=== PATIENT | male | born 1960 | race Native Hawaiian/Other Pacific Islander ===

== ENCOUNTER 2017-12-04 07:07 | Inpatient (IN) | payer BC ==
[2017-12-04 07:13] VITALS: BMI 20.1
--- NOTE | 2017-12-04 07:19 | ED PDOC ---
HPI: Chest Pain Time Seen by Provider: 12/04/17 07:10 History Per: Patient, Family (This is a 57 yo male with h/o DM and atherosclerotic heart disease who is referred to the ER for evaluation of pleuritic chest that that been ongoing for a few weeks. The pain is described as stabbing at times. He denies shortness of breath. He has had outpatient imaging that shows loculated collection in the left lower lobe. He denies cough or chills but has had low grade temps. He lives in [place] and is visiting family here when symptoms became more prominent. He has had travels to the [facility] but notes that he has had a negative Quantiferon TB Gold recently. He has been on ceftin and azithromycin for the past 5 days. ) History/Exam Limitations: no limitations Current Symptoms Are (Timing): Still Present Past Medical History Reviewed: Historical Data, Nursing Documentation, Vital Signs Vital Signs: Last Vital Signs Temp 99 F 12/04/17 07:14 Pulse 97 H 12/04/17 07:14 Resp 16 12/04/17 07:14 BP 126/69 12/04/17 07:14 Pulse Ox 92 L 12/04/17 07:14 - Medical History PMH: Diabetes, Hyperlipidemia - Surgical History Surgical History: No Surg Hx - Family History Family History: States: Other Other Family History: breast cancer in mother - Living Arrangements Living Arrangements: With Family - Social History Current smoker - smoking cessation education provided: Yes (last smoked in 1986) Ex-Smoker (has not smoked in the last 12 months): No Alcohol: Social - Allergies Allergies/Adverse Reactions: Allergies Allergy/AdvReac Type Severity Reaction Status Date / Time No Known Allergies Allergy Verified 12/04/17 07:31 Review of Systems ROS Statement: Except As Marked, All Systems Reviewed And Found Negative Constitutional: Positive for: Fever. Negative for: Chills Cardiovascular: Positive for: Chest Pain Respiratory: Negative for: Cough, Shortness of Breath Gastrointestinal: Negative for: Nausea, Vomiting Physical Exam - Reviewed Nursing Documentation Reviewed: Yes Vital Signs Reviewed: Yes - Physical Exam Appears: Positive for: Well, Non-toxic, No Acute Distress Head Exam: Positive for: ATRAUMATIC, NORMAL INSPECTION, NORMOCEPHALIC Skin: Positive for: Normal Color, Warm, DRY Eye Exam: Positive for: Normal appearance, EOMI, PERRL. Negative for: Conjunctival injection, Scleral icterus ENT: Positive for: Normal ENT Inspection Neck: Positive for: Normal, Painless ROM Cardiovascular/Chest: Positive for: Regular Rate, Rhythm Respiratory: Positive for: Decreased Breath Sounds (left base posterior with E to A changes. There dry crackles bilaterally.) Gastrointestinal/Abdominal: Positive for: Normal Exam, Soft Back: Positive for: Normal Inspection Extremity: Positive for: Normal ROM Neurologic/Psych: Positive for: Alert, Oriented Medical Decision Making Medical Decision Making: Patient has low grade temp along with what appears to be loculated collection in the left lower lobe on outpatient work. He has not improved despite 5 days of oral antibiotics. Will need admission for further evaluation and definite treatment plan. Disposition - Clinical Impression Clinical Impression: Encysted lung fluid, Fever - Patient ED Disposition Is Patient to be Admitted: Yes Doctor Will See Patient In The: Hospital - Disposition Disposition: Transfer of Care Disposition Time: 07:54 Condition: STABLE - Pt Status Changed To: Hospital Disposition Of: Inpatient - Admit Certification Admit to Inpatient:: After my assessment, the patient will require hospitalization for at least two midnights. This is because of the severity of symptoms shown, intensity of services needed, and/or the medical risk in this patient being treated as an outpatient. - POA Present On Arrival: None
[2017-12-04] MEDS ORDERED: Sodium Chloride 0.9% 1,000 ML IV STA (07:35)
[2017-12-04 08:04] LABS: BASO # 0.1 K/uL (0.0-0.2); BASO % 0.7 % (0.0-2.0); EOS # 0.1 K/uL (0.0-0.7); EOS % 0.7 % (0.0-4.0); HEMOGLOBIN 12.4 g/dL (12.0-18.0); LYMPH # 1.2 K/uL (1.0-4.3); LYMPH % 7.7 % (20.0-40.0); MEAN CELL VOLUME 86.9 fl (80.0-94.0); MEAN CORPUSCULAR HEMOGLOBIN 30.2 pg (27.0-31.0); MEAN CORPUSCULAR HGB CONC 34.7 g/dL (33.0-37.0); MEAN PLATELET VOLUME 6.7 fl (7.2-11.7); MONO # 1.5 K/uL (0.0-0.8); MONO % 9.5 % (0.0-10.0); NEUT # 13.3 K/uL (1.8-7.0); NEUT % 81.4 % (50.0-75.0); PLATELET COUNT 676 K/uL (130-400); RED CELL DISTRIBUTION WIDTH 13.1 % (11.5-14.5); WHITE BLOOD COUNT 16.3 K/uL (4.8-10.8)
[2017-12-04 08:10] LABS: INR 1.3 (0.9-1.2); PROTHROMBIN TIME 14.1 Seconds (9.8-13.1)
[2017-12-04 08:12] LABS: ABG ALLEN TEST YES; ARTERIAL BLOOD GAS HCO3 28.3 mmol/L (21-28); ARTERIAL BLOOD GAS O2 SAT 98.3 % (95-98); ARTERIAL BLOOD GAS PCO2 39 mm/Hg (35-45); ARTERIAL BLOOD GAS PH 7.47 (7.35-7.45); ARTERIAL BLOOD GAS PO2 75 mm/Hg (80-100); ARTERIAL BLOOD GAS TCO2 29.6 mmol/L (22-28)
[2017-12-04 08:14] LABS: ALB/GLOB RATIO 0.8 (1.0-2.1); ALBUMIN 3.3 g/dL (3.5-5.0); ALT/SGPT 66 U/L (21-72); AST/SGOT 46 U/L (17-59); BLOOD UREA NITROGEN 15 mg/dl (9-20); GFR AFRICAN-AMERICAN > 60; GFR NON-AFRICAN AMERICAN > 60
[2017-12-04] MEDS ORDERED: Insulin Regular 100 units/ml SC STA (08:22)
--- NOTE | 2017-12-04 08:55 | CP.PCM.HP ---
History of Present Illness - History of Present Illness History of Present Illness: This is a 57 y/o male with hx of DM 2, hyperlipidemia who started having LL chest pleuritic pain in the past three weeks associated with low grade fever. CXR showed a possible mass in the left lower lobe but CT scan showed a LLL atelectasis and encapsulated( cystic) LLL fluid collection He was started on Ceftin and zithromax but sx persisted. Recent travel was 2 years ago. Recent Quanterferon was negative. recent stress test was normal. Medical hx DM 2 A1c 7.2 Hyperlipidemia LDL: 121 No allergies. Present on Admission - Present on Admission Any Indicators Present on Admission: No History of DVT/PE: No History of Uncontrolled Diabetes: Yes Urinary Catheter: No Decubitus Ulcer Present: No Review of Systems - Respiratory Respiratory: Pain on Inspiration Additional comments: pleuritic pain in the LLL Past Patient History - Past Social History Alcohol: Social - CARDIAC Hx Cardiac Disorders: No - PULMONARY Hx Respiratory Disorders: No - NEUROLOGICAL Hx Neurological Disorder: No - HEENT Hx HEENT Problems: No - RENAL Hx Chronic Kidney Disease: No - ENDOCRINE/METABOLIC Hx Diabetes Mellitus Type 2: Yes - HEMATOLOGICAL/ONCOLOGICAL Hx Blood Disorders: No - INTEGUMENTARY Hx Dermatological Problems: No - MUSCULOSKELETAL/RHEUMATOLOGICAL Hx Musculoskeletal Disorders: No - GASTROINTESTINAL Hx Gastrointestinal Disorders: No - GENITOURINARY/GYNECOLOGICAL Hx Genitourinary Disorders: No - PSYCHIATRIC Hx Psychophysiologic Disorder: No Hx Substance Use: No Meds Allergies/Adverse Reactions: Allergies Allergy/AdvReac Type Severity Reaction Status Date / Time No Known Allergies Allergy Verified 12/04/17 07:31 Physical Exam - Head Exam Head Exam: NORMAL INSPECTION - Eye Exam Eye Exam: Normal appearance - ENT Exam ENT Exam: Mucous Membranes Moist - Respiratory Exam Respiratory Exam: Decreased Breath Sounds Additional comments: decreased breath sound in the LLL - Cardiovascular Exam Cardiovascular Exam: REGULAR RHYTHM - GI/Abdominal Exam GI & Abdominal Exam: Normal Bowel Sounds - Neurological Exam Neurological exam: CN II-XII Intact Results - Vital Signs Recent Vital Signs: Last Vital Signs Temp 99 F 12/04/17 07:14 Pulse 97 H 12/04/17 07:14 Resp 16 12/04/17 07:14 BP 126/69 12/04/17 07:14 Pulse Ox 92 L 12/04/17 07:14 - Labs Result Diagrams: 12/04/17 07:59 12/04/17 07:59 Labs: Laboratory Results - last 24 hr 12/04/17 12/04/17 12/04/17 07:44 07:59 07:59 WBC 16.3 H RBC 4.10 L Hgb 12.4 Hct 35.6 MCV 86.9 MCH 30.2 MCHC 34.7 RDW 13.1 Plt Count 676 H MPV 6.7 L Neut % (Auto) 81.4 H Lymph % (Auto) 7.7 L [place] % (Auto) 9.5 Eos % (Auto) 0.7 Baso % (Auto) 0.7 Neut # (Auto) 13.3 H Lymph # (Auto) 1.2 [place] # (Auto) 1.5 H Eos # (Auto) 0.1 Baso # (Auto) 0.1 PT INR APTT pCO2 39 pO2 75 L HCO3 28.3 H ABG pH 7.47 H ABG Total CO2 29.6 H ABG O2 Saturation 98.3 H ABG Base Excess 4.4 H Odin Test Yes ABG Potassium 4.1 A-a O2 Difference 26.0 Sodium 128.0 L 132 Chloride 93.0 L 92 L Glucose 372 H Lactate 2.2 H FiO2 21.0 Blood Gas Comments room air,rt radial Potassium 4.2 Carbon Dioxide 25 Anion Gap 19 BUN 15 Creatinine 0.7 L Est GFR ( Amer) > 60 Est GFR (Non-Af Amer) > 60 Random Glucose 370 H Calcium 9.0 Total Bilirubin 0.4 AST 46 ALT 66 Alkaline Phosphatase 233 H Total Protein 7.6 Albumin 3.3 L Globulin 4.3 H Albumin/Globulin Ratio 0.8 L Arterial Blood Potassium 4.1 12/04/17 07:59 WBC RBC Hgb Hct MCV MCH MCHC RDW Plt Count MPV Neut % (Auto) Lymph % (Auto) [place] % (Auto) Eos % (Auto) Baso % (Auto) Neut # (Auto) Lymph # (Auto) [place] # (Auto) Eos # (Auto) Baso # (Auto) PT 14.1 H INR 1.3 H APTT 35.0 pCO2 pO2 HCO3 ABG pH ABG Total CO2 ABG O2 Saturation ABG Base Excess Odin Test ABG Potassium A-a O2 Difference Sodium Chloride Glucose Lactate FiO2 Blood Gas Comments Potassium Carbon Dioxide Anion Gap BUN Creatinine Est GFR ( Amer) Est GFR (Non-Af Amer) Random Glucose Calcium Total Bilirubin AST ALT Alkaline Phosphatase Total Protein Albumin Globulin Albumin/Globulin Ratio Arterial Blood Potassium Assessment & Plan (1) Pleural effusion Status: Acute (2) Empyema lung Status: Acute (3) DM type 2 (diabetes mellitus, type 2) Status: Acute (4) Hyperlipidemia Status: Acute - Assessment and Plan (Free Text) Plan: IV antibiotics fluids consult pulmonary ID intrerventional for aspiration
[2017-12-04 09:19] LABS: URINE BILIRUBIN NEGATIVE (NEGATIVE); URINE BLOOD SMALL (NEGATIVE); URINE CLARITY CLEAR (Clear); URINE COLOR YELLOW (YELLOW); URINE GLUCOSE (UA) >=500 mg/dL (Normal); URINE LEUKOCYTE ESTERASE NEG Leu/uL (Negative); URINE PROTEIN 30 mg/dL (NEGATIVE); URINE UROBILINOGEN 0.2-1.0 mg/dL (0.2-1.0)
[2017-12-04] MEDS ORDERED: Insulin Regular 100 units/ml ONE (09:21)
[2017-12-04] MEDS ORDERED: levoFLOXacin 500 mg in D5W 500 MG/100 ML BAG IVPB ONE (09:21)
[2017-12-04] MEDS: levoFLOXacin 500 mg in D5W 500 MG/100 ML BAG IVPB SCH (09:28)
--- NOTE | 2017-12-04 09:33 | RAD ---
HISTORY: chest pain COMPARISON: No prior. TECHNIQUE: Chest PA and lateral FINDINGS: LUNGS: Left lower lobe infiltrate and pleural effusion identified completely silhouetting left hemidiaphragm. Infiltrate extends at the left perihilar region. No rice infiltrate or pleural effusion. No pneumothorax bilaterally. Cardiac silhouette is partially obscured by a left sided pulmonary disease with cardiomegaly not completely excluded. No pulmonary vascular congestion. PLEURA: As above. CARDIOVASCULAR: As above. OSSEOUS STRUCTURES: No significant abnormalities. VISUALIZED UPPER ABDOMEN: Normal. OTHER FINDINGS: None. IMPRESSION: Left lower lobe infiltrate and left pleural effusion are identified with no corresponding right pulmonary disease appreciated acutely. Cardiomegaly not completely excluded but evaluation the cardiac silhouette is obscured by left sided infiltrate/effusion.
--- NOTE | 2017-12-04 09:37 | CP.PCM.CON ---
History of Present Illness - History of Present Illness History of Present Illness: 57 YR OLD MALE REFERRED FOR PULMONARY EVALUATION BECAUSE OF LOW GRADE FEVER,L CHEST DISCOMFORT AND CXR/CT SCAN FINDING OF L LOCULATED PLEURAL EFFUSION.THE PT IS VISITING FROM [place] AND HAS AN UNREMARKABLE MEDICAL HISTORY EXCEPT FOR DIABETES Past Patient History - Past Social History Alcohol: Social - CARDIAC Hx Cardiac Disorders: No - PULMONARY Hx Respiratory Disorders: No - NEUROLOGICAL Hx Neurological Disorder: No - HEENT Hx HEENT Problems: No - RENAL Hx Chronic Kidney Disease: No - ENDOCRINE/METABOLIC Hx Diabetes Mellitus Type 2: Yes - HEMATOLOGICAL/ONCOLOGICAL Hx Blood Disorders: No - INTEGUMENTARY Hx Dermatological Problems: No - MUSCULOSKELETAL/RHEUMATOLOGICAL Hx Musculoskeletal Disorders: No - GASTROINTESTINAL Hx Gastrointestinal Disorders: No - GENITOURINARY/GYNECOLOGICAL Hx Genitourinary Disorders: No - PSYCHIATRIC Hx Psychophysiologic Disorder: No Hx Substance Use: No Meds Allergies/Adverse Reactions: Allergies Allergy/AdvReac Type Severity Reaction Status Date / Time No Known Allergies Allergy Verified 12/04/17 07:31 - Medications Medications: Current Medications Acetaminophen (Tylenol 325mg Tab) 650 mg PO Q4 PRN PRN Reason: Fever >100.4 F Sodium Chloride (Sodium Chloride 0.9%) 1,000 mls @ 100 mls/hr IV .Q10H STA Stop: 12/04/17 17:34 Last Admin: 12/04/17 08:17 Dose: 100 mls/hr Clindamycin in NS (Clindamycin 300 Mg/50 Ml-Ns) 300 mg in 50 mls @ 50 mls/hr IVPB Q8 [place]ORE[place] PRN Reason: Protocol Levofloxacin/Dextrose (Levaquin 500mg) 500 mg in 100 mls @ 100 mls/hr IVPB DAILY LORENA PRN Reason: Protocol Last Admin: 12/04/17 09:28 Dose: 100 mls/hr Physical Exam - Constitutional Appears: Well - Head Exam Head Exam: ATRAUMATIC, NORMAL INSPECTION, NORMOCEPHALIC - Eye Exam Eye Exam: EOMI, Normal appearance, PERRL Pupil Exam: NORMAL ACCOMODATION, PERRL - ENT Exam ENT Exam: Mucous Membranes Moist, Normal Exam - Neck Exam Neck exam: Positive for: Normal Inspection - Respiratory Exam Respiratory Exam: Decreased Breath Sounds, Clear to Auscultation Bilateral, NORMAL BREATHING PATTERN Additional comments: DULLNESS L BASE - Cardiovascular Exam Cardiovascular Exam: REGULAR RHYTHM - GI/Abdominal Exam GI & Abdominal Exam: Normal Bowel Sounds, Soft. absent: Tenderness - Rectal Exam Rectal Exam: NORMAL INSPECTION - Extremities Exam Extremities exam: Positive for: normal inspection - Back Exam Back exam: NORMAL INSPECTION - Neurological Exam Neurological exam: Alert, CN II-XII Intact, Normal Gait, Oriented x3, Reflexes Normal - Psychiatric Exam Psychiatric exam: Normal Affect, Normal Mood - Skin Skin Exam: Dry, Intact, Normal Color, Warm Results - Vital Signs Recent Vital Signs: Last Vital Signs Temp 99 F 12/04/17 07:14 Pulse 97 H 12/04/17 07:14 Resp 16 12/04/17 07:14 BP 126/69 12/04/17 07:14 Pulse Ox 92 L 12/04/17 07:14 - Labs Result Diagrams: 12/04/17 07:59 12/04/17 07:59 Labs: Laboratory Results - last 24 hr 12/04/17 12/04/17 12/04/17 07:44 07:59 07:59 WBC 16.3 H RBC 4.10 L Hgb 12.4 Hct 35.6 MCV 86.9 MCH 30.2 MCHC 34.7 RDW 13.1 Plt Count 676 H MPV 6.7 L Neut % (Auto) 81.4 H Lymph % (Auto) 7.7 L [place] % (Auto) 9.5 Eos % (Auto) 0.7 Baso % (Auto) 0.7 Neut # (Auto) 13.3 H Lymph # (Auto) 1.2 [place] # (Auto) 1.5 H Eos # (Auto) 0.1 Baso # (Auto) 0.1 PT INR APTT pCO2 39 pO2 75 L HCO3 28.3 H ABG pH 7.47 H ABG Total CO2 29.6 H ABG O2 Saturation 98.3 H ABG Base Excess 4.4 H Odin Test Yes ABG Potassium 4.1 A-a O2 Difference 26.0 Sodium 128.0 L 132 Chloride 93.0 L 92 L Glucose 372 H Lactate 2.2 H FiO2 21.0 Blood Gas Comments room air,rt radial Potassium 4.2 Carbon Dioxide 25 Anion Gap 19 BUN 15 Creatinine 0.7 L Est GFR ( Amer) > 60 Est GFR (Non-Af Amer) > 60 Random Glucose 370 H Calcium 9.0 Total Bilirubin 0.4 AST 46 ALT 66 Alkaline Phosphatase 233 H Total Protein 7.6 Albumin 3.3 L Globulin 4.3 H Albumin/Globulin Ratio 0.8 L Arterial Blood Potassium 4.1 Urine Color Urine Clarity Urine pH Ur Specific [place] Urine Protein Urine Glucose (UA) Urine Ketones Urine Blood Urine Nitrate Urine Bilirubin Urine Urobilinogen Ur Leukocyte Esterase Urine RBC (Auto) Urine Microscopic WBC 12/04/17 12/04/17 07:59 09:00 WBC RBC Hgb Hct MCV MCH MCHC RDW Plt Count MPV Neut % (Auto) Lymph % (Auto) [place] % (Auto) Eos % (Auto) Baso % (Auto) Neut # (Auto) Lymph # (Auto) [place] # (Auto) Eos # (Auto) Baso # (Auto) PT 14.1 H INR 1.3 H APTT 35.0 pCO2 pO2 HCO3 ABG pH ABG Total CO2 ABG O2 Saturation ABG Base Excess Odin Test ABG Potassium A-a O2 Difference Sodium Chloride Glucose Lactate FiO2 Blood Gas Comments Potassium Carbon Dioxide Anion Gap BUN Creatinine Est GFR ( Amer) Est GFR (Non-Af Amer) Random Glucose Calcium Total Bilirubin AST ALT Alkaline Phosphatase Total Protein Albumin Globulin Albumin/Globulin Ratio Arterial Blood Potassium Urine Color Yellow Urine Clarity Clear Urine pH 6.0 Ur Specific [place] 1.023 Urine Protein 30 Urine Glucose (UA) >=500 Urine Ketones Negative Urine Blood Small Urine Nitrate Negative Urine Bilirubin Negative Urine Urobilinogen 0.2-1.0 Ur Leukocyte Esterase Neg Urine RBC (Auto) 4 H Urine Microscopic WBC 1 Assessment & Plan - Assessment and Plan (Free Text) Assessment: LOCULATED L PLEURAL EFFUSION--PROBABLY PARAPNEUMONIC Plan: ULTRASOUND GUIDED THORACENTESES IV ANTIBIOTICS WILL CONTINUE TO FOLLOW - Date & Time Date: 12/04/17 Time: 09:40
[2017-12-04 09:47] LABS: BANDS 3 % (0-2); EOSINOPHIL 1 % (0-7); LYMPHOCYTE 8 % (20-50); MONOCYTE 5 % (0-10); NEUTROPHIL 81 % (42-75); PLATELET ESTIMATE INCREASED (NORMAL); REACTIVE LYMPHOCYTES 2 % (0-0); TOTAL CELLS COUNTED 100
[2017-12-04] MEDS ORDERED: LIDOCAINE 2% 10ML 20 MG/ML VIAL IJ ONE (11:06)
--- NOTE | 2017-12-04 12:04 | PCM.SURG1 ---
Surgeon's Initial Post Op Note - Surgeon's Notes Surgeon: Art Cuba MD Hand Deicer Element Winder: None Type of Anesthesia: Local Pre-Operative Diagnosis: empyema Operative Findings: complex left pleural effusion w/ septations. 8 guamanian pigtail chest tube placed Post-Operative Diagnosis: same Operation Performed: US guided LEFT chest tube insertion Specimen/Specimens Removed: 60 cc thick purulent appearing pleural fluid Estimated Blood Loss: EBL {In ML}: 3 Date of Surgery/Procedure: 12/04/17 Time of Surgery/Procedure: 11:45
--- NOTE | 2017-12-04 12:29 | CP.PCM.CON ---
History of Present Illness - History of Present Illness History of Present Illness: seen s/p drainage left lower lobe loculated effusion\ 57 y/o male started having LL chest pleuritic pain in the past three weeks associated with low grade fever. CXR showed a possible mass in the left lower lobe but CT scan showed a LLL atelectasis and encapsulated( cystic) LLL fluid collection He was started on Ceftin and zithromax but sx persisted. Recent travel was 2 years ago. Recent Quanterferon was negative. recent stress test was normal. Medical hx DM 2 A1c 7.2 Hyperlipidemia LDL: 121 No allergies. Review of Systems - Review of Systems All systems: reviewed and no additional remarkable complaints except - Constitutional Constitutional: Anorexia, Fatigue. absent: Weakness - EENT Eyes: As Per HPI. absent: Blind Spots, Blurred Vision, Change in Vision, Decreased Night Vision, Diplopia, Discharge, Dry Eye, Exophthalmos, Floaters, Irritation, Itchy Eyes, Loss of Peripheral Vision, Pain, Photophobia, Requires Corrective Lenses, Sees Flashes, Spots in Vision, Tunnel Vision, Other Visual Disturbances, Loss of Vision, Other Ears: absent: As Per HPI, Decreased Hearing, Ear Discharge, Ear Pain, Tinnitus, Abnormal Hearing, Disequilibrium, Dizziness, Other Nose/Mouth/Throat: As Per HPI. absent: Epistaxis, Nasal Congestion, Nasal Discharge, Nasal Obstruction, Nasal Trauma, Nose Pain, Post Nasal Drip, Sinus Pain, Sinus Pressure, Bleeding Gums, Change in Voice, Dental Pain, Dry Mouth, Dysphagia, Halitosis, Hoarsness, Lip Swelling, Mouth Lesions, Mouth Pain, Odynophagia, Sore Throat, Throat Swelling, Tongue Swelling, Facial Pain, Neck Pain, Neck Mass, Other - Cardiovascular Cardiovascular: absent: As Per HPI, Acrocyanosis, Chest Pain, Chest Pain at Rest , Chest Pain with Activity, Claudication, Diaphoresis, Dyspnea, Dyspnea on Exertion, Edema, Irregular Heart Rhythm, Pain Radiating to Arm/Neck/Jaw, Leg Edema, Leg Ulcers, Lightheadedness, Orthopnea, Palpitations, Paroxysmal Nocturnal Dyspnea, Pedal Edema, Radiating Pain, Rapid Heart Rate, Slow Heart Rate, Syncope, Other - Respiratory Respiratory: As Per HPI. absent: Hemoptysis - Gastrointestinal Gastrointestinal: absent: As Per HPI, Abdominal Pain, Belching, Bloating, Change in Bowel Habits, Change in Stool Character, Coffee Ground Emesis, Constipation, Cramping, Diarrhea, Dyspepsia, Dysphagia, Early Satiety, Excessive Flatus, Fecal Incontinence, Heartburn, Hematemesis, Hematochezia, Loose Stools, Melena, Nausea, Odynophagia, Temesmus, Vomiting, Other - Genitourinary Genitourinary: absent: As Per HPI, Change in Urinary Stream, Difficulty Urinating, Dysuria, Flank Pain, Hematuria, Pyuria, Nocturia, Urinary Incontinence, Urinary Frequency, Urinary Hesitance, Urinary Urgency, Voiding Freq/Small Amts, Freq UTI, Hx Renal/Bladder Calculi, Hx /Renal Surgery, Bladder Distension, Other - Musculoskeletal Musculoskeletal: As Per HPI - Integumentary Integumentary: absent: As Per HPI, Acne, Alopecia, Bleeding Lesions, Change in Hair, Change in Nails, Change in Pigmentation, Changing Lesions, Dry Skin, Erythema, Furuncle, Hirsutism, Lesions, New Lesions, Non-Healing Lesions, Photosensitivity, Pruritus, Rash, Skin Pain, Skin Ulcer, Sores, Striae, Swelling , Unusual Bruising, Wounds, Jaundice, Other - Neurological Neurological: absent: As Per HPI, Abnormal Gait, Abnormal Hearing, Abnormal Movements, Abnormal Speech, Behavioral Changes, Burning Sensations, Confusion, Convulsions, Disequilibrium, Dizziness, Numbness, Focal Weakness, Frequent Falls , Headaches, Lack of Coordination, Loss of Vision, Memory Loss, Paresthesias, Radicular Pain, Restless Legs, Sensory Deficit, Syncope, Tingling, Tremor, Vertigo, Weakness, Other Visual Disturbances, Other - Psychiatric Psychiatric: absent: As Per HPI, Abnormal Sleep Pattern, Anhedonia, Anxiety, Auditory Hallucinations, Behavioral Changes, Change in Appetite, Change in Libido, Confusion, Depression, Difficulty Concentrating, Hallucinations, Homicidal Ideation, Hopelessness, Irritability, Memory Loss, Mood Swings, Panic Attacks, Paranoia, Suicidal Ideation, Visual Hallucinations, Tactile Hallucinations, Other - Endocrine Endocrine: absent: As Per HPI, Change in Body Appearance, Change in Libido, Cold Intolorance, Deepening of Voice, Excessive Sweating, Fatigue, Flushing, Heat Intolorance, Increase in Ring/Shoe/Hat Size, Palpitations, Polydipsia, Polyphagia, Polyuria, Other - Hematologic/Lymphatic Hematologic: absent: As Per HPI, Easy Bleeding, Easy Bruising, Lymphadenopathy, Other Past Patient History - Past Social History Alcohol: Social - CARDIAC Hx Cardiac Disorders: No - PULMONARY Hx Respiratory Disorders: No - NEUROLOGICAL Hx Neurological Disorder: No - HEENT Hx HEENT Problems: No - RENAL Hx Chronic Kidney Disease: No - ENDOCRINE/METABOLIC Hx Diabetes Mellitus Type 2: Yes - HEMATOLOGICAL/ONCOLOGICAL Hx Blood Disorders: No - INTEGUMENTARY Hx Dermatological Problems: No - MUSCULOSKELETAL/RHEUMATOLOGICAL Hx Musculoskeletal Disorders: No - GASTROINTESTINAL Hx Gastrointestinal Disorders: No - GENITOURINARY/GYNECOLOGICAL Hx Genitourinary Disorders: No - PSYCHIATRIC Hx Psychophysiologic Disorder: No Meds Allergies/Adverse Reactions: Allergies Allergy/AdvReac Type Severity Reaction Status Date / Time No Known Allergies Allergy Verified 12/04/17 07:31 - Medications Medications: Current Medications Acetaminophen (Tylenol 325mg Tab) 650 mg PO Q4 PRN PRN Reason: Fever >100.4 F Sodium Chloride (Sodium Chloride 0.9%) 1,000 mls @ 100 mls/hr IV .Q10H STA Stop: 12/04/17 17:34 Last Admin: 12/04/17 08:17 Dose: 100 mls/hr Clindamycin in NS (Clindamycin 300 Mg/50 Ml-Ns) 300 mg in 50 mls @ 50 mls/hr IVPB Q8 LORENA PRN Reason: Protocol Levofloxacin/Dextrose (Levaquin 500mg) 500 mg in 100 mls @ 100 mls/hr IVPB DAILY LORENA PRN Reason: Protocol Last Admin: 12/04/17 09:28 Dose: 100 mls/hr Physical Exam - Constitutional Appears: Non-toxic, Chronically Ill - Head Exam Head Exam: NORMOCEPHALIC - Eye Exam Eye Exam: absent: Scleral icterus - ENT Exam ENT Exam: Mucous Membranes Dry, Normal External Ear Exam - Neck Exam Neck exam: Negative for: Lymphadenopathy - Respiratory Exam Respiratory Exam: Decreased Breath Sounds, Prolonged Expiratory Phase, Rales, Rhonchi. absent: Respiratory Distress - Cardiovascular Exam Cardiovascular Exam: REGULAR RHYTHM, +S1, +S2 - GI/Abdominal Exam GI & Abdominal Exam: Diminished Bowel Sounds, Distended, Soft. absent: Rebound , Rigid, Tenderness - Rectal Exam Rectal Exam: Deferred - Exam Exam: NORMAL INSPECTION - Extremities Exam Extremities exam: Negative for: pedal edema - Back Exam Back exam: absent: CVA tenderness (L), CVA tenderness (R) - Neurological Exam Neurological exam: Alert, CN II-XII Intact, Oriented x3, Reflexes Normal - Psychiatric Exam Psychiatric exam: Normal Mood - Skin Skin Exam: Dry, Intact Results - Vital Signs Recent Vital Signs: Last Vital Signs Temp 101.0 F H 12/04/17 12:17 Pulse 98 H 12/04/17 12:17 Resp 18 12/04/17 12:17 BP 119/60 12/04/17 12:17 Pulse Ox 97 12/04/17 12:17 - Labs Result Diagrams: 12/04/17 07:59 12/04/17 07:59 Labs: Laboratory Results - last 24 hr 12/04/17 12/04/17 12/04/17 07:44 07:59 07:59 WBC 16.3 H RBC 4.10 L Hgb 12.4 Hct 35.6 MCV 86.9 MCH 30.2 MCHC 34.7 RDW 13.1 Plt Count 676 H MPV 6.7 L Neut % (Auto) 81.4 H Lymph % (Auto) 7.7 L Bremer % (Auto) 9.5 Eos % (Auto) 0.7 Baso % (Auto) 0.7 Neut # (Auto) 13.3 H Lymph # (Auto) 1.2 Bremer # (Auto) 1.5 H Eos # (Auto) 0.1 Baso # (Auto) 0.1 Neutrophils % (Manual) 81 H Band Neutrophils % 3 H Lymphocytes % (Manual) 8 L Reactive Lymphs % 2 H Monocytes % (Manual) 5 Eosinophils % (Manual) 1 Platelet Estimate Increased H ESR PT INR APTT pCO2 39 pO2 75 L HCO3 28.3 H ABG pH 7.47 H ABG Total CO2 29.6 H ABG O2 Saturation 98.3 H ABG Base Excess 4.4 H Odin Test Yes ABG Potassium 4.1 A-a O2 Difference 26.0 Sodium 128.0 L 132 Chloride 93.0 L 92 L Glucose 372 H Lactate 2.2 H FiO2 21.0 Blood Gas Comments room air,rt radial Potassium 4.2 Carbon Dioxide 25 Anion Gap 19 BUN 15 Creatinine 0.7 L Est GFR ( Amer) > 60 Est GFR (Non-Af Amer) > 60 Random Glucose 370 H Calcium 9.0 Total Bilirubin 0.4 AST 46 ALT 66 Alkaline Phosphatase 233 H Total Protein 7.6 Albumin 3.3 L Globulin 4.3 H Albumin/Globulin Ratio 0.8 L Arterial Blood Potassium 4.1 Urine Color Urine Clarity Urine pH Ur Specific [place] Urine Protein Urine Glucose (UA) Urine Ketones Urine Blood Urine Nitrate Urine Bilirubin Urine Urobilinogen Ur Leukocyte Esterase Urine RBC (Auto) Urine Microscopic WBC 12/04/17 12/04/17 12/04/17 07:59 09:00 09:46 WBC RBC Hgb Hct MCV MCH MCHC RDW Plt Count MPV Neut % (Auto) Lymph % (Auto) Bremer % (Auto) Eos % (Auto) Baso % (Auto) Neut # (Auto) Lymph # (Auto) Bremer # (Auto) Eos # (Auto) Baso # (Auto) Neutrophils % (Manual) Band Neutrophils % Lymphocytes % (Manual) Reactive Lymphs % Monocytes % (Manual) Eosinophils % (Manual) Platelet Estimate ESR 101 H PT 14.1 H INR 1.3 H APTT 35.0 pCO2 pO2 HCO3 ABG pH ABG Total CO2 ABG O2 Saturation ABG Base Excess Odin Test ABG Potassium A-a O2 Difference Sodium Chloride Glucose Lactate FiO2 Blood Gas Comments Potassium Carbon Dioxide Anion Gap BUN Creatinine Est GFR ( Amer) Est GFR (Non-Af Amer) Random Glucose Calcium Total Bilirubin AST ALT Alkaline Phosphatase Total Protein Albumin Globulin Albumin/Globulin Ratio Arterial Blood Potassium Urine Color Yellow Urine Clarity Clear Urine pH 6.0 Ur Specific [place] 1.023 Urine Protein 30 Urine Glucose (UA) >=500 Urine Ketones Negative Urine Blood Small Urine Nitrate Negative Urine Bilirubin Negative Urine Urobilinogen 0.2-1.0 Ur Leukocyte Esterase Neg Urine RBC (Auto) 4 H Urine Microscopic WBC 1 Assessment & Plan (1) DM type 2 (diabetes mellitus, type 2) Status: Acute (2) Empyema lung Status: Acute (3) Fever Status: Acute (4) Pleural effusion Status: Acute - Assessment and Plan (Free Text) Assessment: s/p CT drainage of empyema cont IV antibiotics await cultures started on Clinda/ Levaquin works in CT concern for Hosp acquired organisms will add Cristian
[2017-12-04] MEDS ORDERED: Sodium Chloride 3% for Inhalation 4 ML VIAL.NEB IH PRN (12:45)
[2017-12-04] MEDS: Oxycodone/Acetaminophen 5/325 mg Tab PO PRN ×3 (13:29→19:29)
[2017-12-04] MEDS: Dextrose 5%/Lactated Ringer's 1,000 ML IV SCH (13:31)
[2017-12-04 14:05] LABS: TOTAL PROTEIN,BODY FLUID 2.7 g/dL (NONE ESTABLISHED)
[2017-12-04] MEDS: Clindamycin in NS 300 MG/50 ML BAG IVPB SCH ×2 (15:57→15:59)
--- NOTE | 2017-12-04 16:38 | CARD ---
APPROVED REPORT EXAM: Two-dimensional and M-mode echocardiogram with Doppler and color Doppler. Other Information Quality : GoodRhythm : NSR INDICATION Infection:Subacute bacterial endocarditis 2D DIMENSIONS IVSd0.98 (0.7-1.1cm)LVDd4.03 (3.9-5.9cm) LVOT Diameter1.59 (1.8-2.4cm)PWd1.03 (0.7-1.1cm) IVSs1.09 (0.8-1.2cm)LVDs2.93 (2.5-4.0cm) FS (%) 27.4 %PWs1.41 (0.8-1.2cm) M-Mode DIMENSIONS Left Atrium (MM)3.24 (2.5-4.0cm)IVSd1.09 (0.7-1.1cm) Aortic Root3.09 (2.2-3.7cm)LVDd4.74 (4.0-5.6cm) Aortic Cusp Exc.1.53 (1.5-2.0cm)PWd1.00 (0.7-1.1cm) IVSs1.09 cmFS (%) 36 % LVDs3.03 (2.0-3.8cm)PWs1.29 cm Mitral Valve MV E Kmkhbxqd17.5cm/sMV DECEL [id number] A Iqvnrdty35.9cm/s MV [id number] ratio1.1MVA (PHT)4.36cm2 TDI Lateral E' Peak V12.14cm/sMedial E' Peak V8.88cm/sE/Lateral E'5.5 E/Medial E'7.5 Pulmonary Valve PV Peak Kcdwatrn377.1cm/s LEFT VENTRICLE The left ventricle is normal in size. There is normal left ventricular wall thickness. Left ventricle systolic function is low normal. The Ejection Fraction is 50-55%. low normal The left ventricular diastolic function is normal. No left ventricle thrombus noted on this study. There is no ventricular septal defect visualized. There is no left ventricular aneurysm. There is no mass noted in the left ventricle. RIGHT VENTRICLE The right ventricle is normal size. There is normal right ventricular wall thickness. The right ventricular systolic function is normal. ATRIA The left atrium size is normal. There is no thrombus suspected in the left atrium. The right atrium size is normal. The interatrial septum is intact with no evidence for an atrial septal defect. AORTIC VALVE The aortic valve is normal in structure. No aortic regurgitation is present. There is no aortic valvular stenosis. There is no aortic valvular vegetation. MITRAL VALVE The mitral valve is normal in structure. There is no evidence of mitral valve prolapse. There is no mitral valve stenosis. There is no mitral valve regurgitation noted. TRICUSPID VALVE The tricuspid valve is normal in structure. There is no tricuspid valve regurgitation noted. There is no tricuspid valve prolapse or vegetation. There is no tricuspid valve stenosis. PULMONIC VALVE The pulmonary valve is normal in structure. There is no pulmonic valvular regurgitation. GREAT VESSELS The aortic root is normal in size. The IVC is normal in size and collapses >50% with inspiration. PERICARDIAL EFFUSION The pericardium appears normal. There appears to be a pleural effusion. <Conclusion> The left ventricle is normal in size and wall thickness. Left ventricle systolic function is low normal. The Ejection Fraction is 50-55%. The left atrium, right ventricle and right atrium are normal in size. The mitral, aortic and tricuspid valves are normal. No valvular vegetations were seen.
[2017-12-04] MEDS: Lactobacillus Acidophilus 500 MU Cap PO SCH (17:09)
--- NOTE | 2017-12-04 17:09 | CARD ---
APPROVED REPORT EKG Measurement Heart [id number] <Conclusion> Normal sinus rhythm Normal ECG
[2017-12-04] MEDS: Insulin Regular 100 units/ml SC SCH ×2 (17:28→22:00)
[2017-12-05] MEDS: Insulin Regular 100 units/ml SC SCH ×4 (06:39→23:05)
[2017-12-05] MEDS: Dextrose 5%/Lactated Ringer's 1,000 ML IV SCH (06:42)
[2017-12-05 07:42] LABS: BASO # 0.1 K/uL (0.0-0.2); BASO % 0.7 % (0.0-2.0); EOS % 0.2 % (0.0-4.0); HEMOGLOBIN 12.4 g/dL (12.0-18.0); LYMPH # 1.2 K/uL (1.0-4.3); LYMPH % 6.8 % (20.0-40.0); MEAN CELL VOLUME 86.9 fl (80.0-94.0); MEAN CORPUSCULAR HEMOGLOBIN 29.9 pg (27.0-31.0); MEAN CORPUSCULAR HGB CONC 34.4 g/dL (33.0-37.0); MEAN PLATELET VOLUME 6.9 fl (7.2-11.7); MONO # 1.7 K/uL (0.0-0.8); MONO % 9.7 % (0.0-10.0); NEUT # 14.8 K/uL (1.8-7.0); NEUT % 82.6 % (50.0-75.0); RBC 4.15 Mil/uL (4.40-5.90); RED CELL DISTRIBUTION WIDTH 12.9 % (11.5-14.5)
[2017-12-05 07:47] LABS: ALB/GLOB RATIO 0.8 (1.0-2.1); ALBUMIN 3.2 g/dL (3.5-5.0); ALT/SGPT 55 U/L (21-72); AST/SGOT 40 U/L (17-59); BLOOD UREA NITROGEN 10 mg/dl (9-20); CALCIUM 8.7 mg/dL (8.4-10.2); GFR AFRICAN-AMERICAN > 60; GFR NON-AFRICAN AMERICAN > 60
[2017-12-05 08:24] LABS: BASO # 0.1 K/uL (0.0-0.2); BASO % 0.7 % (0.0-2.0); EOS % 0.2 % (0.0-4.0); HEMOGLOBIN 12.1 g/dL (12.0-18.0); LYMPH % 5.8 % (20.0-40.0); MEAN CELL VOLUME 86.5 fl (80.0-94.0); MEAN CORPUSCULAR HEMOGLOBIN 29.7 pg (27.0-31.0); MEAN CORPUSCULAR HGB CONC 34.3 g/dL (33.0-37.0); MEAN PLATELET VOLUME 6.6 fl (7.2-11.7); MONO # 1.5 K/uL (0.0-0.8); MONO % 8.3 % (0.0-10.0); NEUT # 15.2 K/uL (1.8-7.0); RBC 4.06 Mil/uL (4.40-5.90); RED CELL DISTRIBUTION WIDTH 12.9 % (11.5-14.5); WHITE BLOOD COUNT 17.9 K/uL (4.8-10.8)
[2017-12-05 08:36] LABS: HDL CHOLESTEROL 13 MG/DL (30-70)
[2017-12-05 08:48] LABS: LDL CHOLESTEROL 66 mg/dL (0-129)
[2017-12-05] MEDS: Oxycodone/Acetaminophen 5/325 mg Tab PO PRN ×2 (09:28→23:03)
[2017-12-05] MEDS: Lactobacillus Acidophilus 500 MU Cap PO SCH ×2 (09:29→16:37)
--- NOTE | 2017-12-05 09:59 | US ---
HISTORY: abnormal alp COMPARISON: None. TECHNIQUE: Sonographic evaluation of the abdomen. FINDINGS: LIVER: Measures 13.6 cm. Normal echogenicity of the liver parenchyma. No mass. No intrahepatic bile duct dilatation. GALLBLADDER: Unremarkable. No gallstones. COMMON BILE DUCT: Measures 3.5 mm. No stones. No dilatation. PANCREAS: The tail of the pancreas is obscured by overlying bowel gas with remainder unremarkable. RIGHT KIDNEY: Measures 11.8cm. Normal echogenicity. No calculus, mass, or hydronephrosis. LEFT KIDNEY: Measures 11.2cm. Normal echogenicity. No calculus, mass, or hydronephrosis. SPLEEN: Normal in size and contour. No mass. AORTA: No aneurysmal dilatation. IVC: Unremarkable. OTHER FINDINGS: None. IMPRESSION: Tibial FX is obscured somewhat by overlying bowel gas with remainder of the pancreas unremarkable appearing. Unremarkable abdomen ultrasound exam otherwise.
--- NOTE | 2017-12-05 10:02 | CP.PCM.PN ---
Subjective - Date & Time of Evaluation Date of Evaluation: 12/05/17 Time of Evaluation: 10:02 - Subjective Subjective: S/P CHESTS TUBE PLACEMENT FOR LOCULATED PLEURAL EFFUSION SWEATING ALOT Objective - Vital Signs/Intake and Output Vital Signs (last 24 hours): Temp Pulse Resp BP Pulse Ox 99.5 F 79 18 110/66 95 12/05/17 09:00 12/05/17 09:00 12/05/17 09:00 12/05/17 09:00 12/05/17 09:00 Intake and Output: 12/05/17 12/05/17 06:59 18:59 Intake Total 1400 Output Total 50 910 Balance -50 490 - Medications Medications: Current Medications Acetaminophen (Tylenol 325mg Tab) 650 mg PO Q4 PRN PRN Reason: Fever >100.4 F Clindamycin in NS (Clindamycin 300 Mg/50 Ml-Ns) 300 mg in 50 mls @ 50 mls/hr IVPB Q8 OLRENA PRN Reason: Protocol Last Admin: 12/05/17 00:00 Dose: 50 mls/hr Levofloxacin/Dextrose (Levaquin 500mg) 500 mg in 100 mls @ 100 mls/hr IVPB DAILY LORENA PRN Reason: Protocol Last Admin: 12/04/17 09:28 Dose: 100 mls/hr Vancomycin HCl 1 gm/ Sodium (Chloride) 250 mls @ 166.667 mls/hr IVPB Q12H LORENA PRN Reason: Protocol Last Admin: 12/05/17 01:11 Dose: 166.667 mls/hr Dextrose/Lactated Ringer's (Dextrose 5%/Lactated Ringer's) 1,000 mls @ 80 mls/ hr IV [id number] [facility] Stop: 12/05/17 13:19 Last Admin: 12/05/17 06:42 Dose: 80 mls/hr Insulin Human Regular (Humulin R) 0 units SC ACHS LORENA PRN Reason: Protocol Last Admin: 12/05/17 06:39 Dose: 3 units Lactobacillus Acidophilus (Bacid Acidophilus) 1 cap PO BID [facility] Last Admin: 12/05/17 09:29 Dose: 1 cap Ondansetron HCl (Zofran Odt) 4 mg PO Q6 PRN PRN Reason: Nausea/Vomiting Oxycodone/Acetaminophen (Percocet 5/325 Mg Tab) 1 tab PO Q4 PRN PRN Reason: Pain, moderate (4-7) Stop: 12/07/17 13:17 Last Admin: 12/04/17 13:59 Dose: 1 tab Oxycodone/Acetaminophen (Percocet 5/325 Mg Tab) 2 tab PO Q4 PRN PRN Reason: Pain, severe (8-10) Stop: 12/07/17 13:18 Last Admin: 12/05/17 09:28 Dose: 2 tab - Labs Labs: 12/05/17 08:17 12/05/17 05:30 PT 14.1 Seconds (9.8-13.1) H 12/04/17 07:59 INR 1.3 (0.9-1.2) H 12/04/17 07:59 APTT 35.0 Seconds (25.6-37.1) 12/04/17 07:59 - Constitutional Appears: No Acute Distress - Head Exam Head Exam: ATRAUMATIC, NORMAL INSPECTION, NORMOCEPHALIC - Eye Exam Eye Exam: EOMI, Normal appearance, PERRL Pupil Exam: NORMAL ACCOMODATION, PERRL - ENT Exam ENT Exam: Mucous Membranes Moist, Normal Exam - Neck Exam Neck Exam: Full ROM, Normal Inspection. absent: Lymphadenopathy - Respiratory Exam Respiratory Exam: Decreased Breath Sounds, Prolonged Expiratory Phase, Rales, NORMAL BREATHING PATTERN - Cardiovascular Exam Cardiovascular Exam: REGULAR RHYTHM, +S1, +S2. absent: Murmur - GI/Abdominal Exam GI & Abdominal Exam: Soft, Normal Bowel Sounds. absent: Tenderness - Rectal Exam Rectal Exam: NORMAL INSPECTION - Extremities Exam Extremities Exam: Full ROM, Normal Capillary Refill, Normal Inspection. absent : Joint Swelling, Pedal Edema - Back Exam Back Exam: NORMAL INSPECTION - Neurological Exam Neurological Exam: Alert, Awake, CN II-XII Intact, Normal Gait, Oriented x3 - Psychiatric Exam Psychiatric exam: Normal Affect, Normal Mood - Skin Skin Exam: Dry, Intact, Normal Color, Warm Assessment and Plan - Assessment and Plan (Free Text) Assessment: LOCULATED EXUDATIVE PLEURAL EFFUSION[EMPYEMA] Plan: THORACIC SURGERY CONSULT--RE-?DECORTICATION CONTINUE ANTIBIOTIC RX
[2017-12-05] MEDS: Clindamycin in NS 300 MG/50 ML BAG IVPB SCH ×3 (11:16→16:37)
[2017-12-05] MEDS: levoFLOXacin 500 mg in D5W 500 MG/100 ML BAG IVPB SCH (11:17)
--- NOTE | 2017-12-05 11:38 | CP.PCM.CON ---
History of Present Illness - History of Present Illness History of Present Illness: Cardiothoracic Surgery Consult Re: L Empyema HPI: 57M complaining of 2-3 weeks of L back and side along lower ribs. Thought he sprained his back, but the sharp pains have persisted and he began to have low grade fevers. He ended up getting an outpt CT scan showing a fluid collection on the left vs a mass. IR chest tube placed yesterday got purulent material out. Currently, pain is controlled with meds. Denies F/C , N/V/D, cough , sputum, abdominal pain, dysuria, hematuria. 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 PMH: DM, HLD PSH: Denies SH: Quit smoking in 's, Occasional EtOH, no drug use FH: Breast CA, Mother All: NKDA Meds: See MAR Review of Systems - Review of Systems All systems: reviewed and no additional remarkable complaints except (as per hpi ) Past Patient History - Past Medical History & Family History Past Medical History?: Yes - Past Social History Smoking Status: Former Smoker - CARDIAC Hx Cardiac Disorders: No - PULMONARY Hx Respiratory Disorders: No - NEUROLOGICAL Hx Neurological Disorder: No - HEENT Hx HEENT Problems: No - RENAL Hx Chronic Kidney Disease: No - ENDOCRINE/METABOLIC Hx Diabetes Mellitus Type 2: Yes - HEMATOLOGICAL/ONCOLOGICAL Hx Blood Disorders: No - INTEGUMENTARY Hx Dermatological Problems: No - MUSCULOSKELETAL/RHEUMATOLOGICAL Hx Falls: No - GASTROINTESTINAL Hx Gastrointestinal Disorders: No - GENITOURINARY/GYNECOLOGICAL Hx Genitourinary Disorders: No - PSYCHIATRIC Hx Substance Use: No - ANESTHESIA Hx Anesthesia: No Hx Anesthesia Reactions: No Has any member of the family had a problem w/ anesthesia?: No Meds Allergies/Adverse Reactions: Allergies Allergy/AdvReac Type Severity Reaction Status Date / Time No Known Allergies Allergy Verified 12/04/17 07:31 - Medications Medications: Current Medications Acetaminophen (Tylenol 325mg Tab) 650 mg PO Q4 PRN PRN Reason: Fever >100.4 F Clindamycin in NS (Clindamycin 300 Mg/50 Ml-Ns) 300 mg in 50 mls @ 50 mls/hr IVPB Q8 [facility] PRN Reason: Protocol Last Admin: 12/05/17 11:16 Dose: 50 mls/hr Levofloxacin/Dextrose (Levaquin 500mg) 500 mg in 100 mls @ 100 mls/hr IVPB DAILY [facility] PRN Reason: Protocol Last Admin: 12/05/17 11:17 Dose: 100 mls/hr Vancomycin HCl 1 gm/ Sodium (Chloride) 250 mls @ 166.667 mls/hr IVPB Q12H [facility] PRN Reason: Protocol Last Admin: 12/05/17 01:11 Dose: 166.667 mls/hr Dextrose/Lactated Ringer's (Dextrose 5%/Lactated Ringer's) 1,000 mls @ 80 mls/ hr IV .[id number] [facility] Stop: 12/05/17 13:19 Last Admin: 12/05/17 06:42 Dose: 80 mls/hr Insulin Human Regular (Humulin R) 0 units SC ACHS [facility] PRN Reason: Protocol Last Admin: 12/05/17 06:39 Dose: 3 units Lactobacillus Acidophilus (Bacid Acidophilus) 1 cap PO BID [facility] Last Admin: 12/05/17 09:29 Dose: 1 cap Ondansetron HCl (Zofran Odt) 4 mg PO Q6 PRN PRN Reason: Nausea/Vomiting Oxycodone/Acetaminophen (Percocet 5/325 Mg Tab) 1 tab PO Q4 PRN PRN Reason: Pain, moderate (4-7) Stop: 12/07/17 13:17 Last Admin: 12/04/17 13:59 Dose: 1 tab Oxycodone/Acetaminophen (Percocet 5/325 Mg Tab) 2 tab PO Q4 PRN PRN Reason: Pain, severe (8-10) Stop: 12/07/17 13:18 Last Admin: 12/05/17 09:28 Dose: 2 tab Physical Exam - Constitutional Appears: Non-toxic, No Acute Distress - Head Exam Head Exam: ATRAUMATIC, NORMOCEPHALIC - Eye Exam Eye Exam: EOMI. absent: Scleral icterus - ENT Exam ENT Exam: Mucous Membranes Moist Additional comments: trachea midline - Respiratory Exam Respiratory Exam: NORMAL BREATHING PATTERN. absent: Respiratory Distress Additional comments: pigtail drain in place with pleural fluid with sediment in collection vac - Cardiovascular Exam Cardiovascular Exam: RRR, +S1, +S2 - GI/Abdominal Exam GI & Abdominal Exam: Soft. absent: Distended, Guarding, Tenderness - Rectal Exam Rectal Exam: Deferred - Extremities Exam Extremities exam: Positive for: normal capillary refill. Negative for: calf tenderness - Back Exam Back exam: absent: CVA tenderness (L), CVA tenderness (R) - Neurological Exam Neurological exam: Alert, Oriented x3 - Skin Skin Exam: Dry, Warm Results - Vital Signs Recent Vital Signs: Last Vital Signs Temp 99.5 F 12/05/17 09:00 Pulse 79 12/05/17 09:00 Resp 18 12/05/17 09:00 BP 110/66 12/05/17 09:00 Pulse Ox 95 12/05/17 09:00 - Labs Result Diagrams: 12/05/17 08:17 12/05/17 05:30 Labs: Laboratory Results - last 24 hr 12/04/17 12/04/17 12/04/17 13:25 13:25 14:59 WBC RBC Hgb Hct MCV MCH MCHC RDW Plt Count MPV Neut % (Auto) Lymph % (Auto) Fisher % (Auto) Eos % (Auto) Baso % (Auto) Neut # (Auto) Lymph # (Auto) Fisher # (Auto) Eos # (Auto) Baso # (Auto) Sodium Potassium Chloride Carbon Dioxide Anion Gap BUN Creatinine Est GFR ( Amer) Est GFR (Non-Af Amer) POC Glucose (mg/dL) Random Glucose Calcium Total Bilirubin AST ALT Alkaline Phosphatase Total Protein Albumin Globulin Albumin/Globulin Ratio Triglycerides Cholesterol LDL Cholesterol Direct HDL Cholesterol Alpha Fetoprotein Carcinoembryonic Ag Prostate Specific Ag Procalcitonin 0.19 TSH 3rd Generation Fluid Glucose 78 Fluid Total Protein 2.7 Fluid LDH [id number] 12/04/17 12/04/17 12/05/17 17:09 22:01 05:30 WBC 18.0 H RBC 4.15 L Hgb 12.4 Hct 36.0 MCV 86.9 MCH 29.9 MCHC 34.4 RDW 12.9 Plt Count 672 H MPV 6.9 L Neut % (Auto) 82.6 H Lymph % (Auto) 6.8 L Fisher % (Auto) 9.7 Eos % (Auto) 0.2 Baso % (Auto) 0.7 Neut # (Auto) 14.8 H Lymph # (Auto) 1.2 Fisher # (Auto) 1.7 H Eos # (Auto) 0.0 Baso # (Auto) 0.1 Sodium Potassium Chloride Carbon Dioxide Anion Gap BUN Creatinine Est GFR ( Amer) Est GFR (Non-Af Amer) POC Glucose (mg/dL) 219 H 229 H Random Glucose Calcium Total Bilirubin AST ALT Alkaline Phosphatase Total Protein Albumin Globulin Albumin/Globulin Ratio Triglycerides Cholesterol LDL Cholesterol Direct HDL Cholesterol Alpha Fetoprotein Carcinoembryonic Ag Prostate Specific Ag Procalcitonin TSH 3rd Generation Fluid Glucose Fluid Total Protein Fluid LDH 12/05/17 12/05/17 12/05/17 05:30 05:46 08:17 WBC 17.9 H RBC 4.06 L Hgb 12.1 Hct 35.1 MCV 86.5 MCH 29.7 MCHC 34.3 RDW 12.9 Plt Count 663 H MPV 6.6 L Neut % (Auto) 85.0 H Lymph % (Auto) 5.8 L Fisher % (Auto) 8.3 Eos % (Auto) 0.2 Baso % (Auto) 0.7 Neut # (Auto) 15.2 H Lymph # (Auto) 1.0 Fisher # (Auto) 1.5 H Eos # (Auto) 0.0 Baso # (Auto) 0.1 Sodium 132 Potassium 4.2 Chloride 93 L Carbon Dioxide 32 H Anion Gap 11 BUN 10 Creatinine 0.8 Est GFR ( Amer) > 60 Est GFR (Non-Af Amer) > 60 POC Glucose (mg/dL) 277 H Random Glucose 291 H Calcium 8.7 Total Bilirubin 0.5 AST 40 ALT 55 Alkaline Phosphatase 218 H Total Protein 7.1 Albumin 3.2 L Globulin 4.0 H Albumin/Globulin Ratio 0.8 L Triglycerides Cholesterol LDL Cholesterol Direct HDL Cholesterol Alpha Fetoprotein Carcinoembryonic Ag Prostate Specific Ag Procalcitonin TSH 3rd Generation Fluid Glucose Fluid Total Protein Fluid LDH 12/05/17 12/05/17 08:17 08:17 WBC RBC Hgb Hct MCV MCH MCHC RDW Plt Count MPV Neut % (Auto) Lymph % (Auto) Fisher % (Auto) Eos % (Auto) Baso % (Auto) Neut # (Auto) Lymph # (Auto) Fisher # (Auto) Eos # (Auto) Baso # (Auto) Sodium Potassium Chloride Carbon Dioxide Anion Gap BUN Creatinine Est GFR ( Amer) Est GFR (Non-Af Amer) POC Glucose (mg/dL) Random Glucose Calcium Total Bilirubin AST ALT Alkaline Phosphatase Total Protein Albumin Globulin Albumin/Globulin Ratio Triglycerides 90 Cholesterol 103 LDL Cholesterol Direct 66 HDL Cholesterol 13 L Alpha Fetoprotein 1.1 Carcinoembryonic Ag 4.4 H Prostate Specific Ag 0.886 Procalcitonin TSH 3rd Generation 0.30 L Fluid Glucose Fluid Total Protein Fluid LDH - Imaging and Cardiology CT scan - chest Status: Image reviewed by me Chest x-ray Status: Image reviewed by me, Report reviewed by me US - abdomen Status: Image reviewed by me, Report reviewed by me Assessment & Plan - Assessment and Plan (Free Text) Assessment: 57M with empyema Plan: CT with IV contrast to evaluate post drainage Planning decortication in OR Tomorrow Need medical clearance Abx Analgesia I&Os D/W Dr. Brii Cohen PGY4
--- NOTE | 2017-12-05 13:37 | CP.PCM.PN ---
Subjective - Date & Time of Evaluation Date of Evaluation: 12/05/17 Time of Evaluation: 13:27 - Subjective Subjective: Reason for consultation: Empyema, left. Requested by Dr. An. 57 yo male with pmh of dm, who presented with 2-3 wks hx of left sided chest pain +low grade fevers. Outside imaging study: Left lower lobe atelectasis and pleural effusion, loculated. lR pigtail cath drainage under sono gluidance:60cc of exudate( result of analysis pending). Currently T=100+, wbc-17k. No sob. I am inclined to recommend decortication and bx of lung and pleura. Will need another ct with contrast. For surgery tomorrow provided OR time is available. Will discuss with Dr. Null and Juve. F to F: 2 hours. Objective - Vital Signs/Intake and Output Vital Signs (last 24 hours): Temp Pulse Resp BP Pulse Ox 99.5 F 79 18 110/66 95 12/05/17 09:00 12/05/17 09:00 12/05/17 09:00 12/05/17 09:00 12/05/17 09:00 Intake and Output: 12/05/17 12/05/17 06:59 18:59 Intake Total 1400 Output Total 50 910 Balance -50 490 - Medications Medications: Current Medications Acetaminophen (Tylenol 325mg Tab) 650 mg PO Q4 PRN PRN Reason: Fever >100.4 F Clindamycin in NS (Clindamycin 300 Mg/50 Ml-Ns) 300 mg in 50 mls @ 50 mls/hr IVPB Q8 [facility] PRN Reason: Protocol Last Admin: 12/05/17 11:16 Dose: 50 mls/hr Levofloxacin/Dextrose (Levaquin 500mg) 500 mg in 100 mls @ 100 mls/hr IVPB DAILY [facility] PRN Reason: Protocol Last Admin: 12/05/17 11:17 Dose: 100 mls/hr Vancomycin HCl 1 gm/ Sodium (Chloride) 250 mls @ 166.667 mls/hr IVPB Q12H [facility] PRN Reason: Protocol Last Admin: 12/05/17 01:11 Dose: 166.667 mls/hr Insulin Human Regular (Humulin R) 0 units SC ACHS [facility] PRN Reason: Protocol Last Admin: 12/05/17 13:07 Dose: 4 units Lactobacillus Acidophilus (Bacid Acidophilus) 1 cap PO BID [facility] Last Admin: 12/05/17 09:29 Dose: 1 cap Ondansetron HCl (Zofran Odt) 4 mg PO Q6 PRN PRN Reason: Nausea/Vomiting Oxycodone/Acetaminophen (Percocet 5/325 Mg Tab) 1 tab PO Q4 PRN PRN Reason: Pain, moderate (4-7) Stop: 12/07/17 13:17 Last Admin: 12/04/17 13:59 Dose: 1 tab Oxycodone/Acetaminophen (Percocet 5/325 Mg Tab) 2 tab PO Q4 PRN PRN Reason: Pain, severe (8-10) Stop: 12/07/17 13:18 Last Admin: 12/05/17 09:28 Dose: 2 tab - Labs Labs: 12/05/17 08:17 12/05/17 05:30 PT 14.1 Seconds (9.8-13.1) H 12/04/17 07:59 INR 1.3 (0.9-1.2) H 12/04/17 07:59 APTT 35.0 Seconds (25.6-37.1) 12/04/17 07:59
--- NOTE | 2017-12-05 15:09 | CP.PCM.PN ---
Subjective - Date & Time of Evaluation Date of Evaluation: 12/05/17 Time of Evaluation: 09:00 - Subjective Subjective: S/P CHEST TUBE PLACEMENT GOING FOR DECORTICATION CULTURES PENDING IV RX IN PROGRESS Objective - Vital Signs/Intake and Output Vital Signs (last 24 hours): Temp Pulse Resp BP Pulse Ox 99.5 F 79 18 110/66 95 12/05/17 09:00 12/05/17 09:00 12/05/17 09:00 12/05/17 09:00 12/05/17 09:00 Intake and Output: 12/05/17 12/05/17 06:59 18:59 Intake Total 1400 Output Total 50 910 Balance -50 490 - Medications Medications: Current Medications Acetaminophen (Tylenol 325mg Tab) 650 mg PO Q4 PRN PRN Reason: Fever >100.4 F Clindamycin in NS (Clindamycin 300 Mg/50 Ml-Ns) 300 mg in 50 mls @ 50 mls/hr IVPB Q8 [facility] PRN Reason: Protocol Last Admin: 12/05/17 11:16 Dose: 50 mls/hr Levofloxacin/Dextrose (Levaquin 500mg) 500 mg in 100 mls @ 100 mls/hr IVPB DAILY [facility] PRN Reason: Protocol Last Admin: 12/05/17 11:17 Dose: 100 mls/hr Vancomycin HCl 1 gm/ Sodium (Chloride) 250 mls @ 166.667 mls/hr IVPB Q12H [facility] PRN Reason: Protocol Last Admin: 12/05/17 14:07 Dose: 166.667 mls/hr Insulin Human Regular (Humulin R) 0 units SC ACHS [facility] PRN Reason: Protocol Last Admin: 12/05/17 13:07 Dose: 4 units Lactobacillus Acidophilus (Bacid Acidophilus) 1 cap PO BID [facility] Last Admin: 12/05/17 09:29 Dose: 1 cap Ondansetron HCl (Zofran Odt) 4 mg PO Q6 PRN PRN Reason: Nausea/Vomiting Oxycodone/Acetaminophen (Percocet 5/325 Mg Tab) 1 tab PO Q4 PRN PRN Reason: Pain, moderate (4-7) Stop: 12/07/17 13:17 Last Admin: 12/04/17 13:59 Dose: 1 tab Oxycodone/Acetaminophen (Percocet 5/325 Mg Tab) 2 tab PO Q4 PRN PRN Reason: Pain, severe (8-10) Stop: 12/07/17 13:18 Last Admin: 12/05/17 09:28 Dose: 2 tab - Labs Labs: 12/05/17 08:17 12/05/17 05:30 PT 14.1 Seconds (9.8-13.1) H 12/04/17 07:59 INR 1.3 (0.9-1.2) H 12/04/17 07:59 APTT 35.0 Seconds (25.6-37.1) 12/04/17 07:59 Assessment and Plan (1) DM type 2 (diabetes mellitus, type 2) Status: Acute (2) Empyema lung Status: Acute (3) Fever Status: Acute (4) Pleural effusion Status: Acute
[2017-12-05] MEDS ORDERED: Iohexol 300 100 ML IJ ONE (16:51)
[2017-12-05] MEDS ORDERED: Sodium Chloride 0.9% 50 ML IV ONE (16:51)
--- NOTE | 2017-12-05 18:16 | CT ---
PROCEDURE: CT Chest with contrast HISTORY: Empyema. Status post pigtail placement. Relevant interventional procedure(s): 12/04/2017. Pigtail catheter placed into the left pleural space. COMPARISON: TECHNIQUE: Contiguous axial images were obtained through the chest with intravenous contrast enhancement. Sagittal and coronal reconstructions were performed. IV contrast: 90 cc Omnipaque 300 Radiation dose (DLP): 161.77 mGy-cm. This CT exam was performed using one or more of the following dose reduction techniques: Automated exposure control, adjustment of the mA and/or kV according to patient size, and/or use of iterative reconstruction technique. FINDINGS: LUNGS: Consolidative changes primarily affecting several segments of the left lower lobe. No extrinsic or endobronchial lesions are identified on the current study. MEDIASTINUM: Unremarkable thoracic aorta. No aneurysm or dissection. Normal sized heart. Main pulmonary artery unremarkable. No vascular congestion. [place] of enlarged lymph nodes in the AP window. The largest measures 1.5 x 1.8 cm. PLEURA: All complex left pleural effusion. Thickening of the visceral pleura identified. Here, fluid and debris in the dependent left pleural space. Loculated fluid identified in the fissure measures 3.1 x 3.8 cm. BONES: No fracture. No destructive lesion. UPPER ABDOMEN: Grossly unremarkable. OTHER FINDINGS: None. IMPRESSION: Extensive consolidative changes multiple segments left lower lobe. Dense consolidative changes in the basilar segment adjacent to complex partially loculated pleural effusion containing a pigtail catheter. No endobronchial or extrinsic abnormalities tracheobronchial tree. Enlarged AP window lymph nodes etiology uncertain perhaps inflammatory. No additional abnormalities identified in the lungs.
--- NOTE | 2017-12-05 18:50 | CP.PCM.CON ---
History of Present Illness - History of Present Illness History of Present Illness: I was asked to see patient by Dr Null. Patient is a 57 year old male with PMH HTn who presents with low grade fever and LLL mass. The patient had a CT scan of the chest with the above, maureen, and was also found to have coronary calcification on CT. He had a nuclear perfusion stress test Saturday which was normal myopcardial perfusion and normal left ventricular function. He is s/p throcentesis of thick purulent material and requires decortication. He denies chest pain. Review of Systems - Constitutional Constitutional: absent: As Per HPI, Anorexia, Chills, Daytime Sleepiness, Excessive Sweating, Fatigue, Fever, Frequent Falls, Headache, Increased Appetite , Lethargy, Malaise, Night Sweats, Snoring, Sleep Apnea, Weight Gain, Weight Loss, Weakness, Other - EENT Eyes: absent: As Per HPI, Blind Spots, Blurred Vision, Change in Vision, Decreased Night Vision, Diplopia, Discharge, Dry Eye, Exophthalmos, Floaters, Irritation, Itchy Eyes, Loss of Peripheral Vision, Pain, Photophobia, Requires Corrective Lenses, Sees Flashes, Spots in Vision, Tunnel Vision, Other Visual Disturbances, Loss of Vision, Other Ears: absent: As Per HPI, Decreased Hearing, Ear Discharge, Ear Pain, Tinnitus, Abnormal Hearing, Disequilibrium, Dizziness, Other Nose/Mouth/Throat: absent: As Per HPI, Epistaxis, Nasal Congestion, Nasal Discharge, Nasal Obstruction, Nasal Trauma, Nose Pain, Post Nasal Drip, Sinus Pain, Sinus Pressure, Bleeding Gums, Change in Voice, Dental Pain, Dry Mouth, Dysphagia, Halitosis, Hoarsness, Lip Swelling, Mouth Lesions, Mouth Pain, Odynophagia, Sore Throat, Throat Swelling, Tongue Swelling, Facial Pain, Neck Pain, Neck Mass, Other - Cardiovascular Cardiovascular: absent: As Per HPI, Acrocyanosis, Chest Pain, Chest Pain at Rest , Chest Pain with Activity, Claudication, Diaphoresis, Dyspnea, Dyspnea on Exertion, Edema, Irregular Heart Rhythm, Pain Radiating to Arm/Neck/Jaw, Leg Edema, Leg Ulcers, Lightheadedness, Orthopnea, Palpitations, Paroxysmal Nocturnal Dyspnea, Pedal Edema, Radiating Pain, Rapid Heart Rate, Slow Heart Rate, Syncope, Other - Respiratory Respiratory: absent: As Per HPI, Cough, Dyspnea, Hemoptysis, Dyspnea on Exertion , Wheezing, Snoring, Stridor, Pain on Inspiration, Chest Congestion, Excessive Mucous Production, Change in Mucous Color, Pain with Coughing, Other - Gastrointestinal Gastrointestinal: absent: As Per HPI, Abdominal Pain, Belching, Bloating, Change in Bowel Habits, Change in Stool Character, Coffee Ground Emesis, Constipation, Cramping, Diarrhea, Dyspepsia, Dysphagia, Early Satiety, Excessive Flatus, Fecal Incontinence, Heartburn, Hematemesis, Hematochezia, Loose Stools, Melena, Nausea, Odynophagia, Temesmus, Vomiting, Other - Genitourinary Genitourinary: absent: As Per HPI, Change in Urinary Stream, Difficulty Urinating, Dysuria, Flank Pain, Hematuria, Pyuria, Nocturia, Urinary Incontinence, Urinary Frequency, Urinary Hesitance, Urinary Urgency, Voiding Freq/Small Amts, Freq UTI, Hx Renal/Bladder Calculi, Hx /Renal Surgery, Bladder Distension, Other - Musculoskeletal Musculoskeletal: absent: As Per HPI, Abnormal Gait, Arthralgias, Atrophy, Back Pain, Deformity, Joint Swelling, Limited Range of Motion, Loss of Height, Muscle Cramps, Muscle Weakness, Myalgias, Neck Pain, Numbness, Radiating Pain into Limb, Stiffness, Tingling, Other - Integumentary Integumentary: absent: As Per HPI, Acne, Alopecia, Bleeding Lesions, Change in Hair, Change in Nails, Change in Pigmentation, Changing Lesions, Dry Skin, Erythema, Furuncle, Hirsutism, Lesions, New Lesions, Non-Healing Lesions, Photosensitivity, Pruritus, Rash, Skin Pain, Skin Ulcer, Sores, Striae, Swelling , Unusual Bruising, Wounds, Jaundice, Other - Neurological Neurological: absent: As Per HPI, Abnormal Gait, Abnormal Hearing, Abnormal Movements, Abnormal Speech, Behavioral Changes, Burning Sensations, Confusion, Convulsions, Disequilibrium, Dizziness, Numbness, Focal Weakness, Frequent Falls , Headaches, Lack of Coordination, Loss of Vision, Memory Loss, Paresthesias, Radicular Pain, Restless Legs, Sensory Deficit, Syncope, Tingling, Tremor, Vertigo, Weakness, Other Visual Disturbances, Other - Psychiatric Psychiatric: absent: As Per HPI, Abnormal Sleep Pattern, Anhedonia, Anxiety, Auditory Hallucinations, Behavioral Changes, Change in Appetite, Change in Libido, Confusion, Depression, Difficulty Concentrating, Hallucinations, Homicidal Ideation, Hopelessness, Irritability, Memory Loss, Mood Swings, Panic Attacks, Paranoia, Suicidal Ideation, Visual Hallucinations, Tactile Hallucinations, Other - Endocrine Endocrine: absent: As Per HPI, Change in Body Appearance, Change in Libido, Cold Intolorance, Deepening of Voice, Excessive Sweating, Fatigue, Flushing, Heat Intolorance, Increase in Ring/Shoe/Hat Size, Palpitations, Polydipsia, Polyphagia, Polyuria, Other - Hematologic/Lymphatic Hematologic: absent: As Per HPI, Easy Bleeding, Easy Bruising, Lymphadenopathy, Other Past Patient History - Past Medical History & Family History Past Medical History?: Yes - Past Social History Smoking Status: Former Smoker - CARDIAC Hx Cardiac Disorders: No - PULMONARY Hx Respiratory Disorders: No - NEUROLOGICAL Hx Neurological Disorder: No - HEENT Hx HEENT Problems: No - RENAL Hx Chronic Kidney Disease: No - ENDOCRINE/METABOLIC Hx Diabetes Mellitus Type 2: Yes - HEMATOLOGICAL/ONCOLOGICAL Hx Blood Disorders: No - INTEGUMENTARY Hx Dermatological Problems: No - MUSCULOSKELETAL/RHEUMATOLOGICAL Hx Falls: No - GASTROINTESTINAL Hx Gastrointestinal Disorders: No - GENITOURINARY/GYNECOLOGICAL Hx Genitourinary Disorders: No - PSYCHIATRIC Hx Substance Use: No - ANESTHESIA Hx Anesthesia: No Hx Anesthesia Reactions: No Has any member of the family had a problem w/ anesthesia?: No Meds Allergies/Adverse Reactions: Allergies Allergy/AdvReac Type Severity Reaction Status Date / Time No Known Allergies Allergy Verified 12/04/17 07:31 - Medications Medications: Current Medications Acetaminophen (Tylenol 325mg Tab) 650 mg PO Q4 PRN PRN Reason: Fever >100.4 F Clindamycin in NS (Clindamycin 300 Mg/50 Ml-Ns) 300 mg in 50 mls @ 50 mls/hr IVPB Q8 [facility] PRN Reason: Protocol Last Admin: 12/05/17 16:37 Dose: 50 mls/hr Levofloxacin/Dextrose (Levaquin 500mg) 500 mg in 100 mls @ 100 mls/hr IVPB DAILY [facility] PRN Reason: Protocol Last Admin: 12/05/17 11:17 Dose: 100 mls/hr Vancomycin HCl 1 gm/ Sodium (Chloride) 250 mls @ 166.667 mls/hr IVPB Q12H [facility] PRN Reason: Protocol Last Admin: 12/05/17 14:07 Dose: 166.667 mls/hr Insulin Human Regular (Humulin R) 0 units SC ACHS [facility] PRN Reason: Protocol Last Admin: 12/05/17 16:38 Dose: 2 units Lactobacillus Acidophilus (Bacid Acidophilus) 1 cap PO BID [facility] Last Admin: 12/05/17 16:37 Dose: 1 cap Ondansetron HCl (Zofran Odt) 4 mg PO Q6 PRN PRN Reason: Nausea/Vomiting Oxycodone/Acetaminophen (Percocet 5/325 Mg Tab) 1 tab PO Q4 PRN PRN Reason: Pain, moderate (4-7) Stop: 12/07/17 13:17 Last Admin: 12/04/17 13:59 Dose: 1 tab Oxycodone/Acetaminophen (Percocet 5/325 Mg Tab) 2 tab PO Q4 PRN PRN Reason: Pain, severe (8-10) Stop: 12/07/17 13:18 Last Admin: 12/05/17 09:28 Dose: 2 tab Physical Exam - Constitutional Appears: Non-toxic - Head Exam Head Exam: NORMAL INSPECTION - Eye Exam Eye Exam: Normal appearance - ENT Exam ENT Exam: Mucous Membranes Moist - Neck Exam Neck exam: Positive for: Full Rom - Respiratory Exam Respiratory Exam: Decreased Breath Sounds - Cardiovascular Exam Cardiovascular Exam: REGULAR RHYTHM, Systolic Murmur - GI/Abdominal Exam GI & Abdominal Exam: Normal Bowel Sounds - Rectal Exam Rectal Exam: Deferred - Extremities Exam Extremities exam: Negative for: pedal edema - Back Exam Back exam: NORMAL INSPECTION - Neurological Exam Neurological exam: Alert, Oriented x3 - Psychiatric Exam Psychiatric exam: Normal Affect - Skin Skin Exam: Normal Color Results - Vital Signs Recent Vital Signs: Last Vital Signs Temp 97.9 F 12/05/17 16:25 Pulse 74 12/05/17 16:25 Resp 18 12/05/17 16:25 BP 136/76 12/05/17 16:25 Pulse Ox 96 12/05/17 16:25 - Labs Result Diagrams: 12/05/17 08:17 12/05/17 05:30 Labs: Laboratory Results - last 24 hr 12/04/17 12/04/17 12/05/17 14:59 22:01 05:30 WBC 18.0 H RBC 4.15 L Hgb 12.4 Hct 36.0 MCV 86.9 MCH 29.9 MCHC 34.4 RDW 12.9 Plt Count 672 H MPV 6.9 L Neut % (Auto) 82.6 H Lymph % (Auto) 6.8 L Ramsey % (Auto) 9.7 Eos % (Auto) 0.2 Baso % (Auto) 0.7 Neut # (Auto) 14.8 H Lymph # (Auto) 1.2 Ramsey # (Auto) 1.7 H Eos # (Auto) 0.0 Baso # (Auto) 0.1 Sodium Potassium Chloride Carbon Dioxide Anion Gap BUN Creatinine Est GFR ( Amer) Est GFR (Non-Af Amer) POC Glucose (mg/dL) 229 H Random Glucose Hemoglobin A1c Calcium Total Bilirubin AST ALT Alkaline Phosphatase Total Protein Albumin Globulin Albumin/Globulin Ratio Triglycerides Cholesterol LDL Cholesterol Direct HDL Cholesterol Alpha Fetoprotein Carcinoembryonic Ag CA 19-9 Antigen Prostate Specific Ag Procalcitonin 0.19 TSH 3rd Generation 12/05/17 12/05/17 12/05/17 05:30 05:30 05:46 WBC RBC Hgb Hct MCV MCH MCHC RDW Plt Count MPV Neut % (Auto) Lymph % (Auto) Ramsey % (Auto) Eos % (Auto) Baso % (Auto) Neut # (Auto) Lymph # (Auto) Ramsey # (Auto) Eos # (Auto) Baso # (Auto) Sodium 132 Potassium 4.2 Chloride 93 L Carbon Dioxide 32 H Anion Gap 11 BUN 10 Creatinine 0.8 Est GFR ( Amer) > 60 Est GFR (Non-Af Amer) > 60 POC Glucose (mg/dL) 277 H Random Glucose 291 H Hemoglobin A1c 10.1 H Calcium 8.7 Total Bilirubin 0.5 AST 40 ALT 55 Alkaline Phosphatase 218 H Total Protein 7.1 Albumin 3.2 L Globulin 4.0 H Albumin/Globulin Ratio 0.8 L Triglycerides Cholesterol LDL Cholesterol Direct HDL Cholesterol Alpha Fetoprotein Carcinoembryonic Ag CA 19-9 Antigen Prostate Specific Ag Procalcitonin TSH 3rd Generation 12/05/17 12/05/17 12/05/17 08:17 08:17 08:17 WBC 17.9 H RBC 4.06 L Hgb 12.1 Hct 35.1 MCV 86.5 MCH 29.7 MCHC 34.3 RDW 12.9 Plt Count 663 H MPV 6.6 L Neut % (Auto) 85.0 H Lymph % (Auto) 5.8 L Ramsey % (Auto) 8.3 Eos % (Auto) 0.2 Baso % (Auto) 0.7 Neut # (Auto) 15.2 H Lymph # (Auto) 1.0 Ramsey # (Auto) 1.5 H Eos # (Auto) 0.0 Baso # (Auto) 0.1 Sodium Potassium Chloride Carbon Dioxide Anion Gap BUN Creatinine Est GFR ( Amer) Est GFR (Non-Af Amer) POC Glucose (mg/dL) Random Glucose Hemoglobin A1c Calcium Total Bilirubin AST ALT Alkaline Phosphatase Total Protein Albumin Globulin Albumin/Globulin Ratio Triglycerides 90 Cholesterol 103 LDL Cholesterol Direct 66 HDL Cholesterol 13 L Alpha Fetoprotein 1.1 Carcinoembryonic Ag 4.4 H CA 19-9 Antigen < 1.4 Prostate Specific Ag 0.886 Procalcitonin TSH 3rd Generation 0.30 L 12/05/17 12/05/17 12:24 15:33 WBC RBC Hgb Hct MCV MCH MCHC RDW Plt Count MPV Neut % (Auto) Lymph % (Auto) Ramsey % (Auto) Eos % (Auto) Baso % (Auto) Neut # (Auto) Lymph # (Auto) Ramsey # (Auto) Eos # (Auto) Baso # (Auto) Sodium Potassium Chloride Carbon Dioxide Anion Gap BUN Creatinine Est GFR ( Amer) Est GFR (Non-Af Amer) POC Glucose (mg/dL) 325 H 212 H Random Glucose Hemoglobin A1c Calcium Total Bilirubin AST ALT Alkaline Phosphatase Total Protein Albumin Globulin Albumin/Globulin Ratio Triglycerides Cholesterol LDL Cholesterol Direct HDL Cholesterol Alpha Fetoprotein Carcinoembryonic Ag CA 19-9 Antigen Prostate Specific Ag Procalcitonin TSH 3rd Generation - EKG Data EKG Interpreted by: Myself EKG shows normal: Sinus rhythm Assessment & Plan (1) Empyema lung Assessment and Plan: patient has no evidence of myocardial ischemia by stress test. left vetnricular function is normal. There is no cardiovascular contraindication to the planned surgery. Patient is medically optimized. Status: Acute (2) Hyperlipidemia Status: Acute
[2017-12-06] MEDS: Clindamycin in NS 300 MG/50 ML BAG IVPB SCH ×2 (00:13→09:17)
[2017-12-06] MEDS ORDERED: Sodium Chloride 0.9% 1,000 ML IV SCH ×2 (06:15→20:28)
[2017-12-06 06:50] LABS: BASO # 0.1 K/uL (0.0-0.2); BASO % 1.1 % (0.0-2.0); EOS # 0.2 K/uL (0.0-0.7); EOS % 1.7 % (0.0-4.0); HEMOGLOBIN 12.1 g/dL (12.0-18.0); LYMPH # 1.1 K/uL (1.0-4.3); LYMPH % 9.2 % (20.0-40.0); MEAN CELL VOLUME 87.4 fl (80.0-94.0); MEAN CORPUSCULAR HEMOGLOBIN 29.2 pg (27.0-31.0); MEAN CORPUSCULAR HGB CONC 33.4 g/dL (33.0-37.0); MEAN PLATELET VOLUME 6.8 fl (7.2-11.7); MONO # 1.3 K/uL (0.0-0.8); MONO % 10.2 % (0.0-10.0); NEUT # 9.7 K/uL (1.8-7.0); NEUT % 77.8 % (50.0-75.0); NRBC % 0.1 % (0.0-0.0); RBC 4.13 Mil/uL (4.40-5.90); RED CELL DISTRIBUTION WIDTH 13.1 % (11.5-14.5); WHITE BLOOD COUNT 12.5 K/uL (4.8-10.8)
[2017-12-06 06:56] LABS: INR 1.4 (0.9-1.2); PARTIAL THROMBOPLASTIN TIME 34.4 Seconds (25.6-37.1); PROTHROMBIN TIME 15.6 Seconds (9.8-13.1)
[2017-12-06 06:58] LABS: ALB/GLOB RATIO 0.7 (1.0-2.1); ALBUMIN 2.9 g/dL (3.5-5.0); ALT/SGPT 49 U/L (21-72); AST/SGOT 34 U/L (17-59); BLOOD UREA NITROGEN 10 mg/dl (9-20); CALCIUM 8.8 mg/dL (8.4-10.2); GFR AFRICAN-AMERICAN > 60; GFR NON-AFRICAN AMERICAN > 60
[2017-12-06] MEDS: Insulin Regular 100 units/ml SC SCH ×2 (07:55→12:08)
[2017-12-06] MEDS: levoFLOXacin 500 mg in D5W 500 MG/100 ML BAG IVPB SCH (09:19)
[2017-12-06] MEDS: Lactobacillus Acidophilus 500 MU Cap PO SCH (09:23)
[2017-12-06 11:25] LABS: TB ANTIGEN MINUS NIL 0.01 IU/mL
--- NOTE | 2017-12-06 11:38 | VASCULAR ---
PROCEDURE: ULTRASOUND-GUIDED CHEST TUBE INSERTION CLINICAL HISTORY: 57-year-old male with empyema is referred to Interventional Radiology for ultrasound-guided chest tube insertion. COMPARISON: Outside CT scan of the chest PROCEDURE: 1. Ultrasound-guided left chest tube insertion. PRE-PROCEDURE FINDINGS: 1. Moderate complexpleural effusion with internal septations. POST-PROCEDURE FINDINGS: 1. No evidence of post-procedural complication. INTERVENTIONAL RADIOLOGIST: Art Cuba M.D. (the attending was present for the entire procedure) ANESTHESIA: None. MEDICATION: Lidocaine 1% for local subcutaneous analgesia. COMPLICATIONS: None. PROCEDURE DESCRIPTION AND FINDINGS: The risks, benefits, alternatives and possible complications of the procedure were fully discussed; all questions were answered and informed consent was obtained. The patient was brought into the interventional suite and a pre-procedure 'time-out' was performed. The patient was placed in the seated position. Preliminary ultrasound images of the left hemithorax demonstrate a moderate complex pleural effusion with internal septations. The left hemithorax was prepped and draped in the usual sterile fashion. Maximum sterile barrier precautions were maintained throughout the entire procedure. Following subcutaneous infiltration of lidocaine 1% for local analgesia, under ultrasound guidance, a 5 Gabonese centesis catheter was advanced into left pleural space with real-time visualization of needle entry. The ultrasound images were permanently recorded and submitted to the PACS. The inner stylet was removed with prompt return of purulent whitish green fluid. An 035 guidewire was advanced via the needle into the pleural space. After serial dilatation, an 8 Gabonese pigtail drainage catheter was advanced over the guidewire informed within the left pleural space. Mechanical of fibrinolysis was performed by spanning the pigtail catheter. The catheter was attached to a Pleur-Evac drainage system. A sample was sent to the laboratory for analysis. The drainage catheter was secured to the skin utilizing a 2-0 Prolene suture and sterile adhesive bandage. The patient tolerated the procedure well without immediate post-procedure complications and was transferred back to the floor in stable condition. IMPRESSION: SUCCESSFUL ULTRASOUND-GUIDED LEFT CHEST TUBE INSERTION.
--- NOTE | 2017-12-06 11:43 | CP.PCM.PN ---
Subjective - Date & Time of Evaluation Date of Evaluation: 12/06/17 Time of Evaluation: 11:28 - Subjective Subjective: Preop note: Reviewed all imaging studies(including ct of 12/05/17), and labs. 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 CT chest (outside) showed left lower lobe collection+atelectasis of left lower lobe. IR thoracentesis: consistent with empyema. Repeat ct yesterday confirms loculated empyema and atelectasis of left lower lobe. For a left thoracotomy and decortication, bx of pleura and lung and evacuation of empyema. Risks, benefits, and alternatives discussed with the pt and his who accepted surgery without reservation. Cleared by cardiology. Labs: wnl other than INR-1.4. Objective - Vital Signs/Intake and Output Vital Signs (last 24 hours): Temp Pulse Resp BP Pulse Ox 98.3 F 83 19 125/70 96 12/06/17 07:56 12/06/17 07:56 12/06/17 07:56 12/06/17 07:56 12/06/17 07:56 Intake and Output: 12/06/17 12/06/17 06:59 18:59 Intake Total 1950 Output Total 575 Balance 1375 - Medications Medications: Current Medications Acetaminophen (Tylenol 325mg Tab) 650 mg PO Q4 PRN PRN Reason: Fever >100.4 F Clindamycin in NS (Clindamycin 300 Mg/50 Ml-Ns) 300 mg in 50 mls @ 50 mls/hr IVPB Q8 [facility] PRN Reason: Protocol Last Admin: 12/06/17 09:17 Dose: 50 mls/hr Levofloxacin/Dextrose (Levaquin 500mg) 500 mg in 100 mls @ 100 mls/hr IVPB DAILY [facility] PRN Reason: Protocol Last Admin: 12/06/17 09:19 Dose: 100 mls/hr Vancomycin HCl 1 gm/ Sodium (Chloride) 250 mls @ 166.667 mls/hr IVPB Q12H [facility] PRN Reason: Protocol Last Admin: 12/06/17 01:18 Dose: 166.667 mls/hr Sodium Chloride (Sodium Chloride 0.9%) 1,000 mls @ 100 mls/hr IV .Q10H [facility] Stop: 12/07/17 06:10 Last Admin: 12/06/17 09:25 Dose: 100 mls/hr Insulin Human Regular (Humulin R) 0 units SC ACHS [facility] PRN Reason: Protocol Last Admin: 12/06/17 07:55 Dose: 4 units Lactobacillus Acidophilus (Bacid Acidophilus) 1 cap PO BID [facility] Last Admin: 12/06/17 09:23 Dose: Not Given Ondansetron HCl (Zofran Odt) 4 mg PO Q6 PRN PRN Reason: Nausea/Vomiting Oxycodone/Acetaminophen (Percocet 5/325 Mg Tab) 1 tab PO Q4 PRN PRN Reason: Pain, moderate (4-7) Stop: 12/07/17 13:17 Last Admin: 12/04/17 13:59 Dose: 1 tab Oxycodone/Acetaminophen (Percocet 5/325 Mg Tab) 2 tab PO Q4 PRN PRN Reason: Pain, severe (8-10) Stop: 12/07/17 13:18 Last Admin: 12/05/17 23:03 Dose: 2 tab - Labs Labs: 12/06/17 06:15 12/06/17 06:15 PT 15.6 Seconds (9.8-13.1) H 12/06/17 06:15 INR 1.4 (0.9-1.2) H 12/06/17 06:15 APTT 34.4 Seconds (25.6-37.1) 12/06/17 06:15
--- NOTE | 2017-12-06 12:01 | CP.PCM.PN ---
Subjective - Date & Time of Evaluation Date of Evaluation: 12/06/17 Time of Evaluation: 09:00 - Subjective Subjective: improving s/p Chest tube for empyema c/o pain but no fever and no resp distress all cultures are negative- pt had been on antibiotic rx prior to admission Objective - Vital Signs/Intake and Output Vital Signs (last 24 hours): Temp Pulse Resp BP Pulse Ox 98.3 F 83 19 125/70 96 12/06/17 07:56 12/06/17 07:56 12/06/17 07:56 12/06/17 07:56 12/06/17 07:56 Intake and Output: 12/06/17 12/06/17 06:59 18:59 Intake Total 1950 Output Total 575 Balance 1375 - Medications Medications: Current Medications Acetaminophen (Tylenol 325mg Tab) 650 mg PO Q4 PRN PRN Reason: Fever >100.4 F Clindamycin in NS (Clindamycin 300 Mg/50 Ml-Ns) 300 mg in 50 mls @ 50 mls/hr IVPB Q8 [facility] PRN Reason: Protocol Last Admin: 12/06/17 09:17 Dose: 50 mls/hr Levofloxacin/Dextrose (Levaquin 500mg) 500 mg in 100 mls @ 100 mls/hr IVPB DAILY [facility] PRN Reason: Protocol Last Admin: 12/06/17 09:19 Dose: 100 mls/hr Vancomycin HCl 1 gm/ Sodium (Chloride) 250 mls @ 166.667 mls/hr IVPB Q12H [facility] PRN Reason: Protocol Last Admin: 12/06/17 01:18 Dose: 166.667 mls/hr Sodium Chloride (Sodium Chloride 0.9%) 1,000 mls @ 100 mls/hr IV .Q10H [facility] Stop: 12/07/17 06:10 Last Admin: 12/06/17 09:25 Dose: 100 mls/hr Insulin Human Regular (Humulin R) 0 units SC ACHS [facility] PRN Reason: Protocol Last Admin: 12/06/17 07:55 Dose: 4 units Lactobacillus Acidophilus (Bacid Acidophilus) 1 cap PO BID [facility] Last Admin: 12/06/17 09:23 Dose: Not Given Ondansetron HCl (Zofran Odt) 4 mg PO Q6 PRN PRN Reason: Nausea/Vomiting Oxycodone/Acetaminophen (Percocet 5/325 Mg Tab) 1 tab PO Q4 PRN PRN Reason: Pain, moderate (4-7) Stop: 12/07/17 13:17 Last Admin: 12/04/17 13:59 Dose: 1 tab Oxycodone/Acetaminophen (Percocet 5/325 Mg Tab) 2 tab PO Q4 PRN PRN Reason: Pain, severe (8-10) Stop: 12/07/17 13:18 Last Admin: 12/05/17 23:03 Dose: 2 tab - Labs Labs: 12/06/17 06:15 12/06/17 06:15 PT 15.6 Seconds (9.8-13.1) H 12/06/17 06:15 INR 1.4 (0.9-1.2) H 12/06/17 06:15 APTT 34.4 Seconds (25.6-37.1) 12/06/17 06:15 - Constitutional Appears: Non-toxic - Head Exam Head Exam: NORMAL INSPECTION - Eye Exam Eye Exam: absent: Scleral icterus - ENT Exam ENT Exam: Mucous Membranes Dry - Neck Exam Neck Exam: absent: Lymphadenopathy - Respiratory Exam Respiratory Exam: Decreased Breath Sounds, Clear to Ausculation Bilateral - Cardiovascular Exam Cardiovascular Exam: REGULAR RHYTHM, +S1, +S2 - GI/Abdominal Exam GI & Abdominal Exam: Distended, Soft - Rectal Exam Rectal Exam: Deferred - Exam Exam: NORMAL INSPECTION - Extremities Exam Extremities Exam: absent: Pedal Edema - Back Exam Back Exam: absent: CVA tenderness (L), CVA tenderness (R) - Neurological Exam Neurological Exam: Alert, Awake, Oriented x3 Neuro motor strength exam: Left Upper Extremity: 4, Right Upper Extremity: 4, Left Lower Extremity: 4, Right Lower Extremity: 4 - Psychiatric Exam Psychiatric exam: Normal Mood - Skin Skin Exam: Dry Assessment and Plan (1) DM type 2 (diabetes mellitus, type 2) Status: Acute (2) Empyema lung Status: Acute (3) Fever Status: Acute (4) Pleural effusion Status: Acute - Assessment and Plan (Free Text) Assessment: cont iv antibiotics for now will cont same
[2017-12-06] MEDS ORDERED: Propofol 10 mg/ml Inj (20 ML) ONE (12:09)
[2017-12-06] MEDS ORDERED: Succinylcholine 200 mg/10 ml Inj IV ONE (12:09)
[2017-12-06] MEDS ORDERED: Rocuronium 10 mg/ml (5 ml) ONE ×2 (12:09→14:49)
[2017-12-06] MEDS ORDERED: Phenylephrine 10 mg/ml Inj ONE (12:10)
[2017-12-06] MEDS ORDERED: Lidocaine 2% Jelly (Uro-Jet) ONE (12:18)
--- NOTE | 2017-12-06 12:37 | CP.PCM.PN ---
Subjective - Date & Time of Evaluation Date of Evaluation: 12/06/17 Time of Evaluation: 12:36 - Subjective Subjective: CLINICALLY IMPROVING SCHEDULED FOR THORACIC SURGERY NINTERVENTION FOR DECORTICATION TODAY ALL CULTURES SO FAR NEGATIVE IMP-EMPYEMA PLAN --CONTINUE CURRENT RX Objective - Vital Signs/Intake and Output Vital Signs (last 24 hours): Temp Pulse Resp BP Pulse Ox 98.3 F 83 19 125/70 96 12/06/17 07:56 12/06/17 07:56 12/06/17 07:56 12/06/17 07:56 12/06/17 07:56 Intake and Output: 12/06/17 12/06/17 06:59 18:59 Intake Total 1950 Output Total 575 Balance 1375 - Medications Medications: Current Medications Acetaminophen (Tylenol 325mg Tab) 650 mg PO Q4 PRN PRN Reason: Fever >100.4 F Clindamycin in NS (Clindamycin 300 Mg/50 Ml-Ns) 300 mg in 50 mls @ 50 mls/hr IVPB Q8 [facility] PRN Reason: Protocol Last Admin: 12/06/17 09:17 Dose: 50 mls/hr Levofloxacin/Dextrose (Levaquin 500mg) 500 mg in 100 mls @ 100 mls/hr IVPB DAILY [facility] PRN Reason: Protocol Last Admin: 12/06/17 09:19 Dose: 100 mls/hr Vancomycin HCl 1 gm/ Sodium (Chloride) 250 mls @ 166.667 mls/hr IVPB Q12H [facility] PRN Reason: Protocol Last Admin: 12/06/17 01:18 Dose: 166.667 mls/hr Sodium Chloride (Sodium Chloride 0.9%) 1,000 mls @ 100 mls/hr IV .Q10H [facility] Stop: 12/07/17 06:10 Last Admin: 12/06/17 09:25 Dose: 100 mls/hr Insulin Human Regular (Humulin R) 0 units SC ACHS [facility] PRN Reason: Protocol Last Admin: 12/06/17 12:08 Dose: 2 units Lactobacillus Acidophilus (Bacid Acidophilus) 1 cap PO BID [facility] Last Admin: 12/06/17 09:23 Dose: Not Given Ondansetron HCl (Zofran Odt) 4 mg PO Q6 PRN PRN Reason: Nausea/Vomiting Oxycodone/Acetaminophen (Percocet 5/325 Mg Tab) 1 tab PO Q4 PRN PRN Reason: Pain, moderate (4-7) Stop: 12/07/17 13:17 Last Admin: 12/04/17 13:59 Dose: 1 tab Oxycodone/Acetaminophen (Percocet 5/325 Mg Tab) 2 tab PO Q4 PRN PRN Reason: Pain, severe (8-10) Stop: 12/07/17 13:18 Last Admin: 12/05/17 23:03 Dose: 2 tab - Labs Labs: 12/06/17 06:15 12/06/17 06:15 PT 15.6 Seconds (9.8-13.1) H 12/06/17 06:15 INR 1.4 (0.9-1.2) H 12/06/17 06:15 APTT 34.4 Seconds (25.6-37.1) 12/06/17 06:15
[2017-12-06] MEDS ORDERED: Bacitracin Ointment 30 GM TUBE ONE (12:51)
[2017-12-06] MEDS ORDERED: Lidocaine 2% Inj (20ml) ONE (12:54)
[2017-12-06] MEDS ORDERED: Esmolol 100 mg/10ml Inj IV ONE (12:59)
[2017-12-06] MEDS ORDERED: Lactated Ringer's 1,000 ML IV ONE (13:10)
[2017-12-06] MEDS ORDERED: Ketamine 50 mg/ml Inj (10 ml) ONE (13:11)
[2017-12-06] MEDS ORDERED: Midazolam 2 MG/2 ML VIAL ONE (13:12)
[2017-12-06] MEDS ORDERED: Vancomycin 1 g Inj IVPB ONE (13:30)
[2017-12-06] MEDS ORDERED: Dexamethasone 4 mg/1 ml ONE (14:14)
[2017-12-06 15:37] LABS: ABG ALLEN TEST YES; ARTERIAL BLOOD GAS HCO3 29.8 mmol/L (21-28); ARTERIAL BLOOD GAS O2 SAT 97.6 % (95-98); ARTERIAL BLOOD GAS PCO2 36 mm/Hg (35-45); ARTERIAL BLOOD GAS PH 7.52 (7.35-7.45); ARTERIAL BLOOD GAS PO2 77 mm/Hg (80-100); ARTERIAL BLOOD GAS TCO2 30.5 mmol/L (22-28)
[2017-12-06] MEDS ORDERED: Bacitracin OINT 15GM TOP ONE (16:50)
[2017-12-06] MEDS ORDERED: Neostigmine 1:1000 (1 mg/ml) Inj ONE (17:07)
[2017-12-06] MEDS ORDERED: HYDROmorphone 0.5 mg/0.5 ml ISec IVP PRN (17:38)
[2017-12-06] MEDS ORDERED: Lactated Ringer's 1,000 ML IV SCH (17:45)
--- NOTE | 2017-12-06 18:00 | PCM.SURG1 ---
Surgeon's Initial Post Op Note - Surgeon's Notes Surgeon: Dr. Teresa, Dr. Lentz Construction Cost Estimator: Dr. Wells PGY2, Dr. Avery Type of Anesthesia: General Endo Pre-Operative Diagnosis: Left empyema Operative Findings: Empyema. Lung abscess. intrapleural mass. See operative report for further details Post-Operative Diagnosis: same Operation Performed: Video assisted thoracotomy. Left lateral muscle sparing thoracotomy. Evacuation of empyema. Decortication. Wedge resection of abscess. Intra pleural mass removal. Chest tube insertion x2 (Anterior, Posterior) Specimen/Specimens Removed: Lung abscess fluid. wedge resection of left lower lung containing abscess cavity. intrapleural mass of left lung. fibrinous exudate culture Estimated Blood Loss: EBL {In ML}: 150 Blood Products Given: N/A Drains Used: Chest Tubes (x2, anterior/posterior chest tubes ) Post-Op Condition: Good Date of Surgery/Procedure: 12/06/17 Time of Surgery/Procedure: 13:00
--- NOTE | 2017-12-06 18:08 | CP.PCM.PN ---
Subjective - Date & Time of Evaluation Date of Evaluation: 12/06/17 Time of Evaluation: 17:00 - Subjective Subjective: Patinet under general anesthesia. Left paravertebral blocks for post operative pain control Objective - Vital Signs/Intake and Output Vital Signs (last 24 hours): Temp Pulse Resp BP Pulse Ox 98.3 F 83 19 125/70 96 12/06/17 07:56 12/06/17 07:56 12/06/17 07:56 12/06/17 07:56 12/06/17 07:56 Intake and Output: 12/06/17 12/06/17 06:59 18:59 Intake Total 1950 325 Output Total 575 Balance 1375 325 - Medications Medications: Current Medications Acetaminophen (Tylenol 325mg Tab) 650 mg PO Q4 PRN PRN Reason: Fever >100.4 F Hydromorphone HCl (Dilaudid) 0.5 mg IVP Q5M PRN PRN Reason: Pain, moderate (4-7) Stop: 12/06/17 19:39 Clindamycin in NS (Clindamycin 300 Mg/50 Ml-Ns) 300 mg in 50 mls @ 50 mls/hr IVPB Q8 LORENA PRN Reason: Protocol Last Admin: 12/06/17 09:17 Dose: 50 mls/hr Levofloxacin/Dextrose (Levaquin 500mg) 500 mg in 100 mls @ 100 mls/hr IVPB DAILY LORENA PRN Reason: Protocol Last Admin: 12/06/17 09:19 Dose: 100 mls/hr Vancomycin HCl 1 gm/ Sodium (Chloride) 250 mls @ 166.667 mls/hr IVPB Q12H [facility] PRN Reason: Protocol Last Admin: 12/06/17 13:30 Dose: 166.667 mls/hr Sodium Chloride (Sodium Chloride 0.9%) 1,000 mls @ 100 mls/hr IV .Q10H [facility]NA Stop: 12/07/17 06:10 Last Admin: 12/06/17 09:25 Dose: 100 mls/hr Acetaminophen (Ofirmev) 100 mls @ 400 mls/hr IVPB Q6H [facility]NA PRN Reason: Protocol Stop: 12/07/17 14:16 Last Admin: 12/06/17 14:30 Dose: 400 mls/hr Lactated Ringer's (Lactated Ringer's) 1,000 mls @ 100 mls/hr IV .Q10H [facility] Insulin Human Regular (Humulin R) 0 units SC ACHS LORENA PRN Reason: Protocol Last Admin: 12/06/17 12:08 Dose: 2 units Lactobacillus Acidophilus (Bacid Acidophilus) 1 cap PO BID LORENA Last Admin: 12/06/17 09:23 Dose: Not Given Morphine Sulfate (Morphine [employer] 1 Mg/Ml) 0 mg IV PRN PRN; Protocol PRN Reason: Pain, moderate (4-7) Ondansetron HCl (Zofran Odt) 4 mg PO Q6 PRN PRN Reason: Nausea/Vomiting Ondansetron HCl (Zofran Inj) 4 mg IVP ONCE PRN PRN Reason: Nausea/Vomiting Stop: 12/06/17 19:39 Oxycodone/Acetaminophen (Percocet 5/325 Mg Tab) 1 tab PO Q4 PRN PRN Reason: Pain, moderate (4-7) Stop: 12/07/17 13:17 Last Admin: 12/04/17 13:59 Dose: 1 tab Oxycodone/Acetaminophen (Percocet 5/325 Mg Tab) 2 tab PO Q4 PRN PRN Reason: Pain, severe (8-10) Stop: 12/07/17 13:18 Last Admin: 12/05/17 23:03 Dose: 2 tab - Labs Labs: 12/06/17 06:15 12/06/17 06:15 PT 15.6 Seconds (9.8-13.1) H 12/06/17 06:15 INR 1.4 (0.9-1.2) H 12/06/17 06:15 APTT 34.4 Seconds (25.6-37.1) 12/06/17 06:15 - Constitutional Appears: Other (Under general anesthesia) - Cardiovascular Exam Cardiovascular Exam: REGULAR RHYTHM Assessment and Plan - Assessment and Plan (Free Text) Assessment: Paient S/P thoracotomy. Regional anesthesia for pot operative pain control Plan: Risks and benefits of paravertebral blocks for post op pain control explained and questions answered pre operatively. Standard ASA monitors applied and anesthesia provided as per anesthetic record. Patient tolerated the procedure well with stable hemodynamics throughout. Prior to emergence, while in lateral position, the patients left chest and spine were preped and draped in sterile fashion. Under ultrasound guidance a 4 inch 21 gauge needle was used to perform paravertebral blocks at the T5 and T7 levels. First, the spinous processes of T5 an T6 were identified. Under direct visualization the needle was directed out of plane from the ultrasound probe towards the intraspinous space between these levels. The needle was seen piercing the costotransverse ligament superficial to the pleura. When the needle was seen in the paravertebral space, after negative aspiration, 3 cc of sterile saline were injected and the pleura was seen moving anteriorly away from the needle, expanding the paravertebral space. After negative aspiration 2 cc of 0.375% bupivicaine was injected and again the paravertebral space was seen expanding, directing the pleura anteriorly. Then, 13 additional cc of 0.375 % bupivicaine was injected in this location with incrimental negative aspirations Then, the the spinous processes of T7 an T8 were identified. Under direct visualization the needle was directed out of plane from the ultrasound probe towards the intraspinous space between these levels. The needle was seen piercing the costotransverse ligament superficial to the pleura. When the needle was seen in the paravertebral space, after negative aspiration, 3 cc of sterile saline were injected and the pleura was seen moving anteriorly away from the needle, expanding the paravertebral space. After negative aspiration 2 cc of 0.375% bupivicaine was injected and again the paravertebral space was seen expanding, directing the pleura anteriorly. Then, 13 additional cc of 0.375 % bupivicaine was injected in this location with incrimental negative aspirations The patient tolerated the paravertebral blocks well with stable vitals and was preped for emergence. The patient was extubated uneventfully and reported minimal pain. The patient was observed for 30 minutes post injections and no signs of epidural or subdural spread were seen.
--- NOTE | 2017-12-06 18:12 | RAD ---
HISTORY: s/p thoracotomy COMPARISON: Chest radiographs 12/04/2017. FINDINGS: LUNGS: Total chest is identified placed terminating at the left apex entering from the inferior lateral left chest wall region with skin yaneth noted laterally and postoperative changes identified in flank lateral left chest wall soft tissues. Airspace disease seen the left base with none at the right or left mid to superior left lung zones. PLEURA: Diminished left pleural effusion is noted with mild residual identified. None is seen the right. No pneumothorax bilaterally peer CARDIOVASCULAR: Normal. OSSEOUS STRUCTURES: No significant abnormalities. VISUALIZED UPPER ABDOMEN: Normal. OTHER FINDINGS: None. IMPRESSION: Two left-sided chest tubes identified in position at the left hemithorax with diminished left pleural effusion and residual left basilar airspace disease present.
--- NOTE | 2017-12-06 18:41 | CP.CCUPN ---
CCU Subjective - Physician Review Subjective (Free Text): 57M with h/o DM II, Hyperlipidemia, nonsmoker, admitted 2 days with c/o chest pain and back pain, found to have empyema involving left lung, underwent uneventful left Video-Assisted Thoracotomy for LLL abscess resection and decortication. Presently extubated in PAR and to be transferred to ICU for overnight post-op monitoring. Has 2 chest tubes on Left (Anterior and Posterior ) and [employer] with Morphine ordered for pain control after T5-T7 paravertebral block anesthesia dissipates. EBL reported as approx. 200ml. fluid recd intraop included 700ml crystalloid and 250ml IVPB volume of Vancomycin dose of 1 gm. Patient also recd 1 unit FFP prior to procedure given an INR of 1.4. Other vitals and I/O's reviewed. ROS: No other pertinent negs or positives on 10+ system review. Allergies: NKDA Home Meds- Atorvastatin, Glipizide, Metformin PMSFH: As above, otherwise all other Nursing and physician documentation reviewed to date; no new pertinent info noted relevant to current medical problems. EXAM- HEENT: no icterus, no gaze preference, pupils equal and reactive NECK: No JVD, supple, carotids equal upstroke bilat/no bruits CHEST: decreased BS bases, no wheezes audible HEART: regular, distant, S1S2, no rubs. +2/6 apical systolic murmur ABD: soft, no distention, no tympany, no palp tenderness, BS hypoactive EXT: No mottling. No edema. No peripheral/ digital cyanosis, no calf tenderness or palpable cords, distal pulses intact and symmetrical. Left brachial arterial line intact. NEURO: no focal gross motor deficits. SKIN: no rashes, warm and dry. LABS: WBC= 12.5 HGB= 12.1 PLTs= 702K 7.52/36/77 ( during 1-lung ventilation at 60% oxygen) Xz=404 K= 4.0 CL=95 HCO3= 33 BUN/Cr= 10/0.6 BS= 232 CXR: post-op shows 2 chest tubes directed superiorly, no PTX seen, and Left basilar haziness (my interp). IMPRESSION / MAJOR PROBLEMS NOW: 1. Acute Resp Insuff 2 LLL Abscess, with s/p Resection and Video-Assisted Thoracotomy. 2. Uncontrolled DM II 3. Mild Coagulopathy PLAN: 1. Overnight hemodynamic and resp monitoring ion ICU. 2. [employer] with morphine 3. SCDs 4. Check repeat labs, coags in AM. Monitor for any active bleeding; none now. 5. Minimal fluids recd intra-op, continue IVF hydration post-op. 6. Repeat CXR in AM. 7. Ongoing empiric abx coverage with Vanco/Clinda/Levaquin CCU Objective - Vital Signs / Intake & Output Intake and Output (Last 8hrs): Intake & Output 12/06/17 12/06/17 12/06/17 06:59 14:59 22:59 Intake Total 825 Output Total 525 Balance 825 -525 Intake: IV 500 Blood Product 325 Output: Urine 525
[2017-12-06] MEDS ORDERED: HYDROmorphone 0.5 mg/0.5 ml ISec IVP ONE ×3 (18:50→19:50)
[2017-12-06] MEDS ORDERED: Oxycodone/Acetaminophen 5/325 mg Tab PO PRN ×2 (20:28)
[2017-12-06] MEDS ORDERED: Sodium Chloride 3% for Inhalation 4 ML VIAL.NEB IH PRN (20:28)
[2017-12-06] MEDS ORDERED: Insulin Regular 100 units/ml SC SCH (22:00)
[2017-12-06] MEDS: Insulin Lispro (humaLOG) 100 Units/ml Inj SC SCH (22:46)
[2017-12-07] MEDS: Clindamycin in NS 300 MG/50 ML BAG IVPB SCH ×3 (00:34→16:06)
[2017-12-07] MEDS: Lactated Ringer's 1,000 ML IV SCH ×2 (02:46→12:09)
[2017-12-07] MEDS: Insulin Lispro (humaLOG) 100 Units/ml Inj SC SCH ×4 (04:45→22:52)
[2017-12-07 05:37] LABS: BASO # 0.1 K/uL (0.0-0.2); BASO % 0.3 % (0.0-2.0); HEMOGLOBIN 11.9 g/dL (12.0-18.0); LYMPH # 1.2 K/uL (1.0-4.3); LYMPH % 6.3 % (20.0-40.0); MEAN CELL VOLUME 88.3 fl (80.0-94.0); MEAN CORPUSCULAR HEMOGLOBIN 29.6 pg (27.0-31.0); MEAN CORPUSCULAR HGB CONC 33.5 g/dL (33.0-37.0); MEAN PLATELET VOLUME 6.8 fl (7.2-11.7); MONO % 10.1 % (0.0-10.0); NEUT # 16.5 K/uL (1.8-7.0); NEUT % 83.3 % (50.0-75.0); RBC 4.04 Mil/uL (4.40-5.90); WHITE BLOOD COUNT 19.8 K/uL (4.8-10.8)
[2017-12-07 05:43] LABS: BLOOD UREA NITROGEN 12 mg/dl (9-20); CALCIUM 8.6 mg/dL (8.4-10.2); GFR AFRICAN-AMERICAN > 60; GFR NON-AFRICAN AMERICAN > 60
--- NOTE | 2017-12-07 07:56 | CP.CCUPN ---
CCU Subjective - Physician Review Events Since Last Encounter (Free Text): 12/07/17 07:52 alert and oriented, pain is bearable , no SOB, BP stable, receiving IVF, chest tube draining. CCU Objective - Vital Signs / Intake & Output Vital Signs (Last 4 hours): Vital Signs Temp Pulse Resp BP Pulse Ox 12/07/17 06:00 80 24 116/64 96 12/07/17 04:00 98.9 F 72 24 99/65 L Intake and Output (Last 8hrs): Intake & Output 12/06/17 12/07/17 12/07/17 22:59 06:59 14:59 Intake Total 560 1500 Output Total 1325 600 Balance -765 900 Intake: IV 560 800 Intake, Piggyback 700 Output: Chest Tube Drainage 50 100 Left Anterior Chest 35 Left Posterior Chest 65 Urine 1275 500 Urethral (Pepper) 200 500 - Physical Exam Narrative Physical Exam (Free Text): 12/07/17 07:53 P/E Neck: No JVD Lungs: decreased breath sounds , rt base Heart: no gallop abdomen: soft, non-tender Ext; No edema Neuro: No focal signs - Medications Active Medications: Active Medications Generic Name Dose Route Start Last Admin Trade Name Freq PRN Reason Stop Dose Admin Glipizide 2.5 mg 12/07/17 08:00 Glucotrol Xl PO BRK LORENA Clindamycin in NS 300 mg in 50 mls @ 50 mls/hr 12/07/17 01:00 12/07/17 00:34 Clindamycin 300 Mg/50 Ml-Ns IVPB 50 mls/hr Q8 LORENA Administration Protocol Lactated Ringer's 1,000 mls @ 100 mls/hr 12/06/17 20:28 12/07/17 02:46 Lactated Ringer's IV 100 mls/hr .Q10H LORENA Administration Levofloxacin/Dextrose 500 mg in 100 mls @ 100 mls/hr 12/07/17 09:00 Levaquin 500mg IVPB DAILY LORENA Protocol Vancomycin HCl 1 gm/ Sodium 250 mls @ 166.667 mls/hr 12/07/17 01:00 12/07/17 01:20 Chloride IVPB 166.667 mls/hr Q12H LORENA Administration Protocol Insulin Human Lispro 0 units 12/06/17 22:00 12/07/17 04:45 Humalog SC 2 units Q6 LORENA Administration Protocol Metformin HCl 1,000 mg 12/08/17 08:00 Glucophage PO BIDWM [facility] Metoclopramide HCl 10 mg 12/06/17 20:46 Reglan IVP Q4 PRN Nausea/Vomiting Morphine Sulfate 0 mg 12/06/17 20:28 Morphine [employer] 1 Mg/Ml IV PRN PRN Pain, moderate (4-7) Protocol Sitagliptin Phosphate 100 mg 12/07/17 09:00 Januvia PO DAILY LORENA - Patient Studies Lab Studies: Microbiology Studies 12/06/17 10:20 Gram Stain - Final Sputum 12/05/17 11:30 MRSA Culture (Admit) - Final Naris MRSA NOT DETECTED 12/04/17 13:25 Gram Stain - Final Body Fluid - Pleural Fluid Body Fluid Culture - Preliminary NO GROWTH AFTER 2 DAYS 12/04/17 07:50 Blood Culture - Preliminary Blood-Venous NO GROWTH AFTER 48 HOURS 12/04/17 08:15 Blood Culture - Preliminary Blood-Venous NO GROWTH AFTER 48 HOURS Lab Studies 12/07/17 12/07/17 12/07/17 Range/Units 04:44 04:31 04:31 WBC 19.8 H D (4.8-10.8) K/uL RBC 4.04 L (4.40-5.90) Mil/uL Hgb 11.9 L (12.0-18.0) g/dL Hct 35.7 (35.0-51.0) % MCV 88.3 (80.0-94.0) fl MCH 29.6 (27.0-31.0) pg MCHC 33.5 (33.0-37.0) g/dL RDW 13.0 (11.5-14.5) % Plt Count 685 H (130-400) K/uL MPV 6.8 L (7.2-11.7) fl Neut % (Auto) 83.3 H (50.0-75.0) % Lymph % (Auto) 6.3 L (20.0-40.0) % Trinity % (Auto) 10.1 H (0.0-10.0) % Eos % (Auto) 0.0 (0.0-4.0) % Baso % (Auto) 0.3 (0.0-2.0) % Neut # (Auto) 16.5 H (1.8-7.0) K/uL Lymph # (Auto) 1.2 (1.0-4.3) K/uL Trinity # (Auto) 2.0 H (0.0-0.8) K/uL Eos # (Auto) 0.0 (0.0-0.7) K/uL Baso # (Auto) 0.1 (0.0-0.2) K/uL pCO2 (35-45) mm/Hg pO2 (80-100) mm/Hg HCO3 (21-28) mmol/L ABG pH (7.35-7.45) ABG Total CO2 (22-28) mmol/L ABG O2 Saturation (95-98) % ABG Base Excess (-2.0-3.0) mmol/L Odin Test ABG Potassium (3.6-5.2) mmol/L A-a O2 Difference mm/Hg Sodium 138 (132-148) mmol/L Chloride 97 L (98-107) mmol/L Glucose (75-110) mg/dL Lactate (0.7-2.1) mmol/L FiO2 % Blood Gas Comments Crit Value Read Back Potassium 4.6 (3.6-5.0) MMOL/L Carbon Dioxide 29 (22-30) mmol/L Anion Gap 17 (10-20) BUN 12 (9-20) mg/dl Creatinine 0.7 L (0.8-1.5) mg/dl Est GFR ( Amer) > 60 Est GFR (Non-Af Amer) > 60 POC Glucose (mg/dL) 197 H (65-110) mg/dL Random Glucose 203 H (75-110) mg/dL Calcium 8.6 (8.4-10.2) mg/dL Carcinoembryonic Ag (0-3.0) ng/mL Arterial Blood Potassium (3.6-5.2) mmol/L Fluid Source Fluid Appearance Fluid WBC Fluid RBC Fluid Tot Cell Count Fluid Neutrophils Fluid Lymphocytes Fld Monocyte/Macrophag Fluid Glucose Fluid Total Protein Fluid LDH Fluid Amylase Fluid Triglycerides Fluid Comment Vancomycin Trough (5.0-10.0) ug/mL Histop Galactomannan Ag Ur L.pneumophila Ag (NEGATIVE) TB Test (QFT) Nil IU/mL TB Test Mitogen - Nil IU/mL TB Test TB - Nil IU/mL TB Test (QFT) (Negative) Blood Type Blood Type Confirm Antibody Screen Crossmatch BBK History Checked 12/06/17 12/06/17 12/06/17 Range/Units 22:43 19:47 19:00 WBC (4.8-10.8) K/uL RBC (4.40-5.90) Mil/uL Hgb (12.0-18.0) g/dL Hct (35.0-51.0) % MCV (80.0-94.0) fl MCH (27.0-31.0) pg MCHC (33.0-37.0) g/dL RDW (11.5-14.5) % Plt Count (130-400) K/uL MPV (7.2-11.7) fl Neut % (Auto) (50.0-75.0) % Lymph % (Auto) (20.0-40.0) % Trinity % (Auto) (0.0-10.0) % Eos % (Auto) (0.0-4.0) % Baso % (Auto) (0.0-2.0) % Neut # (Auto) (1.8-7.0) K/uL Lymph # (Auto) (1.0-4.3) K/uL Trinity # (Auto) (0.0-0.8) K/uL Eos # (Auto) (0.0-0.7) K/uL Baso # (Auto) (0.0-0.2) K/uL pCO2 (35-45) mm/Hg pO2 (80-100) mm/Hg HCO3 (21-28) mmol/L ABG pH (7.35-7.45) ABG Total CO2 (22-28) mmol/L ABG O2 Saturation (95-98) % ABG Base Excess (-2.0-3.0) mmol/L Odin Test ABG Potassium (3.6-5.2) mmol/L A-a O2 Difference mm/Hg Sodium (132-148) mmol/L Chloride (98-107) mmol/L Glucose (75-110) mg/dL Lactate (0.7-2.1) mmol/L FiO2 % Blood Gas Comments Crit Value Read Back Potassium (3.6-5.0) MMOL/L Carbon Dioxide (22-30) mmol/L Anion Gap (10-20) BUN (9-20) mg/dl Creatinine (0.8-1.5) mg/dl Est GFR ( Amer) Est GFR (Non-Af Amer) POC Glucose (mg/dL) 216 H 192 H (65-110) mg/dL Random Glucose (75-110) mg/dL Calcium (8.4-10.2) mg/dL Carcinoembryonic Ag 4.6 H (0-3.0) ng/mL Arterial Blood Potassium (3.6-5.2) mmol/L Fluid Source Fluid Appearance Fluid WBC Fluid RBC Fluid Tot Cell Count Fluid Neutrophils Fluid Lymphocytes Fld Monocyte/Macrophag Fluid Glucose Fluid Total Protein Fluid LDH Fluid Amylase Fluid Triglycerides Fluid Comment Vancomycin Trough (5.0-10.0) ug/mL Histop Galactomannan Ag Ur L.pneumophila Ag (NEGATIVE) TB Test (QFT) Nil IU/mL TB Test Mitogen - Nil IU/mL TB Test TB - Nil IU/mL TB Test (QFT) (Negative) Blood Type Blood Type Confirm Antibody Screen Crossmatch BBK History Checked 12/06/17 12/06/17 12/06/17 Range/Units 19:00 16:00 15:23 WBC (4.8-10.8) K/uL RBC (4.40-5.90) Mil/uL Hgb (12.0-18.0) g/dL Hct 34.5 L (35.0-51.0) % MCV (80.0-94.0) fl MCH (27.0-31.0) pg MCHC (33.0-37.0) g/dL RDW (11.5-14.5) % Plt Count (130-400) K/uL MPV (7.2-11.7) fl Neut % (Auto) (50.0-75.0) % Lymph % (Auto) (20.0-40.0) % Trinity % (Auto) (0.0-10.0) % Eos % (Auto) (0.0-4.0) % Baso % (Auto) (0.0-2.0) % Neut # (Auto) (1.8-7.0) K/uL Lymph # (Auto) (1.0-4.3) K/uL Trinity # (Auto) (0.0-0.8) K/uL Eos # (Auto) (0.0-0.7) K/uL Baso # (Auto) (0.0-0.2) K/uL pCO2 36 (35-45) mm/Hg pO2 77 L (80-100) mm/Hg HCO3 29.8 H (21-28) mmol/L ABG pH 7.52 H (7.35-7.45) ABG Total CO2 30.5 H (22-28) mmol/L ABG O2 Saturation 97.6 (95-98) % ABG Base Excess 6.3 H (-2.0-3.0) mmol/L Odin Test Yes ABG Potassium 3.9 (3.6-5.2) mmol/L A-a O2 Difference 306.0 mm/Hg Sodium 133.0 (132-148) mmol/L Chloride 100.0 (98-107) mmol/L Glucose 180 H (75-110) mg/dL Lactate 1.0 (0.7-2.1) mmol/L FiO2 60.0 % Blood Gas Comments One lung ventilation /60% Crit Value Read Back Y Potassium (3.6-5.0) MMOL/L Carbon Dioxide (22-30) mmol/L Anion Gap (10-20) BUN (9-20) mg/dl Creatinine (0.8-1.5) mg/dl Est GFR ( Amer) Est GFR (Non-Af Amer) POC Glucose (mg/dL) (65-110) mg/dL Random Glucose (75-110) mg/dL Calcium (8.4-10.2) mg/dL Carcinoembryonic Ag (0-3.0) ng/mL Arterial Blood Potassium 3.9 (3.6-5.2) mmol/L Fluid Source Cancelled Fluid Appearance Cancelled Fluid WBC Cancelled Fluid RBC Cancelled Fluid Tot Cell Count Cancelled Fluid Neutrophils Cancelled Fluid Lymphocytes Cancelled Fld Monocyte/Macrophag Cancelled Fluid Glucose Cancelled Fluid Total Protein Cancelled Fluid LDH Cancelled Fluid Amylase Cancelled Fluid Triglycerides Cancelled Fluid Comment Cancelled Vancomycin Trough (5.0-10.0) ug/mL Histop Galactomannan Ag Ur L.pneumophila Ag (NEGATIVE) TB Test (QFT) Nil IU/mL TB Test Mitogen - Nil IU/mL TB Test TB - Nil IU/mL TB Test (QFT) (Negative) Blood Type Blood Type Confirm Antibody Screen Crossmatch BBK History Checked 12/06/17 12/06/17 12/06/17 Range/Units 11:55 10:53 10:20 WBC (4.8-10.8) K/uL RBC (4.40-5.90) Mil/uL Hgb (12.0-18.0) g/dL Hct (35.0-51.0) % MCV (80.0-94.0) fl MCH (27.0-31.0) pg MCHC (33.0-37.0) g/dL RDW (11.5-14.5) % Plt Count (130-400) K/uL MPV (7.2-11.7) fl Neut % (Auto) (50.0-75.0) % Lymph % (Auto) (20.0-40.0) % Trinity % (Auto) (0.0-10.0) % Eos % (Auto) (0.0-4.0) % Baso % (Auto) (0.0-2.0) % Neut # (Auto) (1.8-7.0) K/uL Lymph # (Auto) (1.0-4.3) K/uL Trinity # (Auto) (0.0-0.8) K/uL Eos # (Auto) (0.0-0.7) K/uL Baso # (Auto) (0.0-0.2) K/uL pCO2 (35-45) mm/Hg pO2 (80-100) mm/Hg HCO3 (21-28) mmol/L ABG pH (7.35-7.45) ABG Total CO2 (22-28) mmol/L ABG O2 Saturation (95-98) % ABG Base Excess (-2.0-3.0) mmol/L Odin Test ABG Potassium (3.6-5.2) mmol/L A-a O2 Difference mm/Hg Sodium (132-148) mmol/L Chloride (98-107) mmol/L Glucose (75-110) mg/dL Lactate (0.7-2.1) mmol/L FiO2 % Blood Gas Comments Crit Value Read Back Potassium (3.6-5.0) MMOL/L Carbon Dioxide (22-30) mmol/L Anion Gap (10-20) BUN (9-20) mg/dl Creatinine (0.8-1.5) mg/dl Est GFR ( Amer) Est GFR (Non-Af Amer) POC Glucose (mg/dL) 173 H (65-110) mg/dL Random Glucose (75-110) mg/dL Calcium (8.4-10.2) mg/dL Carcinoembryonic Ag (0-3.0) ng/mL Arterial Blood Potassium (3.6-5.2) mmol/L Fluid Source Fluid Appearance Fluid WBC Fluid RBC Fluid Tot Cell Count Fluid Neutrophils Fluid Lymphocytes Fld Monocyte/Macrophag Fluid Glucose Fluid Total Protein Fluid LDH Fluid Amylase Fluid Triglycerides Fluid Comment Vancomycin Trough 9.4 (5.0-10.0) ug/mL Histop Galactomannan Ag Ur L.pneumophila Ag Negative (NEGATIVE) TB Test (QFT) Nil IU/mL TB Test Mitogen - Nil IU/mL TB Test TB - Nil IU/mL TB Test (QFT) (Negative) Blood Type Blood Type Confirm Antibody Screen Crossmatch BBK History Checked 12/06/17 12/06/17 12/06/17 Range/Units 10:00 06:15 05:39 WBC (4.8-10.8) K/uL RBC (4.40-5.90) Mil/uL Hgb (12.0-18.0) g/dL Hct (35.0-51.0) % MCV (80.0-94.0) fl MCH (27.0-31.0) pg MCHC (33.0-37.0) g/dL RDW (11.5-14.5) % Plt Count (130-400) K/uL MPV (7.2-11.7) fl Neut % (Auto) (50.0-75.0) % Lymph % (Auto) (20.0-40.0) % Trinity % (Auto) (0.0-10.0) % Eos % (Auto) (0.0-4.0) % Baso % (Auto) (0.0-2.0) % Neut # (Auto) (1.8-7.0) K/uL Lymph # (Auto) (1.0-4.3) K/uL Trinity # (Auto) (0.0-0.8) K/uL Eos # (Auto) (0.0-0.7) K/uL Baso # (Auto) (0.0-0.2) K/uL pCO2 (35-45) mm/Hg pO2 (80-100) mm/Hg HCO3 (21-28) mmol/L ABG pH (7.35-7.45) ABG Total CO2 (22-28) mmol/L ABG O2 Saturation (95-98) % ABG Base Excess (-2.0-3.0) mmol/L Odin Test ABG Potassium (3.6-5.2) mmol/L A-a O2 Difference mm/Hg Sodium (132-148) mmol/L Chloride (98-107) mmol/L Glucose (75-110) mg/dL Lactate (0.7-2.1) mmol/L FiO2 % Blood Gas Comments Crit Value Read Back Potassium (3.6-5.0) MMOL/L Carbon Dioxide (22-30) mmol/L Anion Gap (10-20) BUN (9-20) mg/dl Creatinine (0.8-1.5) mg/dl Est GFR ( Amer) Est GFR (Non-Af Amer) POC Glucose (mg/dL) 236 H (65-110) mg/dL Random Glucose (75-110) mg/dL Calcium (8.4-10.2) mg/dL Carcinoembryonic Ag (0-3.0) ng/mL Arterial Blood Potassium (3.6-5.2) mmol/L Fluid Source Fluid Appearance Fluid WBC Fluid RBC Fluid Tot Cell Count Fluid Neutrophils Fluid Lymphocytes Fld Monocyte/Macrophag Fluid Glucose Fluid Total Protein Fluid LDH Fluid Amylase Fluid Triglycerides Fluid Comment Vancomycin Trough (5.0-10.0) ug/mL Histop Galactomannan Ag Ur L.pneumophila Ag (NEGATIVE) TB Test (QFT) Nil IU/mL TB Test Mitogen - Nil IU/mL TB Test TB - Nil IU/mL TB Test (QFT) (Negative) Blood Type B POSITIVE Blood Type Confirm B POSITIVE Antibody Screen Negative Crossmatch See Detail BBK History Checked No verified bt 12/04/17 12/04/17 Range/Units 20:30 09:30 WBC (4.8-10.8) K/uL RBC (4.40-5.90) Mil/uL Hgb (12.0-18.0) g/dL Hct (35.0-51.0) % MCV (80.0-94.0) fl MCH (27.0-31.0) pg MCHC (33.0-37.0) g/dL RDW (11.5-14.5) % Plt Count (130-400) K/uL MPV (7.2-11.7) fl Neut % (Auto) (50.0-75.0) % Lymph % (Auto) (20.0-40.0) % Trinity % (Auto) (0.0-10.0) % Eos % (Auto) (0.0-4.0) % Baso % (Auto) (0.0-2.0) % Neut # (Auto) (1.8-7.0) K/uL Lymph # (Auto) (1.0-4.3) K/uL Trinity # (Auto) (0.0-0.8) K/uL Eos # (Auto) (0.0-0.7) K/uL Baso # (Auto) (0.0-0.2) K/uL pCO2 (35-45) mm/Hg pO2 (80-100) mm/Hg HCO3 (21-28) mmol/L ABG pH (7.35-7.45) ABG Total CO2 (22-28) mmol/L ABG O2 Saturation (95-98) % ABG Base Excess (-2.0-3.0) mmol/L Odin Test ABG Potassium (3.6-5.2) mmol/L A-a O2 Difference mm/Hg Sodium (132-148) mmol/L Chloride (98-107) mmol/L Glucose (75-110) mg/dL Lactate (0.7-2.1) mmol/L FiO2 % Blood Gas Comments Crit Value Read Back Potassium (3.6-5.0) MMOL/L Carbon Dioxide (22-30) mmol/L Anion Gap (10-20) BUN (9-20) mg/dl Creatinine (0.8-1.5) mg/dl Est GFR ( Amer) Est GFR (Non-Af Amer) POC Glucose (mg/dL) (65-110) mg/dL Random Glucose (75-110) mg/dL Calcium (8.4-10.2) mg/dL Carcinoembryonic Ag (0-3.0) ng/mL Arterial Blood Potassium (3.6-5.2) mmol/L Fluid Source Fluid Appearance Fluid WBC Fluid RBC Fluid Tot Cell Count Fluid Neutrophils Fluid Lymphocytes Fld Monocyte/Macrophag Fluid Glucose Fluid Total Protein Fluid LDH Fluid Amylase Fluid Triglycerides Fluid Comment Vancomycin Trough (5.0-10.0) ug/mL Histop Galactomannan Ag TNP Ur L.pneumophila Ag (NEGATIVE) TB Test (QFT) Nil 0.05 IU/mL TB Test Mitogen - Nil 0.32 IU/mL TB Test TB - Nil 0.01 IU/mL TB Test (QFT) Indeterminate H (Negative) Blood Type Blood Type Confirm Antibody Screen Crossmatch BBK History Checked Laboratory Results - last 24 hr 12/04/17 12/04/17 12/06/17 09:30 20:30 05:39 WBC RBC Hgb Hct MCV MCH MCHC RDW Plt Count MPV Neut % (Auto) Lymph % (Auto) Trinity % (Auto) Eos % (Auto) Baso % (Auto) Neut # (Auto) Lymph # (Auto) Trinity # (Auto) Eos # (Auto) Baso # (Auto) pCO2 pO2 HCO3 ABG pH ABG Total CO2 ABG O2 Saturation ABG Base Excess Odin Test ABG Potassium A-a O2 Difference Sodium Chloride Glucose Lactate FiO2 Blood Gas Comments Crit Value Read Back Potassium Carbon Dioxide Anion Gap BUN Creatinine Est GFR ( Amer) Est GFR (Non-Af Amer) POC Glucose (mg/dL) 236 H Random Glucose Calcium Carcinoembryonic Ag Arterial Blood Potassium Fluid Source Fluid Appearance Fluid WBC Fluid RBC Fluid Tot Cell Count Fluid Neutrophils Fluid Lymphocytes Fld Monocyte/Macrophag Fluid Glucose Fluid Total Protein Fluid LDH Fluid Amylase Fluid Triglycerides Fluid Comment Vancomycin Trough Histop Galactomannan Ag TNP Ur L.pneumophila Ag TB Test (QFT) Nil 0.05 TB Test Mitogen - Nil 0.32 TB Test TB - Nil 0.01 TB Test (QFT) Indeterminate H Blood Type Blood Type Confirm Antibody Screen Crossmatch BBK History Checked 12/06/17 12/06/17 12/06/17 06:15 10:00 10:20 WBC RBC Hgb Hct MCV MCH MCHC RDW Plt Count MPV Neut % (Auto) Lymph % (Auto) Trinity % (Auto) Eos % (Auto) Baso % (Auto) Neut # (Auto) Lymph # (Auto) Trinity # (Auto) Eos # (Auto) Baso # (Auto) pCO2 pO2 HCO3 ABG pH ABG Total CO2 ABG O2 Saturation ABG Base Excess Odin Test ABG Potassium A-a O2 Difference Sodium Chloride Glucose Lactate FiO2 Blood Gas Comments Crit Value Read Back Potassium Carbon Dioxide Anion Gap BUN Creatinine Est GFR ( Amer) Est GFR (Non-Af Amer) POC Glucose (mg/dL) Random Glucose Calcium Carcinoembryonic Ag Arterial Blood Potassium Fluid Source Fluid Appearance Fluid WBC Fluid RBC Fluid Tot Cell Count Fluid Neutrophils Fluid Lymphocytes Fld Monocyte/Macrophag Fluid Glucose Fluid Total Protein Fluid LDH Fluid Amylase Fluid Triglycerides Fluid Comment Vancomycin Trough Histop Galactomannan Ag Ur L.pneumophila Ag Negative TB Test (QFT) Nil TB Test Mitogen - Nil TB Test TB - Nil TB Test (QFT) Blood Type B POSITIVE Blood Type Confirm B POSITIVE Antibody Screen Negative Crossmatch See Detail BBK History Checked No verified bt 12/06/17 12/06/17 12/06/17 10:53 11:55 15:23 WBC RBC Hgb Hct MCV MCH MCHC RDW Plt Count MPV Neut % (Auto) Lymph % (Auto) Trinity % (Auto) Eos % (Auto) Baso % (Auto) Neut # (Auto) Lymph # (Auto) Trinity # (Auto) Eos # (Auto) Baso # (Auto) pCO2 36 pO2 77 L HCO3 29.8 H ABG pH 7.52 H ABG Total CO2 30.5 H ABG O2 Saturation 97.6 ABG Base Excess 6.3 H Odin Test Yes ABG Potassium 3.9 A-a O2 Difference 306.0 Sodium 133.0 Chloride 100.0 Glucose 180 H Lactate 1.0 FiO2 60.0 Blood Gas Comments One lung ventilation /60% Crit Value Read Back Y Potassium Carbon Dioxide Anion Gap BUN Creatinine Est GFR ( Amer) Est GFR (Non-Af Amer) POC Glucose (mg/dL) 173 H Random Glucose Calcium Carcinoembryonic Ag Arterial Blood Potassium 3.9 Fluid Source Fluid Appearance Fluid WBC Fluid RBC Fluid Tot Cell Count Fluid Neutrophils Fluid Lymphocytes Fld Monocyte/Macrophag Fluid Glucose Fluid Total Protein Fluid LDH Fluid Amylase Fluid Triglycerides Fluid Comment Vancomycin Trough 9.4 Histop Galactomannan Ag Ur L.pneumophila Ag TB Test (QFT) Nil TB Test Mitogen - Nil TB Test TB - Nil TB Test (QFT) Blood Type Blood Type Confirm Antibody Screen Crossmatch BBK History Checked 12/06/17 12/06/17 12/06/17 16:00 19:00 19:00 WBC RBC Hgb Hct 34.5 L MCV MCH MCHC RDW Plt Count MPV Neut % (Auto) Lymph % (Auto) Trinity % (Auto) Eos % (Auto) Baso % (Auto) Neut # (Auto) Lymph # (Auto) Trinity # (Auto) Eos # (Auto) Baso # (Auto) pCO2 pO2 HCO3 ABG pH ABG Total CO2 ABG O2 Saturation ABG Base Excess Odin Test ABG Potassium A-a O2 Difference Sodium Chloride Glucose Lactate FiO2 Blood Gas Comments Crit Value Read Back Potassium Carbon Dioxide Anion Gap BUN Creatinine Est GFR ( Amer) Est GFR (Non-Af Amer) POC Glucose (mg/dL) Random Glucose Calcium Carcinoembryonic Ag 4.6 H Arterial Blood Potassium Fluid Source Cancelled Fluid Appearance Cancelled Fluid WBC Cancelled Fluid RBC Cancelled Fluid Tot Cell Count Cancelled Fluid Neutrophils Cancelled Fluid Lymphocytes Cancelled Fld Monocyte/Macrophag Cancelled Fluid Glucose Cancelled Fluid Total Protein Cancelled Fluid LDH Cancelled Fluid Amylase Cancelled Fluid Triglycerides Cancelled Fluid Comment Cancelled Vancomycin Trough Histop Galactomannan Ag Ur L.pneumophila Ag TB Test (QFT) Nil TB Test Mitogen - Nil TB Test TB - Nil TB Test (QFT) Blood Type Blood Type Confirm Antibody Screen Crossmatch BBK History Checked 12/06/17 12/06/17 12/07/17 19:47 22:43 04:31 WBC 19.8 H D RBC 4.04 L Hgb 11.9 L Hct 35.7 MCV 88.3 MCH 29.6 MCHC 33.5 RDW 13.0 Plt Count 685 H MPV 6.8 L Neut % (Auto) 83.3 H Lymph % (Auto) 6.3 L Trinity % (Auto) 10.1 H Eos % (Auto) 0.0 Baso % (Auto) 0.3 Neut # (Auto) 16.5 H Lymph # (Auto) 1.2 Trinity # (Auto) 2.0 H Eos # (Auto) 0.0 Baso # (Auto) 0.1 pCO2 pO2 HCO3 ABG pH ABG Total CO2 ABG O2 Saturation ABG Base Excess Odin Test ABG Potassium A-a O2 Difference Sodium Chloride Glucose Lactate FiO2 Blood Gas Comments Crit Value Read Back Potassium Carbon Dioxide Anion Gap BUN Creatinine Est GFR ( Amer) Est GFR (Non-Af Amer) POC Glucose (mg/dL) 192 H 216 H Random Glucose Calcium Carcinoembryonic Ag Arterial Blood Potassium Fluid Source Fluid Appearance Fluid WBC Fluid RBC Fluid Tot Cell Count Fluid Neutrophils Fluid Lymphocytes Fld Monocyte/Macrophag Fluid Glucose Fluid Total Protein Fluid LDH Fluid Amylase Fluid Triglycerides Fluid Comment Vancomycin Trough Histop Galactomannan Ag Ur L.pneumophila Ag TB Test (QFT) Nil TB Test Mitogen - Nil TB Test TB - Nil TB Test (QFT) Blood Type Blood Type Confirm Antibody Screen Crossmatch BBK History Checked 12/07/17 12/07/17 04:31 04:44 WBC RBC Hgb Hct MCV MCH MCHC RDW Plt Count MPV Neut % (Auto) Lymph % (Auto) Trinity % (Auto) Eos % (Auto) Baso % (Auto) Neut # (Auto) Lymph # (Auto) Trinity # (Auto) Eos # (Auto) Baso # (Auto) pCO2 pO2 HCO3 ABG pH ABG Total CO2 ABG O2 Saturation ABG Base Excess Odin Test ABG Potassium A-a O2 Difference Sodium 138 Chloride 97 L Glucose Lactate FiO2 Blood Gas Comments Crit Value Read Back Potassium 4.6 Carbon Dioxide 29 Anion Gap 17 BUN 12 Creatinine 0.7 L Est GFR ( Amer) > 60 Est GFR (Non-Af Amer) > 60 POC Glucose (mg/dL) 197 H Random Glucose 203 H Calcium 8.6 Carcinoembryonic Ag Arterial Blood Potassium Fluid Source Fluid Appearance Fluid WBC Fluid RBC Fluid Tot Cell Count Fluid Neutrophils Fluid Lymphocytes Fld Monocyte/Macrophag Fluid Glucose Fluid Total Protein Fluid LDH Fluid Amylase Fluid Triglycerides Fluid Comment Vancomycin Trough Histop Galactomannan Ag Ur L.pneumophila Ag TB Test (QFT) Nil TB Test Mitogen - Nil TB Test TB - Nil TB Test (QFT) Blood Type Blood Type Confirm Antibody Screen Crossmatch BBK History Checked Fingerstick Blood Sugar Results: 197 Assessment/Plan - Assessment and Plan (Free Text) Assessment: ASSESSMENT: 12/07/17 1. Acute Resp Insuff 2 LLL Abscess, with s/p Resection and Video-Assisted Thoracotomy. 2. Uncontrolled DM II 3. Mild Coagulopathy PLAN: 1. Continue to monitor in ICU 2. 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 SCDs 4. labs, being monitored . Monitor for any active bleeding; none now. 5. Minimal fluids recd intra-op, continue IVF hydration post-op. on RL at 100 cc/h 6. Repeat CXR in AM. 7. Empiric abx coverage with Clinda/Levaquin
[2017-12-07] MEDS: GlipiZIDE 2.5 mg SR Tab PO SCH (08:34)
[2017-12-07] MEDS: levoFLOXacin 500 mg in D5W 500 MG/100 ML BAG IVPB SCH (08:37)
[2017-12-07] MEDS ORDERED: Lactobacillus Acidophilus 500 MU Cap PO SCH (09:00)
--- NOTE | 2017-12-07 09:13 | CP.PCM.PN ---
Subjective - Date & Time of Evaluation Date of Evaluation: 12/07/17 Time of Evaluation: 07:00 - Subjective Subjective: Patient seen and examined this morning. T max of 101.7. No air leak noted. Chest tube output: Anterior:150/24hr Posterior: 75/24hr. Objective - Vital Signs/Intake and Output Vital Signs (last 24 hours): Temp Pulse Resp BP Pulse Ox 98.3 F 98 H 22 111/56 L 98 12/07/17 08:00 12/07/17 08:00 12/07/17 08:00 12/07/17 08:00 12/07/17 08:00 Intake and Output: 12/07/17 12/07/17 06:59 18:59 Intake Total 1710 200 Output Total 1400 Balance 310 200 - Medications Medications: Current Medications Glipizide (Glucotrol Xl) 2.5 mg PO BRK [facility] Last Admin: 12/07/17 08:34 Dose: 2.5 mg Clindamycin in NS (Clindamycin 300 Mg/50 Ml-Ns) 300 mg in 50 mls @ 50 mls/hr IVPB Q8 [facility] PRN Reason: Protocol Last Admin: 12/07/17 08:29 Dose: 50 mls/hr Lactated Ringer's (Lactated Ringer's) 1,000 mls @ 100 mls/hr IV .Q10H [facility] Last Admin: 12/07/17 02:46 Dose: 100 mls/hr Levofloxacin/Dextrose (Levaquin 500mg) 500 mg in 100 mls @ 100 mls/hr IVPB DAILY [facility] PRN Reason: Protocol Last Admin: 12/07/17 08:37 Dose: 100 mls/hr Vancomycin HCl 1 gm/ Sodium (Chloride) 250 mls @ 166.667 mls/hr IVPB Q12H [facility] PRN Reason: Protocol Last Admin: 12/07/17 01:20 Dose: 166.667 mls/hr Insulin Human Lispro (Humalog) 0 units SC Q6 [facility] PRN Reason: Protocol Last Admin: 12/07/17 04:45 Dose: 2 units Metformin HCl (Glucophage) 1,000 mg PO BIDWM [facility] Metoclopramide HCl (Reglan) 10 mg IVP Q4 PRN PRN Reason: Nausea/Vomiting Morphine Sulfate (Morphine Feedmobile Driver 1 Mg/Ml) 0 mg IV PRN PRN; Protocol PRN Reason: Pain, moderate (4-7) Sitagliptin Phosphate (Januvia) 100 mg PO DAILY [facility] Last Admin: 12/07/17 08:34 Dose: 100 mg - Labs Labs: 12/07/17 04:31 12/07/17 04:31 PT 15.6 Seconds (9.8-13.1) H 12/06/17 06:15 INR 1.4 (0.9-1.2) H 12/06/17 06:15 APTT 34.4 Seconds (25.6-37.1) 12/06/17 06:15 - Constitutional Appears: Non-toxic, No Acute Distress - Eye Exam Eye Exam: Normal appearance - ENT Exam ENT Exam: Mucous Membranes Moist - Respiratory Exam Respiratory Exam: NORMAL BREATHING PATTERN - Cardiovascular Exam Cardiovascular Exam: +S1, +S2 - GI/Abdominal Exam GI & Abdominal Exam: Soft, Tenderness - Neurological Exam Neurological Exam: Awake, Oriented x3 - Psychiatric Exam Psychiatric exam: Normal Mood - Skin Skin Exam: Dry, Intact, Normal Color, Warm Assessment and Plan - Assessment and Plan (Free Text) Assessment: 57M with left hemithorax empyema, lung abscess, and intrapulmonary mass s/p Video assisted thoracotomy. Left lateral muscle sparing thoracotomy. Evacuation of empyema. Decortication. Wedge resection of abscess. Intra pleural mass removal. Chest tube insertion x2 (Anterior, Posterior) POD 1 Plan: Resume regular diet D/C rodrigues D/C A-line C/w ABx Tylenol prn fever F/u cultures Out of bed to chair DVT ppx Encourage Incentive spirometer use Monitor I&O's Chest tubes to wall suction D/w Dr. Robson Grayson PGY2
--- NOTE | 2017-12-07 09:51 | CP.PCM.PN ---
Subjective - Date & Time of Evaluation Date of Evaluation: 12/07/17 Time of Evaluation: 09:52 - Subjective Subjective: S/P VATS AND DECORTICATION OF L LUNG FOR THERAPY OF EMPYEMA AND LOCULATED PLEURAL EFFUSION STILL IN PAIN BUT TOLERABLE WITH ANALGESICS VSS OOB TO CHAIR USING BEDSIDE SPIROMETRY Objective - Vital Signs/Intake and Output Vital Signs (last 24 hours): Temp Pulse Resp BP Pulse Ox 98.3 F 98 H 22 111/56 L 98 12/07/17 08:00 12/07/17 08:00 12/07/17 08:00 12/07/17 08:00 12/07/17 08:00 Intake and Output: 12/07/17 12/07/17 06:59 18:59 Intake Total 1710 200 Output Total 1400 Balance 310 200 - Medications Medications: Current Medications Glipizide (Glucotrol Xl) 2.5 mg PO BRK [facility] Last Admin: 12/07/17 08:34 Dose: 2.5 mg Clindamycin in NS (Clindamycin 300 Mg/50 Ml-Ns) 300 mg in 50 mls @ 50 mls/hr IVPB Q8 [facility] PRN Reason: Protocol Last Admin: 12/07/17 08:29 Dose: 50 mls/hr Lactated Ringer's (Lactated Ringer's) 1,000 mls @ 100 mls/hr IV .Q10H [facility] Last Admin: 12/07/17 02:46 Dose: 100 mls/hr Levofloxacin/Dextrose (Levaquin 500mg) 500 mg in 100 mls @ 100 mls/hr IVPB DAILY [facility] PRN Reason: Protocol Last Admin: 12/07/17 08:37 Dose: 100 mls/hr Vancomycin HCl 1 gm/ Sodium (Chloride) 250 mls @ 166.667 mls/hr IVPB Q12H [facility] PRN Reason: Protocol Last Admin: 12/07/17 01:20 Dose: 166.667 mls/hr Insulin Human Lispro (Humalog) 0 units SC Q6 [facility] PRN Reason: Protocol Last Admin: 12/07/17 04:45 Dose: 2 units Metformin HCl (Glucophage) 1,000 mg PO BIDWM [facility] Metoclopramide HCl (Reglan) 10 mg IVP Q4 PRN PRN Reason: Nausea/Vomiting Morphine Sulfate (Morphine Ortho Nurse 1 Mg/Ml) 0 mg IV PRN PRN; Protocol PRN Reason: Pain, moderate (4-7) Sitagliptin Phosphate (Januvia) 100 mg PO DAILY [facility] Last Admin: 12/07/17 08:34 Dose: 100 mg - Labs Labs: 12/07/17 04:31 12/07/17 04:31 PT 15.6 Seconds (9.8-13.1) H 12/06/17 06:15 INR 1.4 (0.9-1.2) H 12/06/17 06:15 APTT 34.4 Seconds (25.6-37.1) 12/06/17 06:15 - Constitutional Appears: No Acute Distress - Head Exam Head Exam: ATRAUMATIC, NORMAL INSPECTION, NORMOCEPHALIC - Eye Exam Eye Exam: EOMI, Normal appearance, PERRL Pupil Exam: NORMAL ACCOMODATION, PERRL - ENT Exam ENT Exam: Mucous Membranes Moist, Normal Exam - Neck Exam Neck Exam: Full ROM, Normal Inspection. absent: Lymphadenopathy - Respiratory Exam Respiratory Exam: Decreased Breath Sounds, Prolonged Expiratory Phase, Rales, NORMAL BREATHING PATTERN - Cardiovascular Exam Cardiovascular Exam: REGULAR RHYTHM, +S1, +S2. absent: Murmur - GI/Abdominal Exam GI & Abdominal Exam: Soft, Normal Bowel Sounds. absent: Tenderness - Rectal Exam Rectal Exam: NORMAL INSPECTION - Extremities Exam Extremities Exam: Full ROM, Normal Capillary Refill, Normal Inspection. absent : Joint Swelling, Pedal Edema - Back Exam Back Exam: NORMAL INSPECTION - Neurological Exam Neurological Exam: Alert, Awake, CN II-XII Intact, Normal Gait, Oriented x3 - Psychiatric Exam Psychiatric exam: Normal Affect, Normal Mood - Skin Skin Exam: Dry, Intact, Normal Color, Warm Assessment and Plan - Assessment and Plan (Free Text) Assessment: S/P VATS AND DECORTICATION FOR EMPYEMA DM Plan: CXR REVIEWED CONTINUE CURRENT RX OOB TO CHAIR TOLERATED
[2017-12-07] MEDS ORDERED: Enoxaparin 40 mg Syringe SC SCH (10:00)
[2017-12-07] MEDS ORDERED: Oxycodone/Acetaminophen 5/325 mg Tab PO STA (10:48)
[2017-12-07] MEDS: Oxycodone/Acetaminophen 5/325 mg Tab PO PRN ×2 (16:01→16:46)
[2017-12-07] MEDS ORDERED: Oxycodone/Acetaminophen 5/325 mg Tab ONE (16:40)
--- NOTE | 2017-12-07 17:50 | CP.PCM.PN ---
Subjective - Date & Time of Evaluation Date of Evaluation: 12/06/17 Time of Evaluation: 22:00 - Subjective Subjective: Patient had a LL decortication for empyema. Tolerated procedure well Has some pain on the tube site has no fever. Objective - Vital Signs/Intake and Output Vital Signs (last 24 hours): Temp Pulse Resp BP Pulse Ox 98.9 F 94 H 24 117/73 96 12/07/17 16:00 12/07/17 16:00 12/07/17 16:00 12/07/17 16:00 12/07/17 16:00 Intake and Output: 12/07/17 12/07/17 06:59 18:59 Intake Total 1710 1100 Output Total 1400 200 Balance 310 900 - Medications Medications: Current Medications Enoxaparin Sodium (Lovenox) 40 mg SC DAILY [facility] PRN Reason: Protocol Glipizide (Glucotrol Xl) 2.5 mg PO BRK [facility] Last Admin: 12/07/17 08:34 Dose: 2.5 mg Clindamycin in NS (Clindamycin 300 Mg/50 Ml-Ns) 300 mg in 50 mls @ 50 mls/hr IVPB Q8 [facility] PRN Reason: Protocol Last Admin: 12/07/17 16:06 Dose: 50 mls/hr Lactated Ringer's (Lactated Ringer's) 1,000 mls @ 100 mls/hr IV .Q10H [facility] Last Admin: 12/07/17 12:09 Dose: 100 mls/hr Levofloxacin/Dextrose (Levaquin 500mg) 500 mg in 100 mls @ 100 mls/hr IVPB DAILY [facility] PRN Reason: Protocol Last Admin: 12/07/17 08:37 Dose: 100 mls/hr Vancomycin HCl 1 gm/ Sodium (Chloride) 250 mls @ 166.667 mls/hr IVPB Q12H [facility] PRN Reason: Protocol Last Admin: 12/07/17 12:05 Dose: 166.667 mls/hr Insulin Human Lispro (Humalog) 0 units SC Q6 [facility] PRN Reason: Protocol Last Admin: 12/07/17 16:52 Dose: 2 units Metformin HCl (Glucophage) 1,000 mg PO BIDWM [facility] Metoclopramide HCl (Reglan) 10 mg IVP Q4 PRN PRN Reason: Nausea/Vomiting Morphine Sulfate (Morphine) 2 mg IVP Q4 PRN PRN Reason: Pain, severe (8-10) Oxycodone/Acetaminophen (Percocet 5/325 Mg Tab) 2 tab PO Q6 PRN PRN Reason: Pain, moderate (4-7) Stop: 12/10/17 16:33 Sitagliptin Phosphate (Januvia) 100 mg PO DAILY [facility] Last Admin: 12/07/17 08:34 Dose: 100 mg - Labs Labs: 12/07/17 04:31 12/07/17 04:31 PT 15.6 Seconds (9.8-13.1) H 12/06/17 06:15 INR 1.4 (0.9-1.2) H 12/06/17 06:15 APTT 34.4 Seconds (25.6-37.1) 12/06/17 06:15 - Head Exam Head Exam: NORMAL INSPECTION - Eye Exam Eye Exam: Normal appearance - ENT Exam ENT Exam: Mucous Membranes Moist - Respiratory Exam Respiratory Exam: Decreased Breath Sounds - Cardiovascular Exam Cardiovascular Exam: Tachycardia - GI/Abdominal Exam GI & Abdominal Exam: Normal Bowel Sounds - Neurological Exam Neurological Exam: Oriented x3 - Psychiatric Exam Psychiatric exam: Normal Mood Assessment and Plan (1) Pleural effusion Status: Acute (2) Empyema lung Status: Acute (3) DM type 2 (diabetes mellitus, type 2) Status: Chronic (4) Hyperlipidemia Status: Chronic - Assessment and Plan (Free Text) Plan: Cont meds Cont tx Cont iv antibiotics ICU CXR
--- NOTE | 2017-12-07 17:52 | CP.PCM.PN ---
Subjective - Date & Time of Evaluation Date of Evaluation: 12/07/17 Time of Evaluation: 17:50 - Subjective Subjective: Patient has become afebrile but noted to have elevated WBC. Today WBC is up at 19.8 Currently on Levaquin Clindamycin and Vancomycin. Has a lot of pain on the throcotomy site. Objective - Vital Signs/Intake and Output Vital Signs (last 24 hours): Temp Pulse Resp BP Pulse Ox 98.9 F 94 H 24 117/73 96 12/07/17 16:00 12/07/17 16:00 12/07/17 16:00 12/07/17 16:00 12/07/17 16:00 Intake and Output: 12/07/17 12/07/17 06:59 18:59 Intake Total 1710 1100 Output Total 1400 200 Balance 310 900 - Medications Medications: Current Medications Enoxaparin Sodium (Lovenox) 40 mg SC DAILY [facility] PRN Reason: Protocol Glipizide (Glucotrol Xl) 2.5 mg PO BRK [facility] Last Admin: 12/07/17 08:34 Dose: 2.5 mg Clindamycin in NS (Clindamycin 300 Mg/50 Ml-Ns) 300 mg in 50 mls @ 50 mls/hr IVPB Q8 [facility] PRN Reason: Protocol Last Admin: 12/07/17 16:06 Dose: 50 mls/hr Lactated Ringer's (Lactated Ringer's) 1,000 mls @ 100 mls/hr IV .Q10H [facility] Last Admin: 12/07/17 12:09 Dose: 100 mls/hr Levofloxacin/Dextrose (Levaquin 500mg) 500 mg in 100 mls @ 100 mls/hr IVPB DAILY [facility] PRN Reason: Protocol Last Admin: 12/07/17 08:37 Dose: 100 mls/hr Vancomycin HCl 1 gm/ Sodium (Chloride) 250 mls @ 166.667 mls/hr IVPB Q12H [facility] PRN Reason: Protocol Last Admin: 12/07/17 12:05 Dose: 166.667 mls/hr Insulin Human Lispro (Humalog) 0 units SC Q6 [facility] PRN Reason: Protocol Last Admin: 12/07/17 16:52 Dose: 2 units Metformin HCl (Glucophage) 1,000 mg PO BIDWM [facility] Metoclopramide HCl (Reglan) 10 mg IVP Q4 PRN PRN Reason: Nausea/Vomiting Morphine Sulfate (Morphine) 2 mg IVP Q4 PRN PRN Reason: Pain, severe (8-10) Oxycodone/Acetaminophen (Percocet 5/325 Mg Tab) 2 tab PO Q6 PRN PRN Reason: Pain, moderate (4-7) Stop: 12/10/17 16:33 Sitagliptin Phosphate (Januvia) 100 mg PO DAILY [facility] Last Admin: 12/07/17 08:34 Dose: 100 mg - Labs Labs: 12/07/17 04:31 12/07/17 04:31 PT 15.6 Seconds (9.8-13.1) H 12/06/17 06:15 INR 1.4 (0.9-1.2) H 12/06/17 06:15 APTT 34.4 Seconds (25.6-37.1) 12/06/17 06:15 - Head Exam Head Exam: NORMAL INSPECTION - Eye Exam Eye Exam: Normal appearance - Respiratory Exam Respiratory Exam: Decreased Breath Sounds - Cardiovascular Exam Cardiovascular Exam: REGULAR RHYTHM - GI/Abdominal Exam GI & Abdominal Exam: Normal Bowel Sounds - Neurological Exam Neurological Exam: Awake, Oriented x3 Assessment and Plan (1) Pleural effusion Status: Acute (2) Empyema lung Status: Acute (3) DM type 2 (diabetes mellitus, type 2) Status: Chronic (4) Hyperlipidemia Status: Chronic - Assessment and Plan (Free Text) Plan: Cont medsCont tx IV antibiotics CXR
[2017-12-07] MEDS: HYDROmorphone 0.5 mg/0.5 ml ISec IVP PRN (22:40)
[2017-12-08] MEDS: Clindamycin in NS 300 MG/50 ML BAG IVPB SCH ×2 (00:05→08:39)
[2017-12-08] MEDS: HYDROmorphone 0.5 mg/0.5 ml ISec IVP PRN ×4 (02:33→23:45)
[2017-12-08] MEDS: Lactated Ringer's 1,000 ML IV SCH ×2 (03:00→12:45)
[2017-12-08 05:55] LABS: BASO # 0.1 K/uL (0.0-0.2); BASO % 0.7 % (0.0-2.0); EOS # 0.1 K/uL (0.0-0.7); EOS % 0.7 % (0.0-4.0); HEMOGLOBIN 10.8 g/dL (12.0-18.0); LYMPH # 1.3 K/uL (1.0-4.3); LYMPH % 6.7 % (20.0-40.0); MEAN CELL VOLUME 88.3 fl (80.0-94.0); MEAN CORPUSCULAR HEMOGLOBIN 29.5 pg (27.0-31.0); MEAN CORPUSCULAR HGB CONC 33.4 g/dL (33.0-37.0); MEAN PLATELET VOLUME 6.3 fl (7.2-11.7); MONO # 1.7 K/uL (0.0-0.8); MONO % 8.8 % (0.0-10.0); NEUT # 16.3 K/uL (1.8-7.0); NEUT % 83.1 % (50.0-75.0); RBC 3.66 Mil/uL (4.40-5.90); RED CELL DISTRIBUTION WIDTH 13.4 % (11.5-14.5); WHITE BLOOD COUNT 19.6 K/uL (4.8-10.8)
[2017-12-08 06:04] LABS: PLATELET COUNT 669 K/uL (130-400)
[2017-12-08 06:25] LABS: ALB/GLOB RATIO 0.8 (1.0-2.1); ALBUMIN 2.8 g/dL (3.5-5.0); ALT/SGPT 36 U/L (21-72); AST/SGOT 46 U/L (17-59); BLOOD UREA NITROGEN 10 mg/dl (9-20); CALCIUM 8.2 mg/dL (8.4-10.2); GFR AFRICAN-AMERICAN > 60; GFR NON-AFRICAN AMERICAN > 60
[2017-12-08] MEDS: Insulin Lispro (humaLOG) 100 Units/ml Inj SC SCH ×4 (06:54→21:50)
[2017-12-08] MEDS ORDERED: HYDROmorphone 0.5 mg/0.5 ml ISec IVP ONE (07:45)
--- NOTE | 2017-12-08 08:05 | CP.CCUPN ---
CCU Subjective - Physician Review Events Since Last Encounter (Free Text): 12/08/17 08:03 alert and oriented, no sob, BP has been stable afebrile, still c/o pain. CCU Objective - Vital Signs / Intake & Output Vital Signs (Last 4 hours): Vital Signs Pulse Resp Pulse Ox 12/08/17 06:00 88 25 H 96 Intake and Output (Last 8hrs): Intake & Output 12/07/17 12/08/17 12/08/17 22:59 06:59 14:59 Intake Total 800 1200 Output Total 539 417 Balance 261 783 Intake: IV 800 800 Intake, Piggyback 300 Oral 100 Output: Chest Tube Drainage 39 17 Left Anterior Chest 15 7 Left Posterior Chest 24 10 Urine 500 400 Urethral (Pepper) 400 Urine, Voided 100 400 - Physical Exam Narrative Physical Exam (Free Text): 12/08/17 08:04 P/E Neck: No JVD Lungs: Decreased breath sounds, bases Heart: No gallop ext: No edema neuro: No focal signs - Medications Active Medications: Active Medications Generic Name Dose Route Start Last Admin Trade Name Freq PRN Reason Stop Dose Admin Acetaminophen 650 mg 12/07/17 23:30 Tylenol 325mg Tab PO Q4 PRN Fever >100.4 F Enoxaparin Sodium 40 mg 12/08/17 09:00 Lovenox SC DAILY [facility] Protocol Glipizide 2.5 mg 12/07/17 08:00 12/07/17 08:34 Glucotrol Xl PO 2.5 mg BRK [facility] Administration Hydromorphone HCl 1 mg 12/07/17 22:10 12/08/17 02:33 Dilaudid IVP 1 mg Q4 PRN Administration Pain, severe (8-10) Clindamycin in NS 300 mg in 50 mls @ 50 mls/hr 12/07/17 01:00 12/08/17 00:05 Clindamycin 300 Mg/50 Ml-Ns IVPB 50 mls/hr Q8 [facility] Administration Protocol Lactated Ringer's 1,000 mls @ 100 mls/hr 12/06/17 20:28 12/08/17 03:00 Lactated Ringer's IV 100 mls/hr .Q10H [facility] Administration Levofloxacin/Dextrose 500 mg in 100 mls @ 100 mls/hr 12/07/17 09:00 12/07/17 08:37 Levaquin 500mg IVPB 100 mls/hr DAILY [facility] Administration Protocol Vancomycin HCl 1 gm/ Sodium 250 mls @ 166.667 mls/hr 12/07/17 01:00 12/08/17 00:08 Chloride IVPB 166.667 mls/hr Q12H [facility] Administration Protocol Insulin Human Lispro 0 units 12/06/17 22:00 12/08/17 06:54 Humalog SC Not Given Q6 [facility] Protocol Metformin HCl 1,000 mg 12/08/17 08:00 Glucophage PO BIDWM [facility] Metoclopramide HCl 10 mg 12/06/17 20:46 Reglan IVP Q4 PRN Nausea/Vomiting Oxycodone/Acetaminophen 2 tab 12/07/17 16:32 Percocet 5/325 Mg Tab PO 12/10/17 16:33 Q6 PRN Pain, moderate (4-7) Sennosides 8.6 mg 12/07/17 22:15 12/07/17 22:52 Senokot Tab PO 8.6 mg HS [facility] Administration Sitagliptin Phosphate 100 mg 12/07/17 09:00 12/07/17 08:34 Januvia PO 100 mg DAILY [facility] Administration - Patient Studies Lab Studies: Microbiology Studies 12/04/17 13:25 Gram Stain - Final Body Fluid - Pleural Fluid Body Fluid Culture - Preliminary NO GROWTH AFTER 3 DAYS 12/06/17 16:00 Mycobacterial Culture - Preliminary Other: Please Indicate 12/04/17 07:50 Blood Culture - Preliminary Blood-Venous NO GROWTH AFTER 3 DAYS 12/04/17 08:15 Blood Culture - Preliminary Blood-Venous NO GROWTH AFTER 3 DAYS Lab Studies 12/08/17 12/08/17 12/08/17 Range/Units 05:32 05:25 05:25 WBC 19.6 H (4.8-10.8) K/uL RBC 3.66 L (4.40-5.90) Mil/uL Hgb 10.8 L (12.0-18.0) g/dL Hct 32.3 L (35.0-51.0) % MCV 88.3 (80.0-94.0) fl MCH 29.5 (27.0-31.0) pg MCHC 33.4 (33.0-37.0) g/dL RDW 13.4 (11.5-14.5) % Plt Count 669 H (130-400) K/uL MPV 6.3 L (7.2-11.7) fl Neut % (Auto) 83.1 H (50.0-75.0) % Lymph % (Auto) 6.7 L (20.0-40.0) % [place] % (Auto) 8.8 (0.0-10.0) % Eos % (Auto) 0.7 (0.0-4.0) % Baso % (Auto) 0.7 (0.0-2.0) % Neut # (Auto) 16.3 H (1.8-7.0) K/uL Lymph # (Auto) 1.3 (1.0-4.3) K/uL [place] # (Auto) 1.7 H (0.0-0.8) K/uL Eos # (Auto) 0.1 (0.0-0.7) K/uL Baso # (Auto) 0.1 (0.0-0.2) K/uL Sodium 134 (132-148) mmol/l Potassium 4.4 (3.6-5.0) MMOL/L Chloride 93 L (98-107) mmol/L Carbon Dioxide 30 (22-30) mmol/L Anion Gap 15 (10-20) BUN 10 (9-20) mg/dl Creatinine 0.7 L (0.8-1.5) mg/dl Est GFR ( Amer) > 60 Est GFR (Non-Af Amer) > 60 POC Glucose (mg/dL) 158 H (65-110) mg/dL Random Glucose 176 H (75-110) mg/dL Calcium 8.2 L (8.4-10.2) mg/dL Total Bilirubin 0.4 (0.2-1.3) mg/dl AST 46 (17-59) U/L ALT 36 (21-72) U/L Alkaline Phosphatase 131 H D (38-126) U/L Total Protein 6.5 (6.3-8.2) G/DL Albumin 2.8 L (3.5-5.0) g/dL Globulin 3.6 (2.2-3.9) gm/dL Albumin/Globulin Ratio 0.8 L (1.0-2.1) Vancomycin Trough (5.0-10.0) ug/mL 12/08/17 12/07/17 12/07/17 Range/Units 05:25 22:44 16:35 WBC (4.8-10.8) K/uL RBC (4.40-5.90) Mil/uL Hgb (12.0-18.0) g/dL Hct (35.0-51.0) % MCV (80.0-94.0) fl MCH (27.0-31.0) pg MCHC (33.0-37.0) g/dL RDW (11.5-14.5) % Plt Count (130-400) K/uL MPV (7.2-11.7) fl Neut % (Auto) (50.0-75.0) % Lymph % (Auto) (20.0-40.0) % [place] % (Auto) (0.0-10.0) % Eos % (Auto) (0.0-4.0) % Baso % (Auto) (0.0-2.0) % Neut # (Auto) (1.8-7.0) K/uL Lymph # (Auto) (1.0-4.3) K/uL [place] # (Auto) (0.0-0.8) K/uL Eos # (Auto) (0.0-0.7) K/uL Baso # (Auto) (0.0-0.2) K/uL Sodium (132-148) mmol/l Potassium (3.6-5.0) MMOL/L Chloride (98-107) mmol/L Carbon Dioxide (22-30) mmol/L Anion Gap (10-20) BUN (9-20) mg/dl Creatinine (0.8-1.5) mg/dl Est GFR ( Amer) Est GFR (Non-Af Amer) POC Glucose (mg/dL) 182 H 196 H (65-110) mg/dL Random Glucose (75-110) mg/dL Calcium (8.4-10.2) mg/dL Total Bilirubin (0.2-1.3) mg/dl AST (17-59) U/L ALT (21-72) U/L Alkaline Phosphatase (38-126) U/L Total Protein (6.3-8.2) G/DL Albumin (3.5-5.0) g/dL Globulin (2.2-3.9) gm/dL Albumin/Globulin Ratio (1.0-2.1) Vancomycin Trough 12.6 H (5.0-10.0) ug/mL 12/07/17 Range/Units 11:51 WBC (4.8-10.8) K/uL RBC (4.40-5.90) Mil/uL Hgb (12.0-18.0) g/dL Hct (35.0-51.0) % MCV (80.0-94.0) fl MCH (27.0-31.0) pg MCHC (33.0-37.0) g/dL RDW (11.5-14.5) % Plt Count (130-400) K/uL MPV (7.2-11.7) fl Neut % (Auto) (50.0-75.0) % Lymph % (Auto) (20.0-40.0) % [place] % (Auto) (0.0-10.0) % Eos % (Auto) (0.0-4.0) % Baso % (Auto) (0.0-2.0) % Neut # (Auto) (1.8-7.0) K/uL Lymph # (Auto) (1.0-4.3) K/uL [place] # (Auto) (0.0-0.8) K/uL Eos # (Auto) (0.0-0.7) K/uL Baso # (Auto) (0.0-0.2) K/uL Sodium (132-148) mmol/l Potassium (3.6-5.0) MMOL/L Chloride (98-107) mmol/L Carbon Dioxide (22-30) mmol/L Anion Gap (10-20) BUN (9-20) mg/dl Creatinine (0.8-1.5) mg/dl Est GFR ( Amer) Est GFR (Non-Af Amer) POC Glucose (mg/dL) 215 H (65-110) mg/dL Random Glucose (75-110) mg/dL Calcium (8.4-10.2) mg/dL Total Bilirubin (0.2-1.3) mg/dl AST (17-59) U/L ALT (21-72) U/L Alkaline Phosphatase (38-126) U/L Total Protein (6.3-8.2) G/DL Albumin (3.5-5.0) g/dL Globulin (2.2-3.9) gm/dL Albumin/Globulin Ratio (1.0-2.1) Vancomycin Trough (5.0-10.0) ug/mL Laboratory Results - last 24 hr 12/07/17 12/07/17 12/07/17 11:51 16:35 22:44 WBC RBC Hgb Hct MCV MCH MCHC RDW Plt Count MPV Neut % (Auto) Lymph % (Auto) [place] % (Auto) Eos % (Auto) Baso % (Auto) Neut # (Auto) Lymph # (Auto) [place] # (Auto) Eos # (Auto) Baso # (Auto) Sodium Potassium Chloride Carbon Dioxide Anion Gap BUN Creatinine Est GFR ( Amer) Est GFR (Non-Af Amer) POC Glucose (mg/dL) 215 H 196 H 182 H Random Glucose Calcium Total Bilirubin AST ALT Alkaline Phosphatase Total Protein Albumin Globulin Albumin/Globulin Ratio Vancomycin Trough 12/08/17 12/08/17 12/08/17 05:25 05:25 05:25 WBC 19.6 H RBC 3.66 L Hgb 10.8 L Hct 32.3 L MCV 88.3 MCH 29.5 MCHC 33.4 RDW 13.4 Plt Count 669 H MPV 6.3 L Neut % (Auto) 83.1 H Lymph % (Auto) 6.7 L [place] % (Auto) 8.8 Eos % (Auto) 0.7 Baso % (Auto) 0.7 Neut # (Auto) 16.3 H Lymph # (Auto) 1.3 [place] # (Auto) 1.7 H Eos # (Auto) 0.1 Baso # (Auto) 0.1 Sodium 134 Potassium 4.4 Chloride 93 L Carbon Dioxide 30 Anion Gap 15 BUN 10 Creatinine 0.7 L Est GFR ( Amer) > 60 Est GFR (Non-Af Amer) > 60 POC Glucose (mg/dL) Random Glucose 176 H Calcium 8.2 L Total Bilirubin 0.4 AST 46 ALT 36 Alkaline Phosphatase 131 H D Total Protein 6.5 Albumin 2.8 L Globulin 3.6 Albumin/Globulin Ratio 0.8 L Vancomycin Trough 12.6 H 12/08/17 05:32 WBC RBC Hgb Hct MCV MCH MCHC RDW Plt Count MPV Neut % (Auto) Lymph % (Auto) [place] % (Auto) Eos % (Auto) Baso % (Auto) Neut # (Auto) Lymph # (Auto) [place] # (Auto) Eos # (Auto) Baso # (Auto) Sodium Potassium Chloride Carbon Dioxide Anion Gap BUN Creatinine Est GFR ( Amer) Est GFR (Non-Af Amer) POC Glucose (mg/dL) 158 H Random Glucose Calcium Total Bilirubin AST ALT Alkaline Phosphatase Total Protein Albumin Globulin Albumin/Globulin Ratio Vancomycin Trough Fingerstick Blood Sugar Results: 158 Critical Care Progress Note - Nutrition Nutrition: Nutrition Category Date Time Status Diabetic [Consistent Carbohydrate] [DIET] Diets 12/07/17 Breakfast Active Assessment/Plan - Assessment and Plan (Free Text) Assessment: ASSESSMENT: 12/07/17 1. Acute Resp Insuff 2 LLL Abscess, with s/p Resection and Video-Assisted Thoracotomy. 2. DM II : better controlled now 3. Mild Coagulopathy: Improved PLAN: 1. Continue to monitor in ICU 2. Dilaudid for pain 3. SCDs 4. labs, being monitored . Monitor for any active bleeding; none now. 5. Dc IVF 6. Repeat CXR in AM. 7. Empiric abx coverage with Clinda/Levaquin and vancomycin
[2017-12-08] MEDS: GlipiZIDE 2.5 mg SR Tab PO SCH (08:25)
[2017-12-08] MEDS: Enoxaparin 40 mg Syringe SC SCH (08:25)
[2017-12-08] MEDS: levoFLOXacin 500 mg in D5W 500 MG/100 ML BAG IVPB SCH (08:33)
[2017-12-08] MEDS: Oxycodone/Acetaminophen 5/325 mg Tab PO PRN ×2 (08:43→15:10)
--- NOTE | 2017-12-08 08:58 | CP.PCM.PN ---
Subjective - Date & Time of Evaluation Date of Evaluation: 12/08/17 Time of Evaluation: 06:40 - Subjective Subjective: Thoracic Surgery- Dr. Teresa Patient seen and examined at bedside this AM. Afebrile overnight. A/P chest tube to wall suction. No air leaks detected. Anterior 40cc serosang, posterior 25cc serosang Objective - Vital Signs/Intake and Output Vital Signs (last 24 hours): Temp Pulse Resp BP Pulse Ox 99.2 F 88 25 H 107/66 96 12/08/17 04:00 12/08/17 06:00 12/08/17 06:00 12/08/17 04:00 12/08/17 06:00 Intake and Output: 12/08/17 12/08/17 06:59 18:59 Intake Total 1600 Output Total 517 Balance 1083 - Medications Medications: Current Medications Acetaminophen (Tylenol 325mg Tab) 650 mg PO Q4 PRN PRN Reason: Fever >100.4 F Enoxaparin Sodium (Lovenox) 40 mg SC DAILY [facility] PRN Reason: Protocol Last Admin: 12/08/17 08:25 Dose: 40 mg Glipizide (Glucotrol Xl) 2.5 mg PO BRK [facility] Last Admin: 12/08/17 08:25 Dose: 2.5 mg Hydromorphone HCl (Dilaudid) 1 mg IVP Q4 PRN PRN Reason: Pain, severe (8-10) Last Admin: 12/08/17 02:33 Dose: 1 mg Clindamycin in NS (Clindamycin 300 Mg/50 Ml-Ns) 300 mg in 50 mls @ 50 mls/hr IVPB Q8 [facility] PRN Reason: Protocol Last Admin: 12/08/17 08:39 Dose: 50 mls/hr Lactated Ringer's (Lactated Ringer's) 1,000 mls @ 100 mls/hr IV .Q10H [facility] Last Admin: 12/08/17 03:00 Dose: 100 mls/hr Levofloxacin/Dextrose (Levaquin 500mg) 500 mg in 100 mls @ 100 mls/hr IVPB DAILY [facility] PRN Reason: Protocol Last Admin: 12/08/17 08:33 Dose: 100 mls/hr Vancomycin HCl 1 gm/ Sodium (Chloride) 250 mls @ 166.667 mls/hr IVPB Q12H [facility] PRN Reason: Protocol Last Admin: 12/08/17 00:08 Dose: 166.667 mls/hr Insulin Human Lispro (Humalog) 0 units SC Q6 [facility] PRN Reason: Protocol Last Admin: 12/08/17 06:54 Dose: Not Given Metformin HCl (Glucophage) 1,000 mg PO BIDWM [facility] Last Admin: 12/08/17 08:24 Dose: 1,000 mg Metoclopramide HCl (Reglan) 10 mg IVP Q4 PRN PRN Reason: Nausea/Vomiting Oxycodone/Acetaminophen (Percocet 5/325 Mg Tab) 2 tab PO Q6 PRN PRN Reason: Pain, moderate (4-7) Stop: 12/10/17 16:33 Last Admin: 12/08/17 08:43 Dose: 2 tab Sennosides (Senokot Tab) 8.6 mg PO HS [facility] Last Admin: 12/07/17 22:52 Dose: 8.6 mg Sitagliptin Phosphate (Januvia) 100 mg PO DAILY [facility] Last Admin: 12/08/17 08:24 Dose: 100 mg - Labs Labs: 12/08/17 05:25 12/08/17 05:25 PT 15.6 Seconds (9.8-13.1) H 12/06/17 06:15 INR 1.4 (0.9-1.2) H 12/06/17 06:15 APTT 34.4 Seconds (25.6-37.1) 12/06/17 06:15 - Constitutional Appears: Non-toxic, No Acute Distress - Head Exam Head Exam: ATRAUMATIC - Eye Exam Eye Exam: EOMI. absent: Scleral icterus - ENT Exam ENT Exam: Mucous Membranes Moist - Respiratory Exam Respiratory Exam: NORMAL BREATHING PATTERN. absent: Accessory Muscle Use, Respiratory Distress Additional comments: shallow breathing due to pain chest tube in place on wall suction - Cardiovascular Exam Cardiovascular Exam: +S1, +S2. absent: Bradycardia, Tachycardia - GI/Abdominal Exam GI & Abdominal Exam: Soft. absent: Distended, Firm, Guarding, Rigid, Tenderness - Extremities Exam Extremities Exam: Normal Inspection. absent: Calf Tenderness - Neurological Exam Neurological Exam: Alert, Awake, Oriented x3 - Psychiatric Exam Psychiatric exam: Normal Affect - Skin Skin Exam: Intact, Warm Assessment and Plan - Assessment and Plan (Free Text) Assessment: 57M with left hemithorax empyema, lung abscess, and intrapulmonary mass s/p Video assisted thoracotomy. Left lateral muscle sparing thoracotomy. Evacuation of empyema. Decortication. Wedge resection of abscess. Intra pleural mass removal. Chest tube insertion x2 (Anterior, Posterior) POD 2 Plan: Chest tube to wall suction Monitor drain output Strict I/O encourage OOB and IS use IVabx DVT ppx pain control PRN f/u AM CXR further recs per Dr. Teresa [facility]
[2017-12-08 09:40] LABS: BANDS 1 % (0-2); LYMPHOCYTE 10 % (20-50); MONOCYTE 2 % (0-10); NEUTROPHIL 86 % (42-75); PLATELET ESTIMATE INCREASED (NORMAL); TOTAL CELLS COUNTED 100
--- NOTE | 2017-12-08 09:48 | RAD ---
HISTORY: Reevaluate; chest tubes COMPARISON: Comparison is made with 12/06/2017 FINDINGS: LUNGS: Haziness and focal opacity at the left lower lung is again noted. No significant interval change noted since the previous exam. PLEURA: Two left-sided chest tubes are again noted. No significant interval change in the small size left pleural effusion since the previous study. . CARDIOVASCULAR: Normal. OSSEOUS STRUCTURES: No significant abnormalities. VISUALIZED UPPER ABDOMEN: Normal. OTHER FINDINGS: Postsurgical changes are again noted at the left chest wall. IMPRESSION: Overall no significant interval change is noted since the previous exam.
--- NOTE | 2017-12-08 10:11 | RAD ---
HISTORY: interval changes COMPARISON: Comparison is made with 12/07/2017 FINDINGS: LUNGS: Interval decrease in the size of the left lung comparing to the previous exam. PLEURA: Possible mild increase in the size of the left pleural effusion since the previous study. No evidence of pneumothorax. 2 left-sided chest cyst tube are again seen in place. CARDIOVASCULAR: The cardiac silhouette is enlarged. OSSEOUS STRUCTURES: No significant abnormalities. VISUALIZED UPPER ABDOMEN: Normal. OTHER FINDINGS: None. IMPRESSION: Mild increase in the size of the left pleural effusion since the previous exam associated with mild decrease in the size of the left lung. Otherwise no interval change.
--- NOTE | 2017-12-08 10:32 | CP.PCM.PN ---
Subjective - Date & Time of Evaluation Date of Evaluation: 12/08/17 Time of Evaluation: 10:30 - Subjective Subjective: Patient feels a lot better Has been afebrile for the past 24 hrs however WBC remains elevated , now at 19.6 Neutro 83 Hgb 10.8 platelet 668 Objective - Vital Signs/Intake and Output Vital Signs (last 24 hours): Temp Pulse Resp BP Pulse Ox 98.3 F 93 H 16 130/79 100 12/08/17 08:00 12/08/17 08:00 12/08/17 08:00 12/08/17 08:00 12/08/17 08:00 Intake and Output: 12/08/17 12/08/17 06:59 18:59 Intake Total 1600 Output Total 517 400 Balance 1083 -400 - Medications Medications: Current Medications Acetaminophen (Tylenol 325mg Tab) 650 mg PO Q4 PRN PRN Reason: Fever >100.4 F Docusate Sodium (Colace) 200 mg PO DAILY [facility] Enoxaparin Sodium (Lovenox) 40 mg SC DAILY [facility] PRN Reason: Protocol Last Admin: 12/08/17 08:25 Dose: 40 mg Glipizide (Glucotrol Xl) 2.5 mg PO BRK [facility] Last Admin: 12/08/17 08:25 Dose: 2.5 mg Hydromorphone HCl (Dilaudid) 1 mg IVP Q4 PRN PRN Reason: Pain, severe (8-10) Last Admin: 12/08/17 02:33 Dose: 1 mg Clindamycin in NS (Clindamycin 300 Mg/50 Ml-Ns) 300 mg in 50 mls @ 50 mls/hr IVPB Q8 [facility] PRN Reason: Protocol Last Admin: 12/08/17 08:39 Dose: 50 mls/hr Lactated Ringer's (Lactated Ringer's) 1,000 mls @ 100 mls/hr IV .Q10H [facility] Last Admin: 12/08/17 03:00 Dose: 100 mls/hr Levofloxacin/Dextrose (Levaquin 500mg) 500 mg in 100 mls @ 100 mls/hr IVPB DAILY [facility] PRN Reason: Protocol Last Admin: 12/08/17 08:33 Dose: 100 mls/hr Vancomycin HCl 1 gm/ Sodium (Chloride) 250 mls @ 166.667 mls/hr IVPB Q12H [facility] PRN Reason: Protocol Last Admin: 12/08/17 00:08 Dose: 166.667 mls/hr Insulin Human Lispro (Humalog) 0 units SC Q6 [facility] PRN Reason: Protocol Last Admin: 12/08/17 06:54 Dose: Not Given Lactobacillus Acidophilus (Bacid Acidophilus) 1 cap PO BID [facility] Metformin HCl (Glucophage) 1,000 mg PO BIDWM [facility] Last Admin: 12/08/17 08:24 Dose: 1,000 mg Metoclopramide HCl (Reglan) 10 mg IVP Q4 PRN PRN Reason: Nausea/Vomiting Oxycodone/Acetaminophen (Percocet 5/325 Mg Tab) 2 tab PO Q6 PRN PRN Reason: Pain, moderate (4-7) Stop: 12/10/17 16:33 Last Admin: 12/08/17 08:43 Dose: 2 tab Sennosides (Senokot Tab) 8.6 mg PO HS [facility] Last Admin: 12/07/17 22:52 Dose: 8.6 mg Sitagliptin Phosphate (Januvia) 100 mg PO DAILY [facility] Last Admin: 12/08/17 08:24 Dose: 100 mg - Labs Labs: 12/08/17 05:25 12/08/17 05:25 PT 15.6 Seconds (9.8-13.1) H 12/06/17 06:15 INR 1.4 (0.9-1.2) H 12/06/17 06:15 APTT 34.4 Seconds (25.6-37.1) 12/06/17 06:15 - Head Exam Head Exam: NORMAL INSPECTION - Eye Exam Eye Exam: Normal appearance - ENT Exam ENT Exam: Mucous Membranes Moist - Respiratory Exam Respiratory Exam: Decreased Breath Sounds - Cardiovascular Exam Cardiovascular Exam: REGULAR RHYTHM - GI/Abdominal Exam GI & Abdominal Exam: Normal Bowel Sounds - Neurological Exam Neurological Exam: Awake, Oriented x3 Assessment and Plan (1) Pleural effusion Status: Acute (2) Empyema lung Status: Acute (3) DM type 2 (diabetes mellitus, type 2) Status: Chronic (4) Hyperlipidemia Status: Chronic - Assessment and Plan (Free Text) Plan: Cont meds Cont tx Cont PT CXR CBC Discussed with Dr Zaman
[2017-12-08] MEDS: Lactobacillus Acidophilus 500 MU Cap PO SCH ×2 (10:42→17:41)
--- NOTE | 2017-12-08 10:55 | CP.PCM.PN ---
Subjective - Date & Time of Evaluation Date of Evaluation: 12/08/17 Time of Evaluation: 10:55 - Subjective Subjective: OOB TO CHAIR AFEBRILE NO SOB BUT STILL HAS PAIN AT CHEST TUBE SITE Objective - Vital Signs/Intake and Output Vital Signs (last 24 hours): Temp Pulse Resp BP Pulse Ox 98.3 F 96 H 18 118/65 98 12/08/17 08:00 12/08/17 10:00 12/08/17 10:00 12/08/17 10:00 12/08/17 10:00 Intake and Output: 12/08/17 12/08/17 06:59 18:59 Intake Total 1600 100 Output Total 517 400 Balance 1083 -300 - Medications Medications: Current Medications Acetaminophen (Tylenol 325mg Tab) 650 mg PO Q4 PRN PRN Reason: Fever >100.4 F Docusate Sodium (Colace) 200 mg PO DAILY [facility] Enoxaparin Sodium (Lovenox) 40 mg SC DAILY [facility] PRN Reason: Protocol Last Admin: 12/08/17 08:25 Dose: 40 mg Glipizide (Glucotrol Xl) 5 mg PO BRK [facility] Hydromorphone HCl (Dilaudid) 1 mg IVP Q4 PRN PRN Reason: Pain, severe (8-10) Last Admin: 12/08/17 10:32 Dose: 1 mg Lactated Ringer's (Lactated Ringer's) 1,000 mls @ 100 mls/hr IV .Q10H [facility] Last Admin: 12/08/17 03:00 Dose: 100 mls/hr Vancomycin HCl 1 gm/ Sodium (Chloride) 250 mls @ 166.667 mls/hr IVPB Q12H [facility] PRN Reason: Protocol Last Admin: 12/08/17 00:08 Dose: 166.667 mls/hr Meropenem 1 gm/ Sodium (Chloride) 100 mls @ 100 mls/hr IVPB Q8 [facility] PRN Reason: Protocol Insulin Human Lispro (Humalog) 0 units SC Q6 [facility] PRN Reason: Protocol Last Admin: 12/08/17 06:54 Dose: Not Given Lactobacillus Acidophilus (Bacid Acidophilus) 1 cap PO BID [facility] Last Admin: 12/08/17 10:42 Dose: 1 cap Lactulose (Enulose) 20 gm PO DAILY PRN PRN Reason: Constipation Last Admin: 12/08/17 10:52 Dose: 20 gm Metformin HCl (Glucophage) 1,000 mg PO BIDWM [facility] Last Admin: 12/08/17 08:24 Dose: 1,000 mg Metoclopramide HCl (Reglan) 10 mg IVP Q4 PRN PRN Reason: Nausea/Vomiting Oxycodone/Acetaminophen (Percocet 5/325 Mg Tab) 2 tab PO Q6 PRN PRN Reason: Pain, moderate (4-7) Stop: 12/10/17 16:33 Last Admin: 12/08/17 08:43 Dose: 2 tab Sennosides (Senokot Tab) 8.6 mg PO HS [facility] Last Admin: 12/07/17 22:52 Dose: 8.6 mg Sitagliptin Phosphate (Januvia) 100 mg PO DAILY [facility] Last Admin: 12/08/17 08:24 Dose: 100 mg - Labs Labs: 12/08/17 05:25 12/08/17 05:25 PT 15.6 Seconds (9.8-13.1) H 12/06/17 06:15 INR 1.4 (0.9-1.2) H 12/06/17 06:15 APTT 34.4 Seconds (25.6-37.1) 12/06/17 06:15 - Constitutional Appears: No Acute Distress - Head Exam Head Exam: ATRAUMATIC, NORMAL INSPECTION, NORMOCEPHALIC - Eye Exam Eye Exam: EOMI, Normal appearance, PERRL Pupil Exam: NORMAL ACCOMODATION, PERRL - ENT Exam ENT Exam: Mucous Membranes Moist, Normal Exam - Neck Exam Neck Exam: Full ROM, Normal Inspection. absent: Lymphadenopathy - Respiratory Exam Respiratory Exam: Decreased Breath Sounds, Rales, NORMAL BREATHING PATTERN - Cardiovascular Exam Cardiovascular Exam: REGULAR RHYTHM, +S1, +S2. absent: Murmur - GI/Abdominal Exam GI & Abdominal Exam: Soft, Normal Bowel Sounds. absent: Tenderness - Rectal Exam Rectal Exam: NORMAL INSPECTION - Extremities Exam Extremities Exam: Full ROM, Normal Capillary Refill, Normal Inspection. absent : Joint Swelling, Pedal Edema - Back Exam Back Exam: NORMAL INSPECTION - Neurological Exam Neurological Exam: Alert, Awake, CN II-XII Intact, Normal Gait, Oriented x3 - Psychiatric Exam Psychiatric exam: Normal Affect, Normal Mood - Skin Skin Exam: Dry, Intact, Normal Color, Warm Assessment and Plan - Assessment and Plan (Free Text) Assessment: MILD INCREASE IN L PLEURAL EFFUSION--CHEST TUBES IN PLACE Plan: CONTINUE ANTIBIOTIC RX SERIAL CXRS AND CBC
--- NOTE | 2017-12-08 11:45 | CP.PCM.PN ---
Subjective - Date & Time of Evaluation Date of Evaluation: 12/08/17 Time of Evaluation: 09:00 - Subjective Subjective: awake alert denies fever pain is less chest tubes in place Objective - Vital Signs/Intake and Output Vital Signs (last 24 hours): Temp Pulse Resp BP Pulse Ox 98.3 F 96 H 18 118/65 98 12/08/17 08:00 12/08/17 10:00 12/08/17 10:00 12/08/17 10:00 12/08/17 10:00 Intake and Output: 12/08/17 12/08/17 06:59 18:59 Intake Total 1600 100 Output Total 517 400 Balance 1083 -300 - Medications Medications: Current Medications Acetaminophen (Tylenol 325mg Tab) 650 mg PO Q4 PRN PRN Reason: Fever >100.4 F Docusate Sodium (Colace) 200 mg PO DAILY [facility] Enoxaparin Sodium (Lovenox) 40 mg SC DAILY [facility] PRN Reason: Protocol Last Admin: 12/08/17 08:25 Dose: 40 mg Glipizide (Glucotrol Xl) 5 mg PO BRK [facility] Hydromorphone HCl (Dilaudid) 1 mg IVP Q4 PRN PRN Reason: Pain, severe (8-10) Last Admin: 12/08/17 10:32 Dose: 1 mg Lactated Ringer's (Lactated Ringer's) 1,000 mls @ 100 mls/hr IV .Q10H [facility] Last Admin: 12/08/17 03:00 Dose: 100 mls/hr Vancomycin HCl 1 gm/ Sodium (Chloride) 250 mls @ 166.667 mls/hr IVPB Q12H [facility] PRN Reason: Protocol Last Admin: 12/08/17 00:08 Dose: 166.667 mls/hr Meropenem 1 gm/ Sodium (Chloride) 100 mls @ 100 mls/hr IVPB Q8 [facility] PRN Reason: Protocol Insulin Human Lispro (Humalog) 0 units SC Q6 [facility] PRN Reason: Protocol Last Admin: 12/08/17 06:54 Dose: Not Given Lactobacillus Acidophilus (Bacid Acidophilus) 1 cap PO BID [facility] Last Admin: 12/08/17 10:42 Dose: 1 cap Lactulose (Enulose) 20 gm PO DAILY PRN PRN Reason: Constipation Last Admin: 12/08/17 10:52 Dose: 20 gm Metformin HCl (Glucophage) 1,000 mg PO BIDWM [facility] Last Admin: 12/08/17 08:24 Dose: 1,000 mg Metoclopramide HCl (Reglan) 10 mg IVP Q4 PRN PRN Reason: Nausea/Vomiting Oxycodone/Acetaminophen (Percocet 5/325 Mg Tab) 2 tab PO Q6 PRN PRN Reason: Pain, moderate (4-7) Stop: 12/10/17 16:33 Last Admin: 12/08/17 08:43 Dose: 2 tab Sennosides (Senokot Tab) 8.6 mg PO HS [facility] Last Admin: 12/07/17 22:52 Dose: 8.6 mg Sitagliptin Phosphate (Januvia) 100 mg PO DAILY [facility] Last Admin: 12/08/17 08:24 Dose: 100 mg - Labs Labs: 12/08/17 05:25 12/08/17 05:25 PT 15.6 Seconds (9.8-13.1) H 12/06/17 06:15 INR 1.4 (0.9-1.2) H 12/06/17 06:15 APTT 34.4 Seconds (25.6-37.1) 12/06/17 06:15 - Constitutional Appears: Non-toxic, Chronically Ill - Head Exam Head Exam: NORMOCEPHALIC - Eye Exam Eye Exam: PERRL - ENT Exam ENT Exam: Mucous Membranes Dry - Neck Exam Neck Exam: absent: Lymphadenopathy - Respiratory Exam Respiratory Exam: Decreased Breath Sounds, Rales - Cardiovascular Exam Cardiovascular Exam: REGULAR RHYTHM, +S1, +S2 - GI/Abdominal Exam GI & Abdominal Exam: Distended - Rectal Exam Rectal Exam: Deferred - Exam Exam: NORMAL INSPECTION - Extremities Exam Extremities Exam: absent: Pedal Edema - Back Exam Back Exam: absent: CVA tenderness (L), CVA tenderness (R) - Neurological Exam Neurological Exam: Alert, Awake, CN II-XII Intact, Oriented x3 Neuro motor strength exam: Left Upper Extremity: 5, Right Upper Extremity: 5, Left Lower Extremity: 5, Right Lower Extremity: 5 - Psychiatric Exam Psychiatric exam: Normal Mood - Skin Skin Exam: Dry Assessment and Plan (1) DM type 2 (diabetes mellitus, type 2) Status: Acute (2) Empyema lung Status: Acute (3) Fever Status: Acute (4) Pleural effusion Status: Acute (5) Chest tube in place Status: Acute (6) Chest tube in place Status: Acute - Assessment and Plan (Free Text) Assessment: cont Vanco/ Merrem cont chest tube drainege
[2017-12-08] MEDS: GlipiZIDE 5 mg SR Tab PO SCH (15:13)
--- NOTE | 2017-12-08 16:03 | CP.PCM.PN ---
Subjective - Date & Time of Evaluation Date of Evaluation: 12/08/17 Time of Evaluation: 15:57 - Subjective Subjective: POD#2. Pt s/e, c/o Pain controlled with pain meds. Awake and alert. OOB in chair. Tolerating diet and BM+. Afebrile. [id number] chest tubes--serosanguionous -No air leak. cxr-No pneumo; left lower lobe area density consistent with decortication. a/p: 1. POD#2-Satisfactory postop course. 2. Continue current care and antibiotlics. 3. Awaiting path. Objective - Vital Signs/Intake and Output Vital Signs (last 24 hours): Temp Pulse Resp BP Pulse Ox 98.4 F 93 H 19 131/71 98 12/08/17 12:00 12/08/17 14:00 12/08/17 14:00 12/08/17 14:00 12/08/17 14:00 Intake and Output: 12/08/17 12/08/17 06:59 18:59 Intake Total 1600 150 Output Total 517 900 Balance 1083 -750 - Medications Medications: Current Medications Acetaminophen (Tylenol 325mg Tab) 650 mg PO Q4 PRN PRN Reason: Fever >100.4 F Docusate Sodium (Colace) 200 mg PO DAILY [facility] Last Admin: 12/08/17 15:20 Dose: Not Given Enoxaparin Sodium (Lovenox) 40 mg SC DAILY [facility] PRN Reason: Protocol Last Admin: 12/08/17 08:25 Dose: 40 mg Glipizide (Glucotrol Xl) 5 mg PO BRK [facility] Last Admin: 12/08/17 15:13 Dose: 5 mg Hydromorphone HCl (Dilaudid) 1 mg IVP Q4 PRN PRN Reason: Pain, severe (8-10) Last Admin: 12/08/17 10:32 Dose: 1 mg Lactated Ringer's (Lactated Ringer's) 1,000 mls @ 100 mls/hr IV .Q10H [facility] Last Admin: 12/08/17 12:45 Dose: Not Given Vancomycin HCl 1 gm/ Sodium (Chloride) 250 mls @ 166.667 mls/hr IVPB Q12H [facility] PRN Reason: Protocol Last Admin: 12/08/17 15:12 Dose: 166.667 mls/hr Meropenem 1 gm/ Sodium (Chloride) 100 mls @ 100 mls/hr IVPB Q8 [facility] PRN Reason: Protocol Insulin Human Lispro (Humalog) 0 units SC Q6 [facility] PRN Reason: Protocol Last Admin: 12/08/17 12:09 Dose: 4 units Lactobacillus Acidophilus (Bacid Acidophilus) 1 cap PO BID [facility] Last Admin: 12/08/17 10:42 Dose: 1 cap Lactulose (Enulose) 20 gm PO DAILY PRN PRN Reason: Constipation Last Admin: 12/08/17 10:52 Dose: 20 gm Metformin HCl (Glucophage) 1,000 mg PO BIDWM [facility] Last Admin: 12/08/17 08:24 Dose: 1,000 mg Metoclopramide HCl (Reglan) 10 mg IVP Q4 PRN PRN Reason: Nausea/Vomiting Oxycodone/Acetaminophen (Percocet 5/325 Mg Tab) 2 tab PO Q6 PRN PRN Reason: Pain, moderate (4-7) Stop: 12/10/17 16:33 Last Admin: 12/08/17 15:10 Dose: 2 tab Sennosides (Senokot Tab) 8.6 mg PO HS [facility] Last Admin: 12/07/17 22:52 Dose: 8.6 mg Sitagliptin Phosphate (Januvia) 100 mg PO DAILY [facility] Last Admin: 12/08/17 08:24 Dose: 100 mg - Labs Labs: 12/08/17 05:25 12/08/17 05:25 PT 15.6 Seconds (9.8-13.1) H 12/06/17 06:15 INR 1.4 (0.9-1.2) H 12/06/17 06:15 APTT 34.4 Seconds (25.6-37.1) 12/06/17 06:15
[2017-12-08] MEDS: Meropenem 1 GM in Sodium Chloride 0.9% 100 ML IVPB SCH (17:42)
[2017-12-09] MEDS: Meropenem 1 GM in Sodium Chloride 0.9% 100 ML IVPB SCH ×3 (00:25→17:00)
[2017-12-09] MEDS: HYDROmorphone 0.5 mg/0.5 ml ISec IVP PRN ×2 (03:31→07:59)
[2017-12-09 05:26] LABS: HEMOGLOBIN 10.3 g/dL (12.0-18.0); MEAN CELL VOLUME 86.7 fl (80.0-94.0); MEAN CORPUSCULAR HEMOGLOBIN 30.2 pg (27.0-31.0); MEAN CORPUSCULAR HGB CONC 34.9 g/dL (33.0-37.0); RBC 3.41 Mil/uL (4.40-5.90); RED CELL DISTRIBUTION WIDTH 12.8 % (11.5-14.5); WHITE BLOOD COUNT 13.9 K/uL (4.8-10.8)
[2017-12-09 05:45] LABS: BLOOD UREA NITROGEN 8 mg/dl (9-20); CALCIUM 8.1 mg/dL (8.4-10.2); GFR AFRICAN-AMERICAN > 60; GFR NON-AFRICAN AMERICAN > 60
[2017-12-09] MEDS: Lactobacillus Acidophilus 500 MU Cap PO SCH ×2 (08:29→17:01)
[2017-12-09] MEDS: GlipiZIDE 5 mg SR Tab PO SCH (08:31)
[2017-12-09] MEDS: Enoxaparin 40 mg Syringe SC SCH (08:31)
--- NOTE | 2017-12-09 08:44 | RAD ---
PROCEDURE: CHEST RADIOGRAPH, 1 VIEW HISTORY: s/p Thoracotomy Chest tube placement COMPARISON: Portable chest 12/08/2017. FINDINGS: Left double chest tube placement unchanged in appearance. LUNGS: Right chest remains clear. [id number] left pleural effusion persists with underlying left basilar airspace disease not excluded. Left chest wall skin yaneth again evident with trace subcutaneous emphysema associated. No pneumothorax. PLEURA: As above. CARDIOVASCULAR: Stable cardiac silhouette. No pulmonary derangement appreciable. OSSEOUS STRUCTURES: No significant abnormalities. VISUALIZED UPPER ABDOMEN: Normal. OTHER FINDINGS: None. IMPRESSION: Persistent [id number] left pleural effusion with double left-sided chest tubes unchanged in position. Underlying left basilar airspace disease not excluded.
--- NOTE | 2017-12-09 09:08 | CP.PCM.PN ---
Subjective - Date & Time of Evaluation Date of Evaluation: 12/09/17 Time of Evaluation: 09:08 - Subjective Subjective: CLINICALLY IMPROVING CHEST PAIN IMPROVED Objective - Vital Signs/Intake and Output Vital Signs (last 24 hours): Temp Pulse Resp BP Pulse Ox 98.3 F 98 H 19 139/75 100 12/09/17 08:00 12/09/17 08:00 12/09/17 08:00 12/09/17 08:00 12/09/17 08:00 Intake and Output: 12/09/17 12/09/17 06:59 18:59 Intake Total 739 300 Output Total 515 Balance 224 300 - Medications Medications: Current Medications Acetaminophen (Tylenol 325mg Tab) 650 mg PO Q4 PRN PRN Reason: Fever >100.4 F Last Admin: 12/09/17 00:07 Dose: 650 mg Docusate Sodium (Colace) 200 mg PO DAILY [facility] Last Admin: 12/09/17 08:29 Dose: 200 mg Enoxaparin Sodium (Lovenox) 40 mg SC DAILY [facility] PRN Reason: Protocol Last Admin: 12/09/17 08:31 Dose: 40 mg Glipizide (Glucotrol Xl) 5 mg PO BRK [facility] Last Admin: 12/09/17 08:31 Dose: 5 mg Hydromorphone HCl (Dilaudid) 1 mg IVP Q4 PRN PRN Reason: Pain, severe (8-10) Last Admin: 12/09/17 07:59 Dose: 1 mg Lactated Ringer's (Lactated Ringer's) 1,000 mls @ 100 mls/hr IV .Q10H [facility] Last Admin: 12/08/17 12:45 Dose: Not Given Vancomycin HCl 1 gm/ Sodium (Chloride) 250 mls @ 166.667 mls/hr IVPB Q12H [facility] PRN Reason: Protocol Last Admin: 12/09/17 01:24 Dose: 166.667 mls/hr Meropenem 1 gm/ Sodium (Chloride) 100 mls @ 100 mls/hr IVPB Q8 [facility] PRN Reason: Protocol Last Admin: 12/09/17 08:31 Dose: 100 mls/hr Insulin Human Lispro (Humalog) 0 units SC Q6 [facility] PRN Reason: Protocol Last Admin: 12/08/17 21:50 Dose: Not Given Lactobacillus Acidophilus (Bacid Acidophilus) 1 cap PO BID [facility] Last Admin: 12/09/17 08:29 Dose: 1 cap Lactulose (Enulose) 20 gm PO DAILY PRN PRN Reason: Constipation Last Admin: 12/08/17 10:52 Dose: 20 gm Metformin HCl (Glucophage) 1,000 mg PO BIDWM [facility] Last Admin: 12/09/17 08:30 Dose: 1,000 mg Metoclopramide HCl (Reglan) 10 mg IVP Q4 PRN PRN Reason: Nausea/Vomiting Oxycodone/Acetaminophen (Percocet 5/325 Mg Tab) 2 tab PO Q6 PRN PRN Reason: Pain, moderate (4-7) Stop: 12/10/17 16:33 Last Admin: 12/08/17 15:10 Dose: 2 tab Sennosides (Senokot Tab) 8.6 mg PO [facility] Last Admin: 12/08/17 21:03 Dose: Not Given Sitagliptin Phosphate (Januvia) 100 mg PO DAILY [facility] Last Admin: 12/09/17 08:31 Dose: 100 mg - Labs Labs: 12/09/17 04:45 12/09/17 04:45 PT 15.6 Seconds (9.8-13.1) H 12/06/17 06:15 INR 1.4 (0.9-1.2) H 12/06/17 06:15 APTT 34.4 Seconds (25.6-37.1) 12/06/17 06:15 - Constitutional Appears: No Acute Distress - Head Exam Head Exam: ATRAUMATIC, NORMAL INSPECTION, NORMOCEPHALIC - Eye Exam Eye Exam: EOMI, Normal appearance, PERRL Pupil Exam: NORMAL ACCOMODATION, PERRL - ENT Exam ENT Exam: Mucous Membranes Moist, Normal Exam - Neck Exam Neck Exam: Full ROM, Normal Inspection. absent: Lymphadenopathy - Respiratory Exam Respiratory Exam: Decreased Breath Sounds, Rales, NORMAL BREATHING PATTERN - Cardiovascular Exam Cardiovascular Exam: REGULAR RHYTHM, +S1, +S2. absent: Murmur - GI/Abdominal Exam GI & Abdominal Exam: Soft, Normal Bowel Sounds. absent: Tenderness - Rectal Exam Rectal Exam: NORMAL INSPECTION - Extremities Exam Extremities Exam: Full ROM, Normal Capillary Refill, Normal Inspection. absent : Joint Swelling, Pedal Edema - Back Exam Back Exam: NORMAL INSPECTION - Neurological Exam Neurological Exam: Alert, Awake, CN II-XII Intact, Normal Gait, Oriented x3 - Psychiatric Exam Psychiatric exam: Normal Affect, Normal Mood - Skin Skin Exam: Dry, Intact, Normal Color, Warm Assessment and Plan - Assessment and Plan (Free Text) Assessment: L PLEURAL EFFUSION--EMPYEMA Plan: CONTINUE CURRENT RX MAY NEED TO REPOSITION CHEST TUBE FOR ADEQUATE DRAINAGE OF FLUID
--- NOTE | 2017-12-09 09:31 | CP.PCM.PN ---
Subjective - Date & Time of Evaluation Date of Evaluation: 12/09/17 Time of Evaluation: 07:10 - Subjective Subjective: Patient seen and examined. Tmax of 100.5 over night. Patient is ambulating and using incentive spirometer. Reports pain at chest tube insertion sites. WBC trending down. Objective - Vital Signs/Intake and Output Vital Signs (last 24 hours): Temp Pulse Resp BP Pulse Ox 98.3 F 98 H 19 139/75 100 12/09/17 08:00 12/09/17 08:00 12/09/17 08:00 12/09/17 08:00 12/09/17 08:00 Intake and Output: 12/09/17 12/09/17 06:59 18:59 Intake Total 739 300 Output Total 515 Balance 224 300 - Medications Medications: Current Medications Acetaminophen (Tylenol 325mg Tab) 650 mg PO Q4 PRN PRN Reason: Fever >100.4 F Last Admin: 12/09/17 00:07 Dose: 650 mg Docusate Sodium (Colace) 200 mg PO DAILY [facility] Last Admin: 12/09/17 08:29 Dose: 200 mg Enoxaparin Sodium (Lovenox) 40 mg SC DAILY [facility] PRN Reason: Protocol Last Admin: 12/09/17 08:31 Dose: 40 mg Glipizide (Glucotrol Xl) 5 mg PO BRK [facility] Last Admin: 12/09/17 08:31 Dose: 5 mg Vancomycin HCl 1 gm/ Sodium (Chloride) 250 mls @ 166.667 mls/hr IVPB Q12H [facility] PRN Reason: Protocol Last Admin: 12/09/17 01:24 Dose: 166.667 mls/hr Meropenem 1 gm/ Sodium (Chloride) 100 mls @ 100 mls/hr IVPB Q8 [facility] PRN Reason: Protocol Last Admin: 12/09/17 08:31 Dose: 100 mls/hr Insulin Human Lispro (Humalog) 0 units SC Q6 [facility] PRN Reason: Protocol Last Admin: 12/08/17 21:50 Dose: Not Given Ketorolac Tromethamine (Toradol) 30 mg IVP Q6 PRN PRN Reason: Pain, moderate (4-7) Lactobacillus Acidophilus (Bacid Acidophilus) 1 cap PO BID [facility] Last Admin: 12/09/17 08:29 Dose: 1 cap Lactulose (Enulose) 20 gm PO DAILY PRN PRN Reason: Constipation Last Admin: 12/08/17 10:52 Dose: 20 gm Metformin HCl (Glucophage) 1,000 mg PO BIDWM [facility] Last Admin: 12/09/17 08:30 Dose: 1,000 mg Metoclopramide HCl (Reglan) 10 mg IVP Q4 PRN PRN Reason: Nausea/Vomiting Oxycodone/Acetaminophen (Percocet 5/325 Mg Tab) 2 tab PO Q6 PRN PRN Reason: Pain, moderate (4-7) Stop: 12/10/17 16:33 Last Admin: 12/08/17 15:10 Dose: 2 tab Sennosides (Senokot Tab) 8.6 mg PO HS [facility] Last Admin: 12/08/17 21:03 Dose: Not Given Sitagliptin Phosphate (Januvia) 100 mg PO DAILY [facility] Last Admin: 12/09/17 08:31 Dose: 100 mg - Labs Labs: 12/09/17 04:45 12/09/17 04:45 PT 15.6 Seconds (9.8-13.1) H 12/06/17 06:15 INR 1.4 (0.9-1.2) H 12/06/17 06:15 APTT 34.4 Seconds (25.6-37.1) 12/06/17 06:15 - Constitutional Appears: No Acute Distress - Head Exam Head Exam: NORMOCEPHALIC - Eye Exam Eye Exam: EOMI, Normal appearance - ENT Exam ENT Exam: Mucous Membranes Moist - Respiratory Exam Respiratory Exam: NORMAL BREATHING PATTERN - Cardiovascular Exam Cardiovascular Exam: +S1, +S2 - GI/Abdominal Exam GI & Abdominal Exam: Soft - Neurological Exam Neurological Exam: Alert, Awake, Oriented x3 - Psychiatric Exam Psychiatric exam: Normal Mood - Skin Skin Exam: Dry, Intact, Warm Assessment and Plan - Assessment and Plan (Free Text) Assessment: 57M with left hemithorax empyema, lung abscess, and intrapulmonary mass s/p Video assisted thoracotomy. Left lateral muscle sparing thoracotomy. Evacuation of empyema. Decortication. Wedge resection of abscess. Intra pleural mass removal. Chest tube insertion x2 (Anterior, Posterior) POD 3 Plan: chest tubes-20/20-serosanguionous -No air leak. CXR: no pneumo Await pathology report Medical management per ICU team Analgesic prn Antipyretic prn Encourage ambulation Encourage incentive spirometer use D/w Dr. Brii Grayson PGY2
[2017-12-09] MEDS: Oxycodone/Acetaminophen 5/325 mg Tab PO PRN (10:08)
[2017-12-09] MEDS: Insulin Lispro (humaLOG) 100 Units/ml Inj SC SCH ×3 (11:33→22:33)
--- NOTE | 2017-12-09 12:34 | CP.PCM.PN ---
Subjective - Date & Time of Evaluation Date of Evaluation: 12/09/17 Time of Evaluation: 12:29 - Subjective Subjective: Pt s/e. c/o pain but stated getting better. Tmax=99+ vss wbc-13.9k chest tube output: 35cc/y serosanguinous. no air leak. cxr-chest tubes in good postition. Left lower densidty consistent with decortication. a/p: Satisfactory pod#3.s Continue current care. d/w Dr. Null. Objective - Vital Signs/Intake and Output Vital Signs (last 24 hours): Temp Pulse Resp BP Pulse Ox 98.9 F 96 H 11 L 141/99 H 97 12/09/17 12:00 12/09/17 12:00 12/09/17 12:00 12/09/17 12:00 12/09/17 12:00 Intake and Output: 12/09/17 12/09/17 06:59 18:59 Intake Total 739 300 Output Total 515 500 Balance 224 -200 - Medications Medications: Current Medications Acetaminophen (Tylenol 325mg Tab) 650 mg PO Q4 PRN PRN Reason: Fever >100.4 F Last Admin: 12/09/17 00:07 Dose: 650 mg Docusate Sodium (Colace) 200 mg PO DAILY [facility] Last Admin: 12/09/17 08:29 Dose: 200 mg Enoxaparin Sodium (Lovenox) 40 mg SC DAILY [facility] PRN Reason: Protocol Last Admin: 12/09/17 08:31 Dose: 40 mg Glipizide (Glucotrol Xl) 5 mg PO BRK [facility] Last Admin: 12/09/17 08:31 Dose: 5 mg Vancomycin HCl 1 gm/ Sodium (Chloride) 250 mls @ 166.667 mls/hr IVPB Q12H [facility] PRN Reason: Protocol Last Admin: 12/09/17 01:24 Dose: 166.667 mls/hr Meropenem 1 gm/ Sodium (Chloride) 100 mls @ 100 mls/hr IVPB Q8 [facility] PRN Reason: Protocol Last Admin: 12/09/17 08:31 Dose: 100 mls/hr Insulin Human Lispro (Humalog) 0 units SC Q6 [facility] PRN Reason: Protocol Last Admin: 12/09/17 11:33 Dose: 2 units Ketorolac Tromethamine (Toradol) 30 mg IVP Q6 PRN PRN Reason: Pain, moderate (4-7) Lactobacillus Acidophilus (Bacid Acidophilus) 1 cap PO BID [facility] Last Admin: 12/09/17 08:29 Dose: 1 cap Lactulose (Enulose) 20 gm PO DAILY PRN PRN Reason: Constipation Last Admin: 12/08/17 10:52 Dose: 20 gm [facility] ([facility]) [facility] Last Admin: 12/09/17 08:30 Dose: 1,000 mg Metoclopramide HCl (Reglan) 10 mg IVP Q4 PRN PRN Reason: Nausea/Vomiting Oxycodone/Acetaminophen (Percocet 5/325 Mg Tab) 2 tab PO Q6 PRN PRN Reason: Pain, moderate (4-7) Stop: 12/10/17 16:33 Last Admin: 12/09/17 10:08 Dose: 2 tab Sennosides (Senokot Tab) 8.6 mg PO HS [facility] Last Admin: 12/08/17 21:03 Dose: Not Given Sitagliptin Phosphate (Januvia) 100 mg PO DAILY [facility] Last Admin: 12/09/17 08:31 Dose: 100 mg - Labs Labs: 12/09/17 04:45 12/09/17 04:45 PT 15.6 Seconds (9.8-13.1) H 12/06/17 06:15 INR 1.4 (0.9-1.2) H 12/06/17 06:15 APTT 34.4 Seconds (25.6-37.1) 12/06/17 06:15
--- NOTE | 2017-12-09 15:02 | CP.CCUPN ---
CCU Subjective - Physician Review Subjective (Free Text): 12/09/17 The patient was Seen/interviewed and examined by me at the bedside during ICU round, Medical records reviewed and Management issues were discussed and formulated with the house staff. Events reviewed Mr Galaviz is a 57 Years old Male with PMHx of Diabetes, Hyperlipidemia and atherosclerotic heart disease Who was referred to the Emergency department on 12/04 for evaluation of pleuritic chest and low grade temps that that been ongoing for a few weeks, denies shortness of breath, cough or chills. Pt had outpatient imaging that shows loculated collection in the left lower lobe. Pt has been on ceftin and azithromycin for 5 days. 12/06, Underwent Video assisted thoracotomy, Left lateral muscle sparing thoracotomy, Evacuation of empyema, Decortication. Wedge resection of abscess and Intra pleural mass removal. Chest tube insertion x2 (Anterior, Posterior) He was found to have Left Empyema. Lung abscess. intrapleural mass. This morning he feels well and is hemodynamically stable, Pt denies any or SOB chest pain better controlled Afebrile, Tmx 100.4 NSR on the monitor Pt AAO x3. Alert, comfortable, NAD Breathing unlabored, on room air O2 sat 96-100%. Last 24H chest tube output: CT#1 35cc/y serosanguinous, CT#2 0 CXR reviewed, Both Chest tube good position Both Chest tube connected to suction with no air leak. CCU Objective - Vital Signs / Intake & Output Vital Signs (Last 4 hours): Vital Signs Temp Pulse Resp BP Pulse Ox 12/09/17 14:00 78 18 113/65 100 12/09/17 12:00 98.9 F 96 H 11 L 141/99 H 97 12/09/17 11:46 84 16 120/63 99 Intake and Output (Last 8hrs): Intake & Output 12/09/17 12/09/17 12/09/17 06:59 14:59 22:59 Intake Total 555 550 Output Total 515 500 Balance 40 50 Weight 110 lb Intake: IV 30 Intake, Piggyback 450 300 Oral 75 250 Output: Chest Tube Drainage 15 Left Anterior Chest 15 Left Posterior Chest 0 Urine 500 500 Urine, Voided 500 500 Other: # Bowel Movements 1 - Physical Exam Physical Exam Limitations: Positive for: Clinical Condition Head: Positive for: Atraumatic, Normocephalic Pupils: Positive for: PERRL Extroacular Muscles: Positive for: EOMI Conjunctiva: Positive for: Normal. Negative for: Injected, Icteric Mouth: Positive for: Moist Mucous Membranes Pharnyx: Positive for: Normal. Negative for: ERYTHEMA Nose (Internal): Positive for: Normal Inspection Neck: Positive for: Normal Range of Motion, Trachea Midline. Negative for: Meningeal Signs, MIDLINE TENDERNESS, Paraspinal Tenderness, JVD, Lymphadenopathy , Bruit, Other Respiratory/Chest: Positive for: Clear to Auscultation, Good Air Exchange, Decreased Breath Sounds. Negative for: Respiratory Distress, Accessory Muscle Use, Wheezes, Rales, Retracting Cardiovascular: Positive for: Regular Rate and Rhythm, Normal S1, S2, Peripheal Pulses Present. Negative for: Tachycardic, Bradycardic Abdomen: Positive for: Normal Bowel Sounds. Negative for: Tenderness, Distention, Peritoneal Signs Neurological: Positive for: GCS=15, CN II-XII Intact, Speech Normal, Motor Func Grossly Intact, Normal Sensory Function - Medications Active Medications: Active Medications Generic Name Dose Route Start Last Admin Trade Name Freq PRN Reason Stop Dose Admin Acetaminophen 650 mg 12/07/17 23:30 12/09/17 00:07 Tylenol 325mg Tab PO 650 mg Q4 PRN Administration Fever >100.4 F Docusate Sodium 200 mg 12/08/17 10:30 12/09/17 08:29 Colace PO 200 mg DAILY [facility] Administration Enoxaparin Sodium 40 mg 12/08/17 09:00 12/09/17 08:31 Lovenox SC 40 mg DAILY [facility] Administration Protocol Glipizide 5 mg 12/08/17 10:45 12/09/17 08:31 Glucotrol Xl PO 5 mg BRK [facility] Administration Vancomycin HCl 1 gm/ Sodium 250 mls @ 166.667 mls/hr 12/07/17 01:00 12/09/17 13:14 Chloride IVPB 166.667 mls/hr Q12H [facility] Administration Protocol Meropenem 1 gm/ Sodium 100 mls @ 100 mls/hr 12/08/17 17:00 12/09/17 08:31 Chloride IVPB 100 mls/hr Q8 [facility] Administration Protocol Insulin Human Lispro 0 units 12/06/17 22:00 12/09/17 11:33 Humalog SC 2 units Q6 [facility] Administration Protocol Ketorolac Tromethamine 30 mg 12/09/17 09:19 12/09/17 13:13 Toradol IVP 30 mg Q6 PRN Administration Pain, moderate (4-7) Lactobacillus Acidophilus 1 cap 12/08/17 10:30 12/09/17 08:29 Bacid Acidophilus PO 1 cap BID [facility] Administration Lactulose 20 gm 12/08/17 10:42 12/08/17 10:52 Enulose PO 20 gm DAILY PRN Administration Constipation Metformin HCl 1,000 mg 12/08/17 08:00 12/09/17 08:30 Glucophage PO 1,000 mg BIDWM [facility] Administration Metoclopramide HCl 10 mg 12/06/17 20:46 Reglan IVP Q4 PRN Nausea/Vomiting Oxycodone/Acetaminophen 2 tab 12/07/17 16:32 12/09/17 10:08 Percocet 5/325 Mg Tab PO 12/10/17 16:33 2 tab Q6 PRN Administration Pain, moderate (4-7) Sennosides 8.6 mg 12/07/17 22:15 12/08/17 21:03 Senokot Tab PO Not Given [facility] Sitagliptin Phosphate 100 mg 12/07/17 09:00 12/09/17 08:31 Januvia PO 100 mg DAILY [facility] Administration - Patient Studies Lab Studies: Microbiology Studies 12/06/17 16:00 Fungal Culture - Preliminary Chest Left 12/04/17 13:25 Gram Stain - Final Body Fluid - Pleural Fluid Body Fluid Culture - Preliminary Gram Positive Cocci 12/04/17 07:50 Blood Culture - Final Blood-Venous NO GROWTH AFTER 5 DAYS Gram Stain - Final TEST NOT PERFORMED 12/04/17 08:15 Blood Culture - Final Blood-Venous NO GROWTH AFTER 5 DAYS Gram Stain - Final TEST NOT PERFORMED 12/06/17 10:20 Gram Stain - Final Sputum Sputum Culture - Final NORMAL ORAL SONI 12/06/17 16:00 Gram Stain - Final Chest Lab Studies 12/09/17 12/09/17 12/09/17 Range/Units 11:20 06:28 04:45 WBC (4.8-10.8) K/uL RBC (4.40-5.90) Mil/uL Hgb (12.0-18.0) g/dL Hct (35.0-51.0) % MCV (80.0-94.0) fl MCH (27.0-31.0) pg MCHC (33.0-37.0) g/dL RDW (11.5-14.5) % Plt Count (130-400) K/uL Sodium 133 (132-148) mmol/l Potassium 3.6 (3.6-5.0) MMOL/L Chloride 95 L (98-107) mmol/L Carbon Dioxide 30 (22-30) mmol/L Anion Gap 12 (10-20) BUN 8 L (9-20) mg/dl Creatinine 0.6 L (0.8-1.5) mg/dl Est GFR ( Amer) > 60 Est GFR (Non-Af Amer) > 60 POC Glucose (mg/dL) 171 H 132 H (65-110) mg/dL Random Glucose 153 H (75-110) mg/dL Calcium 8.1 L (8.4-10.2) mg/dL Procalcitonin (0.19-0.49) NG/ML Histoplasma Ab Imm Diff (Negative) Crossmatch 12/09/17 12/08/17 12/08/17 Range/Units 04:45 21:56 16:00 WBC 13.9 H (4.8-10.8) K/uL RBC 3.41 L (4.40-5.90) Mil/uL Hgb 10.3 L (12.0-18.0) g/dL Hct 29.6 L (35.0-51.0) % MCV 86.7 (80.0-94.0) fl MCH 30.2 (27.0-31.0) pg MCHC 34.9 (33.0-37.0) g/dL RDW 12.8 (11.5-14.5) % Plt Count 591 H (130-400) K/uL Sodium (132-148) mmol/l Potassium (3.6-5.0) MMOL/L Chloride (98-107) mmol/L Carbon Dioxide (22-30) mmol/L Anion Gap (10-20) BUN (9-20) mg/dl Creatinine (0.8-1.5) mg/dl Est GFR ( Amer) Est GFR (Non-Af Amer) POC Glucose (mg/dL) 161 H 122 H (65-110) mg/dL Random Glucose (75-110) mg/dL Calcium (8.4-10.2) mg/dL Procalcitonin (0.19-0.49) NG/ML Histoplasma Ab Imm Diff (Negative) Crossmatch 12/08/17 12/06/17 12/04/17 Range/Units 13:24 06:15 14:59 WBC (4.8-10.8) K/uL RBC (4.40-5.90) Mil/uL Hgb (12.0-18.0) g/dL Hct (35.0-51.0) % MCV (80.0-94.0) fl MCH (27.0-31.0) pg MCHC (33.0-37.0) g/dL RDW (11.5-14.5) % Plt Count (130-400) K/uL Sodium (132-148) mmol/l Potassium (3.6-5.0) MMOL/L Chloride (98-107) mmol/L Carbon Dioxide (22-30) mmol/L Anion Gap (10-20) BUN (9-20) mg/dl Creatinine (0.8-1.5) mg/dl Est GFR ( Amer) Est GFR (Non-Af Amer) POC Glucose (mg/dL) (65-110) mg/dL Random Glucose (75-110) mg/dL Calcium (8.4-10.2) mg/dL Procalcitonin 0.52 H (0.19-0.49) NG/ML Histoplasma Ab Imm Diff Negative (Negative) Crossmatch See Detail Laboratory Results - last 24 hr 12/04/17 12/06/17 12/08/17 14:59 06:15 13:24 WBC RBC Hgb Hct MCV MCH MCHC RDW Plt Count Sodium Potassium Chloride Carbon Dioxide Anion Gap BUN Creatinine Est GFR ( Amer) Est GFR (Non-Af Amer) POC Glucose (mg/dL) Random Glucose Calcium Procalcitonin 0.52 H Histoplasma Ab Imm Diff Negative Crossmatch See Detail 12/08/17 12/08/17 12/09/17 16:00 21:56 04:45 WBC 13.9 H RBC 3.41 L Hgb 10.3 L Hct 29.6 L MCV 86.7 MCH 30.2 MCHC 34.9 RDW 12.8 Plt Count 591 H Sodium Potassium Chloride Carbon Dioxide Anion Gap BUN Creatinine Est GFR ( Amer) Est GFR (Non-Af Amer) POC Glucose (mg/dL) 122 H 161 H Random Glucose Calcium Procalcitonin Histoplasma Ab Imm Diff Crossmatch 12/09/17 12/09/17 12/09/17 04:45 06:28 11:20 WBC RBC Hgb Hct MCV MCH MCHC RDW Plt Count Sodium 133 Potassium 3.6 Chloride 95 L Carbon Dioxide 30 Anion Gap 12 BUN 8 L Creatinine 0.6 L Est GFR ( Amer) > 60 Est GFR (Non-Af Amer) > 60 POC Glucose (mg/dL) 132 H 171 H Random Glucose 153 H Calcium 8.1 L Procalcitonin Histoplasma Ab Imm Diff Crossmatch Fingerstick Blood Sugar Results: 171 Critical Care Progress Note - Extremities/Vascular Does the Patient have a Central Venous Catheter?: No Does the Patient need a Central Venous Catheter?: No Does the Patient have a Pepper Catheter?: No Does the Patient need a Pepper Catheter?: No - Nutrition Nutrition: Nutrition Category Date Time Status Diabetic [Consistent Carbohydrate] [DIET] Diets 12/07/17 Breakfast Active Assessment/Plan (1) Sepsis Current Visit: Yes Status: Acute Priority: High (2) Chest tube in place Current Visit: Yes Status: Acute Priority: High (3) Empyema lung Current Visit: Yes Status: Acute Priority: High (4) Pleural effusion Current Visit: Yes Status: Acute Priority: High (5) DM type 2 (diabetes mellitus, type 2) Current Visit: Yes Status: Chronic Priority: Medium (6) Hyperlipidemia Current Visit: Yes Status: Chronic Priority: Medium - Assessment and Plan (Free Text) Assessment: POD #3 S/P Video assisted thoracotomy, Left lateral muscle sparing thoracotomy , Evacuation of empyema, Decortication. Both Chest tube connected to suction with no air leak. Continue with ICU care for hemodynamic monitoring Monitor Respiratory status IV Hydration Empiric Antibiotics coverage with Clinda/Levaquin and vancomycin Pain control with PRN Dilauded, Toradol and Percocet 5/325 PT/OT PER ORTHO Monitor chest tube output Monitor urine output Restart outpatient meds BD nebs Q 6H PRN PRN Ondansetron OOB chair, fall precautions, aspiration precaution Incentive spirometry Tight glycemic control, RISS with Coverage Aggressive pulmonary toilet, chest PT, suctioning GI/DVT PPX with SCDs, LMWH
[2017-12-10] MEDS: Meropenem 1 GM in Sodium Chloride 0.9% 100 ML IVPB SCH ×3 (00:12→16:47)
[2017-12-10] MEDS ORDERED: Morphine 4 MG/ML VIAL ONE (01:52)
[2017-12-10] MEDS ORDERED: Morphine 4 MG/ML VIAL IVP STA (01:59)
[2017-12-10] MEDS: Insulin Lispro (humaLOG) 100 Units/ml Inj SC SCH ×3 (05:00→21:56)
[2017-12-10 05:53] LABS: HEMOGLOBIN 10.7 g/dL (12.0-18.0); MEAN CELL VOLUME 87.6 fl (80.0-94.0); MEAN CORPUSCULAR HEMOGLOBIN 30.2 pg (27.0-31.0); MEAN CORPUSCULAR HGB CONC 34.4 g/dL (33.0-37.0); RBC 3.56 Mil/uL (4.40-5.90); WHITE BLOOD COUNT 11.5 K/uL (4.8-10.8)
[2017-12-10 06:14] LABS: ALB/GLOB RATIO 0.7 (1.0-2.1); ALBUMIN 2.6 g/dL (3.5-5.0); ALT/SGPT 35 U/L (21-72); AST/SGOT 35 U/L (17-59); BLOOD UREA NITROGEN 10 mg/dl (9-20); CALCIUM 8.2 mg/dL (8.4-10.2); GFR AFRICAN-AMERICAN > 60; GFR NON-AFRICAN AMERICAN > 60
--- NOTE | 2017-12-10 06:49 | CP.PCM.PN ---
Subjective - Date & Time of Evaluation Date of Evaluation: 12/09/17 Time of Evaluation: 10:00 - Subjective Subjective: Patient is doing well. Noted decrease in WBC 13.9 platelet 591 CXR showed minimal effusion on LLL Able to ambulate with assistance Noted bilateral leg edema Objective - Vital Signs/Intake and Output Vital Signs (last 24 hours): Temp Pulse Resp BP Pulse Ox 99.6 F 80 20 132/70 97 12/10/17 04:00 12/10/17 06:00 12/10/17 06:00 12/10/17 06:00 12/10/17 06:00 Intake and Output: 12/09/17 12/10/17 18:59 06:59 Intake Total 950 610 Output Total 920 1565 Balance 30 -955 - Medications Medications: Current Medications Acetaminophen (Tylenol 325mg Tab) 650 mg PO Q4 PRN PRN Reason: Fever >100.4 F Last Admin: 12/09/17 00:07 Dose: 650 mg Docusate Sodium (Colace) 200 mg PO DAILY [facility] Last Admin: 12/09/17 08:29 Dose: 200 mg Enoxaparin Sodium (Lovenox) 40 mg SC DAILY [facility] PRN Reason: Protocol Last Admin: 12/09/17 08:31 Dose: 40 mg Glipizide (Glucotrol Xl) 5 mg PO BRK [facility] Last Admin: 12/09/17 08:31 Dose: 5 mg Vancomycin HCl 1 gm/ Sodium (Chloride) 250 mls @ 166.667 mls/hr IVPB Q12H [facility] PRN Reason: Protocol Last Admin: 12/10/17 00:13 Dose: 166.667 mls/hr Meropenem 1 gm/ Sodium (Chloride) 100 mls @ 100 mls/hr IVPB Q8 [facility] PRN Reason: Protocol Last Admin: 12/10/17 00:12 Dose: 100 mls/hr Insulin Human Lispro (Humalog) 0 units SC Q6 [facility] PRN Reason: Protocol Last Admin: 12/09/17 22:33 Dose: Not Given Ketorolac Tromethamine (Toradol) 30 mg IVP Q6 PRN PRN Reason: Pain, moderate (4-7) Last Admin: 12/10/17 04:57 Dose: 30 mg Lactobacillus Acidophilus (Bacid Acidophilus) 1 cap PO BID [facility] Last Admin: 12/09/17 17:01 Dose: 1 cap Lactulose (Enulose) 20 gm PO DAILY PRN PRN Reason: Constipation Last Admin: 12/08/17 10:52 Dose: 20 gm Metformin HCl (Glucophage) 1,000 mg PO BIDWM [facility] Last Admin: 12/09/17 17:01 Dose: 1,000 mg Metoclopramide HCl (Reglan) 10 mg IVP Q4 PRN PRN Reason: Nausea/Vomiting Oxycodone/Acetaminophen (Percocet 5/325 Mg Tab) 2 tab PO Q6 PRN PRN Reason: Pain, moderate (4-7) Stop: 12/10/17 16:33 Last Admin: 12/09/17 10:08 Dose: 2 tab Sennosides (Senokot Tab) 8.6 mg PO HS [facility] Last Admin: 12/09/17 22:52 Dose: Not Given Sitagliptin Phosphate (Januvia) 100 mg PO DAILY [facility] Last Admin: 12/09/17 08:31 Dose: 100 mg - Labs Labs: 12/10/17 04:00 12/10/17 04:50 PT 15.6 Seconds (9.8-13.1) H 12/06/17 06:15 INR 1.4 (0.9-1.2) H 12/06/17 06:15 APTT 34.4 Seconds (25.6-37.1) 12/06/17 06:15 - Eye Exam Eye Exam: Normal appearance - ENT Exam ENT Exam: Mucous Membranes Moist - Respiratory Exam Respiratory Exam: Decreased Breath Sounds, NORMAL BREATHING PATTERN - Cardiovascular Exam Cardiovascular Exam: REGULAR RHYTHM - GI/Abdominal Exam GI & Abdominal Exam: Normal Bowel Sounds - Extremities Exam Additional comments: bilateral leg edema non pitting - Neurological Exam Neurological Exam: Awake, Oriented x3 Assessment and Plan (1) Pleural effusion Status: Acute (2) Empyema lung Status: Acute (3) DM type 2 (diabetes mellitus, type 2) Status: Chronic (4) Hyperlipidemia Status: Chronic (5) Leg edema Status: Acute (6) Reactive thrombocytosis Status: Acute - Assessment and Plan (Free Text) Plan: Cont meds Cont antibiotics discussed with Dr Maloney and Dr An keep in ICU maintain Iv antibiotics CXR reoeat labs ambulate Phys therapy
--- NOTE | 2017-12-10 08:06 | CP.PCM.PN ---
Subjective - Date & Time of Evaluation Date of Evaluation: 12/10/17 Time of Evaluation: 07:25 - Subjective Subjective: CT surgery progress note. Dr. Tersea Pt seen and examined at bedside. No acute events overnight. No N/V/D. No F/C. Ambulating. Tolerating diet. Still reports some pain, improving and well controlled on current pain regimen. No new complaints. Objective - Vital Signs/Intake and Output Vital Signs (last 24 hours): Temp Pulse Resp BP Pulse Ox 99.6 F 68 23 127/67 99 12/10/17 04:00 12/10/17 07:39 12/10/17 07:39 12/10/17 07:39 12/10/17 07:39 Intake and Output: 12/10/17 12/10/17 06:59 18:59 Intake Total 610 Output Total 1565 200 Balance -955 -200 - Medications Medications: Current Medications Acetaminophen (Tylenol 325mg Tab) 650 mg PO Q4 PRN PRN Reason: Fever >100.4 F Last Admin: 12/09/17 00:07 Dose: 650 mg Docusate Sodium (Colace) 200 mg PO DAILY [facility] Last Admin: 12/09/17 08:29 Dose: 200 mg Enoxaparin Sodium (Lovenox) 40 mg SC DAILY [facility] PRN Reason: Protocol Last Admin: 12/09/17 08:31 Dose: 40 mg Glipizide (Glucotrol Xl) 5 mg PO BRK [facility] Last Admin: 12/09/17 08:31 Dose: 5 mg Vancomycin HCl 1 gm/ Sodium (Chloride) 250 mls @ 166.667 mls/hr IVPB Q12H [facility] PRN Reason: Protocol Last Admin: 12/10/17 00:13 Dose: 166.667 mls/hr Meropenem 1 gm/ Sodium (Chloride) 100 mls @ 100 mls/hr IVPB Q8 [facility] PRN Reason: Protocol Last Admin: 12/10/17 00:12 Dose: 100 mls/hr Insulin Human Lispro (Humalog) 0 units SC Q6 [facility] PRN Reason: Protocol Last Admin: 12/10/17 05:00 Dose: 2 units Ketorolac Tromethamine (Toradol) 30 mg IVP Q6 PRN PRN Reason: Pain, moderate (4-7) Last Admin: 12/10/17 04:57 Dose: 30 mg Lactobacillus Acidophilus (Bacid Acidophilus) 1 cap PO BID [facility] Last Admin: 12/09/17 17:01 Dose: 1 cap Lactulose (Enulose) 20 gm PO DAILY PRN PRN Reason: Constipation Last Admin: 12/08/17 10:52 Dose: 20 gm Metformin HCl (Glucophage) 1,000 mg PO BIDWM [facility] Last Admin: 12/09/17 17:01 Dose: 1,000 mg Metoclopramide HCl (Reglan) 10 mg IVP Q4 PRN PRN Reason: Nausea/Vomiting Oxycodone/Acetaminophen (Percocet 5/325 Mg Tab) 2 tab PO Q6 PRN PRN Reason: Pain, moderate (4-7) Stop: 12/10/17 16:33 Last Admin: 12/09/17 10:08 Dose: 2 tab Sennosides (Senokot Tab) 8.6 mg PO HS [facility] Last Admin: 12/09/17 22:52 Dose: Not Given Sitagliptin Phosphate (Januvia) 100 mg PO DAILY [facility] Last Admin: 12/09/17 08:31 Dose: 100 mg - Labs Labs: 12/10/17 04:00 12/10/17 04:50 PT 15.6 Seconds (9.8-13.1) H 12/06/17 06:15 INR 1.4 (0.9-1.2) H 12/06/17 06:15 APTT 34.4 Seconds (25.6-37.1) 12/06/17 06:15 - Constitutional Appears: Well, Non-toxic - Head Exam Head Exam: ATRAUMATIC, NORMAL INSPECTION - Eye Exam Eye Exam: EOMI, Normal appearance - ENT Exam ENT Exam: Mucous Membranes Moist - Respiratory Exam Respiratory Exam: NORMAL BREATHING PATTERN. absent: Accessory Muscle Use, Respiratory Distress Additional comments: Left sided chest tubes x2. Dressing clean, dry and intact. Chest tubes with 25cc and 30cc serosang output over 24 hours. No air leaks noted. - Cardiovascular Exam Cardiovascular Exam: RRR. absent: JVD - GI/Abdominal Exam GI & Abdominal Exam: Soft. absent: Distended, Firm, Guarding, Rigid, Tenderness , Rebound - Extremities Exam Extremities Exam: Normal Inspection. absent: Calf Tenderness - Neurological Exam Neurological Exam: Alert, Awake, Oriented x3 - Psychiatric Exam Psychiatric exam: Normal Affect, Normal Mood - Skin Skin Exam: Dry, Intact, Normal Color, Warm Assessment and Plan - Assessment and Plan (Free Text) Assessment: 57yo M with left hemithorax empyema, lung abscess, and intrapulmonary mass s/p Video assisted thoracotomy. Left lateral muscle sparing thoracotomy. Evacuation of empyema. Decortication. Wedge resection of abscess. Intra pleural mass removal. Left Chest tube insertion x2. POD4. - Chest tube output - 25cc/30cc, serosang. No Air leaks - Pleural Fluid cytology - negative for malignant cells. consistent with empyema Plan: - continue Chest tubes to suction - f/u AM CXR - Pain management - Antipyretics prn - Continue medical maximization as per ICU team - Encourage OOBTC, Ambulation, IS use Further recs as per Dr. Brii Lang PGY1 surgery pager:[phone]
[2017-12-10] MEDS: Lactobacillus Acidophilus 500 MU Cap PO SCH ×2 (08:10→16:47)
[2017-12-10] MEDS: GlipiZIDE 5 mg SR Tab PO SCH (08:11)
[2017-12-10] MEDS: Enoxaparin 40 mg Syringe SC SCH (08:11)
--- NOTE | 2017-12-10 08:37 | CP.PCM.PN ---
Subjective - Date & Time of Evaluation Date of Evaluation: 12/10/17 Time of Evaluation: 08:00 - Subjective Subjective: Patient seen and examined at bedside w/ Dr. Null. There are no acute events overnight, NAD. The patient reports improvement w/ breathing but continues to have pain at site of chest tubes. Patient's chest tubes drained 20 cc from anterior and 10 cc from posterior consisting of serosanguinous fluid. The patient denies headaches, SOB, abdominal pain, nausea, vomiting, diarrhea, dysuria, or fever. Objective - Vital Signs/Intake and Output Vital Signs (last 24 hours): Temp Pulse Resp BP Pulse Ox 98.6 F 72 17 128/66 97 12/10/17 08:00 12/10/17 08:00 12/10/17 08:00 12/10/17 08:00 12/10/17 08:00 Intake and Output: 12/10/17 12/10/17 06:59 18:59 Intake Total 610 Output Total 1565 200 Balance -955 -200 - Medications Medications: Current Medications Acetaminophen (Tylenol 325mg Tab) 650 mg PO Q4 PRN PRN Reason: Fever >100.4 F Last Admin: 12/09/17 00:07 Dose: 650 mg Docusate Sodium (Colace) 200 mg PO DAILY [facility] Last Admin: 12/10/17 08:10 Dose: Not Given Enoxaparin Sodium (Lovenox) 40 mg SC DAILY [facility] PRN Reason: Protocol Last Admin: 12/10/17 08:11 Dose: 40 mg Glipizide (Glucotrol Xl) 5 mg PO BRK [facility] Last Admin: 12/10/17 08:11 Dose: 5 mg Vancomycin HCl 1 gm/ Sodium (Chloride) 250 mls @ 166.667 mls/hr IVPB Q12H [facility] PRN Reason: Protocol Last Admin: 12/10/17 00:13 Dose: 166.667 mls/hr Meropenem 1 gm/ Sodium (Chloride) 100 mls @ 100 mls/hr IVPB Q8 [facility] PRN Reason: Protocol Last Admin: 12/10/17 08:12 Dose: 100 mls/hr Insulin Human Lispro (Humalog) 0 units SC Q6 [facility] PRN Reason: Protocol Last Admin: 12/10/17 05:00 Dose: 2 units Ketorolac Tromethamine (Toradol) 30 mg IVP Q6 PRN PRN Reason: Pain, moderate (4-7) Last Admin: 12/10/17 04:57 Dose: 30 mg Lactobacillus Acidophilus (Bacid Acidophilus) 1 cap PO BID [facility] Last Admin: 12/10/17 08:10 Dose: 1 cap Lactulose (Enulose) 20 gm PO DAILY PRN PRN Reason: Constipation Last Admin: 12/08/17 10:52 Dose: 20 gm Metformin HCl (Glucophage) 1,000 mg PO BIDWM [facility] Last Admin: 12/10/17 08:10 Dose: 1,000 mg Metoclopramide HCl (Reglan) 10 mg IVP Q4 PRN PRN Reason: Nausea/Vomiting Oxycodone/Acetaminophen (Percocet 5/325 Mg Tab) 2 tab PO Q6 PRN PRN Reason: Pain, moderate (4-7) Stop: 12/10/17 16:33 Last Admin: 12/09/17 10:08 Dose: 2 tab Sennosides (Senokot Tab) 8.6 mg PO [facility] Last Admin: 12/09/17 22:52 Dose: Not Given Sitagliptin Phosphate (Januvia) 100 mg PO DAILY [facility] Last Admin: 12/10/17 08:11 Dose: 100 mg - Labs Labs: 12/10/17 04:00 12/10/17 04:50 PT 15.6 Seconds (9.8-13.1) H 12/06/17 06:15 INR 1.4 (0.9-1.2) H 12/06/17 06:15 APTT 34.4 Seconds (25.6-37.1) 12/06/17 06:15 - Constitutional Appears: Non-toxic, No Acute Distress - Head Exam Head Exam: ATRAUMATIC, NORMAL INSPECTION, NORMOCEPHALIC - Eye Exam Eye Exam: Normal appearance - ENT Exam ENT Exam: Mucous Membranes Moist - Neck Exam Neck Exam: Full ROM. absent: Tenderness - Respiratory Exam Respiratory Exam: Rales (left low lobe). absent: Accessory Muscle Use, Decreased Breath Sounds, Wheezes, Respiratory Distress Additional comments: Left sided chest tubes x2. Dressing clean, dry and intact. Chest tubes with 20 cc and 10 cc, serosanguinous fluid over 24 hours. No air leaks noted. - Cardiovascular Exam Cardiovascular Exam: REGULAR RHYTHM, RRR. absent: Tachycardia - GI/Abdominal Exam GI & Abdominal Exam: Soft, Normal Bowel Sounds. absent: Distended, Tenderness - Extremities Exam Extremities Exam: Normal Inspection. absent: Calf Tenderness - Neurological Exam Neurological Exam: Alert, Awake, Oriented x3 - Skin Skin Exam: Dry, Intact, Normal Color, Warm Assessment and Plan (1) Chest tube in place Status: Acute (2) Empyema lung Status: Acute (3) Pleural effusion Status: Acute (4) DM type 2 (diabetes mellitus, type 2) Status: Chronic (5) Hyperlipidemia Status: Chronic - Assessment and Plan (Free Text) Plan: c/w present management, s/p VATS w/ chest tube insertion POD 4 afebrile, non-tachycardic, normotensive CT surgery recommendations appreciated Pulmonary recommendations appreciated Cardiology recommendations appreciated Infectious Disease recommendations appreciated c/w vancomycin 1 gm Iv Q12h day 4 c/w meropenem 1 gm Q8h day 3 f/u CXR prophylactic measures: DVT lovenox 40 mg SC daily
--- NOTE | 2017-12-10 08:55 | CP.PCM.PN ---
Subjective - Date & Time of Evaluation Date of Evaluation: 12/10/17 Time of Evaluation: 08:55 - Subjective Subjective: AFEBRILE NO APPARENT DISTRESS CHEST TUBES IN PLACE Objective - Vital Signs/Intake and Output Vital Signs (last 24 hours): Temp Pulse Resp BP Pulse Ox 98.6 F 72 17 128/66 97 12/10/17 08:00 12/10/17 08:00 12/10/17 08:00 12/10/17 08:00 12/10/17 08:00 Intake and Output: 12/10/17 12/10/17 06:59 18:59 Intake Total 610 Output Total 1565 200 Balance -955 -200 - Medications Medications: Current Medications Acetaminophen (Tylenol 325mg Tab) 650 mg PO Q4 PRN PRN Reason: Fever >100.4 F Last Admin: 12/09/17 00:07 Dose: 650 mg Docusate Sodium (Colace) 200 mg PO DAILY [facility] Last Admin: 12/10/17 08:10 Dose: Not Given Enoxaparin Sodium (Lovenox) 40 mg SC DAILY [facility] PRN Reason: Protocol Last Admin: 12/10/17 08:11 Dose: 40 mg Glipizide (Glucotrol Xl) 5 mg PO BRK [facility] Last Admin: 12/10/17 08:11 Dose: 5 mg Vancomycin HCl 1 gm/ Sodium (Chloride) 250 mls @ 166.667 mls/hr IVPB Q12H [facility] PRN Reason: Protocol Last Admin: 12/10/17 00:13 Dose: 166.667 mls/hr Meropenem 1 gm/ Sodium (Chloride) 100 mls @ 100 mls/hr IVPB Q8 [facility] PRN Reason: Protocol Last Admin: 12/10/17 08:12 Dose: 100 mls/hr Insulin Human Lispro (Humalog) 0 units SC Q6 [facility] PRN Reason: Protocol Last Admin: 12/10/17 05:00 Dose: 2 units Ketorolac Tromethamine (Toradol) 30 mg IVP Q6 PRN PRN Reason: Pain, moderate (4-7) Last Admin: 12/10/17 04:57 Dose: 30 mg Lactobacillus Acidophilus (Bacid Acidophilus) 1 cap PO BID [facility] Last Admin: 12/10/17 08:10 Dose: 1 cap Lactulose (Enulose) 20 gm PO DAILY PRN PRN Reason: Constipation Last Admin: 12/08/17 10:52 Dose: 20 gm Metformin HCl (Glucophage) 1,000 mg PO BIDWM [facility] Last Admin: 12/10/17 08:10 Dose: 1,000 mg Metoclopramide HCl (Reglan) 10 mg IVP Q4 PRN PRN Reason: Nausea/Vomiting Oxycodone/Acetaminophen (Percocet 5/325 Mg Tab) 2 tab PO Q6 PRN PRN Reason: Pain, moderate (4-7) Stop: 12/10/17 16:33 Last Admin: 12/09/17 10:08 Dose: 2 tab Sennosides (Senokot Tab) 8.6 mg PO HS [facility] Last Admin: 12/09/17 22:52 Dose: Not Given Sitagliptin Phosphate (Januvia) 100 mg PO DAILY [facility] Last Admin: 12/10/17 08:11 Dose: 100 mg - Labs Labs: 12/10/17 04:00 12/10/17 04:50 PT 15.6 Seconds (9.8-13.1) H 12/06/17 06:15 INR 1.4 (0.9-1.2) H 12/06/17 06:15 APTT 34.4 Seconds (25.6-37.1) 12/06/17 06:15 - Constitutional Appears: No Acute Distress - Head Exam Head Exam: ATRAUMATIC, NORMAL INSPECTION, NORMOCEPHALIC - Eye Exam Eye Exam: EOMI, Normal appearance, PERRL Pupil Exam: NORMAL ACCOMODATION, PERRL - ENT Exam ENT Exam: Mucous Membranes Moist, Normal Exam - Neck Exam Neck Exam: Full ROM, Normal Inspection. absent: Lymphadenopathy - Respiratory Exam Respiratory Exam: Prolonged Expiratory Phase, Rales, NORMAL BREATHING PATTERN - Cardiovascular Exam Cardiovascular Exam: REGULAR RHYTHM, +S1, +S2. absent: Murmur - GI/Abdominal Exam GI & Abdominal Exam: Soft, Normal Bowel Sounds. absent: Tenderness - Rectal Exam Rectal Exam: NORMAL INSPECTION - Extremities Exam Extremities Exam: Full ROM, Normal Capillary Refill, Normal Inspection. absent : Joint Swelling, Pedal Edema - Back Exam Back Exam: NORMAL INSPECTION - Neurological Exam Neurological Exam: Alert, Awake, CN II-XII Intact, Normal Gait, Oriented x3 - Psychiatric Exam Psychiatric exam: Normal Affect, Normal Mood - Skin Skin Exam: Dry, Intact, Normal Color, Warm Assessment and Plan - Assessment and Plan (Free Text) Assessment: EMPYEMA--CLINICALLY IMPROVING Plan: CONTINUE CURRENT RX
[2017-12-10] MEDS: Oxycodone/Acetaminophen 5/325 mg Tab PO PRN (08:59)
--- NOTE | 2017-12-10 09:17 | RAD ---
HISTORY: interval changes s/p thoracotomy COMPARISON: Chest radiograph dated 12/09/2017. FINDINGS: LUNGS: Left basilar atelectasis versus consolidation. PLEURA: Small to moderate left pleural effusion and/or pleural thickening. No appreciable pneumothorax CARDIOVASCULAR: Normal. OSSEOUS STRUCTURES: Unchanged. VISUALIZED UPPER ABDOMEN: Normal. OTHER FINDINGS: Two left-sided large-bore chest tubes, unchanged. Stable prominence of the left lateral thoracic wall soft tissues. IMPRESSION: Stable small to moderate left pleural effusion and/or pleural thickening. No appreciable pneumothorax.
--- NOTE | 2017-12-10 12:21 | CP.PCM.PN ---
Subjective - Date & Time of Evaluation Date of Evaluation: 12/10/17 Time of Evaluation: 12:18 - Subjective Subjective: Pt s/e. Afebrile. vss. wbc-11.5k chest tubbes-20/30cc/y-no air leak cxr-No pneumo. Small effusion a/p: Doing well. continue current care. Objective - Vital Signs/Intake and Output Vital Signs (last 24 hours): Temp Pulse Resp BP Pulse Ox 97.8 F 79 27 H 110/68 100 12/10/17 12:00 12/10/17 12:00 12/10/17 12:00 12/10/17 12:00 12/10/17 12:00 Intake and Output: 12/10/17 12/10/17 06:59 18:59 Intake Total 610 350 Output Total 1565 200 Balance -955 150 - Medications Medications: Current Medications Acetaminophen (Tylenol 325mg Tab) 650 mg PO Q4 PRN PRN Reason: Fever >100.4 F Last Admin: 12/09/17 00:07 Dose: 650 mg Docusate Sodium (Colace) 200 mg PO DAILY [facility] Last Admin: 12/10/17 08:10 Dose: Not Given Enoxaparin Sodium (Lovenox) 40 mg SC DAILY [facility] PRN Reason: Protocol Last Admin: 12/10/17 08:11 Dose: 40 mg Glipizide (Glucotrol Xl) 5 mg PO BRK [facility] Last Admin: 12/10/17 08:11 Dose: 5 mg Vancomycin HCl 1 gm/ Sodium (Chloride) 250 mls @ 166.667 mls/hr IVPB Q12H [facility] PRN Reason: Protocol Last Admin: 12/10/17 00:13 Dose: 166.667 mls/hr Meropenem 1 gm/ Sodium (Chloride) 100 mls @ 100 mls/hr IVPB Q8 [facility] PRN Reason: Protocol Last Admin: 12/10/17 08:12 Dose: 100 mls/hr Insulin Human Lispro (Humalog) 0 units SC Q6 [facility] PRN Reason: Protocol Last Admin: 12/10/17 11:44 Dose: 2 units Ketorolac Tromethamine (Toradol) 30 mg IVP Q6 PRN PRN Reason: Pain, moderate (4-7) Last Admin: 12/10/17 04:57 Dose: 30 mg Lactobacillus Acidophilus (Bacid Acidophilus) 1 cap PO BID [facility] Last Admin: 12/10/17 08:10 Dose: 1 cap Lactulose (Enulose) 20 gm PO DAILY PRN PRN Reason: Constipation Last Admin: 12/08/17 10:52 Dose: 20 gm [facility] (Gluc[facility]) [facility] [place] [facility] [place] Admin: 12/10/17 08:10 Dose: 1,000 mg Metoclopramide HCl (Reglan) 10 mg IVP Q4 PRN PRN Reason: Nausea/Vomiting Oxycodone/Acetaminophen (Percocet 5/325 Mg Tab) 2 tab PO Q6 PRN PRN Reason: Pain, moderate (4-7) Stop: 12/10/17 16:33 Last Admin: 12/10/17 08:59 Dose: 2 tab Sennosides (Senokot Tab) 8.6 mg PO [facility] Last Admin: 12/09/17 22:52 Dose: Not Given Sitagliptin Phosphate (Januvia) 100 mg PO DAILY [facility] Last Admin: 12/10/17 08:11 Dose: 100 mg - Labs Labs: 12/10/17 04:00 12/10/17 04:50 PT 15.6 Seconds (9.8-13.1) H 12/06/17 06:15 INR 1.4 (0.9-1.2) H 12/06/17 06:15 APTT 34.4 Seconds (25.6-37.1) 12/06/17 06:15
--- NOTE | 2017-12-10 16:30 | PN ---
DATE: 12/10/2017 CRITICAL CARE PROGRESS NOTE LOCATION: The patient in ICU bed 434. TIME SPENT: 35 minutes. SUBJECTIVE: The patient is seen and examined at the bedside. Case was discussed in detail in multidisciplinary ICU rounds in the morning. Treatment plans were formulated. Past medical, surgical, and social history are reviewed. A 57-year-old male admitted with empyema, left chest, status post video-assisted thoracoscopy and decortication and drainage of empyema. Postop day #4, overnight telemetry sinus rhythm, normotensive, afebrile. This morning, alert and awake, follows command as appropriate. Complaining of pain at the site of chest tube insertion. No subcutaneous emphysema or edema. Appetite is poor. OBJECTIVE: VITAL SIGNS: Temperature 98.6, heart rate 72, blood pressure 128/66 with mean arterial pressure of 86, respiratory rate of 17, saturating 97% on room air. Drainage from the left anterior chest 20 mL, left posterior chest 10 mL. Total intake 1560, output 2485, negative balance 925. HEAD, EYES, EARS, NOSE, AND THROAT: Pupils are reactive. Conjunctivae pink. Sclerae are white. NECK: Supple. Trachea is central. No cervical lymphadenopathy. CHEST: Bilateral breath sounds diminished in intensity on the left. No subcutaneous emphysema, no air leak noted. Both tubes connected to the low wall suction. HEART: Rhythm regular. S1 and S2 normal. ABDOMEN: Bowel sounds are present. Soft. Liver and spleen are not palpable. Bladder is not distended. EXTREMITIES: No clubbing, cyanosis, or edema. NEUROLOGIC: Nonfocal. LABORATORY DATA: WBC 11.5, hemoglobin 10.7, hematocrit 31.1, and platelet count 700. PT 15.6, INR 1.4, and PTT 34.4. SMA-7; sodium 136, potassium 3.6, chloride 95, CO2 35, BUN 10, creatinine 0.6, and random glucose 165. Hemoglobin A1c pending. Calcium 8.2, total bilirubin 0.4, AST , ALT 35, alkaline phosphatase 114, total protein 6.2, and albumin 2.6. Urinalysis negative. Pleural fluid report pending. Vancomycin trough level 17.3. Serology, histo-plasma antibody negative. Histo-galactomannan antigen report pending. TB test QFT indeterminate. Microbiology, body fluid positive for Streptococcus constellatus/milleri. Blood culture negative. Chest x-ray from this morning, both left anterior and posterior tubes present. Moderate pleural effusion and pleural thickening, no air leak. IMPRESSION AND PLAN: 1. Postop day #4 status post video-assisted thoracoscopic decortication, left chest wall empyema. Empirically on broad-spectrum antibiotic. Chest tubes in place, draining minimal fluid. Chest x-ray consistent with decreasing pleural effusion, superimposed on pleural thickening. Appreciate Thoracic Surgery followup and plan of care. 2. Pulmonary: Status post decortication, stable. Encourage incentive spirometry. Continue chest tubes, analgesics as needed for control of pain. 3. Cardiac: No acute issues. 4. Hematology: Anemia of chronic disease. Hemoglobin and hematocrit . 5. Renal: No acute issues noted. 6. Skin: Without rash. 7. Out of bed to chair as tolerated. Encouraged ambulation as tolerated. Filippo Berkowitz MD
[2017-12-10 18:44] LABS: AB TO F ANTIGEN NEGATIVE; AB TO TP ANTIGEN NEGATIVE
[2017-12-11] MEDS: Meropenem 1 GM in Sodium Chloride 0.9% 100 ML IVPB SCH ×2 (00:30→08:49)
[2017-12-11] MEDS: Insulin Lispro (humaLOG) 100 Units/ml Inj SC SCH ×4 (05:19→21:33)
[2017-12-11 05:45] LABS: BASO # 0.1 K/uL (0.0-0.2); BASO % 1.5 % (0.0-2.0); EOS # 0.3 K/uL (0.0-0.7); EOS % 3.1 % (0.0-4.0); LYMPH # 1.2 K/uL (1.0-4.3); LYMPH % 11.8 % (20.0-40.0); MEAN CELL VOLUME 87.3 fl (80.0-94.0); MEAN CORPUSCULAR HEMOGLOBIN 30.4 pg (27.0-31.0); MEAN CORPUSCULAR HGB CONC 34.9 g/dL (33.0-37.0); MEAN PLATELET VOLUME 6.2 fl (7.2-11.7); MONO # 0.9 K/uL (0.0-0.8); MONO % 9.5 % (0.0-10.0); NEUT # 7.3 K/uL (1.8-7.0); NEUT % 74.1 % (50.0-75.0); NRBC % 0.1 % (0.0-0.0); RBC 3.6 Mil/uL (4.40-5.90); RED CELL DISTRIBUTION WIDTH 12.9 % (11.5-14.5); WHITE BLOOD COUNT 9.8 K/uL (4.8-10.8)
[2017-12-11 05:47] LABS: BLOOD UREA NITROGEN 11 mg/dl (9-20); CALCIUM 8.3 mg/dL (8.4-10.2); GFR AFRICAN-AMERICAN > 60; GFR NON-AFRICAN AMERICAN > 60
--- NOTE | 2017-12-11 06:42 | OP ---
PROCEDURE DATE: 12/06/2017 PREOPERATIVE DIAGNOSES: 1. Loculated empyema, left chest. 2. Compressive atelectasis, left lung. 3. Trapped left lung. 4. Consolidation left lower lobe and lingular segment of upper lobe. 5. Pleural adhesions. POSTOPERATIVE DIAGNOSES: 1. Lung abscess, superior segment of the left lower lobe consolidation, and left lower lobe and lingular segment of left upper lobe. 2. Compressive atelectasis of left lower lobe and lingular segment of left upper lobe. 3. Loculated empyema left chest and trapped left lower lobe and lingular segment of the left upper lobe. 4. Pleural adhesions. 5. Amorphous mass in the fissure PROCEDURE DONE: 1. Exploration of left chest using left lateral muscle-sparing thoracotomy incision. 2. Lysis of adhesions. 3. Evacuation of loculated fibrinous exudate. 4. Decortication of left lower lobe and lower portion of left upper lobe. 5. Subsegmental resection of superior segment of left lower lobe and lysis of adhesions. 6. Excision of amorphous mass. 7. Biopsy of Pleura. SURGEON: Cristhian Teresa MD ASSISTANTS: Dr. Goldberg, Dr. Yrn Wells, and Dr. Arturo Avery. TYPE OF ANESTHESIA: Double-lumen endotracheal general anesthesia. ANESTHESIA ADMINISTERED BY: Freddy Fam MD OPERATIVE FINDINGS: Surgery was initially started out with a limited lateral muscle spairing incision, and video exploration: revealed that it would be extremely difficult to complete the surgery using VATS approach. Hence, incision was extend to a muscle sparing left lateral thoracotomy. Careful exploration showed the lung was tightly adherent to the chest wall, diaphragm, and lateral and posterior sulcus as well as pericardium. Thick, organized, loculated yellow fibrinous exudate was found in both lateral and posterior sulci and around lower portion of the left lung. During the course of the decortication, 4 cm diameter intraparenchymal lung abscess was discovered in the superior segment of left lower lobe. After decortication, I was able to reinflate the previously trapped left lung. DESCRIPTION OF PROCEDURE: The patient was taken to the operating room where under satisfactory double-lumen general anesthesia, the patient was placed in a thoracotomy position, and operative field was prepared and draped in a sterile fashion. Initially, the limited thoracotomy was made anterior to the latissimus dorsi in the fifth intercostal space and exploration through this incision so proved to be extremely difficult due to adhesions. Therefore, a formal lateral muscle-sparing incision was made in the usual manner and after preserving neuromuscular bundle of long thoracic nerve, latissimus dorsi muscle fibers were from the serratus anterior. Pleural cavity was entered thruough 5th ICS, after its muscle in the directions of fibers. Pleural cavity had to be entered initially extrapleurally, and then using blunt digital dissection, lung was able to be freed up from the chest wall, mediastinum, diaphragm, and posterior and lateral sulcus. Extreme care was exercised not to injure a major vessels as well as not to enter the parenchyma during its process. While pleural adhesions were being taken down, loculated empyema was encountered,and they were evacuated whenever it was deemed safe and appropriate. The fluid was collected in separate Lukens tubes for microbiological and cytological studies as well as cell counts and chemical analysis. After satisfactory lysis of adhesions, the attention was focused on major fissure, which was carefully defined, and fibrinous collection within the fissure was also removed. In the process, approximately 5 cm yellow amorphous mass was encountered, and was removed. This mass was sent out and then was for pathological examination. Next, the decortication was carried out using sharp and blunt dissection. Extreme care was exercised not to injure the lung parenchyma to prevent bleeding and air leaks. The decortication process was carried out by removing about 1 cm piece of pleural peel at a time , until the completion. It was during decortication process, the abscess cavity of approximately 4 cm in diameter was entered inadvertently and noted spontaneous extrusion of thick light purplish pus from the abscess cavity. The opening in the roof of the abscess was enlarged, and the abscess cavity was completely evacuated following which the cavity was irrigated with normal saline solution. C and S was taken. Next, The abscess was excised by subsegmental resection of superior segment of left lower lobe which was performed with multiple applications of [place] [employer] Stapler loaded with 45 mm blue cartridges and pericardial strips. Pleural cavity was irritated with a warm normal saline,and pleural biopsy was carried out under direct vision. The specimen was sent out for pathological examination. Finally, a 30-[place] chest tubes were inserted in the usual manner anteriorly and posteriorly respectively and then tube was directed to the apex. Tubes are secured to the skin edge with 0 silk sutures in the usual manner. Chest wall opening was finally closed in layers, ribs with [id number] #1 PDS, serratus anterior muscles with continuous 0 Vicryl and after returning the long thoracic nerve neuromuscular bundle to its original position, subcutaneous fascia was approximated with continuous 2-0 Vicryl and then the skin with skin yaneth. Sterile dressings applied and kept in usual manner. The patient tolerated the procedure very well and was transferred to the recovery room, extubated, and awake with good vital signs. Estimated blood loss was approximately 200 mL. Sponge, needle, and instruments counts were correct. Dr. Goldberg participated in surgery from the beginning to end providing valuable assistance. Cristhian Teresa MD MTDD
[2017-12-11] MEDS: Lactobacillus Acidophilus 500 MU Cap PO SCH ×2 (08:47→16:25)
[2017-12-11] MEDS: Enoxaparin 40 mg Syringe SC SCH (08:49)
[2017-12-11] MEDS: GlipiZIDE 5 mg SR Tab PO SCH (08:49)
[2017-12-11] MEDS: Oxycodone/Acetaminophen 5/325 mg Tab PO PRN ×2 (08:50→18:06)
--- NOTE | 2017-12-11 10:30 | RAD ---
HISTORY: s/p thoracotomy, interval changes COMPARISON: 12/10/[address] chest with contrast 12/05/2017 FINDINGS: LUNGS: The left inferolateral pleural parenchymal airspace opacity with few air bronchograms similar appearing PLEURA: Left inferolateral pleural effusion thickening reaction contiguous with left inferolateral lung consolidation. Loculated complex left pleural effusion here previously noted and compatible with this appearance CARDIOVASCULAR: Normal heart size. No steph pulmonary venous congestion appreciated OSSEOUS STRUCTURES: No significant abnormalities. VISUALIZED UPPER ABDOMEN: Normal. OTHER FINDINGS: Two chest tube insertions in this patient with a history of left thoracotomy -each chest tube tip projects at the extreme left lung apex. No pleural reflection or pneumothorax here IMPRESSION: Left inferolateral pleural parenchymal pathology -similar -as detailed above. Two left chest tube insertions - tips at extreme left apex -position unchanged. No gross pneumothorax appreciated. Asymmetrical soft tissue swelling left lateral chest wall with subcutaneous lucencies- an inferred skin yaneth - as before
--- NOTE | 2017-12-11 11:34 | CP.PCM.PN ---
Subjective - Date & Time of Evaluation Date of Evaluation: 12/11/17 Time of Evaluation: 10:20 - Subjective Subjective: Thoracic Surgery- Dr. Teresa Patient seen and examined at bedside this AM. c/o continued pain around chest tube site. Pain is well controlled on current pain regiment. + OOB to chair. 20cc anterior CT, 20cc posterior CT. CXR shows no signs of PNX. No air leak detected. Dressing Changed at bedside Objective - Vital Signs/Intake and Output Vital Signs (last 24 hours): Temp Pulse Resp BP Pulse Ox 98.5 F 87 12 121/77 98 12/11/17 08:00 12/11/17 10:00 12/11/17 10:00 12/11/17 10:00 12/11/17 10:00 Intake and Output: 12/11/17 12/11/17 06:59 18:59 Intake Total 254 340 Output Total 1170 400 Balance -916 -60 - Medications Medications: Current Medications Acetaminophen (Tylenol 325mg Tab) 650 mg PO Q4 PRN PRN Reason: Fever >100.4 F Last Admin: 12/09/17 00:07 Dose: 650 mg Docusate Sodium (Colace) 200 mg PO DAILY [facility] Last Admin: 12/11/17 08:48 Dose: Not Given Glipizide (Glucotrol Xl) 5 mg PO BRK REPLACED BY [facility] Last Admin: 12/11/17 08:49 Dose: 5 mg Vancomycin HCl 1 gm/ Sodium (Chloride) 250 mls @ 166.667 mls/hr IVPB Q12H [facility] PRN Reason: Protocol Last Admin: 12/10/17 13:29 Dose: 166.667 mls/hr Meropenem 1 gm/ Sodium (Chloride) 100 mls @ 100 mls/hr IVPB Q8 [facility] PRN Reason: Protocol Last Admin: 12/11/17 08:49 Dose: 100 mls/hr Insulin Human Lispro (Humalog) 0 units SC Q6 [facility] PRN Reason: Protocol Last Admin: 12/11/17 05:19 Dose: 2 units Ketorolac Tromethamine (Toradol) 30 mg IVP Q6 PRN PRN Reason: Pain, moderate (4-7) Last Admin: 12/11/17 05:18 Dose: 30 mg Lactobacillus Acidophilus (Bacid Acidophilus) 1 cap PO BID [facility] Last Admin: 12/11/17 08:47 Dose: 1 cap Lactulose (Enulose) 20 gm PO DAILY PRN PRN Reason: Constipation Last Admin: 12/08/17 10:52 Dose: 20 gm Metformin HCl (Glucophage) 1,000 mg PO BIDWM REPLACED BY [facility] Last Admin: 12/11/17 08:48 Dose: 1,000 mg Metoclopramide HCl (Reglan) 10 mg IVP Q4 PRN PRN Reason: Nausea/Vomiting Oxycodone/Acetaminophen (Percocet 5/325 Mg Tab) 2 tab PO Q4 PRN PRN Reason: Pain, severe (8-10) Stop: 12/13/17 20:12 Last Admin: 12/11/17 08:50 Dose: 2 tab Sennosides (Senokot Tab) 8.6 mg PO HS REPLACED BY [facility] Last Admin: 12/10/17 21:57 Dose: Not Given Sitagliptin Phosphate (Januvia) 100 mg PO DAILY [facility]PL[facility] BY [facility] Last Admin: 12/11/17 08:49 Dose: 100 mg - Labs Labs: 12/11/17 04:45 12/11/17 04:45 PT 15.6 Seconds (9.8-13.1) H 12/06/17 06:15 INR 1.4 (0.9-1.2) H 12/06/17 06:15 APTT 34.4 Seconds (25.6-37.1) 12/06/17 06:15 - Constitutional Appears: Non-toxic, No Acute Distress - Head Exam Head Exam: ATRAUMATIC - Eye Exam Eye Exam: EOMI. absent: Scleral icterus - ENT Exam ENT Exam: Mucous Membranes Moist - Respiratory Exam Respiratory Exam: NORMAL BREATHING PATTERN. absent: Accessory Muscle Use, Respiratory Distress Additional comments: Chest tube Anterior and posterior in place no air leak detected 20cc anterior, 20cc posterior output serosang - Cardiovascular Exam Cardiovascular Exam: +S1, +S2. absent: Bradycardia, Tachycardia - GI/Abdominal Exam GI & Abdominal Exam: Soft. absent: Firm, Guarding, Rigid, Tenderness - Extremities Exam Extremities Exam: Normal Inspection. absent: Calf Tenderness - Neurological Exam Neurological Exam: Alert, Awake, Oriented x3 - Skin Skin Exam: Intact, Warm Assessment and Plan - Assessment and Plan (Free Text) Assessment: 57yo M with left hemithorax empyema, lung abscess, and intrapulmonary mass s/p Video assisted thoracotomy. Left lateral muscle sparing thoracotomy. Evacuation of empyema. Decortication. Wedge resection of abscess. Intra pleural mass removal. Left Chest tube insertion x2. POD5. Pleural Fluid cytology - negative for malignant cells. consistent with empyema Plan: - continue Chest tubes to suction - f/u AM CXR - Pain management - possible removal on one Chest tube tomorrow - f/u final pathology - analgesia PRN - Continue medical maximization as per ICU team - Encourage OOBTC, Ambulation, IS use - discussed w/ Dr. [facility]
--- NOTE | 2017-12-11 12:25 | CP.PCM.PN ---
Subjective - Date & Time of Evaluation Date of Evaluation: 12/11/17 Time of Evaluation: 09:15 - Subjective Subjective: Patient seen and examined at bedside w/ Dr. Null. There are no acute events overnight, NAD. The patient reports improvement w/ breathing but continues to have pain at site of chest tubes. Patient's chest tubes drained 40 cc from anterior and 20 cc from posterior consisting of serosanguinous fluid. The patient denies headaches, SOB, abdominal pain, nausea, vomiting, diarrhea, dysuria, or fever. Objective - Vital Signs/Intake and Output Vital Signs (last 24 hours): Temp Pulse Resp BP Pulse Ox 98.5 F 87 12 121/77 98 12/11/17 08:00 12/11/17 10:00 12/11/17 10:00 12/11/17 10:00 12/11/17 10:00 Intake and Output: 12/11/17 12/11/17 06:59 18:59 Intake Total 254 340 Output Total 1170 400 Balance -916 -60 - Medications Medications: Current Medications Acetaminophen (Tylenol 325mg Tab) 650 mg PO Q4 PRN PRN Reason: Fever >100.4 F Last Admin: 12/09/17 00:07 Dose: 650 mg Docusate Sodium (Colace) 200 mg PO DAILY [facility] Last Admin: 12/11/17 08:48 Dose: Not Given Glipizide (Glucotrol Xl) 5 mg PO BRK [facility] Last Admin: 12/11/17 08:49 Dose: 5 mg Guaifenesin/Dextromethorphan (Mucinex-Dm 600-30 Mg) 1 tab PO BID [facility] Vancomycin HCl 1 gm/ Sodium (Chloride) 250 mls @ 166.667 mls/hr IVPB Q12H [facility] PRN Reason: Protocol Last Admin: 12/10/17 13:29 Dose: 166.667 mls/hr Meropenem 1 gm/ Sodium (Chloride) 100 mls @ 100 mls/hr IVPB Q8 [facility] PRN Reason: Protocol Last Admin: 12/11/17 08:49 Dose: 100 mls/hr Insulin Human Lispro (Humalog) 0 units SC Q6 [facility] PRN Reason: Protocol Last Admin: 12/11/17 12:06 Dose: Not Given Ketorolac Tromethamine (Toradol) 30 mg IVP Q6 PRN PRN Reason: Pain, moderate (4-7) Last Admin: 12/11/17 05:18 Dose: 30 mg Lactobacillus Acidophilus (Bacid Acidophilus) 1 cap PO BID [facility] Last Admin: 12/11/17 08:47 Dose: 1 cap Lactulose (Enulose) 20 gm PO DAILY PRN PRN Reason: Constipation Last Admin: 12/08/17 10:52 Dose: 20 gm Metformin HCl (Glucophage) 1,000 mg PO BIDWM [facility] Last Admin: 12/11/17 08:48 Dose: 1,000 mg Metoclopramide HCl (Reglan) 10 mg IVP Q4 PRN PRN Reason: Nausea/Vomiting Oxycodone/Acetaminophen (Percocet 5/325 Mg Tab) 2 tab PO Q4 PRN PRN Reason: Pain, severe (8-10) Stop: 12/13/17 20:12 Last Admin: 12/11/17 08:50 Dose: 2 tab Sennosides (Senokot Tab) 8.6 mg PO HS [facility] Last Admin: 12/10/17 21:57 Dose: Not Given Sitagliptin Phosphate (Januvia) 100 mg PO DAILY [facility] Last Admin: 12/11/17 08:49 Dose: 100 mg - Labs Labs: 12/11/17 04:45 12/11/17 04:45 PT 15.6 Seconds (9.8-13.1) H 12/06/17 06:15 INR 1.4 (0.9-1.2) H 12/06/17 06:15 APTT 34.4 Seconds (25.6-37.1) 12/06/17 06:15 - Constitutional Appears: Non-toxic, No Acute Distress - Head Exam Head Exam: ATRAUMATIC, NORMAL INSPECTION, NORMOCEPHALIC - Eye Exam Eye Exam: Normal appearance - ENT Exam ENT Exam: Mucous Membranes Moist - Neck Exam Neck Exam: Full ROM. absent: Tenderness - Respiratory Exam Respiratory Exam: Rales. absent: Accessory Muscle Use, Decreased Breath Sounds , Rhonchi, Wheezes, Respiratory Distress Additional comments: Left sided chest tubes x2. Dressing clean, dry and intact. Chest tubes with 40 cc and 20 cc, serosanguinous fluid over 24 hours. No air leaks noted. - Cardiovascular Exam Cardiovascular Exam: REGULAR RHYTHM, RRR. absent: Tachycardia - GI/Abdominal Exam GI & Abdominal Exam: Soft, Normal Bowel Sounds. absent: Distended, Tenderness - Extremities Exam Extremities Exam: Normal Inspection. absent: Calf Tenderness - Neurological Exam Neurological Exam: Alert, Awake, Normal Gait, Oriented x3 - Skin Skin Exam: Dry, Intact, Normal Color, Warm Assessment and Plan (1) Chest tube in place Status: Acute (2) Empyema lung Status: Acute (3) Pleural effusion Status: Acute (4) DM type 2 (diabetes mellitus, type 2) Status: Chronic (5) Hyperlipidemia Status: Chronic - Assessment and Plan (Free Text) Plan: c/w present management, s/p VATS w/ chest tube insertion POD 5 afebrile, non-tachycardic, normotensive CT surgery recommendations appreciated Pulmonary recommendations appreciated Cardiology recommendations appreciated Infectious Disease recommendations appreciated CXR: loculated left complex pleural effusion; chest tubes in place c/w vancomycin 1 gm Iv Q12h day 5 c/w meropenem 1 gm Q8h day 4 prophylactic measures: DVT lovenox 40 mg SC daily monitor for acute changes
--- NOTE | 2017-12-11 12:35 | CP.PCM.PN ---
Subjective - Date & Time of Evaluation Date of Evaluation: 12/11/17 Time of Evaluation: 12:32 - Subjective Subjective: Pt s/e. Afebrile vss, chest tues-20/30 No air leak. cxr-No pneumo. a/p: Satisfacory POD #5, Consider ct with contrast tomorrow Objective - Vital Signs/Intake and Output Vital Signs (last 24 hours): Temp Pulse Resp BP Pulse Ox 98.5 F 87 12 121/77 98 12/11/17 08:00 12/11/17 10:00 12/11/17 10:00 12/11/17 10:00 12/11/17 10:00 Intake and Output: 12/11/17 12/11/17 06:59 18:59 Intake Total 254 340 Output Total 1170 400 Balance -916 -60 - Medications Medications: Current Medications Acetaminophen (Tylenol 325mg Tab) 650 mg PO Q4 PRN PRN Reason: Fever >100.4 F Last Admin: 12/09/17 00:07 Dose: 650 mg Docusate Sodium (Colace) 200 mg PO DAILY [facility] Last Admin: 12/11/17 08:48 Dose: Not Given Glipizide (Glucotrol Xl) 5 mg PO BRK [facility] Last Admin: 12/11/17 08:49 Dose: 5 mg Guaifenesin/Dextromethorphan (Mucinex-Dm 600-30 Mg) 1 tab PO BID [facility] Vancomycin HCl 1 gm/ Sodium (Chloride) 250 mls @ 166.667 mls/hr IVPB Q12H [facility] PRN Reason: Protocol Last Admin: 12/10/17 13:29 Dose: 166.667 mls/hr Meropenem 1 gm/ Sodium (Chloride) 100 mls @ 100 mls/hr IVPB Q8 [facility] PRN Reason: Protocol Last Admin: 12/11/17 08:49 Dose: 100 mls/hr Insulin Human Lispro (Humalog) 0 units SC Q6 [facility] PRN Reason: Protocol Last Admin: 12/11/17 12:06 Dose: Not Given Ketorolac Tromethamine (Toradol) 30 mg IVP Q6 PRN PRN Reason: Pain, moderate (4-7) Last Admin: 12/11/17 05:18 Dose: 30 mg Lactobacillus Acidophilus (Bacid Acidophilus) 1 cap PO BID [facility] Last Admin: 12/11/17 08:47 Dose: 1 cap Lactulose (Enulose) 20 gm PO DAILY PRN PRN Reason: Constipation Last Admin: 12/08/17 10:52 Dose: 20 gm Metformin HCl (Glucophage) 1,000 mg PO BIDWM [facility] Last Admin: 12/11/17 08:48 Dose: 1,000 mg Metoclopramide HCl (Reglan) 10 mg IVP Q4 PRN PRN Reason: Nausea/Vomiting Oxycodone/Acetaminophen (Percocet 5/325 Mg Tab) 2 tab PO Q4 PRN PRN Reason: Pain, severe (8-10) Stop: 12/13/17 20:12 Last Admin: 12/11/17 08:50 Dose: 2 tab Sennosides (Senokot Tab) 8.6 mg PO HS [facility] Last Admin: 12/10/17 21:57 Dose: Not Given Sitagliptin Phosphate (Januvia) 100 mg PO DAILY [facility] Last Admin: 12/11/17 08:49 Dose: 100 mg - Labs Labs: 12/11/17 04:45 12/11/17 04:45 PT 15.6 Seconds (9.8-13.1) H 12/06/17 06:15 INR 1.4 (0.9-1.2) H 12/06/17 06:15 APTT 34.4 Seconds (25.6-37.1) 12/06/17 06:15
--- NOTE | 2017-12-11 12:40 | CP.PCM.PN ---
Subjective - Date & Time of Evaluation Date of Evaluation: 12/11/17 Time of Evaluation: 08:00 - Subjective Subjective: seen in ICU chest tubes in place denies fever Objective - Vital Signs/Intake and Output Vital Signs (last 24 hours): Temp Pulse Resp BP Pulse Ox 98.5 F 87 12 121/77 98 12/11/17 08:00 12/11/17 10:00 12/11/17 10:00 12/11/17 10:00 12/11/17 10:00 Intake and Output: 12/11/17 12/11/17 06:59 18:59 Intake Total 254 340 Output Total 1170 400 Balance -916 -60 - Medications Medications: Current Medications Acetaminophen (Tylenol 325mg Tab) 650 mg PO Q4 PRN PRN Reason: Fever >100.4 F Last Admin: 12/09/17 00:07 Dose: 650 mg Docusate Sodium (Colace) 200 mg PO DAILY [facility] Last Admin: 12/11/17 08:48 Dose: Not Given Glipizide (Glucotrol Xl) 5 mg PO BRK [facility] Last Admin: 12/11/17 08:49 Dose: 5 mg Guaifenesin/Dextromethorphan (Mucinex-Dm 600-30 Mg) 1 tab PO BID [facility] Vancomycin HCl 1 gm/ Sodium (Chloride) 250 mls @ 166.667 mls/hr IVPB Q12H [facility] PRN Reason: Protocol Last Admin: 12/10/17 13:29 Dose: 166.667 mls/hr Meropenem 1 gm/ Sodium (Chloride) 100 mls @ 100 mls/hr IVPB Q8 [facility] PRN Reason: Protocol Last Admin: 12/11/17 08:49 Dose: 100 mls/hr Insulin Human Lispro (Humalog) 0 units SC Q6 [facility] PRN Reason: Protocol Last Admin: 12/11/17 12:06 Dose: Not Given Ketorolac Tromethamine (Toradol) 30 mg IVP Q6 PRN PRN Reason: Pain, moderate (4-7) Last Admin: 12/11/17 05:18 Dose: 30 mg Lactobacillus Acidophilus (Bacid Acidophilus) 1 cap PO BID [facility] Last Admin: 12/11/17 08:47 Dose: 1 cap Lactulose (Enulose) 20 gm PO DAILY PRN PRN Reason: Constipation Last Admin: 12/08/17 10:52 Dose: 20 gm Metformin HCl (Glucophage) 1,000 mg PO BIDWM [facility] Last Admin: 12/11/17 08:48 Dose: 1,000 mg Metoclopramide HCl (Reglan) 10 mg IVP Q4 PRN PRN Reason: Nausea/Vomiting Oxycodone/Acetaminophen (Percocet 5/325 Mg Tab) 2 tab PO Q4 PRN PRN Reason: Pain, severe (8-10) Stop: 12/13/17 20:12 Last Admin: 12/11/17 08:50 Dose: 2 tab Sennosides (Senokot Tab) 8.6 mg PO HS [facility] Last Admin: 12/10/17 21:57 Dose: Not Given Sitagliptin Phosphate (Januvia) 100 mg PO DAILY [facility] Last Admin: 12/11/17 08:49 Dose: 100 mg - Labs Labs: 12/11/17 04:45 12/11/17 04:45 PT 15.6 Seconds (9.8-13.1) H 12/06/17 06:15 INR 1.4 (0.9-1.2) H 12/06/17 06:15 APTT 34.4 Seconds (25.6-37.1) 12/06/17 06:15 - Constitutional Appears: Non-toxic, Chronically Ill - Head Exam Head Exam: NORMOCEPHALIC - Eye Exam Eye Exam: PERRL - ENT Exam ENT Exam: Mucous Membranes Dry - Neck Exam Neck Exam: absent: Lymphadenopathy - Respiratory Exam Respiratory Exam: Decreased Breath Sounds, Rales - Cardiovascular Exam Cardiovascular Exam: REGULAR RHYTHM, +S1, +S2 - GI/Abdominal Exam GI & Abdominal Exam: Distended, Soft. absent: Tenderness - Rectal Exam Rectal Exam: Deferred - Exam Exam: NORMAL INSPECTION - Extremities Exam Extremities Exam: absent: Pedal Edema - Back Exam Back Exam: absent: CVA tenderness (L), CVA tenderness (R) - Neurological Exam Neurological Exam: Alert, Awake, Normal Gait, Oriented x3 Neuro motor strength exam: Left Upper Extremity: 4, Right Upper Extremity: 4, Left Lower Extremity: 4, Right Lower Extremity: 4 - Psychiatric Exam Psychiatric exam: Normal Mood - Skin Skin Exam: Dry Assessment and Plan (1) DM type 2 (diabetes mellitus, type 2) Status: Chronic (2) Empyema lung Status: Acute (3) Fever Status: Acute (4) Pleural effusion Status: Acute (5) Chest tube in place Status: Acute (6) Chest tube in place Status: Acute - Assessment and Plan (Free Text) Assessment: strep constellatus from pleural cavity- likely sens to PCN cont iv antibiotics GI eval as out pt
[2017-12-11] MEDS: guaiFENesin-DM 600-30 mg ER Tab PO SCH (16:26)
[2017-12-12] MEDS: Oxycodone/Acetaminophen 5/325 mg Tab PO PRN ×3 (03:27→18:40)
[2017-12-12] MEDS: Insulin Lispro (humaLOG) 100 Units/ml Inj SC SCH ×5 (04:33→21:21)
[2017-12-12 05:36] LABS: HEMOGLOBIN 10.7 g/dL (12.0-18.0); MEAN CELL VOLUME 88.1 fl (80.0-94.0); MEAN CORPUSCULAR HEMOGLOBIN 29.4 pg (27.0-31.0); MEAN CORPUSCULAR HGB CONC 33.4 g/dL (33.0-37.0); RBC 3.63 Mil/uL (4.40-5.90); RED CELL DISTRIBUTION WIDTH 12.9 % (11.5-14.5); WHITE BLOOD COUNT 9.3 K/uL (4.8-10.8)
[2017-12-12 05:45] LABS: BLOOD UREA NITROGEN 13 mg/dl (9-20); CALCIUM 8.2 mg/dL (8.4-10.2); GFR AFRICAN-AMERICAN > 60; GFR NON-AFRICAN AMERICAN > 60
--- NOTE | 2017-12-12 08:17 | CP.PCM.PN ---
Subjective - Date & Time of Evaluation Date of Evaluation: 12/12/17 Time of Evaluation: 07:15 - Subjective Subjective: Patient seen and examined. No acute events over night. Afebrile. No air leak noted. Minimal output from anterior and posterior chest tubes. Objective - Vital Signs/Intake and Output Vital Signs (last 24 hours): Temp Pulse Resp BP Pulse Ox 98.8 F 67 20 135/68 97 12/12/17 04:00 12/12/17 06:00 12/12/17 06:00 12/12/17 06:00 12/12/17 06:00 Intake and Output: 12/12/17 12/12/17 06:59 18:59 Intake Total 500 Output Total 1120 Balance -620 - Medications Medications: Current Medications Acetaminophen (Tylenol 325mg Tab) 650 mg PO Q4 PRN PRN Reason: Fever >100.4 F Last Admin: 12/09/17 00:07 Dose: 650 mg Docusate Sodium (Colace) 200 mg PO DAILY [facility] Last Admin: 12/11/17 08:48 Dose: Not Given Glipizide (Glucotrol Xl) 5 mg PO BRK [facility] Last Admin: 12/11/17 08:49 Dose: 5 mg Guaifenesin/Dextromethorphan (Mucinex-Dm 600-30 Mg) 1 tab PO BID [facility] Last Admin: 12/11/17 16:26 Dose: 1 tab Ampicillin Sodium/Sulbactam (Sodium 3 gm/ Sodium Chloride) 100 mls @ 100 mls/ hr IVPB Q6 [facility] PRN Reason: Protocol Last Admin: 12/12/17 04:23 Dose: 100 mls/hr Insulin Human Lispro (Humalog) 0 units SC Q6 [facility] PRN Reason: Protocol Last Admin: 12/12/17 04:33 Dose: 2 units Ketorolac Tromethamine (Toradol) 30 mg IVP Q6 PRN PRN Reason: Pain, moderate (4-7) Last Admin: 12/11/17 23:32 Dose: 30 mg Lactobacillus Acidophilus (Bacid Acidophilus) 1 cap PO BID [facility] Last Admin: 12/11/17 16:25 Dose: 1 cap Lactulose (Enulose) 20 gm PO DAILY PRN PRN Reason: Constipation Last Admin: 12/08/17 10:52 Dose: 20 gm Metformin HCl (Glucophage) 1,000 mg PO BIDWM [facility] Last Admin: 12/11/17 16:26 Dose: 1,000 mg Metoclopramide HCl (Reglan) 10 mg IVP Q4 PRN PRN Reason: Nausea/Vomiting Oxycodone/Acetaminophen (Percocet 5/325 Mg Tab) 2 tab PO Q4 PRN PRN Reason: Pain, severe (8-10) Stop: 12/13/17 20:12 Last Admin: 12/12/17 03:27 Dose: 2 tab Sennosides (Senokot Tab) 8.6 mg PO HS [facility] Last Admin: 12/11/17 21:41 Dose: Not Given Sitagliptin Phosphate (Januvia) 100 mg PO DAILY [facility] Last Admin: 12/11/17 08:49 Dose: 100 mg - Labs Labs: 12/12/17 04:20 12/12/17 04:20 PT 15.6 Seconds (9.8-13.1) H 12/06/17 06:15 INR 1.4 (0.9-1.2) H 12/06/17 06:15 APTT 34.4 Seconds (25.6-37.1) 12/06/17 06:15 - Constitutional Appears: No Acute Distress - Head Exam Head Exam: NORMOCEPHALIC - Eye Exam Eye Exam: EOMI, Normal appearance - ENT Exam ENT Exam: Mucous Membranes Moist - Respiratory Exam Respiratory Exam: NORMAL BREATHING PATTERN - Cardiovascular Exam Cardiovascular Exam: +S1, +S2 - GI/Abdominal Exam GI & Abdominal Exam: Soft - Neurological Exam Neurological Exam: Alert, Awake, Oriented x3 - Psychiatric Exam Psychiatric exam: Normal Mood - Skin Skin Exam: Dry, Intact, Warm Assessment and Plan - Assessment and Plan (Free Text) Assessment: 57yo M with left hemithorax empyema, lung abscess, and intrapulmonary mass s/p Video assisted thoracotomy. Left lateral muscle sparing thoracotomy. Evacuation of empyema. Decortication. Wedge resection of abscess. Intra pleural mass removal. Left Chest tube insertion x2. POD6. Pleural Fluid cytology - negative for malignant cells. consistent with Empyema Plan: - continue Chest tubes to wall suction - f/u AM CXR - Pain management - F/u CT chest -Possible removal of one chest tube this afternoon - f/u final pathology - analgesia PRN - Encourage OOBTC, Ambulation, IS use - discussed w/ Dr. Grayson PGY2
--- NOTE | 2017-12-12 08:41 | CP.PCM.PN ---
Subjective - Date & Time of Evaluation Date of Evaluation: 12/12/17 Time of Evaluation: 08:41 - Subjective Subjective: no new clinical findings cxr finding stable pleural fluid-strep Objective - Vital Signs/Intake and Output Vital Signs (last 24 hours): Temp Pulse Resp BP Pulse Ox 98.8 F 67 20 135/68 97 12/12/17 04:00 12/12/17 06:00 12/12/17 06:00 12/12/17 06:00 12/12/17 06:00 Intake and Output: 12/12/17 12/12/17 06:59 18:59 Intake Total 500 Output Total 1120 Balance -620 - Medications Medications: Current Medications Acetaminophen (Tylenol 325mg Tab) 650 mg PO Q4 PRN PRN Reason: Fever >100.4 F Last Admin: 12/09/17 00:07 Dose: 650 mg Docusate Sodium (Colace) 200 mg PO DAILY [facility] Last Admin: 12/11/17 08:48 Dose: Not Given Glipizide (Glucotrol Xl) 5 mg PO BRK [facility] Last Admin: 12/11/17 08:49 Dose: 5 mg Guaifenesin/Dextromethorphan (Mucinex-Dm 600-30 Mg) 1 tab PO BID [facility] Last Admin: 12/11/17 16:26 Dose: 1 tab Ampicillin Sodium/Sulbactam (Sodium 3 gm/ Sodium Chloride) 100 mls @ 100 mls/ hr IVPB Q6 [facility] PRN Reason: Protocol Last Admin: 12/12/17 04:23 Dose: 100 mls/hr Insulin Human Lispro (Humalog) 0 units SC Q6 [facility] PRN Reason: Protocol Last Admin: 12/12/17 04:33 Dose: 2 units Ketorolac Tromethamine (Toradol) 30 mg IVP Q6 PRN PRN Reason: Pain, moderate (4-7) Last Admin: 12/11/17 23:32 Dose: 30 mg Lactobacillus Acidophilus (Bacid Acidophilus) 1 cap PO BID [facility] Last Admin: 12/11/17 16:25 Dose: 1 cap Lactulose (Enulose) 20 gm PO DAILY PRN PRN Reason: Constipation Last Admin: 12/08/17 10:52 Dose: 20 gm [facility] ([facility]) [facility] Last Admin: 12/11/17 16:26 Dose: 1,000 mg Metoclopramide HCl (Reglan) 10 mg IVP Q4 PRN PRN Reason: Nausea/Vomiting Oxycodone/Acetaminophen (Percocet 5/325 Mg Tab) 2 tab PO Q4 PRN PRN Reason: Pain, severe (8-10) Stop: 12/13/17 20:12 Last Admin: 12/12/17 03:27 Dose: 2 tab Sennosides (Senokot Tab) 8.6 mg PO HS [facility] Last Admin: 12/11/17 21:41 Dose: Not Given Sitagliptin Phosphate (Januvia) 100 mg PO DAILY [facility] Last Admin: 12/11/17 08:49 Dose: 100 mg - Labs Labs: 12/12/17 04:20 12/12/17 04:20 PT 15.6 Seconds (9.8-13.1) H 12/06/17 06:15 INR 1.4 (0.9-1.2) H 12/06/17 06:15 APTT 34.4 Seconds (25.6-37.1) 12/06/17 06:15 - Constitutional Appears: No Acute Distress - Head Exam Head Exam: ATRAUMATIC, NORMAL INSPECTION, NORMOCEPHALIC - Eye Exam Eye Exam: EOMI, Normal appearance, PERRL Pupil Exam: NORMAL ACCOMODATION, PERRL - ENT Exam ENT Exam: Mucous Membranes Moist, Normal Exam - Neck Exam Neck Exam: Full ROM, Normal Inspection. absent: Lymphadenopathy - Respiratory Exam Respiratory Exam: Rales, NORMAL BREATHING PATTERN - Cardiovascular Exam Cardiovascular Exam: REGULAR RHYTHM, +S1, +S2. absent: Murmur - GI/Abdominal Exam GI & Abdominal Exam: Soft, Normal Bowel Sounds. absent: Tenderness - Rectal Exam Rectal Exam: NORMAL INSPECTION - Extremities Exam Extremities Exam: Full ROM, Normal Capillary Refill, Normal Inspection. absent : Joint Swelling, Pedal Edema - Back Exam Back Exam: NORMAL INSPECTION - Neurological Exam Neurological Exam: Alert, Awake, CN II-XII Intact, Normal Gait, Oriented x3 - Psychiatric Exam Psychiatric exam: Normal Affect, Normal Mood - Skin Skin Exam: Dry, Intact, Normal Color, Warm Assessment and Plan - Assessment and Plan (Free Text) Assessment: empyema--improved Plan: for ct scan of chest today thoracic surgery follow up
[2017-12-12] MEDS: Lactobacillus Acidophilus 500 MU Cap PO SCH ×2 (09:07→17:03)
[2017-12-12] MEDS: GlipiZIDE 5 mg SR Tab PO SCH (09:08)
[2017-12-12] MEDS: guaiFENesin-DM 600-30 mg ER Tab PO SCH ×2 (09:10→17:05)
--- NOTE | 2017-12-12 09:42 | RAD ---
PROCEDURE: CHEST RADIOGRAPH, 1 VIEW HISTORY: s/p Thoracotomy; CT care COMPARISON: Chest radiograph dated 12/11/2017. FINDINGS: LUNGS: Left basilar atelectasis versus consolidation. PLEURA: Small to moderate left pleural effusion and/or pleural thickening. No appreciable pneumothorax. CARDIOVASCULAR: Normal. OSSEOUS STRUCTURES: Unchanged. VISUALIZED UPPER ABDOMEN: Normal. OTHER FINDINGS: Two left-sided large-bore chest tubes, unchanged. Stable prominence of the left lateral thoracic wall soft tissues. IMPRESSION: Stable small to moderate left pleural effusion and/or pleural thickening. No appreciable pneumothorax.
[2017-12-12] MEDS ORDERED: Iohexol 300 100 ML IJ ONE (10:04)
--- NOTE | 2017-12-12 11:34 | CT ---
PROCEDURE: CT Chest with contrast HISTORY: chest tube, s/p wedge resection COMPARISON: CT chest dated 12/05/2017. TECHNIQUE: Contiguous axial images were obtained through the chest with intravenous contrast enhancement. Sagittal and coronal reconstructions were performed. IV contrast: 95 mL Omnipaque 300 Radiation dose (DLP): 174.8 mGy-cm. This CT exam was performed using one or more of the following dose reduction techniques: Automated exposure control, adjustment of the mA and/or kV according to patient size, and/or use of iterative reconstruction technique. FINDINGS: LUNGS: Left lower lobe postsurgical changes including wedge resection with chain sutures in place. Extensive left lower lobe and lingula atelectasis/consolidative change. MEDIASTINUM: Unremarkable thoracic aorta. No aneurysm or dissection. Normal sized heart. Main pulmonary artery unremarkable. No vascular congestion. No lymphadenopathy. PLEURA: Trace left pleural effusion. Pleural thickening along left lateral thoracotomy site. No pneumothorax. BONES: Minimally displaced left lateral 5th rib fracture. Distraction of ribs at left lateral 6th rib osteotomy site with close proximity of anterolateral 5th and 6th ribs. No destructive lesion. UPPER ABDOMEN: Grossly unremarkable. OTHER FINDINGS: Left lateral thoracic wall soft tissue hematoma with air and fluid. Left anterolateral and posterolateral large-bore chest tubes with tips in the anterior and posterior apices, respectively. IMPRESSION: Left lateral thoracic wall soft-tissue hematoma with layering fluid within the soft tissues. Left-sided large-bore chest tubes in place. Trace left pleural effusion with pleural thickening along the left lateral thoracotomy site. Minimally displaced left lateral 5th rib fracture. Distraction of the ribs at the left lateral 6th rib osteotomy site with subsequent close proximity of the anterolateral 5th and 6th ribs. Extensive left lower lobe/ lower lingula atelectasis/ consolidative change.
[2017-12-12] MEDS ORDERED: Povidone Iodine Topical 10% Sol ONE (14:32)
[2017-12-12] MEDS ORDERED: HYDROmorphone 0.5 mg/0.5 ml ISec IVP STA (15:09)
--- NOTE | 2017-12-12 15:12 | CP.PCM.PN ---
Subjective - Date & Time of Evaluation Date of Evaluation: 12/12/17 Time of Evaluation: 15:07 - Subjective Subjective: Pt s/e. No complaints. vss [id number] chest tube-serosanguinous 30cc/y no air leak. ct of chest with contrast: Consolidation lower lobe,let and lingula segment of upper lobe. Min effusion. more aeration, left lower lobe now. a/p: d/c ant chest tube-done. stat chest xray. Dilaudid 0.5 mg iv now. Plan to remove post tube tomorrow. Objective - Vital Signs/Intake and Output Vital Signs (last 24 hours): Temp Pulse Resp BP Pulse Ox 98.0 F 73 20 137/74 98 12/12/17 12:00 12/12/17 12:00 12/12/17 12:00 12/12/17 12:00 12/12/17 12:00 Intake and Output: 12/12/17 12/12/17 06:59 18:59 Intake Total 500 100 Output Total 1120 Balance -620 100 - Medications Medications: Current Medications Acetaminophen (Tylenol 325mg Tab) 650 mg PO Q4 PRN PRN Reason: Fever >100.4 F Last Admin: 12/09/17 00:07 Dose: 650 mg Docusate Sodium (Colace) 200 mg PO DAILY [facility] Last Admin: 12/12/17 09:08 Dose: Not Given Glipizide (Glucotrol Xl) 5 mg PO BRK [facility] Last Admin: 12/12/17 09:08 Dose: 5 mg Guaifenesin/Dextromethorphan (Mucinex-Dm 600-30 Mg) 1 tab PO BID [facility] Last Admin: 12/12/17 09:10 Dose: 1 tab Ampicillin Sodium/Sulbactam (Sodium 3 gm/ Sodium Chloride) 100 mls @ 100 mls/ hr IVPB Q6 [facility] PRN Reason: Protocol Last Admin: 12/12/17 09:13 Dose: 100 mls/hr Insulin Human Lispro (Humalog) 0 units SC Q6 [facility] PRN Reason: Protocol Last Admin: 12/12/17 11:38 Dose: 2 units Ketorolac Tromethamine (Toradol) 30 mg IVP Q6 PRN PRN Reason: Pain, moderate (4-7) Last Admin: 12/11/17 23:32 Dose: 30 mg Lactobacillus Acidophilus (Bacid Acidophilus) 1 cap PO BID [facility] Last Admin: 12/12/17 09:07 Dose: 1 cap Lactulose (Enulose) 20 gm PO DAILY PRN PRN Reason: Constipation Last Admin: 12/08/17 10:52 Dose: 20 gm Metformin HCl (Glucophage) [facility] [place] Last Admin: 12/12/17 09:08 Dose: Not Given Metoclopramide HCl (Reglan) 10 mg IVP Q4 PRN PRN Reason: Nausea/Vomiting Oxycodone/Acetaminophen (Percocet 5/325 Mg Tab) 2 tab PO Q4 PRN PRN Reason: Pain, severe (8-10) Stop: 12/13/17 20:12 Last Admin: 12/12/17 09:12 Dose: 2 tab Sennosides (Senokot Tab) 8.6 mg PO [facility] Last Admin: 12/11/17 21:41 Dose: Not Given Sitagliptin Phosphate (Januvia) 100 mg PO DAILY [facility] Last Admin: 12/12/17 09:10 Dose: 100 mg - Labs Labs: 12/12/17 04:20 12/12/17 04:20 PT 15.6 Seconds (9.8-13.1) H 12/06/17 06:15 INR 1.4 (0.9-1.2) H 12/06/17 06:15 APTT 34.4 Seconds (25.6-37.1) 12/06/17 06:15
--- NOTE | 2017-12-12 15:43 | RAD ---
HISTORY: Chest tube removal COMPARISON: 12/12/2017 at 4:17 a.m. FINDINGS: There is interval removal of 1 chest tube with a solitary chest tube terminating in the left apex. LUNGS: The right lung is well inflated and clear. There are postsurgical changes in the left lower lobe the confluent airspace disease. There is airspace disease in the left lower lobe. PLEURA: Small left pleural effusion, no pneumothorax apparent. CARDIOVASCULAR: Normal. OSSEOUS STRUCTURES: Postsurgical changes in the left lower ribs. VISUALIZED UPPER ABDOMEN: Normal. OTHER FINDINGS: None. IMPRESSION: Status post left lower lobe wedge resection, interval removal of 1 left chest tube. Stable position of a solitary left chest tube terminating in the apex. Stable postsurgical changes in the left lower lobe with small left pleural effusion and atelectasis/consolidation in the left lower lobe. No pneumothorax.
--- NOTE | 2017-12-12 15:51 | CP.PCM.PN ---
<Juan Pablo Ren - Last Filed: 12/12/17 15:46> Subjective - Date & Time of Evaluation Date of Evaluation: 12/12/17 Time of Evaluation: 10:00 - Subjective Subjective: Patient seen and examined at bedside w/ Dr. Null. There are no acute events overnight, NAD. The patient reports improvement w/ breathing but continues to have pain at site of chest tubes. Patient's chest tubes drained 20 cc from anterior and 10 cc from posterior consisting of serosanguinous fluid. The patient denies headaches, SOB, abdominal pain, nausea, vomiting, diarrhea, dysuria, or fever. Objective - Vital Signs/Intake and Output Vital Signs (last 24 hours): Temp Pulse Resp BP Pulse Ox 98.0 F 79 24 129/59 L 98 12/12/17 12:00 12/12/17 14:00 12/12/17 14:00 12/12/17 14:00 12/12/17 14:00 Intake and Output: 12/12/17 12/12/17 06:59 18:59 Intake Total 500 100 Output Total 1120 Balance -620 100 - Medications Medications: Current Medications Acetaminophen (Tylenol 325mg Tab) 650 mg PO Q4 PRN PRN Reason: Fever >100.4 F Last Admin: 12/09/17 00:07 Dose: 650 mg Docusate Sodium (Colace) 200 mg PO DAILY [facility] Last Admin: 12/12/17 09:08 Dose: Not Given Glipizide (Glucotrol Xl) 5 mg PO BRK [facility] Last Admin: 12/12/17 09:08 Dose: 5 mg Guaifenesin/Dextromethorphan (Mucinex-Dm 600-30 Mg) 1 tab PO BID [facility] Last Admin: 12/12/17 09:10 Dose: 1 tab Ampicillin Sodium/Sulbactam (Sodium 3 gm/ Sodium Chloride) 100 mls @ 100 mls/ hr IVPB Q6 [facility] PRN Reason: Protocol Last Admin: 12/12/17 09:13 Dose: 100 mls/hr Insulin Human Lispro (Humalog) 0 units SC Q6 [facility] PRN Reason: Protocol Last Admin: 12/12/17 11:38 Dose: 2 units Ketorolac Tromethamine (Toradol) 30 mg IVP Q6 PRN PRN Reason: Pain, moderate (4-7) Last Admin: 12/11/17 23:32 Dose: 30 mg Lactobacillus Acidophilus (Bacid Acidophilus) 1 cap PO BID [facility] Last Admin: 12/12/17 09:07 Dose: 1 cap Lactulose (Enulose) 20 gm PO DAILY PRN PRN Reason: Constipation Last Admin: 12/08/17 10:52 Dose: 20 gm Metformin HCl (Glucophage) 1,000 mg PO BIDWM [facility] Last Admin: 12/12/17 09:08 Dose: Not Given Metoclopramide HCl (Reglan) 10 mg IVP Q4 PRN PRN Reason: Nausea/Vomiting Oxycodone/Acetaminophen (Percocet 5/325 Mg Tab) 2 tab PO Q4 PRN PRN Reason: Pain, severe (8-10) Stop: 12/13/17 20:12 Last Admin: 12/12/17 09:12 Dose: 2 tab Sennosides (Senokot Tab) 8.6 mg PO HS [facility] Last Admin: 12/11/17 21:41 Dose: Not Given Sitagliptin Phosphate (Januvia) 100 mg PO DAILY [facility] Last Admin: 12/12/17 09:10 Dose: 100 mg - Labs Labs: 12/12/17 04:20 12/12/17 04:20 PT 15.6 Seconds (9.8-13.1) H 12/06/17 06:15 INR 1.4 (0.9-1.2) H 12/06/17 06:15 APTT 34.4 Seconds (25.6-37.1) 12/06/17 06:15 - Constitutional Appears: Non-toxic, No Acute Distress - Head Exam Head Exam: ATRAUMATIC, NORMAL INSPECTION, NORMOCEPHALIC - Eye Exam Eye Exam: Normal appearance - ENT Exam ENT Exam: Mucous Membranes Moist - Neck Exam Neck Exam: Full ROM. absent: Tenderness - Respiratory Exam Respiratory Exam: Rales. absent: Accessory Muscle Use, Decreased Breath Sounds , Rhonchi, Wheezes, Respiratory Distress - Cardiovascular Exam Cardiovascular Exam: REGULAR RHYTHM. absent: Tachycardia - GI/Abdominal Exam GI & Abdominal Exam: Soft, Normal Bowel Sounds. absent: Distended, Tenderness - Extremities Exam Extremities Exam: Normal Inspection. absent: Calf Tenderness - Neurological Exam Neurological Exam: Alert, Awake, Normal Gait, Oriented x3 - Skin Skin Exam: Dry, Intact, Normal Color, Warm Assessment and Plan (1) Chest tube in place Status: Acute (2) Empyema lung Status: Acute (3) Pleural effusion Status: Acute (4) DM type 2 (diabetes mellitus, type 2) Status: Chronic (5) Hyperlipidemia Status: Chronic - Assessment and Plan (Free Text) Plan: c/w present management, s/p VATS w/ chest tube insertion POD 6 afebrile, non-tachycardic, normotensive CT surgery recommendations appreciated Pulmonary recommendations appreciated Cardiology recommendations appreciated Infectious Disease recommendations appreciated CXR: small left pleural effusion, s/p removal of anterior chest tube; posterior chest tube remains in place CT chest: trace left pleural effusion, extensive left lower lobe consolidative change unasyn 3 gm IV Q6h day 2 prophylactic measures: DVT lovenox 40 mg SC daily monitor for acute changes <Genaro Null - Last Filed: 12/16/17 09:33> Objective - Vital Signs/Intake and Output Vital Signs (last 24 hours): Temp Pulse Resp BP Pulse Ox 98.5 F 76 19 148/78 97 12/16/17 07:50 12/16/17 07:50 12/16/17 07:50 12/16/17 07:50 12/16/17 07:50 - Medications Medications: Current Medications Acetaminophen (Tylenol 325mg Tab) 650 mg PO Q4 PRN PRN Reason: Fever >100.4 F Last Admin: 12/09/17 00:07 Dose: 650 mg Docusate Sodium (Colace) 200 mg PO DAILY [facility] Last Admin: 12/15/17 09:47 Dose: 200 mg Enoxaparin Sodium (Lovenox) 40 mg SC DAILY [facility] PRN Reason: Protocol Last Admin: 12/15/17 09:49 Dose: 40 mg Glipizide (Glucotrol Xl) 5 mg PO BRK [facility] Last Admin: 12/15/17 09:48 Dose: 5 mg Guaifenesin/Dextromethorphan (Mucinex-Dm 600-30 Mg) 1 tab PO BID [facility] Last Admin: 12/15/17 18:10 Dose: 1 tab Hydrocortisone (Cortizone 2.5% Cream) 2.5 applic TOP BID [facility] Last Admin: 12/15/17 18:08 Dose: 2.5 applic Ampicillin Sodium/Sulbactam (Sodium 3 gm/ Sodium Chloride) 100 mls @ 100 mls/ hr IVPB Q6 [facility] PRN Reason: Protocol Last Admin: 12/16/17 04:09 Dose: 100 mls/hr Insulin Human Lispro (Humalog) 0 units SC Q6 [facility] PRN Reason: Protocol Last Admin: 12/15/17 23:12 Dose: Not Given Lactobacillus Acidophilus (Bacid Acidophilus) 1 cap PO BID [facility] Last Admin: 12/15/17 18:08 Dose: 1 cap Lactulose (Enulose) 20 gm PO DAILY PRN PRN Reason: Constipation Last Admin: 12/08/17 10:52 Dose: 20 gm Metformin HCl (Glucophage) 1,000 mg PO BIDWM [facility] Last Admin: 12/15/17 18:58 Dose: 1,000 mg Oxycodone/Acetaminophen (Percocet 5/325 Mg Tab) 2 tab PO Q4 PRN PRN Reason: Pain, severe (8-10) Stop: 12/16/17 23:59 Last Admin: 12/15/17 20:45 Dose: 2 tab Sennosides (Senokot Tab) 8.6 mg PO HS [facility] Last Admin: 12/15/17 21:40 Dose: Not Given Sitagliptin Phosphate (Januvia) 100 mg PO DAILY [facility] Last Admin: 12/15/17 09:49 Dose: 100 mg - Labs Labs: 12/16/17 07:39 12/16/17 07:39 PT 15.6 Seconds (9.8-13.1) H 12/06/17 06:15 INR 1.4 (0.9-1.2) H 12/06/17 06:15 APTT 34.4 Seconds (25.6-37.1) 12/06/17 06:15 Assessment and Plan (1) Pleural effusion Status: Acute (2) Empyema lung Status: Acute (3) DM type 2 (diabetes mellitus, type 2) Status: Chronic (4) Hyperlipidemia Status: Chronic - Assessment and Plan (Free Text) Plan: I was present during evaluation and discussed with Dr Ren re plans of care and mgt. Genaro Null M.D.
[2017-12-13] MEDS: Oxycodone/Acetaminophen 5/325 mg Tab PO PRN ×4 (01:17→17:59)
[2017-12-13] MEDS: Insulin Lispro (humaLOG) 100 Units/ml Inj SC SCH ×4 (05:30→21:24)
--- NOTE | 2017-12-13 07:57 | RAD ---
HISTORY: s/p anterior chest tube removal COMPARISON: Chest radiographs 12/12/2017. FINDINGS: LUNGS: Cyst in combination of limited airspace disease and mild left pleural effusion persists at the left base with mild left hemidiaphragm elevation reiterated. Left chest tube is unchanged in position. There is an infiltrate or pleural effusion. No pneumothorax bilaterally. CARDIOVASCULAR: Stable cardiomediastinal silhouette. OSSEOUS STRUCTURES: No significant abnormalities. VISUALIZED UPPER ABDOMEN: Normal. OTHER FINDINGS: None. IMPRESSION: No interval change in limited left basilar pleural effusion and airspace disease with left chest tube unchanged in position.
--- NOTE | 2017-12-13 08:19 | CP.PCM.PN ---
Subjective - Date & Time of Evaluation Date of Evaluation: 12/13/17 Time of Evaluation: 07:10 - Subjective Subjective: CT Surgery progress note. Dr. Teresa Pt seen and examined at bedside. No acute events overnight. States that he feels better after getting one of the chest tubes out yesterday. no new complaints. Objective - Vital Signs/Intake and Output Vital Signs (last 24 hours): Temp Pulse Resp BP Pulse Ox 98.7 F 69 17 133/68 98 12/13/17 06:00 12/13/17 06:00 12/13/17 06:00 12/13/17 06:00 12/13/17 06:00 Intake and Output: 12/13/17 12/13/17 06:59 18:59 Intake Total 600 Output Total 1670 Balance -1070 - Medications Medications: Current Medications Acetaminophen (Tylenol 325mg Tab) 650 mg PO Q4 PRN PRN Reason: Fever >100.4 F Last Admin: 12/09/17 00:07 Dose: 650 mg Docusate Sodium (Colace) 200 mg PO DAILY [facility] Last Admin: 12/12/17 09:08 Dose: Not Given Glipizide (Glucotrol Xl) 5 mg PO BRK [facility] Last Admin: 12/12/17 09:08 Dose: 5 mg Guaifenesin/Dextromethorphan (Mucinex-Dm 600-30 Mg) 1 tab PO BID [facility] Last Admin: 12/12/17 17:05 Dose: 1 tab Ampicillin Sodium/Sulbactam (Sodium 3 gm/ Sodium Chloride) 100 mls @ 100 mls/ hr IVPB Q6 [facility] PRN Reason: Protocol Last Admin: 12/13/17 05:28 Dose: 100 mls/hr Insulin Human Lispro (Humalog) 0 units SC Q6 [facility] PRN Reason: Protocol Last Admin: 12/13/17 05:30 Dose: Not Given Ketorolac Tromethamine (Toradol) 30 mg IVP Q6 PRN PRN Reason: Pain, moderate (4-7) Last Admin: 12/11/17 23:32 Dose: 30 mg Lactobacillus Acidophilus (Bacid Acidophilus) 1 cap PO BID [facility] Last Admin: 12/12/17 17:03 Dose: 1 cap Lactulose (Enulose) 20 gm PO DAILY PRN PRN Reason: Constipation Last Admin: 12/08/17 10:52 Dose: 20 gm Metformin HCl (Glucophage) 1,000 mg PO BIDWM [facility] Last Admin: 12/12/17 09:08 Dose: Not Given Metoclopramide HCl (Reglan) 10 mg IVP Q4 PRN PRN Reason: Nausea/Vomiting Oxycodone/Acetaminophen (Percocet 5/325 Mg Tab) 2 tab PO Q4 PRN PRN Reason: Pain, severe (8-10) Stop: 12/13/17 20:12 Last Admin: 12/13/17 07:37 Dose: 2 tab Sennosides (Senokot Tab) 8.6 mg PO HS [facility] Last Admin: 12/12/17 21:20 Dose: Not Given Sitagliptin Phosphate (Januvia) 100 mg PO DAILY [facility] Last Admin: 12/12/17 09:10 Dose: 100 mg - Labs Labs: 12/12/17 04:20 12/12/17 04:20 PT 15.6 Seconds (9.8-13.1) H 12/06/17 06:15 INR 1.4 (0.9-1.2) H 12/06/17 06:15 APTT 34.4 Seconds (25.6-37.1) 12/06/17 06:15 - Constitutional Appears: Well, Non-toxic, No Acute Distress - Head Exam Head Exam: ATRAUMATIC, NORMAL INSPECTION, NORMOCEPHALIC - Eye Exam Eye Exam: EOMI, Normal appearance - ENT Exam ENT Exam: Mucous Membranes Moist - Respiratory Exam Respiratory Exam: NORMAL BREATHING PATTERN. absent: Accessory Muscle Use, Respiratory Distress Additional comments: left posterior chest tube in place. Minimal output. To wall suction. No air leaks noted. dressing clean, dry and intact. - Cardiovascular Exam Cardiovascular Exam: RRR. absent: JVD - GI/Abdominal Exam GI & Abdominal Exam: Soft. absent: Distended, Guarding, Tenderness, Rebound - Extremities Exam Extremities Exam: Normal Inspection. absent: Calf Tenderness - Neurological Exam Neurological Exam: Alert, Oriented x3 - Skin Skin Exam: Dry, Intact, Warm Assessment and Plan - Assessment and Plan (Free Text) Assessment: 57yo M with left hemithorax empyema, lung abscess, and intrapulmonary mass s/p Video assisted thoracotomy. Left lateral muscle sparing thoracotomy. Evacuation of empyema. Decortication. Wedge resection of abscess. Intra pleural mass removal. Left Chest tube insertion x2. POD7. Pleural Fluid cytology - negative for malignant cells. consistent with Empyema Plan: - Possible removal of second chest tube later today - Pain management - f/u final pathology - analgesia PRN - Encourage OOBTC, Ambulation, IS use Further recs as per Dr. Brii Lang PGY1 surgery pager: [phone]
[2017-12-13] MEDS: Lactobacillus Acidophilus 500 MU Cap PO SCH ×2 (09:05→17:15)
[2017-12-13] MEDS: GlipiZIDE 5 mg SR Tab PO SCH (09:07)
[2017-12-13] MEDS: guaiFENesin-DM 600-30 mg ER Tab PO SCH ×2 (09:07→17:16)
--- NOTE | 2017-12-13 12:25 | CP.PCM.PN ---
Subjective - Date & Time of Evaluation Date of Evaluation: 12/13/17 Time of Evaluation: 08:00 - Subjective Subjective: IV RX IN PROGRESS NO FEVER OR SOB Objective - Vital Signs/Intake and Output Vital Signs (last 24 hours): Temp Pulse Resp BP Pulse Ox 98.1 F 81 21 108/61 99 12/13/17 12:00 12/13/17 12:00 12/13/17 12:00 12/13/17 12:00 12/13/17 12:00 Intake and Output: 12/13/17 12/13/17 06:59 18:59 Intake Total 600 300 Output Total 1670 300 Balance -1070 0 - Medications Medications: Current Medications Acetaminophen (Tylenol 325mg Tab) 650 mg PO Q4 PRN PRN Reason: Fever >100.4 F Last Admin: 12/09/17 00:07 Dose: 650 mg Docusate Sodium (Colace) 200 mg PO DAILY [facility] Last Admin: 12/13/17 09:06 Dose: 200 mg Glipizide (Glucotrol Xl) 5 mg PO BRK [facility] Last Admin: 12/13/17 09:07 Dose: 5 mg Guaifenesin/Dextromethorphan (Mucinex-Dm 600-30 Mg) 1 tab PO BID [facility] Last Admin: 12/13/17 09:07 Dose: 1 tab Ampicillin Sodium/Sulbactam (Sodium 3 gm/ Sodium Chloride) 100 mls @ 100 mls/ hr IVPB Q6 [facility] PRN Reason: Protocol Last Admin: 12/13/17 09:08 Dose: 100 mls/hr Insulin Human Lispro (Humalog) 0 units SC Q6 [facility] PRN Reason: Protocol Last Admin: 12/13/17 11:44 Dose: 2 units Ketorolac Tromethamine (Toradol) 30 mg IVP Q6 PRN PRN Reason: Pain, moderate (4-7) Last Admin: 12/11/17 23:32 Dose: 30 mg Lactobacillus Acidophilus (Bacid Acidophilus) 1 cap PO BID [facility] Last Admin: 12/13/17 09:05 Dose: 1 cap Lactulose (Enulose) 20 gm PO DAILY PRN PRN Reason: Constipation Last Admin: 12/08/17 10:52 Dose: 20 gm Metformin [facility] (Glucophage) [facility] [place] Last Admin: 12/12/17 09:08 Dose: Not Given Metoclopramide HCl (Reglan) 10 mg IVP Q4 PRN PRN Reason: Nausea/Vomiting Oxycodone/Acetaminophen (Percocet 5/325 Mg Tab) 2 tab PO Q4 PRN PRN Reason: Pain, severe (8-10) Stop: 12/13/17 20:12 Last Admin: 12/13/17 11:41 Dose: 2 tab Sennosides (Senokot Tab) 8.6 mg PO HS [facility] Last Admin: 12/12/17 21:20 Dose: Not Given Sitagliptin Phosphate (Januvia) 100 mg PO DAILY [facility] Last Admin: 12/13/17 09:07 Dose: 100 mg - Labs Labs: 12/12/17 04:20 12/12/17 04:20 PT 15.6 Seconds (9.8-13.1) H 12/06/17 06:15 INR 1.4 (0.9-1.2) H 12/06/17 06:15 APTT 34.4 Seconds (25.6-37.1) 12/06/17 06:15 - Constitutional Appears: Non-toxic, Chronically Ill - Head Exam Head Exam: NORMOCEPHALIC - Eye Exam Eye Exam: absent: Scleral icterus - ENT Exam ENT Exam: Mucous Membranes Dry - Neck Exam Neck Exam: absent: Lymphadenopathy - Cardiovascular Exam Cardiovascular Exam: REGULAR RHYTHM - GI/Abdominal Exam GI & Abdominal Exam: Distended - Rectal Exam Rectal Exam: Deferred - Exam Exam: NORMAL INSPECTION - Back Exam Back Exam: absent: CVA tenderness (L), CVA tenderness (R) Assessment and Plan (1) DM type 2 (diabetes mellitus, type 2) Status: Chronic (2) Empyema lung Status: Acute (3) Fever Status: Acute (4) Pleural effusion Status: Acute (5) Chest tube in place Status: Acute (6) Chest tube in place Status: Acute - Assessment and Plan (Free Text) Assessment: + STREP FROM PLEURAL FLUID CONT IV UNASYN
--- NOTE | 2017-12-13 12:48 | CP.PCM.PN ---
Subjective - Date & Time of Evaluation Date of Evaluation: 12/13/17 Time of Evaluation: 12:48 - Subjective Subjective: FEELS BETTER OOB TO CHAIR 1 CHEST TUBE REMOVED Objective - Vital Signs/Intake and Output Vital Signs (last 24 hours): Temp Pulse Resp BP Pulse Ox 98.1 F 81 21 108/61 99 12/13/17 12:00 12/13/17 12:00 12/13/17 12:00 12/13/17 12:00 12/13/17 12:00 Intake and Output: 12/13/17 12/13/17 06:59 18:59 Intake Total 600 300 Output Total 1670 300 Balance -1070 0 - Medications Medications: Current Medications Acetaminophen (Tylenol 325mg Tab) 650 mg PO Q4 PRN PRN Reason: Fever >100.4 F Last Admin: 12/09/17 00:07 Dose: 650 mg Docusate Sodium (Colace) 200 mg PO DAILY [facility] Last Admin: 12/13/17 09:06 Dose: 200 mg Glipizide (Glucotrol Xl) 5 mg PO BRK [facility] Last Admin: 12/13/17 09:07 Dose: 5 mg Guaifenesin/Dextromethorphan (Mucinex-Dm 600-30 Mg) 1 tab PO BID [facility] Last Admin: 12/13/17 09:07 Dose: 1 tab Ampicillin Sodium/Sulbactam (Sodium 3 gm/ Sodium Chloride) 100 mls @ 100 mls/ hr IVPB Q6 [facility] PRN Reason: Protocol Last Admin: 12/13/17 09:08 Dose: 100 mls/hr Insulin Human Lispro (Humalog) 0 units SC Q6 [facility] PRN Reason: Protocol Last Admin: 12/13/17 11:44 Dose: 2 units Ketorolac Tromethamine (Toradol) 30 mg IVP Q6 PRN PRN Reason: Pain, moderate (4-7) Last Admin: 12/11/17 23:32 Dose: 30 mg Lactobacillus Acidophilus (Bacid Acidophilus) 1 cap PO BID [facility] Last Admin: 12/13/17 09:05 Dose: 1 cap Lactulose (Enulose) 20 gm PO DAILY PRN PRN Reason: Constipation Last Admin: 12/08/17 10:52 Dose: 20 gm Metformin HCl (Glucophage) 1,000 mg PO BIDWM [facility] Last Admin: 12/12/17 09:08 Dose: Not Given Metoclopramide HCl (Reglan) 10 mg IVP Q4 PRN PRN Reason: Nausea/Vomiting Oxycodone/Acetaminophen (Percocet 5/325 Mg Tab) 2 tab PO Q4 PRN PRN Reason: Pain, severe (8-10) Stop: 12/13/17 20:12 Last Admin: 12/13/17 11:41 Dose: 2 tab Sennosides (Senokot Tab) 8.6 mg PO HS [facility] Last Admin: 12/12/17 21:20 Dose: Not Given Sitagliptin Phosphate (Januvia) 100 mg PO DAILY [facility] Last Admin: 12/13/17 09:07 Dose: 100 mg - Labs Labs: 12/12/17 04:20 12/12/17 04:20 PT 15.6 Seconds (9.8-13.1) H 12/06/17 06:15 INR 1.4 (0.9-1.2) H 12/06/17 06:15 APTT 34.4 Seconds (25.6-37.1) 12/06/17 06:15 - Constitutional Appears: No Acute Distress - Head Exam Head Exam: ATRAUMATIC, NORMAL INSPECTION, NORMOCEPHALIC - Eye Exam Eye Exam: EOMI, Normal appearance, PERRL Pupil Exam: NORMAL ACCOMODATION, PERRL - ENT Exam ENT Exam: Mucous Membranes Moist, Normal Exam - Neck Exam Neck Exam: Full ROM, Normal Inspection. absent: Lymphadenopathy - Respiratory Exam Respiratory Exam: Prolonged Expiratory Phase, Rales, NORMAL BREATHING PATTERN - Cardiovascular Exam Cardiovascular Exam: REGULAR RHYTHM, +S1, +S2. absent: Murmur - GI/Abdominal Exam GI & Abdominal Exam: Soft, Normal Bowel Sounds. absent: Tenderness - Rectal Exam Rectal Exam: NORMAL INSPECTION - Extremities Exam Extremities Exam: Full ROM, Normal Capillary Refill, Normal Inspection. absent : Joint Swelling, Pedal Edema - Back Exam Back Exam: NORMAL INSPECTION - Neurological Exam Neurological Exam: Alert, Awake, CN II-XII Intact, Normal Gait, Oriented x3 - Psychiatric Exam Psychiatric exam: Normal Affect, Normal Mood - Skin Skin Exam: Dry, Intact, Normal Color, Warm Assessment and Plan - Assessment and Plan (Free Text) Assessment: EMPYEMA RESOLVED Plan: CONTINUE RX PER THORACIC SURGEON
--- NOTE | 2017-12-13 13:45 | CP.PCM.PN ---
Subjective - Date & Time of Evaluation Date of Evaluation: 12/13/17 Time of Evaluation: 13:39 - Subjective Subjective: Pt s/e. Min chest pain. Afebrile. vss. wbc-Pending. cxr-No pneumo. chest tube -0 output. Will remove post chest tube. a/p: Post chest tube removed. Stat cxr. Will transfer out of ICU to Med/Surg Daily cbc and cxr Objective - Vital Signs/Intake and Output Vital Signs (last 24 hours): Temp Pulse Resp BP Pulse Ox 98.1 F 81 21 108/61 99 12/13/17 12:00 12/13/17 12:00 12/13/17 12:00 12/13/17 12:00 12/13/17 12:00 Intake and Output: 12/13/17 12/13/17 06:59 18:59 Intake Total 600 300 Output Total 1670 300 Balance -1070 0 - Medications Medications: Current Medications Acetaminophen (Tylenol 325mg Tab) 650 mg PO Q4 PRN PRN Reason: Fever >100.4 F Last Admin: 12/09/17 00:07 Dose: 650 mg Docusate Sodium (Colace) 200 mg PO DAILY [facility] Last Admin: 12/13/17 09:06 Dose: 200 mg Glipizide (Glucotrol Xl) 5 mg PO BRK [facility] Last Admin: 12/13/17 09:07 Dose: 5 mg Guaifenesin/Dextromethorphan (Mucinex-Dm 600-30 Mg) 1 tab PO BID [facility] Last Admin: 12/13/17 09:07 Dose: 1 tab Ampicillin Sodium/Sulbactam (Sodium 3 gm/ Sodium Chloride) 100 mls @ 100 mls/ hr IVPB Q6 [facility] PRN Reason: Protocol Last Admin: 12/13/17 09:08 Dose: 100 mls/hr Insulin Human Lispro (Humalog) 0 units SC Q6 [facility] PRN Reason: Protocol Last Admin: 12/13/17 11:44 Dose: 2 units Ketorolac Tromethamine (Toradol) 30 mg IVP Q6 PRN PRN Reason: Pain, moderate (4-7) Last Admin: 12/11/17 23:32 Dose: 30 mg Lactobacillus Acidophilus (Bacid Acidophilus) 1 cap PO BID [facility] Last Admin: 12/13/17 09:05 Dose: 1 cap Lactulose (Enulose) 20 gm PO DAILY PRN PRN Reason: Constipation Last Admin: 12/08/17 10:52 Dose: 20 gm Metformin HCl (Glucophage) 1,000 mg PO BIDWM [facility] Last Admin: 12/12/17 09:08 Dose: Not Given Metoclopramide HCl (Reglan) 10 mg IVP Q4 PRN PRN Reason: Nausea/Vomiting Oxycodone/Acetaminophen (Percocet 5/325 Mg Tab) 2 tab PO Q4 PRN PRN Reason: Pain, severe (8-10) Stop: 12/13/17 20:12 Last Admin: 12/13/17 11:41 Dose: 2 tab Sennosides (Senokot Tab) 8.6 mg PO [facility] Last Admin: 12/12/17 21:20 Dose: Not Given Sitagliptin Phosphate (Januvia) 100 mg PO DAILY [facility] Last Admin: 12/13/17 09:07 Dose: 100 mg - Labs Labs: 12/12/17 04:20 12/12/17 04:20 PT 15.6 Seconds (9.8-13.1) H 12/06/17 06:15 INR 1.4 (0.9-1.2) H 12/06/17 06:15 APTT 34.4 Seconds (25.6-37.1) 12/06/17 06:15
--- NOTE | 2017-12-13 13:48 | RAD ---
PROCEDURE: CHEST RADIOGRAPH, 1 VIEW HISTORY: Status post chest tube removal COMPARISON: Comparison made with chest radiograph dated 12/13/2017 at 0736 hours. FINDINGS: Interval removal left-sided chest tube. LUNGS: Postoperative thoracotomy changes left lower lobe which include of some combination of atelectasis/ consolidation and possibly some residual fluid. Right lung clear. No obvious pneumothorax PLEURA: As above the CARDIOVASCULAR: Normal. OSSEOUS STRUCTURES: No significant abnormalities. VISUALIZED UPPER ABDOMEN: Normal. OTHER FINDINGS: None. IMPRESSION: Interval removal left-sided chest tube. No evidence of pneumothorax. No other significant change.
[2017-12-13 14:27] LABS: HEMOGLOBIN 10.9 g/dL (12.0-18.0); MEAN CELL VOLUME 86.5 fl (80.0-94.0); MEAN CORPUSCULAR HEMOGLOBIN 30.1 pg (27.0-31.0); MEAN CORPUSCULAR HGB CONC 34.8 g/dL (33.0-37.0); RBC 3.63 Mil/uL (4.40-5.90); RED CELL DISTRIBUTION WIDTH 13.3 % (11.5-14.5)
[2017-12-13 14:33] LABS: BLOOD UREA NITROGEN 13 mg/dl (9-20); CALCIUM 8.3 mg/dL (8.4-10.2); GFR AFRICAN-AMERICAN > 60; GFR NON-AFRICAN AMERICAN > 60
[2017-12-13 14:42] LABS: WHITE BLOOD COUNT 15.1 K/uL (4.8-10.8)
--- NOTE | 2017-12-13 14:48 | CP.PCM.PN ---
<Juan Pablo Ren - Last Filed: 12/13/17 14:46> Subjective - Date & Time of Evaluation Date of Evaluation: 12/13/17 Time of Evaluation: 11:25 - Subjective Subjective: Patient seen and examined at bedside w/ Dr. Null. There are no acute events overnight, NAD. The patient reports improvement w/ breathing. Anterior chest tube removed yesterday. Posterior to be removed this afternoon. Patient's chest tubes draining minimally from posterior consisting of serosanguinous fluid. The patient denies headaches, SOB, abdominal pain, nausea, vomiting, diarrhea, dysuria, or fever. Objective - Vital Signs/Intake and Output Vital Signs (last 24 hours): Temp Pulse Resp BP Pulse Ox 98.1 F 81 21 108/61 99 12/13/17 12:00 12/13/17 12:00 12/13/17 12:00 12/13/17 12:00 12/13/17 12:00 Intake and Output: 12/13/17 12/13/17 06:59 18:59 Intake Total 600 300 Output Total 1670 300 Balance -1070 0 - Medications Medications: Current Medications Acetaminophen (Tylenol 325mg Tab) 650 mg PO Q4 PRN PRN Reason: Fever >100.4 F Last Admin: 12/09/17 00:07 Dose: 650 mg Docusate Sodium (Colace) 200 mg PO DAILY [facility] Last Admin: 12/13/17 09:06 Dose: 200 mg Glipizide (Glucotrol Xl) 5 mg PO BRK [facility] Last Admin: 12/13/17 09:07 Dose: 5 mg Guaifenesin/Dextromethorphan (Mucinex-Dm 600-30 Mg) 1 tab PO BID [facility] Last Admin: 12/13/17 09:07 Dose: 1 tab Ampicillin Sodium/Sulbactam (Sodium 3 gm/ Sodium Chloride) 100 mls @ 100 mls/ hr IVPB Q6 [facility] PRN Reason: Protocol Last Admin: 12/13/17 09:08 Dose: 100 mls/hr Insulin Human Lispro (Humalog) 0 units SC Q6 [facility] PRN Reason: Protocol Last Admin: 12/13/17 11:44 Dose: 2 units Ketorolac Tromethamine (Toradol) 30 mg IVP Q6 PRN PRN Reason: Pain, moderate (4-7) Last Admin: 12/11/17 23:32 Dose: 30 mg Lactobacillus Acidophilus (Bacid Acidophilus) 1 cap PO BID [facility] Last Admin: 12/13/17 09:05 Dose: 1 cap Lactulose (Enulose) 20 gm PO DAILY PRN PRN Reason: Constipation Last Admin: 12/08/17 10:52 Dose: 20 gm Metformin HCl (Glucophage) 1,000 mg PO BIDWM [facility] Last Admin: 12/12/17 09:08 Dose: Not Given Metoclopramide HCl (Reglan) 10 mg IVP Q4 PRN PRN Reason: Nausea/Vomiting Oxycodone/Acetaminophen (Percocet 5/325 Mg Tab) 2 tab PO Q4 PRN PRN Reason: Pain, severe (8-10) Stop: 12/13/17 20:12 Last Admin: 12/13/17 11:41 Dose: 2 tab Sennosides (Senokot Tab) 8.6 mg PO [facility] Last Admin: 12/12/17 21:20 Dose: Not Given Sitagliptin Phosphate (Januvia) 100 mg PO DAILY [facility] Last Admin: 12/13/17 09:07 Dose: 100 mg - Labs Labs: 12/13/17 14:05 12/13/17 14:05 PT 15.6 Seconds (9.8-13.1) H 12/06/17 06:15 INR 1.4 (0.9-1.2) H 12/06/17 06:15 APTT 34.4 Seconds (25.6-37.1) 12/06/17 06:15 - Constitutional Appears: Non-toxic, No Acute Distress - Head Exam Head Exam: ATRAUMATIC, NORMAL INSPECTION, NORMOCEPHALIC - Eye Exam Eye Exam: Normal appearance - ENT Exam ENT Exam: Mucous Membranes Moist - Neck Exam Neck Exam: Full ROM. absent: Tenderness - Respiratory Exam Respiratory Exam: Clear to Ausculation Bilateral. absent: Accessory Muscle Use , Decreased Breath Sounds, Rales, Rhonchi, Wheezes, Respiratory Distress - Cardiovascular Exam Cardiovascular Exam: REGULAR RHYTHM, RRR. absent: Tachycardia - GI/Abdominal Exam GI & Abdominal Exam: Soft, Normal Bowel Sounds. absent: Distended, Tenderness - Extremities Exam Extremities Exam: Normal Inspection. absent: Calf Tenderness - Neurological Exam Neurological Exam: Alert, Awake, Normal Gait, Oriented x3 - Skin Skin Exam: Dry, Intact, Normal Color, Warm Assessment and Plan (1) Chest tube in place Status: Acute (2) Empyema lung Status: Acute (3) Pleural effusion Status: Acute (4) DM type 2 (diabetes mellitus, type 2) Status: Chronic (5) Hyperlipidemia Status: Chronic - Assessment and Plan (Free Text) Plan: c/w present management, s/p VATS w/ chest tube insertion POD 6 afebrile, non-tachycardic, normotensive CT surgery recommendations appreciated Pulmonary recommendations appreciated Cardiology recommendations appreciated Infectious Disease recommendations appreciated CXR: small left pleural effusion, s/p removal of anterior chest tube; posterior chest tube remains in place CT chest: trace left pleural effusion, extensive left lower lobe consolidative change unasyn 3 gm IV Q6h day 3 prophylactic measures: DVT lovenox 40 mg SC daily monitor for acute changes <Genaro Null - Last Filed: 12/16/17 09:34> Objective - Vital Signs/Intake and Output Vital Signs (last 24 hours): Temp Pulse Resp BP Pulse Ox 98.5 F 76 19 148/78 97 12/16/17 07:50 12/16/17 07:50 12/16/17 07:50 12/16/17 07:50 12/16/17 07:50 - Medications Medications: Current Medications Acetaminophen (Tylenol 325mg Tab) 650 mg PO Q4 PRN PRN Reason: Fever >100.4 F Last Admin: 12/09/17 00:07 Dose: 650 mg Docusate Sodium (Colace) 200 mg PO DAILY [facility] Last Admin: 12/15/17 09:47 Dose: 200 mg Enoxaparin Sodium (Lovenox) 40 mg SC DAILY [facility] PRN Reason: Protocol Last Admin: 12/15/17 09:49 Dose: 40 mg Glipizide (Glucotrol Xl) 5 mg PO BRK [facility] Last Admin: 12/15/17 09:48 Dose: 5 mg Guaifenesin/Dextromethorphan (Mucinex-Dm 600-30 Mg) 1 tab PO BID [facility] Last Admin: 12/15/17 18:10 Dose: 1 tab Hydrocortisone (Cortizone 2.5% Cream) 2.5 applic TOP BID [facility] Last Admin: 12/15/17 18:08 Dose: 2.5 applic Ampicillin Sodium/Sulbactam (Sodium 3 gm/ Sodium Chloride) 100 mls @ 100 mls/ hr IVPB Q6 [facility] PRN Reason: Protocol Last Admin: 12/16/17 04:09 Dose: 100 mls/hr Insulin Human Lispro (Humalog) 0 units SC Q6 [facility] PRN Reason: Protocol Last Admin: 12/15/17 23:12 Dose: Not Given Lactobacillus Acidophilus (Bacid Acidophilus) 1 cap PO BID [facility] Last Admin: 12/15/17 18:08 Dose: 1 cap Lactulose (Enulose) 20 gm PO DAILY PRN PRN Reason: Constipation Last Admin: 12/08/17 10:52 Dose: 20 gm Metformin HCl (Glucophage) 1,000 mg PO BIDWM [facility] Last Admin: 12/15/17 18:58 Dose: 1,000 mg Oxycodone/Acetaminophen (Percocet 5/325 Mg Tab) 2 tab PO Q4 PRN PRN Reason: Pain, severe (8-10) Stop: 12/16/17 23:59 Last Admin: 12/15/17 20:45 Dose: 2 tab Sennosides (Senokot Tab) 8.6 mg PO HS [facility] Last Admin: 12/15/17 21:40 Dose: Not Given Sitagliptin Phosphate (Januvia) 100 mg PO DAILY [facility] Last Admin: 12/15/17 09:49 Dose: 100 mg - Labs Labs: 12/16/17 07:39 12/16/17 07:39 PT 15.6 Seconds (9.8-13.1) H 12/06/17 06:15 INR 1.4 (0.9-1.2) H 12/06/17 06:15 APTT 34.4 Seconds (25.6-37.1) 12/06/17 06:15 Assessment and Plan (1) Pleural effusion Status: Acute (2) Empyema lung Status: Acute (3) DM type 2 (diabetes mellitus, type 2) Status: Chronic (4) Hyperlipidemia Status: Chronic - Assessment and Plan (Free Text) Plan: I was present during evaluation and discussed with Dr Ren re plans of care and tx.\ genaro Null M.D.
[2017-12-14] MEDS: Oxycodone/Acetaminophen 5/325 mg Tab PO PRN ×3 (00:01→16:33)
[2017-12-14] MEDS: Insulin Lispro (humaLOG) 100 Units/ml Inj SC SCH ×4 (05:48→23:19)
[2017-12-14 06:22] LABS: HEMOGLOBIN 10.7 g/dL (12.0-18.0); MEAN CELL VOLUME 86.4 fl (80.0-94.0); MEAN CORPUSCULAR HEMOGLOBIN 30.2 pg (27.0-31.0); MEAN CORPUSCULAR HGB CONC 34.9 g/dL (33.0-37.0); RBC 3.54 Mil/uL (4.40-5.90); WHITE BLOOD COUNT 11.3 K/uL (4.8-10.8)
[2017-12-14 06:31] LABS: BLOOD UREA NITROGEN 10 mg/dl (9-20); CALCIUM 8.6 mg/dL (8.4-10.2); GFR AFRICAN-AMERICAN > 60; GFR NON-AFRICAN AMERICAN > 60
[2017-12-14] MEDS: Lactobacillus Acidophilus 500 MU Cap PO SCH ×2 (08:20→16:30)
[2017-12-14] MEDS: guaiFENesin-DM 600-30 mg ER Tab PO SCH ×2 (08:21→16:30)
[2017-12-14] MEDS: GlipiZIDE 5 mg SR Tab PO SCH (08:21)
--- NOTE | 2017-12-14 08:35 | RAD ---
HISTORY: 4hr s/p Chest tube removal COMPARISON: Portable chest 12/13/2017. FINDINGS: LUNGS: Left basilar airspace or infiltrate persists with none on the right. PLEURA: Small pleural effusions unchanged with likely mild elevation of the left hemidiaphragm again evident. CARDIOVASCULAR: Normal. OSSEOUS STRUCTURES: No significant abnormalities. VISUALIZED UPPER ABDOMEN: Normal. OTHER FINDINGS: Postop changes at the left chest well again noted as well as skin yaneth. IMPRESSION: Stable chest radiograph including left basilar airspace disease and small left pleural effusion. Left hemidiaphragm elevation appears mild.
--- NOTE | 2017-12-14 10:15 | CP.PCM.PN ---
Subjective - Date & Time of Evaluation Date of Evaluation: 12/14/17 Time of Evaluation: 08:25 - Subjective Subjective: CT surgery progress note. Dr. Teresa Pt seen and examined at bedside. No acute events overnight. No N/V/D. No CP/ SOB. No F/C. No new complaints. States that the tape over the chest wound dressing is irritating to the skin. Objective - Vital Signs/Intake and Output Vital Signs (last 24 hours): Temp Pulse Resp BP Pulse Ox 98.7 F 82 21 110/60 100 12/14/17 08:00 12/14/17 08:00 12/14/17 08:00 12/14/17 08:00 12/14/17 08:00 Intake and Output: 12/14/17 12/14/17 06:59 18:59 Intake Total 1790 360 Output Total 1800 Balance -10 360 - Medications Medications: Current Medications Acetaminophen (Tylenol 325mg Tab) 650 mg PO Q4 PRN PRN Reason: Fever >100.4 F Last Admin: 12/09/17 00:07 Dose: 650 mg Docusate Sodium (Colace) 200 mg PO DAILY [facility] Last Admin: 12/14/17 08:20 Dose: 200 mg Glipizide (Glucotrol Xl) 5 mg PO BRK [facility] Last Admin: 12/14/17 08:21 Dose: 5 mg Guaifenesin/Dextromethorphan (Mucinex-Dm 600-30 Mg) 1 tab PO BID [facility] Last Admin: 12/14/17 08:21 Dose: Not Given Hydrocortisone (Cortizone 2.5% Cream) 2.5 applic TOP BID [facility] Last Admin: 12/14/17 08:20 Dose: 2.5 applic Ampicillin Sodium/Sulbactam (Sodium 3 gm/ Sodium Chloride) 100 mls @ 100 mls/ hr IVPB Q6 [facility] PRN Reason: Protocol Last Admin: 12/14/17 08:59 Dose: 100 mls/hr Insulin Human Lispro (Humalog) 0 units SC Q6 [facility] PRN Reason: Protocol Last Admin: 12/14/17 05:48 Dose: Not Given Lactobacillus Acidophilus (Bacid Acidophilus) 1 cap PO BID [facility] Last Admin: 12/14/17 08:20 Dose: 1 cap Lactulose (Enulose) 20 gm PO DAILY PRN PRN Reason: Constipation Last Admin: 12/08/17 10:52 Dose: 20 gm Metformin HCl (Glucophage) 1,000 mg PO BIDWM [facility] Last Admin: 12/12/17 09:08 Dose: Not Given Oxycodone/Acetaminophen (Percocet 5/325 Mg Tab) 2 tab PO Q4 PRN PRN Reason: Pain, severe (8-10) Stop: 12/16/17 23:59 Last Admin: 12/14/17 08:58 Dose: 2 tab Sennosides (Senokot Tab) 8.6 mg PO HS [facility] Last Admin: 12/13/17 21:17 Dose: Not Given Sitagliptin Phosphate (Januvia) 100 mg PO DAILY [facility] Last Admin: 12/14/17 08:21 Dose: 100 mg - Labs Labs: 12/14/17 05:30 12/14/17 05:30 PT 15.6 Seconds (9.8-13.1) H 12/06/17 06:15 INR 1.4 (0.9-1.2) H 12/06/17 06:15 APTT 34.4 Seconds (25.6-37.1) 12/06/17 06:15 - Constitutional Appears: Well, Non-toxic, No Acute Distress - Head Exam Head Exam: ATRAUMATIC, NORMAL INSPECTION, NORMOCEPHALIC - Eye Exam Eye Exam: EOMI, Normal appearance - ENT Exam ENT Exam: Mucous Membranes Moist - Respiratory Exam Respiratory Exam: NORMAL BREATHING PATTERN. absent: Accessory Muscle Use, Respiratory Distress - Cardiovascular Exam Additional comments: left lateral thoracotomy wound intact with yaneth. Chest tube dressings in place. Clean, dry and intact. - GI/Abdominal Exam GI & Abdominal Exam: Soft. absent: Distended, Firm, Guarding, Rigid, Tenderness - Extremities Exam Extremities Exam: Normal Inspection. absent: Calf Tenderness - Neurological Exam Neurological Exam: Alert, Awake, Oriented x3 - Psychiatric Exam Psychiatric exam: Normal Affect, Normal Mood - Skin Skin Exam: Dry, Intact, Normal Color, Warm Assessment and Plan - Assessment and Plan (Free Text) Assessment: 57yo M with left hemithorax empyema, lung abscess, and intrapulmonary mass s/p Video assisted thoracotomy. Left lateral muscle sparing thoracotomy. Evacuation of empyema. Decortication. Wedge resection of abscess. Intra pleural mass removal. Left Chest tube insertion x2. POD8. - Pleural Fluid cytology: negative for malignant cells. consistent with Empyema - Tissue pathology: Negative for malignancy Plan: - Dressing care as needed: Dry gauze and tape. - Pain management - analgesia PRN - Encourage OOBTC, Ambulation, IS use - f/u Daily CXR and labs Further recs as per Dr. Brii Lang PGY1 surgery pager: [phone]
--- NOTE | 2017-12-14 11:39 | CP.PCM.PN ---
Subjective - Date & Time of Evaluation Date of Evaluation: 12/14/17 Time of Evaluation: 11:39 - Subjective Subjective: CHEST TUBES REMOVED FEELS WELL NO FEVER/SOB NO COUGH Objective - Vital Signs/Intake and Output Vital Signs (last 24 hours): Temp Pulse Resp BP Pulse Ox 98.7 F 78 18 110/60 100 12/14/17 08:00 12/14/17 10:00 12/14/17 10:00 12/14/17 08:00 12/14/17 08:00 Intake and Output: 12/14/17 12/14/17 06:59 18:59 Intake Total 1790 560 Output Total 1800 500 Balance -10 60 - Medications Medications: Current Medications Acetaminophen (Tylenol 325mg Tab) 650 mg PO Q4 PRN PRN Reason: Fever >100.4 F Last Admin: 12/09/17 00:07 Dose: 650 mg Docusate Sodium (Colace) 200 mg PO DAILY [facility] Last Admin: 12/14/17 08:20 Dose: 200 mg Glipizide (Glucotrol Xl) 5 mg PO BRK [facility] Last Admin: 12/14/17 08:21 Dose: 5 mg Guaifenesin/Dextromethorphan (Mucinex-Dm 600-30 Mg) 1 tab PO BID [facility] Last Admin: 12/14/17 08:21 Dose: Not Given Hydrocortisone (Cortizone 2.5% Cream) 2.5 applic TOP BID [facility] Last Admin: 12/14/17 08:20 Dose: 2.5 applic Ampicillin Sodium/Sulbactam (Sodium 3 gm/ Sodium Chloride) 100 mls @ 100 mls/ hr IVPB Q6 [facility] PRN Reason: Protocol Last Admin: 12/14/17 08:59 Dose: 100 mls/hr Insulin Human Lispro (Humalog) 0 units SC Q6 [facility] PRN Reason: Protocol Last Admin: 12/14/17 11:23 Dose: 2 units Lactobacillus Acidophilus (Bacid Acidophilus) 1 cap PO BID [facility] Last Admin: 12/14/17 08:20 Dose: 1 cap Lactulose (Enulose) 20 gm PO DAILY PRN PRN Reason: Constipation Last Admin: 12/08/17 10:52 Dose: 20 gm Metformin HCl (Glucophage) 1,000 mg PO BIDWM [facility] Last Admin: 12/12/17 09:08 Dose: Not Given Oxycodone/Acetaminophen (Percocet 5/325 Mg Tab) 2 tab PO Q4 PRN PRN Reason: Pain, severe (8-10) Stop: 12/16/17 23:59 Last Admin: 12/14/17 08:58 Dose: 2 tab Sennosides (Senokot Tab) 8.6 mg PO HS [facility] Last Admin: 12/13/17 21:17 Dose: Not Given Sitagliptin Phosphate (Januvia) 100 mg PO DAILY [facility] Last Admin: 12/14/17 08:21 Dose: 100 mg - Labs Labs: 12/14/17 05:30 12/14/17 05:30 PT 15.6 Seconds (9.8-13.1) H 12/06/17 06:15 INR 1.4 (0.9-1.2) H 12/06/17 06:15 APTT 34.4 Seconds (25.6-37.1) 12/06/17 06:15 - Constitutional Appears: No Acute Distress - Head Exam Head Exam: ATRAUMATIC, NORMAL INSPECTION, NORMOCEPHALIC - Eye Exam Eye Exam: EOMI, Normal appearance, PERRL Pupil Exam: NORMAL ACCOMODATION, PERRL - ENT Exam ENT Exam: Mucous Membranes Moist, Normal Exam - Neck Exam Neck Exam: Full ROM, Normal Inspection. absent: Lymphadenopathy - Respiratory Exam Respiratory Exam: NORMAL BREATHING PATTERN - Cardiovascular Exam Cardiovascular Exam: REGULAR RHYTHM, +S1, +S2. absent: Murmur - GI/Abdominal Exam GI & Abdominal Exam: Soft, Normal Bowel Sounds. absent: Tenderness - Rectal Exam Rectal Exam: NORMAL INSPECTION - Extremities Exam Extremities Exam: Full ROM, Normal Capillary Refill, Normal Inspection. absent : Joint Swelling, Pedal Edema - Back Exam Back Exam: NORMAL INSPECTION - Neurological Exam Neurological Exam: Alert, Awake, CN II-XII Intact, Normal Gait, Oriented x3 - Psychiatric Exam Psychiatric exam: Normal Affect, Normal Mood - Skin Skin Exam: Dry, Intact, Normal Color, Warm Assessment and Plan - Assessment and Plan (Free Text) Assessment: EMPYEMA RESOLVED Plan: MAY BE TRANSFERRED OUT OF ICU IF OK WITH DR NIETO
[2017-12-15] MEDS: Oxycodone/Acetaminophen 5/325 mg Tab PO PRN ×3 (02:33→20:45)
[2017-12-15 07:42] LABS: BASO # 0.1 K/uL (0.0-0.2); BASO % 1.3 % (0.0-2.0); EOS # 0.3 K/uL (0.0-0.7); EOS % 3.2 % (0.0-4.0); HEMOGLOBIN 11.3 g/dL (12.0-18.0); LYMPH # 1.3 K/uL (1.0-4.3); LYMPH % 12.9 % (20.0-40.0); MEAN CELL VOLUME 87.7 fl (80.0-94.0); MEAN CORPUSCULAR HEMOGLOBIN 29.5 pg (27.0-31.0); MEAN CORPUSCULAR HGB CONC 33.6 g/dL (33.0-37.0); MEAN PLATELET VOLUME 6.2 fl (7.2-11.7); MONO # 0.9 K/uL (0.0-0.8); MONO % 9.3 % (0.0-10.0); NEUT # 7.5 K/uL (1.8-7.0); NEUT % 73.3 % (50.0-75.0); NRBC % 0.1 % (0.0-0.0); RBC 3.84 Mil/uL (4.40-5.90); WHITE BLOOD COUNT 10.2 K/uL (4.8-10.8)
[2017-12-15 08:01] LABS: BLOOD UREA NITROGEN 12 mg/dl (9-20); CALCIUM 8.9 mg/dL (8.4-10.2); GFR AFRICAN-AMERICAN > 60; GFR NON-AFRICAN AMERICAN > 60
--- NOTE | 2017-12-15 09:33 | RAD ---
HISTORY: s/p CT removal. Interval changes COMPARISON: Chest radiograph dated 12/14/2017. FINDINGS: LUNGS: Left basilar postoperative changes. PLEURA: Left basilar pleural thickening postoperative changes. No pneumothorax apparent. CARDIOVASCULAR: Normal. OSSEOUS STRUCTURES: Unchanged. VISUALIZED UPPER ABDOMEN: Normal. OTHER FINDINGS: Stable prominence of left lateral thoracic wall soft tissues. IMPRESSION: Similar appearance along the basilar pleural thickening with postoperative changes. No appreciable pneumothorax.
[2017-12-15] MEDS: Lactobacillus Acidophilus 500 MU Cap PO SCH ×2 (09:47→18:08)
[2017-12-15] MEDS: GlipiZIDE 5 mg SR Tab PO SCH (09:48)
[2017-12-15] MEDS: Insulin Lispro (humaLOG) 100 Units/ml Inj SC SCH ×4 (09:48→23:12)
[2017-12-15] MEDS: Enoxaparin 40 mg Syringe SC SCH (09:49)
[2017-12-15] MEDS: guaiFENesin-DM 600-30 mg ER Tab PO SCH ×2 (09:49→18:10)
--- NOTE | 2017-12-15 10:04 | CP.PCM.PN ---
Subjective - Date & Time of Evaluation Date of Evaluation: 12/15/17 Time of Evaluation: 07:20 - Subjective Subjective: Patient seen and examined. No acute events over night. Denies chest pain/SOB. Denies n/v. Reports some discomfort along chest tube insertion site. Objective - Vital Signs/Intake and Output Vital Signs (last 24 hours): Temp Pulse Resp BP Pulse Ox 98.3 F 74 20 150/76 97 12/15/17 08:16 12/15/17 08:16 12/15/17 08:16 12/15/17 08:16 12/15/17 08:16 - Medications Medications: Current Medications Acetaminophen (Tylenol 325mg Tab) 650 mg PO Q4 PRN PRN Reason: Fever >100.4 F Last Admin: 12/09/17 00:07 Dose: 650 mg Docusate Sodium (Colace) 200 mg PO DAILY [facility] Last Admin: 12/15/17 09:47 Dose: 200 mg Enoxaparin Sodium (Lovenox) 40 mg SC DAILY [facility] PRN Reason: Protocol Last Admin: 12/15/17 09:49 Dose: 40 mg Glipizide (Glucotrol Xl) 5 mg PO BRK [facility] Last Admin: 12/15/17 09:48 Dose: 5 mg Guaifenesin/Dextromethorphan (Mucinex-Dm 600-30 Mg) 1 tab PO BID [facility] Last Admin: 12/15/17 09:49 Dose: 1 tab Hydrocortisone (Cortizone 2.5% Cream) 2.5 applic TOP BID [facility] Last Admin: 12/14/17 16:37 Dose: 2.5 applic Ampicillin Sodium/Sulbactam (Sodium 3 gm/ Sodium Chloride) 100 mls @ 100 mls/ hr IVPB Q6 [facility] PRN Reason: Protocol Last Admin: 12/15/17 09:49 Dose: 100 mls/hr Insulin Human Lispro (Humalog) 0 units SC Q6 [facility] PRN Reason: Protocol Last Admin: 12/15/17 09:48 Dose: Not Given Lactobacillus Acidophilus (Bacid Acidophilus) 1 cap PO BID [facility] Last Admin: 12/15/17 09:47 Dose: 1 cap Lactulose (Enulose) 20 gm PO DAILY PRN PRN Reason: Constipation Last Admin: 12/08/17 10:52 Dose: 20 gm Metformin HCl (Glucophage) 1,000 mg PO BIDWM [facility] Last Admin: 12/12/17 09:08 Dose: Not Given Oxycodone/Acetaminophen (Percocet 5/325 Mg Tab) 2 tab PO Q4 PRN PRN Reason: Pain, severe (8-10) Stop: 12/16/17 23:59 Last Admin: 12/15/17 02:33 Dose: 2 tab Sennosides (Senokot Tab) 8.6 mg PO HS [facility] Last Admin: 12/14/17 21:59 Dose: Not Given Sitagliptin Phosphate (Januvia) 100 mg PO DAILY [facility] Last Admin: 12/15/17 09:49 Dose: 100 mg - Labs Labs: 12/15/17 05:20 12/15/17 05:20 PT 15.6 Seconds (9.8-13.1) H 12/06/17 06:15 INR 1.4 (0.9-1.2) H 12/06/17 06:15 APTT 34.4 Seconds (25.6-37.1) 12/06/17 06:15 - Constitutional Appears: No Acute Distress - Head Exam Head Exam: NORMOCEPHALIC - ENT Exam ENT Exam: Mucous Membranes Moist - Respiratory Exam Respiratory Exam: NORMAL BREATHING PATTERN - Cardiovascular Exam Cardiovascular Exam: +S1 - GI/Abdominal Exam GI & Abdominal Exam: Soft - Skin Skin Exam: Dry, Intact, Warm Additional comments: Thoracotomy incision site is c/d/i. Assessment and Plan - Assessment and Plan (Free Text) Assessment: 57yo M with left hemithorax empyema, lung abscess, and intrapulmonary mass s/p Video assisted thoracotomy. Left lateral muscle sparing thoracotomy. Evacuation of empyema. Decortication. Wedge resection of abscess. Intra pleural mass removal. Left Chest tube insertion x2. POD9. - Pleural Fluid cytology: negative for malignant cells. consistent with Empyema - Tissue pathology: Negative for malignancy Plan: - Dressing care as needed: Dry gauze and tape. - Analgesic prn - Encourage OOBTC, Ambulation, IS use - f/u Daily CXR and labs -ABx per ID Further recs as per Dr. Brii Grayson PGY2
--- NOTE | 2017-12-15 12:33 | CP.PCM.PN ---
Subjective - Date & Time of Evaluation Date of Evaluation: 12/15/17 Time of Evaluation: 12:33 - Subjective Subjective: NO NEW CLINICAL FINDINGS TRANSFERRED TO [facility] SURG Objective - Vital Signs/Intake and Output Vital Signs (last 24 hours): Temp Pulse Resp BP Pulse Ox 98.3 F 74 20 150/76 97 12/15/17 08:16 12/15/17 08:16 12/15/17 08:16 12/15/17 08:16 12/15/17 08:16 - Medications Medications: Current Medications Acetaminophen (Tylenol 325mg Tab) 650 mg PO Q4 PRN PRN Reason: Fever >100.4 F Last Admin: 12/09/17 00:07 Dose: 650 mg Docusate Sodium (Colace) 200 mg PO DAILY [facility] Last Admin: 12/15/17 09:47 Dose: 200 mg Enoxaparin Sodium (Lovenox) 40 mg SC DAILY [facility] PRN Reason: Protocol Last Admin: 12/15/17 09:49 Dose: 40 mg Glipizide (Glucotrol Xl) 5 mg PO BRK [facility] Last Admin: 12/15/17 09:48 Dose: 5 mg Guaifenesin/Dextromethorphan (Mucinex-Dm 600-30 Mg) 1 tab PO BID [facility] Last Admin: 12/15/17 09:49 Dose: 1 tab Hydrocortisone (Cortizone 2.5% Cream) 2.5 applic TOP BID [facility] Last Admin: 12/14/17 16:37 Dose: 2.5 applic Ampicillin Sodium/Sulbactam (Sodium 3 gm/ Sodium Chloride) 100 mls @ 100 mls/ hr IVPB Q6 [facility] PRN Reason: Protocol Last Admin: 12/15/17 09:49 Dose: 100 mls/hr Insulin Human Lispro (Humalog) 0 units SC Q6 [facility] PRN Reason: Protocol Last Admin: 12/15/17 09:48 Dose: Not Given Lactobacillus Acidophilus (Bacid Acidophilus) 1 cap PO BID [facility] Last Admin: 12/15/17 09:47 Dose: 1 cap Lactulose (Enulose) 20 gm PO DAILY PRN PRN Reason: Constipation Last Admin: 12/08/17 10:52 Dose: 20 gm Metformin HCl (Glucophage) 1,000 mg PO BIDWM [facility] Last Admin: 12/12/17 09:08 Dose: Not Given Oxycodone/Acetaminophen (Percocet 5/325 Mg Tab) 2 tab PO Q4 PRN PRN Reason: Pain, severe (8-10) Stop: 12/16/17 23:59 Last Admin: 12/15/17 11:17 Dose: 2 tab Sennosides (Senokot Tab) 8.6 mg PO HS [facility] Last Admin: 12/14/17 21:59 Dose: Not Given Sitagliptin Phosphate (Januvia) 100 mg PO DAILY [facility] Last Admin: 12/15/17 09:49 Dose: 100 mg - Labs Labs: 12/15/17 05:20 12/15/17 05:20 PT 15.6 Seconds (9.8-13.1) H 12/06/17 06:15 INR 1.4 (0.9-1.2) H 12/06/17 06:15 APTT 34.4 Seconds (25.6-37.1) 12/06/17 06:15 - Constitutional Appears: No Acute Distress - Head Exam Head Exam: ATRAUMATIC, NORMAL INSPECTION, NORMOCEPHALIC - Eye Exam Eye Exam: EOMI, Normal appearance, PERRL Pupil Exam: NORMAL ACCOMODATION, PERRL - ENT Exam ENT Exam: Mucous Membranes Moist, Normal Exam - Neck Exam Neck Exam: Full ROM, Normal Inspection. absent: Lymphadenopathy - Respiratory Exam Respiratory Exam: Decreased Breath Sounds, NORMAL BREATHING PATTERN - Cardiovascular Exam Cardiovascular Exam: REGULAR RHYTHM, +S1, +S2. absent: Murmur - GI/Abdominal Exam GI & Abdominal Exam: Soft, Normal Bowel Sounds. absent: Tenderness - Rectal Exam Rectal Exam: NORMAL INSPECTION - Extremities Exam Extremities Exam: Full ROM, Normal Capillary Refill, Normal Inspection. absent : Joint Swelling, Pedal Edema - Back Exam Back Exam: NORMAL INSPECTION - Neurological Exam Neurological Exam: Alert, Awake, CN II-XII Intact, Normal Gait, Oriented x3 - Psychiatric Exam Psychiatric exam: Normal Affect, Normal Mood - Skin Skin Exam: Dry, Intact, Normal Color, Warm Assessment and Plan - Assessment and Plan (Free Text) Assessment: EMPYEMA IMPROVED Plan: CONTINUE ANTIBIOTIC RX
--- NOTE | 2017-12-15 13:29 | CP.PCM.PN ---
Subjective - Date & Time of Evaluation Date of Evaluation: 12/15/17 Time of Evaluation: 08:00 - Subjective Subjective: improving on IV rx awake alert NAD Objective - Vital Signs/Intake and Output Vital Signs (last 24 hours): Temp Pulse Resp BP Pulse Ox 98.3 F 74 20 150/76 97 12/15/17 08:16 12/15/17 08:16 12/15/17 08:16 12/15/17 08:16 12/15/17 08:16 - Medications Medications: Current Medications Acetaminophen (Tylenol 325mg Tab) 650 mg PO Q4 PRN PRN Reason: Fever >100.4 F Last Admin: 12/09/17 00:07 Dose: 650 mg Docusate Sodium (Colace) 200 mg PO DAILY [facility] Last Admin: 12/15/17 09:47 Dose: 200 mg Enoxaparin Sodium (Lovenox) 40 mg SC DAILY [facility] PRN Reason: Protocol Last Admin: 12/15/17 09:49 Dose: 40 mg Glipizide (Glucotrol Xl) 5 mg PO BRK [facility] Last Admin: 12/15/17 09:48 Dose: 5 mg Guaifenesin/Dextromethorphan (Mucinex-Dm 600-30 Mg) 1 tab PO BID [facility] Last Admin: 12/15/17 09:49 Dose: 1 tab Hydrocortisone (Cortizone 2.5% Cream) 2.5 applic TOP BID [facility] Last Admin: 12/14/17 16:37 Dose: 2.5 applic Ampicillin Sodium/Sulbactam (Sodium 3 gm/ Sodium Chloride) 100 mls @ 100 mls/ hr IVPB Q6 [facility] PRN Reason: Protocol Last Admin: 12/15/17 09:49 Dose: 100 mls/hr Insulin Human Lispro (Humalog) 0 units SC Q6 [facility] PRN Reason: Protocol Last Admin: 12/15/17 09:48 Dose: Not Given Lactobacillus Acidophilus (Bacid Acidophilus) 1 cap PO BID [facility] Last Admin: 12/15/17 09:47 Dose: 1 cap Lactulose (Enulose) 20 gm PO DAILY PRN PRN Reason: Constipation Last Admin: 12/08/17 10:52 Dose: 20 gm Metformin HCl (Glucophage) 1,000 mg PO BIDWM [facility] Last Admin: 12/12/17 09:08 Dose: Not Given Oxycodone/Acetaminophen (Percocet 5/325 Mg Tab) 2 tab PO Q4 PRN PRN Reason: Pain, severe (8-10) Stop: 12/16/17 23:59 Last Admin: 12/15/17 11:17 Dose: 2 tab Sennosides (Senokot Tab) 8.6 mg PO HS [facility] Last Admin: 12/14/17 21:59 Dose: Not Given Sitagliptin Phosphate (Januvia) 100 mg PO DAILY [facility] Last Admin: 12/15/17 09:49 Dose: 100 mg - Labs Labs: 12/15/17 05:20 12/15/17 05:20 PT 15.6 Seconds (9.8-13.1) H 12/06/17 06:15 INR 1.4 (0.9-1.2) H 12/06/17 06:15 APTT 34.4 Seconds (25.6-37.1) 12/06/17 06:15 - Constitutional Appears: Non-toxic, Chronically Ill - Head Exam Head Exam: NORMOCEPHALIC - Eye Exam Eye Exam: absent: Scleral icterus - ENT Exam ENT Exam: Mucous Membranes Dry - Neck Exam Neck Exam: absent: Lymphadenopathy - Respiratory Exam Respiratory Exam: Decreased Breath Sounds, Prolonged Expiratory Phase - Cardiovascular Exam Cardiovascular Exam: REGULAR RHYTHM - GI/Abdominal Exam GI & Abdominal Exam: Distended - Rectal Exam Rectal Exam: Deferred - Exam Exam: NORMAL INSPECTION - Extremities Exam Extremities Exam: absent: Pedal Edema - Back Exam Back Exam: absent: CVA tenderness (L), CVA tenderness (R) - Neurological Exam Neurological Exam: Alert, Awake, Oriented x3 Assessment and Plan (1) DM type 2 (diabetes mellitus, type 2) Status: Chronic (2) Empyema lung Status: Acute (3) Fever Status: Acute (4) Pleural effusion Status: Acute (5) Chest tube in place Status: Acute (6) Chest tube in place Status: Acute - Assessment and Plan (Free Text) Assessment: cont iv then po rx
[2017-12-16 07:56] LABS: HEMOGLOBIN 11.7 g/dL (12.0-18.0); MEAN CELL VOLUME 86.9 fl (80.0-94.0); MEAN CORPUSCULAR HGB CONC 34.6 g/dL (33.0-37.0); RBC 3.89 Mil/uL (4.40-5.90); RED CELL DISTRIBUTION WIDTH 13.2 % (11.5-14.5); WHITE BLOOD COUNT 9.9 K/uL (4.8-10.8)
[2017-12-16 08:08] LABS: BLOOD UREA NITROGEN 13 mg/dl (9-20); CALCIUM 8.8 mg/dL (8.4-10.2); GFR AFRICAN-AMERICAN > 60; GFR NON-AFRICAN AMERICAN > 60
--- NOTE | 2017-12-16 08:47 | RAD ---
HISTORY: s/p chest tube removal COMPARISON: Frontal chest radiograph 12/13/2017. FINDINGS: LUNGS: Patchiness in the left base is unchanged with small pleural effusion. Postop changes are diminishing in the left chest wall laterally with skin yaneth again evident. Mild left hemidiaphragm elevation again evident. Right chest remains clear. Cardiovascular silhouette is stable. PLEURA: As above. CARDIOVASCULAR: As above. OSSEOUS STRUCTURES: No significant abnormalities. VISUALIZED UPPER ABDOMEN: Normal. OTHER FINDINGS: None. IMPRESSION: Stable limited left basilar airspace disease and small pleural effusion.
--- NOTE | 2017-12-16 08:56 | RAD ---
HISTORY: s/p chest tube removal COMPARISON: No prior. FINDINGS: LUNGS: No interval changes appreciated in left basilar atelectasis or infiltrate with limited left pleural effusion or fibrosis present. Diminishing emphysema left chest wall with overlying surgical yaneth at the skin. No pneumothorax bilaterally or right sided infiltrate or pleural effusion. Cardiomediastinal silhouette is stable and unremarkable grossly. Left hemidiaphragm elevation stable. PLEURA: As above. CARDIOVASCULAR: As above. OSSEOUS STRUCTURES: No significant abnormalities. VISUALIZED UPPER ABDOMEN: Normal. OTHER FINDINGS: None. IMPRESSION: Stable left basilar airspace disease remains limited with elevated left hemidiaphragm and limited left pleural effusion reiterated.
--- NOTE | 2017-12-16 09:18 | CP.PCM.PN ---
Subjective - Date & Time of Evaluation Date of Evaluation: 12/16/17 Time of Evaluation: 07:20 - Subjective Subjective: CT surgery progress note. Dr. Teresa PT seen and examined at bedside. No acute events overnight. No N/V/D. No CP/ SOB. No new complaints. Objective - Vital Signs/Intake and Output Vital Signs (last 24 hours): Temp Pulse Resp BP Pulse Ox 98.5 F 76 19 148/78 97 12/16/17 07:50 12/16/17 07:50 12/16/17 07:50 12/16/17 07:50 12/16/17 07:50 - Medications Medications: Current Medications Acetaminophen (Tylenol 325mg Tab) 650 mg PO Q4 PRN PRN Reason: Fever >100.4 F Last Admin: 12/09/17 00:07 Dose: 650 mg Docusate Sodium (Colace) 200 mg PO DAILY [facility] Last Admin: 12/15/17 09:47 Dose: 200 mg Enoxaparin Sodium (Lovenox) 40 mg SC DAILY [facility] PRN Reason: Protocol Last Admin: 12/15/17 09:49 Dose: 40 mg Glipizide (Glucotrol Xl) 5 mg PO BRK [facility] Last Admin: 12/15/17 09:48 Dose: 5 mg Guaifenesin/Dextromethorphan (Mucinex-Dm 600-30 Mg) 1 tab PO BID [facility] Last Admin: 12/15/17 18:10 Dose: 1 tab Hydrocortisone (Cortizone 2.5% Cream) 2.5 applic TOP BID [facility] Last Admin: 12/15/17 18:08 Dose: 2.5 applic Ampicillin Sodium/Sulbactam (Sodium 3 gm/ Sodium Chloride) 100 mls @ 100 mls/ hr IVPB Q6 [facility] PRN Reason: Protocol Last Admin: 12/16/17 04:09 Dose: 100 mls/hr Insulin Human Lispro (Humalog) 0 units SC Q6 [facility] PRN Reason: Protocol Last Admin: 12/15/17 23:12 Dose: Not Given Lactobacillus Acidophilus (Bacid Acidophilus) 1 cap PO BID [facility] Last Admin: 12/15/17 18:08 Dose: 1 cap Lactulose (Enulose) 20 gm PO DAILY PRN PRN Reason: Constipation Last Admin: 12/08/17 10:52 Dose: 20 gm Metformin HCl (Glucophage) 1,000 mg PO BIDWM [facility] Last Admin: 12/15/17 18:58 Dose: 1,000 mg Oxycodone/Acetaminophen (Percocet 5/325 Mg Tab) 2 tab PO Q4 PRN PRN Reason: Pain, severe (8-10) Stop: 12/16/17 23:59 Last Admin: 12/15/17 20:45 Dose: 2 tab Sennosides (Senokot Tab) 8.6 mg PO HS [facility] Last Admin: 12/15/17 21:40 Dose: Not Given Sitagliptin Phosphate (Januvia) 100 mg PO DAILY [facility] Last Admin: 12/15/17 09:49 Dose: 100 mg - Labs Labs: 12/16/17 07:39 12/16/17 07:39 PT 15.6 Seconds (9.8-13.1) H 12/06/17 06:15 INR 1.4 (0.9-1.2) H 12/06/17 06:15 APTT 34.4 Seconds (25.6-37.1) 12/06/17 06:15 - Constitutional Appears: Well, Non-toxic, No Acute Distress - Head Exam Head Exam: ATRAUMATIC, NORMAL INSPECTION, NORMOCEPHALIC - Eye Exam Eye Exam: EOMI, Normal appearance - ENT Exam ENT Exam: Mucous Membranes Moist - Respiratory Exam Respiratory Exam: NORMAL BREATHING PATTERN. absent: Accessory Muscle Use, Respiratory Distress Additional comments: left thoracotomy incision clean, dry and intact with yaneth. chest tubes site clean and dry. - Cardiovascular Exam Cardiovascular Exam: RRR. absent: JVD - GI/Abdominal Exam GI & Abdominal Exam: Soft. absent: Distended, Tenderness, Rebound - Extremities Exam Extremities Exam: Normal Inspection. absent: Calf Tenderness Assessment and Plan - Assessment and Plan (Free Text) Assessment: 57yo M with left hemithorax empyema, lung abscess, and intrapulmonary mass s/p Video assisted thoracotomy. Left lateral muscle sparing thoracotomy. Evacuation of empyema. Decortication. Wedge resection of abscess. Intra pleural mass removal. Left Chest tube insertion x2. POD10 - Pleural Fluid cytology: negative for malignant cells. consistent with Empyema - Tissue pathology: Negative for malignancy Plan: - Dressing care as needed: Dry gauze and tape. - Analgesic prn - ABx per ID - Encourage OOBTC, Ambulation, IS use Further recs as per Dr. Brii Lang PGY1 surgery pager: [phone]
--- NOTE | 2017-12-16 09:27 | CP.PCM.PN ---
Subjective - Date & Time of Evaluation Date of Evaluation: 12/14/17 Time of Evaluation: 11:00 - Subjective Subjective: Noted decrease in WBC Has minimal pain Has minimal cough Noted persistent infiltarte/ effusion Objective - Vital Signs/Intake and Output Vital Signs (last 24 hours): Temp Pulse Resp BP Pulse Ox 98.5 F 76 19 148/78 97 12/16/17 07:50 12/16/17 07:50 12/16/17 07:50 12/16/17 07:50 12/16/17 07:50 - Medications Medications: Current Medications Acetaminophen (Tylenol 325mg Tab) 650 mg PO Q4 PRN PRN Reason: Fever >100.4 F Last Admin: 12/09/17 00:07 Dose: 650 mg Docusate Sodium (Colace) 200 mg PO DAILY [facility] Last Admin: 12/15/17 09:47 Dose: 200 mg Enoxaparin Sodium (Lovenox) 40 mg SC DAILY [facility] PRN Reason: Protocol Last Admin: 12/15/17 09:49 Dose: 40 mg Glipizide (Glucotrol Xl) 5 mg PO BRK [facility] Last Admin: 12/15/17 09:48 Dose: 5 mg Guaifenesin/Dextromethorphan (Mucinex-Dm 600-30 Mg) 1 tab PO BID [facility] Last Admin: 12/15/17 18:10 Dose: 1 tab Hydrocortisone (Cortizone 2.5% Cream) 2.5 applic TOP BID [facility] Last Admin: 12/15/17 18:08 Dose: 2.5 applic Ampicillin Sodium/Sulbactam (Sodium 3 gm/ Sodium Chloride) 100 mls @ 100 mls/ hr IVPB Q6 [facility] PRN Reason: Protocol Last Admin: 12/16/17 04:09 Dose: 100 mls/hr Insulin Human Lispro (Humalog) 0 units SC Q6 [facility] PRN Reason: Protocol Last Admin: 12/15/17 23:12 Dose: Not Given Lactobacillus Acidophilus (Bacid Acidophilus) 1 cap PO BID [facility] Last Admin: 12/15/17 18:08 Dose: 1 cap Lactulose (Enulose) 20 gm PO DAILY PRN PRN Reason: Constipation Last Admin: 12/08/17 10:52 Dose: 20 gm Metformin HCl (Glucophage) 1,000 mg PO BIDWM [facility] Last Admin: 12/15/17 18:58 Dose: 1,000 mg Oxycodone/Acetaminophen (Percocet 5/325 Mg Tab) 2 tab PO Q4 PRN PRN Reason: Pain, severe (8-10) Stop: 12/16/17 23:59 Last Admin: 12/15/17 20:45 Dose: 2 tab Sennosides (Senokot Tab) 8.6 mg PO [facility] Last Admin: 12/15/17 21:40 Dose: Not Given Sitagliptin Phosphate (Januvia) 100 mg PO DAILY [facility] Last Admin: 12/15/17 09:49 Dose: 100 mg - Labs Labs: 12/16/17 07:39 12/16/17 07:39 PT 15.6 Seconds (9.8-13.1) H 12/06/17 06:15 INR 1.4 (0.9-1.2) H 12/06/17 06:15 APTT 34.4 Seconds (25.6-37.1) 12/06/17 06:15 - Head Exam Head Exam: NORMAL INSPECTION - Eye Exam Eye Exam: Normal appearance - ENT Exam ENT Exam: Mucous Membranes Moist - Respiratory Exam Respiratory Exam: Clear to Ausculation Bilateral - Cardiovascular Exam Cardiovascular Exam: REGULAR RHYTHM - GI/Abdominal Exam GI & Abdominal Exam: Normal Bowel Sounds - Neurological Exam Neurological Exam: Awake, Oriented x3 Neuro motor strength exam: Left Upper Extremity: 5 - Psychiatric Exam Psychiatric exam: Normal Mood Assessment and Plan (1) Pleural effusion Status: Acute (2) Empyema lung Status: Acute (3) DM type 2 (diabetes mellitus, type 2) Status: Chronic (4) Hyperlipidemia Status: Chronic (5) Leg edema Status: Acute (6) Reactive thrombocytosis Status: Acute - Assessment and Plan (Free Text) Plan: cont meds Cont tx Cont Unasyn cont respt tx Phys therapy
--- NOTE | 2017-12-16 09:29 | CP.PCM.PN ---
Subjective - Date & Time of Evaluation Date of Evaluation: 12/05/17 Time of Evaluation: 20:00 - Subjective Subjective: Patient had tube placement Has some pain No fever Noted elevated WBC On Iv antibiotics Objective - Vital Signs/Intake and Output Vital Signs (last 24 hours): Temp Pulse Resp BP Pulse Ox 98.5 F 76 19 148/78 97 12/16/17 07:50 12/16/17 07:50 12/16/17 07:50 12/16/17 07:50 12/16/17 07:50 - Medications Medications: Current Medications Acetaminophen (Tylenol 325mg Tab) 650 mg PO Q4 PRN PRN Reason: Fever >100.4 F Last Admin: 12/09/17 00:07 Dose: 650 mg Docusate Sodium (Colace) 200 mg PO DAILY [facility] Last Admin: 12/15/17 09:47 Dose: 200 mg Enoxaparin Sodium (Lovenox) 40 mg SC DAILY [facility] PRN Reason: Protocol Last Admin: 12/15/17 09:49 Dose: 40 mg Glipizide (Glucotrol Xl) 5 mg PO BRK [facility] Last Admin: 12/15/17 09:48 Dose: 5 mg Guaifenesin/Dextromethorphan (Mucinex-Dm 600-30 Mg) 1 tab PO BID [facility] Last Admin: 12/15/17 18:10 Dose: 1 tab Hydrocortisone (Cortizone 2.5% Cream) 2.5 applic TOP BID [facility] Last Admin: 12/15/17 18:08 Dose: 2.5 applic Ampicillin Sodium/Sulbactam (Sodium 3 gm/ Sodium Chloride) 100 mls @ 100 mls/ hr IVPB Q6 [facility] PRN Reason: Protocol Last Admin: 12/16/17 04:09 Dose: 100 mls/hr Insulin Human Lispro (Humalog) 0 units SC Q6 [facility] PRN Reason: Protocol Last Admin: 12/15/17 23:12 Dose: Not Given Lactobacillus Acidophilus (Bacid Acidophilus) 1 cap PO BID [facility] Last Admin: 12/15/17 18:08 Dose: 1 cap Lactulose (Enulose) 20 gm PO DAILY PRN PRN Reason: Constipation Last Admin: 12/08/17 10:52 Dose: 20 gm Metformin HCl (Glucophage) 1,000 mg PO BIDWM [facility] Last Admin: 12/15/17 18:58 Dose: 1,000 mg Oxycodone/Acetaminophen (Percocet 5/325 Mg Tab) 2 tab PO Q4 PRN PRN Reason: Pain, severe (8-10) Stop: 12/16/17 23:59 Last Admin: 12/15/17 20:45 Dose: 2 tab Sennosides (Senokot Tab) 8.6 mg PO HS [facility] Last Admin: 12/15/17 21:40 Dose: Not Given Sitagliptin Phosphate (Januvia) 100 mg PO DAILY [facility] Last Admin: 12/15/17 09:49 Dose: 100 mg - Labs Labs: 12/16/17 07:39 12/16/17 07:39 PT 15.6 Seconds (9.8-13.1) H 12/06/17 06:15 INR 1.4 (0.9-1.2) H 12/06/17 06:15 APTT 34.4 Seconds (25.6-37.1) 12/06/17 06:15 - Head Exam Head Exam: NORMAL INSPECTION - Eye Exam Eye Exam: Normal appearance - ENT Exam ENT Exam: Mucous Membranes Moist - Respiratory Exam Respiratory Exam: Decreased Breath Sounds - Cardiovascular Exam Cardiovascular Exam: REGULAR RHYTHM - GI/Abdominal Exam GI & Abdominal Exam: Normal Bowel Sounds - Neurological Exam Neurological Exam: Awake, Oriented x3 Assessment and Plan (1) Pleural effusion Status: Acute (2) Empyema lung Status: Acute (3) DM type 2 (diabetes mellitus, type 2) Status: Chronic (4) Hyperlipidemia Status: Chronic (5) Leg edema Status: Acute (6) Reactive thrombocytosis Status: Acute - Assessment and Plan (Free Text) Plan: Cont meds Cont IV antibiotics Cont tx repeat CXR labs.IVF
[2017-12-16] MEDS: Oxycodone/Acetaminophen 5/325 mg Tab PO PRN ×3 (09:30→23:32)
[2017-12-16] MEDS: Lactobacillus Acidophilus 500 MU Cap PO SCH ×2 (09:31→16:47)
[2017-12-16] MEDS: GlipiZIDE 5 mg SR Tab PO SCH (09:33)
[2017-12-16] MEDS: Insulin Lispro (humaLOG) 100 Units/ml Inj SC SCH ×3 (09:34→20:53)
[2017-12-16] MEDS: Enoxaparin 40 mg Syringe SC SCH (09:34)
[2017-12-16] MEDS: guaiFENesin-DM 600-30 mg ER Tab PO SCH ×2 (09:35→16:50)
--- NOTE | 2017-12-16 09:37 | CP.PCM.PN ---
Subjective - Date & Time of Evaluation Date of Evaluation: 12/15/17 Time of Evaluation: 13:00 - Subjective Subjective: Doing well Has minimal pain Has no fever On Unasyn for strep from empyema Has good sleep and appetite. Noted hoarse voice. Objective - Vital Signs/Intake and Output Vital Signs (last 24 hours): Temp Pulse Resp BP Pulse Ox 98.5 F 76 19 148/78 97 12/16/17 07:50 12/16/17 07:50 12/16/17 07:50 12/16/17 07:50 12/16/17 07:50 - Medications Medications: Current Medications Acetaminophen (Tylenol 325mg Tab) 650 mg PO Q4 PRN PRN Reason: Fever >100.4 F Last Admin: 12/09/17 00:07 Dose: 650 mg Docusate Sodium (Colace) 200 mg PO DAILY [facility] Last Admin: 12/15/17 09:47 Dose: 200 mg Enoxaparin Sodium (Lovenox) 40 mg SC DAILY [facility] PRN Reason: Protocol Last Admin: 12/15/17 09:49 Dose: 40 mg Glipizide (Glucotrol Xl) 5 mg PO BRK [facility] Last Admin: 12/15/17 09:48 Dose: 5 mg Guaifenesin/Dextromethorphan (Mucinex-Dm 600-30 Mg) 1 tab PO BID [facility] Last Admin: 12/15/17 18:10 Dose: 1 tab Hydrocortisone (Cortizone 2.5% Cream) 2.5 applic TOP BID [facility] Last Admin: 12/15/17 18:08 Dose: 2.5 applic Ampicillin Sodium/Sulbactam (Sodium 3 gm/ Sodium Chloride) 100 mls @ 100 mls/ hr IVPB Q6 [facility] PRN Reason: Protocol Last Admin: 12/16/17 04:09 Dose: 100 mls/hr Insulin Human Lispro (Humalog) 0 units SC Q6 [facility] PRN Reason: Protocol Last Admin: 12/15/17 23:12 Dose: Not Given Lactobacillus Acidophilus (Bacid Acidophilus) 1 cap PO BID [facility] Last Admin: 12/15/17 18:08 Dose: 1 cap Lactulose (Enulose) 20 gm PO DAILY PRN PRN Reason: Constipation Last Admin: 12/08/17 10:52 Dose: 20 gm Metformin HCl (Glucophage) 1,000 mg PO BIDWM [facility] Last Admin: 12/15/17 18:58 Dose: 1,000 mg Oxycodone/Acetaminophen (Percocet 5/325 Mg Tab) 2 tab PO Q4 PRN PRN Reason: Pain, severe (8-10) Stop: 12/16/17 23:59 Last Admin: 12/15/17 20:45 Dose: 2 tab Sennosides (Senokot Tab) 8.6 mg PO HS [facility] Last Admin: 12/15/17 21:40 Dose: Not Given Sitagliptin Phosphate (Januvia) 100 mg PO DAILY [facility] Last Admin: 12/15/17 09:49 Dose: 100 mg - Labs Labs: 12/16/17 07:39 12/16/17 07:39 PT 15.6 Seconds (9.8-13.1) H 12/06/17 06:15 INR 1.4 (0.9-1.2) H 12/06/17 06:15 APTT 34.4 Seconds (25.6-37.1) 12/06/17 06:15 - Head Exam Head Exam: NORMAL INSPECTION - Eye Exam Eye Exam: Normal appearance - ENT Exam ENT Exam: Mucous Membranes Moist - Respiratory Exam Respiratory Exam: Decreased Breath Sounds - Cardiovascular Exam Cardiovascular Exam: REGULAR RHYTHM - GI/Abdominal Exam GI & Abdominal Exam: Normal Bowel Sounds - Neurological Exam Neurological Exam: Awake, Oriented x3 Assessment and Plan (1) Pleural effusion Status: Acute (2) Empyema lung Status: Acute (3) DM type 2 (diabetes mellitus, type 2) Status: Chronic (4) Hyperlipidemia Status: Chronic - Assessment and Plan (Free Text) Plan: Cont meds Cont tx Cont PT Cont meds cont iv Unasyn Discussed with Dr Teresa re duration of iv.
--- NOTE | 2017-12-16 09:40 | CP.PCM.PN ---
Subjective - Date & Time of Evaluation Date of Evaluation: 12/16/17 Time of Evaluation: 09:38 - Subjective Subjective: Patyient remains well Has no fever WBC is now normal till on Iv Unasyn CXR today showed minimal improvement has persistent left lower pleural effusion Objective - Vital Signs/Intake and Output Vital Signs (last 24 hours): Temp Pulse Resp BP Pulse Ox 98.5 F 76 19 148/78 97 12/16/17 07:50 12/16/17 07:50 12/16/17 07:50 12/16/17 07:50 12/16/17 07:50 - Medications Medications: Current Medications Acetaminophen (Tylenol 325mg Tab) 650 mg PO Q4 PRN PRN Reason: Fever >100.4 F Last Admin: 12/09/17 00:07 Dose: 650 mg Docusate Sodium (Colace) 200 mg PO DAILY [facility] Last Admin: 12/15/17 09:47 Dose: 200 mg Enoxaparin Sodium (Lovenox) 40 mg SC DAILY [facility] PRN Reason: Protocol Last Admin: 12/15/17 09:49 Dose: 40 mg Glipizide (Glucotrol Xl) 5 mg PO BRK [facility] Last Admin: 12/15/17 09:48 Dose: 5 mg Guaifenesin/Dextromethorphan (Mucinex-Dm 600-30 Mg) 1 tab PO BID [facility] Last Admin: 12/15/17 18:10 Dose: 1 tab Hydrocortisone (Cortizone 2.5% Cream) 2.5 applic TOP BID [facility] Last Admin: 12/15/17 18:08 Dose: 2.5 applic Ampicillin Sodium/Sulbactam (Sodium 3 gm/ Sodium Chloride) 100 mls @ 100 mls/ hr IVPB Q6 [facility] PRN Reason: Protocol Last Admin: 12/16/17 04:09 Dose: 100 mls/hr Insulin Human Lispro (Humalog) 0 units SC Q6 [facility] PRN Reason: Protocol Last Admin: 12/15/17 23:12 Dose: Not Given Lactobacillus Acidophilus (Bacid Acidophilus) 1 cap PO BID [facility] Last Admin: 12/15/17 18:08 Dose: 1 cap Lactulose (Enulose) 20 gm PO DAILY PRN PRN Reason: Constipation Last Admin: 12/08/17 10:52 Dose: 20 gm Metformin HCl (Glucophage) 1,000 mg PO BIDWM [facility] Last Admin: 12/15/17 18:58 Dose: 1,000 mg Oxycodone/Acetaminophen (Percocet 5/325 Mg Tab) 2 tab PO Q4 PRN PRN Reason: Pain, severe (8-10) Stop: 12/16/17 23:59 Last Admin: 12/15/17 20:45 Dose: 2 tab Sennosides (Senokot Tab) 8.6 mg PO HS [facility] Last Admin: 12/15/17 21:40 Dose: Not Given Sitagliptin Phosphate (Januvia) 100 mg PO DAILY [facility] Last Admin: 12/15/17 09:49 Dose: 100 mg - Labs Labs: 12/16/17 07:39 12/16/17 07:39 PT 15.6 Seconds (9.8-13.1) H 12/06/17 06:15 INR 1.4 (0.9-1.2) H 12/06/17 06:15 APTT 34.4 Seconds (25.6-37.1) 12/06/17 06:15 - Head Exam Head Exam: NORMAL INSPECTION - Eye Exam Eye Exam: Normal appearance - ENT Exam ENT Exam: Mucous Membranes Moist - Respiratory Exam Respiratory Exam: Decreased Breath Sounds - Cardiovascular Exam Cardiovascular Exam: REGULAR RHYTHM - GI/Abdominal Exam GI & Abdominal Exam: Normal Bowel Sounds - Neurological Exam Neurological Exam: Awake, Oriented x3 Assessment and Plan (1) Pleural effusion Status: Acute (2) Empyema lung Status: Acute (3) DM type 2 (diabetes mellitus, type 2) Status: Chronic (4) Hyperlipidemia Status: Chronic - Assessment and Plan (Free Text) Plan: Cont meds Cont tx Cont PT. Cont Unasyn.
--- NOTE | 2017-12-16 10:28 | CP.PCM.PN ---
Subjective - Date & Time of Evaluation Date of Evaluation: 12/16/17 Time of Evaluation: 08:00 - Subjective Subjective: afeb on antibiotics Objective - Vital Signs/Intake and Output Vital Signs (last 24 hours): Temp Pulse Resp BP Pulse Ox 98.5 F 76 19 148/78 97 12/16/17 07:50 12/16/17 07:50 12/16/17 07:50 12/16/17 07:50 12/16/17 07:50 - Medications Medications: Current Medications Acetaminophen (Tylenol 325mg Tab) 650 mg PO Q4 PRN PRN Reason: Fever >100.4 F Last Admin: 12/09/17 00:07 Dose: 650 mg Docusate Sodium (Colace) 200 mg PO DAILY [facility] Last Admin: 12/16/17 09:32 Dose: 200 mg Enoxaparin Sodium (Lovenox) 40 mg SC DAILY [facility] PRN Reason: Protocol Last Admin: 12/16/17 09:34 Dose: 40 mg Glipizide (Glucotrol Xl) 5 mg PO BRK [facility] Last Admin: 12/16/17 09:33 Dose: 5 mg Guaifenesin/Dextromethorphan (Mucinex-Dm 600-30 Mg) 1 tab PO BID [facility] Last Admin: 12/16/17 09:35 Dose: 1 tab Hydrocortisone (Cortizone 2.5% Cream) 2.5 applic TOP BID [facility] Last Admin: 12/15/17 18:08 Dose: 2.5 applic Ampicillin Sodium/Sulbactam (Sodium 3 gm/ Sodium Chloride) 100 mls @ 100 mls/ hr IVPB Q6 [facility] PRN Reason: Protocol Last Admin: 12/16/17 09:35 Dose: 100 mls/hr Insulin Human Lispro (Humalog) 0 units SC Q6 [facility] PRN Reason: Protocol Last Admin: 12/16/17 09:34 Dose: Not Given Lactobacillus Acidophilus (Bacid Acidophilus) 1 cap PO BID [facility] Last Admin: 12/16/17 09:31 Dose: 1 cap Lactulose (Enulose) 20 gm PO DAILY PRN PRN Reason: Constipation Last Admin: 12/08/17 10:52 Dose: 20 gm Metformin HCl (Glucophage) 1,000 mg PO BIDWM [facility] Last Admin: 12/16/17 09:33 Dose: 1,000 mg Oxycodone/Acetaminophen (Percocet 5/325 Mg Tab) 2 tab PO Q4 PRN PRN Reason: Pain, severe (8-10) Stop: 12/16/17 23:59 Last Admin: 12/16/17 09:30 Dose: 2 tab Sennosides (Senokot Tab) 8.6 mg PO HS [facility] Last Admin: 12/15/17 21:40 Dose: Not Given Sitagliptin Phosphate (Januvia) 100 mg PO DAILY [facility] Last Admin: 12/16/17 09:34 Dose: 100 mg - Labs Labs: 12/16/17 07:39 12/16/17 07:39 PT 15.6 Seconds (9.8-13.1) H 12/06/17 06:15 INR 1.4 (0.9-1.2) H 12/06/17 06:15 APTT 34.4 Seconds (25.6-37.1) 12/06/17 06:15 - Constitutional Appears: Non-toxic, Chronically Ill - Head Exam Head Exam: NORMOCEPHALIC - Eye Exam Pupil Exam: NORMAL ACCOMODATION - ENT Exam ENT Exam: Mucous Membranes Dry - Neck Exam Neck Exam: absent: Lymphadenopathy - Respiratory Exam Respiratory Exam: Decreased Breath Sounds - Cardiovascular Exam Cardiovascular Exam: REGULAR RHYTHM - GI/Abdominal Exam GI & Abdominal Exam: Distended, Soft - Rectal Exam Rectal Exam: Deferred - Exam Exam: NORMAL INSPECTION Assessment and Plan (1) DM type 2 (diabetes mellitus, type 2) Status: Chronic (2) Empyema lung Status: Acute (3) Fever Status: Acute (4) Pleural effusion Status: Acute (5) Chest tube in place Status: Acute (6) Chest tube in place Status: Acute - Assessment and Plan (Free Text) Assessment: strep milleri + empyema s/p chest tube drainage/ antibiotics cont PO rx follow up with complete GI and Cardio eval upon discharge
--- NOTE | 2017-12-16 12:51 | CP.PCM.PN ---
Subjective - Date & Time of Evaluation Date of Evaluation: 12/16/17 Time of Evaluation: 12:47 - Subjective Subjective: Pt s/e. Doing well. vss. afebrile. wbc-9.9 cxr-left lower lobe consolidation and pleural fibrosis and min effusion. Elevated left hemidiaph due to lung issue. a/p: continue current rx. cxr and lab in am. Objective - Vital Signs/Intake and Output Vital Signs (last 24 hours): Temp Pulse Resp BP Pulse Ox 98.5 F 76 19 148/78 97 12/16/17 07:50 12/16/17 07:50 12/16/17 07:50 12/16/17 07:50 12/16/17 07:50 - Medications Medications: Current Medications Acetaminophen (Tylenol 325mg Tab) 650 mg PO Q4 PRN PRN Reason: Fever >100.4 F Last Admin: 12/09/17 00:07 Dose: 650 mg Docusate Sodium (Colace) 200 mg PO DAILY [facility] Last Admin: 12/16/17 09:32 Dose: 200 mg Enoxaparin Sodium (Lovenox) 40 mg SC DAILY [facility] PRN Reason: Protocol Last Admin: 12/16/17 09:34 Dose: 40 mg Glipizide (Glucotrol Xl) 5 mg PO BRK [facility] Last Admin: 12/16/17 09:33 Dose: 5 mg Guaifenesin/Dextromethorphan (Mucinex-Dm 600-30 Mg) 1 tab PO BID [facility] Last Admin: 12/16/17 09:35 Dose: 1 tab Hydrocortisone (Cortizone 2.5% Cream) 2.5 applic TOP BID [facility] Last Admin: 12/15/17 18:08 Dose: 2.5 applic Ampicillin Sodium/Sulbactam (Sodium 3 gm/ Sodium Chloride) 100 mls @ 100 mls/ hr IVPB Q6 [facility] PRN Reason: Protocol Last Admin: 12/16/17 09:35 Dose: 100 mls/hr Insulin Human Lispro (Humalog) 0 units SC Q6 [facility] PRN Reason: Protocol Last Admin: 12/16/17 09:34 Dose: Not Given Lactobacillus Acidophilus (Bacid Acidophilus) 1 cap PO BID [facility] Last Admin: 12/16/17 09:31 Dose: 1 cap Lactulose (Enulose) 20 gm PO DAILY PRN PRN Reason: Constipation Last Admin: 12/08/17 10:52 Dose: 20 gm Metformin HCl (Glucophage) 1,000 mg PO BIDWM [facility] Last Admin: 12/16/17 09:33 Dose: 1,000 mg Oxycodone/Acetaminophen (Percocet 5/325 Mg Tab) 2 tab PO Q4 PRN PRN Reason: Pain, severe (8-10) Stop: 12/16/17 23:59 Last Admin: 12/16/17 09:30 Dose: 2 tab Sennosides (Senokot Tab) 8.6 mg PO HS [facility] Last Admin: 12/15/17 21:40 Dose: Not Given Sitagliptin Phosphate (Januvia) 100 mg PO DAILY [facility] Last Admin: 12/16/17 09:34 Dose: 100 mg - Labs Labs: 12/16/17 07:39 12/16/17 07:39 PT 15.6 Seconds (9.8-13.1) H 12/06/17 06:15 INR 1.4 (0.9-1.2) H 12/06/17 06:15 APTT 34.4 Seconds (25.6-37.1) 12/06/17 06:15
--- NOTE | 2017-12-16 17:47 | CP.PCM.PN ---
Subjective - Date & Time of Evaluation Date of Evaluation: 12/16/17 Time of Evaluation: 18:20 - Subjective Subjective: no chest pain or dyspnea Objective - Vital Signs/Intake and Output Vital Signs (last 24 hours): Temp Pulse Resp BP Pulse Ox 97.9 F 78 20 119/67 99 12/16/17 16:13 12/16/17 16:13 12/16/17 16:13 12/16/17 16:13 12/16/17 16:13 - Medications Medications: Current Medications Acetaminophen (Tylenol 325mg Tab) 650 mg PO Q4 PRN PRN Reason: Fever >100.4 F Last Admin: 12/09/17 00:07 Dose: 650 mg Docusate Sodium (Colace) 200 mg PO DAILY [facility] Last Admin: 12/16/17 09:32 Dose: 200 mg Enoxaparin Sodium (Lovenox) 40 mg SC DAILY [facility] PRN Reason: Protocol Last Admin: 12/16/17 09:34 Dose: 40 mg Glipizide (Glucotrol Xl) 5 mg PO BRK [facility] Last Admin: 12/16/17 09:33 Dose: 5 mg Guaifenesin/Dextromethorphan (Mucinex-Dm 600-30 Mg) 1 tab PO BID [facility] Last Admin: 12/16/17 16:50 Dose: 1 tab Hydrocortisone (Cortizone 2.5% Cream) 2.5 applic TOP BID [facility] Last Admin: 12/16/17 16:49 Dose: 2.5 applic Ampicillin Sodium/Sulbactam (Sodium 3 gm/ Sodium Chloride) 100 mls @ 100 mls/ hr IVPB Q6 [facility] PRN Reason: Protocol Last Admin: 12/16/17 16:51 Dose: 100 mls/hr Insulin Human Lispro (Humalog) 0 units SC Q6 [facility] PRN Reason: Protocol Last Admin: 12/16/17 16:50 Dose: Not Given Lactobacillus Acidophilus (Bacid Acidophilus) 1 cap PO BID [facility] Last Admin: 12/16/17 16:47 Dose: 1 cap Lactulose (Enulose) 20 gm PO DAILY PRN PRN Reason: Constipation Last Admin: 12/08/17 10:52 Dose: 20 gm Metformin HCl (Glucophage) 1,000 mg PO BIDWM [facility] Last Admin: 12/16/17 16:48 Dose: 1,000 mg Oxycodone/Acetaminophen (Percocet 5/325 Mg Tab) 2 tab PO Q4 PRN PRN Reason: Pain, severe (8-10) Stop: 12/16/17 23:59 Last Admin: 12/16/17 16:47 Dose: 2 tab Sennosides (Senokot Tab) 8.6 mg PO HS [facility] Last Admin: 12/15/17 21:40 Dose: Not Given Sitagliptin Phosphate (Januvia) 100 mg PO DAILY [facility] Last Admin: 12/16/17 09:34 Dose: 100 mg - Labs Labs: 12/16/17 07:39 12/16/17 07:39 PT 15.6 Seconds (9.8-13.1) H 12/06/17 06:15 INR 1.4 (0.9-1.2) H 12/06/17 06:15 APTT 34.4 Seconds (25.6-37.1) 12/06/17 06:15 - Constitutional Appears: Non-toxic - Head Exam Head Exam: NORMAL INSPECTION - Eye Exam Eye Exam: Normal appearance - ENT Exam ENT Exam: Mucous Membranes Moist - Neck Exam Neck Exam: Normal Inspection - Respiratory Exam Respiratory Exam: NORMAL BREATHING PATTERN - Cardiovascular Exam Cardiovascular Exam: REGULAR RHYTHM - GI/Abdominal Exam GI & Abdominal Exam: Normal Bowel Sounds - Rectal Exam Rectal Exam: Deferred - Extremities Exam Extremities Exam: absent: Pedal Edema - Back Exam Back Exam: NORMAL INSPECTION - Neurological Exam Neurological Exam: Alert - Psychiatric Exam Psychiatric exam: Normal Affect - Skin Skin Exam: Normal Color Assessment and Plan (1) Empyema lung Assessment & Plan: blood culture grew strep. Discussed with Dr Zaman who feels endocardidits will need to be ruled out prior to change to oral medicaiton. will arrange for ANGEL. Dr Allen to cover me for the boone of the week. will discuss with him Status: Acute (2) Hyperlipidemia Status: Chronic
[2017-12-17] MEDS: Insulin Lispro (humaLOG) 100 Units/ml Inj SC SCH ×5 (01:51→22:26)
[2017-12-17 06:25] LABS: MEAN CELL VOLUME 86.9 fl (80.0-94.0); MEAN CORPUSCULAR HEMOGLOBIN 29.8 pg (27.0-31.0); MEAN CORPUSCULAR HGB CONC 34.4 g/dL (33.0-37.0); RBC 3.67 Mil/uL (4.40-5.90); RED CELL DISTRIBUTION WIDTH 13.1 % (11.5-14.5); WHITE BLOOD COUNT 8.3 K/uL (4.8-10.8)
[2017-12-17 06:41] LABS: BLOOD UREA NITROGEN 13 mg/dl (9-20); CALCIUM 9.1 mg/dL (8.4-10.2); GFR AFRICAN-AMERICAN > 60; GFR NON-AFRICAN AMERICAN > 60
--- NOTE | 2017-12-17 07:46 | CP.PCM.PN ---
Subjective - Date & Time of Evaluation Date of Evaluation: 12/17/17 Time of Evaluation: 06:45 - Subjective Subjective: Patient seen and examined. Doing well. No acute events over night. Afebrile. To go for ANGEL. Objective - Vital Signs/Intake and Output Vital Signs (last 24 hours): Temp Pulse Resp BP Pulse Ox 98.2 F 80 19 124/61 97 12/17/17 00:00 12/17/17 00:00 12/17/17 00:00 12/17/17 00:00 12/17/17 00:00 - Medications Medications: Current Medications Acetaminophen (Tylenol 325mg Tab) 650 mg PO Q4 PRN PRN Reason: Fever >100.4 F Last Admin: 12/09/17 00:07 Dose: 650 mg Docusate Sodium (Colace) 200 mg PO DAILY [facility] Last Admin: 12/16/17 09:32 Dose: 200 mg Enoxaparin Sodium (Lovenox) 40 mg SC DAILY [facility] PRN Reason: Protocol Last Admin: 12/16/17 09:34 Dose: 40 mg Glipizide (Glucotrol Xl) 5 mg PO BRK [facility] Last Admin: 12/16/17 09:33 Dose: 5 mg Guaifenesin/Dextromethorphan (Mucinex-Dm 600-30 Mg) 1 tab PO BID [facility] Last Admin: 12/16/17 16:50 Dose: 1 tab Hydrocortisone (Cortizone 2.5% Cream) 2.5 applic TOP BID [facility] Last Admin: 12/16/17 16:49 Dose: 2.5 applic Ampicillin Sodium/Sulbactam (Sodium 3 gm/ Sodium Chloride) 100 mls @ 100 mls/ hr IVPB Q6 [facility] PRN Reason: Protocol Last Admin: 12/17/17 03:57 Dose: 100 mls/hr Insulin Human Lispro (Humalog) 0 units SC Q6 [facility] PRN Reason: Protocol Last Admin: 12/17/17 07:35 Dose: Not Given Lactobacillus Acidophilus (Bacid Acidophilus) 1 cap PO BID [facility] Last Admin: 12/16/17 16:47 Dose: 1 cap Lactulose (Enulose) 20 gm PO DAILY PRN PRN Reason: Constipation Last Admin: 12/08/17 10:52 Dose: 20 gm Metformin HCl (Glucophage) 1,000 mg PO BIDWM [facility] Last Admin: 12/16/17 16:48 Dose: 1,000 mg Sennosides (Senokot Tab) 8.6 mg PO HS [facility] Last Admin: 12/16/17 22:00 Dose: Not Given Sitagliptin Phosphate (Januvia) 100 mg PO DAILY [facility] Last Admin: 12/16/17 09:34 Dose: 100 mg - Labs Labs: 12/17/17 05:40 12/17/17 05:40 PT 15.6 Seconds (9.8-13.1) H 12/06/17 06:15 INR 1.4 (0.9-1.2) H 12/06/17 06:15 APTT 34.4 Seconds (25.6-37.1) 12/06/17 06:15 - Constitutional Appears: No Acute Distress - Head Exam Head Exam: NORMOCEPHALIC - Eye Exam Eye Exam: Normal appearance - ENT Exam ENT Exam: Mucous Membranes Moist - Respiratory Exam Respiratory Exam: NORMAL BREATHING PATTERN - Cardiovascular Exam Cardiovascular Exam: +S1, +S2 - GI/Abdominal Exam GI & Abdominal Exam: Soft - Neurological Exam Neurological Exam: Alert, Awake, Oriented x3 - Psychiatric Exam Psychiatric exam: Normal Mood - Skin Skin Exam: Dry, Intact, Warm Assessment and Plan - Assessment and Plan (Free Text) Assessment: 57yo M with left hemithorax empyema, lung abscess, and intrapulmonary mass s/p Video assisted thoracotomy. Left lateral muscle sparing thoracotomy. Evacuation of empyema. Decortication. Wedge resection of abscess. Intra pleural mass removal. Left Chest tube insertion x2. POD10 - Pleural Fluid cytology: negative for malignant cells. consistent with Empyema - Tissue pathology: Negative for malignancy Plan: -F/u [facility] results -F/u CXR in AM - Dressing care as needed: Dry gauze and tape. - Analgesic prn - ABx per ID - Encourage OOBTC, Ambulation, IS use Further recs as per Dr. Brii Grayson PGY2
[2017-12-17] MEDS: Lactobacillus Acidophilus 500 MU Cap PO SCH ×3 (10:06→18:26)
[2017-12-17] MEDS: GlipiZIDE 5 mg SR Tab PO SCH ×2 (10:07→18:28)
--- NOTE | 2017-12-17 10:07 | RAD ---
HISTORY: interval changes COMPARISON: Chest radiograph dated 12/16/2017. FINDINGS: LUNGS: Left basilar postoperative changes. PLEURA: Left basilar pleural thickening/postoperative changes. No pneumothorax apparent. CARDIOVASCULAR: Normal. OSSEOUS STRUCTURES: No significant abnormalities. VISUALIZED UPPER ABDOMEN: Normal. OTHER FINDINGS: Stable prominence of left lateral thoracic wall soft tissues. IMPRESSION: Similar appearance of left basilar pleural thickening with postoperative changes. No appreciable pneumothorax.
[2017-12-17] MEDS: guaiFENesin-DM 600-30 mg ER Tab PO SCH ×3 (10:09→18:29)
[2017-12-17] MEDS: Enoxaparin 40 mg Syringe SC SCH ×2 (10:09→18:28)
--- NOTE | 2017-12-17 11:26 | CP.PCM.PN ---
Subjective - Date & Time of Evaluation Date of Evaluation: 12/17/17 Time of Evaluation: 09:00 - Subjective Subjective: Patient seen and examined at bedside w/ Dr. Null. There are no acute events overnight, NAD. The patient reports improvement w/ breathing. The patient denies headaches, chest pain, SOB, abdominal pain, nausea, vomiting, diarrhea, dysuria, or fever. Objective - Vital Signs/Intake and Output Vital Signs (last 24 hours): Temp Pulse Resp BP Pulse Ox 98.3 F 71 18 124/67 97 12/17/17 07:44 12/17/17 07:44 12/17/17 07:44 12/17/17 07:44 12/17/17 07:44 - Medications Medications: Current Medications Acetaminophen (Tylenol 325mg Tab) 650 mg PO Q4 PRN PRN Reason: Fever >100.4 F Last Admin: 12/09/17 00:07 Dose: 650 mg Docusate Sodium (Colace) 200 mg PO DAILY [facility] Last Admin: 12/17/17 10:07 Dose: Not Given Enoxaparin Sodium (Lovenox) 40 mg SC DAILY [facility] PRN Reason: Protocol Last Admin: 12/17/17 10:09 Dose: Not Given Glipizide (Glucotrol Xl) 5 mg PO BRK [facility] Last Admin: 12/17/17 10:07 Dose: Not Given Guaifenesin/Dextromethorphan (Mucinex-Dm 600-30 Mg) 1 tab PO BID [facility] Last Admin: 12/17/17 10:09 Dose: Not Given Hydrocortisone (Cortizone 2.5% Cream) 2.5 applic TOP BID [facility] Last Admin: 12/16/17 16:49 Dose: 2.5 applic Ampicillin Sodium/Sulbactam (Sodium 3 gm/ Sodium Chloride) 100 mls @ 100 mls/ hr IVPB Q6 [facility] PRN Reason: Protocol Last Admin: 12/17/17 09:29 Dose: 100 mls/hr Insulin Human Lispro (Humalog) 0 units SC Q6 [facility] PRN Reason: Protocol Last Admin: 12/17/17 10:09 Dose: Not Given Lactobacillus Acidophilus (Bacid Acidophilus) 1 cap PO BID [facility] Last Admin: 12/17/17 10:06 Dose: Not Given Lactulose (Enulose) 20 gm PO DAILY PRN PRN Reason: Constipation Last Admin: 12/08/17 10:52 Dose: 20 gm Metformin HCl (Glucophage) 1,000 mg PO BIDWM [facility] Last Admin: 12/17/17 10:07 Dose: Not Given Sennosides (Senokot Tab) 8.6 mg PO HS [facility] Last Admin: 12/16/17 22:00 Dose: Not Given Sitagliptin Phosphate (Januvia) 100 mg PO DAILY [facility] Last Admin: 12/17/17 10:09 Dose: Not Given - Labs Labs: 12/17/17 05:40 12/17/17 05:40 PT 15.6 Seconds (9.8-13.1) H 12/06/17 06:15 INR 1.4 (0.9-1.2) H 12/06/17 06:15 APTT 34.4 Seconds (25.6-37.1) 12/06/17 06:15 - Constitutional Appears: Non-toxic, No Acute Distress - Head Exam Head Exam: ATRAUMATIC, NORMAL INSPECTION, NORMOCEPHALIC - Eye Exam Eye Exam: Normal appearance - ENT Exam ENT Exam: Mucous Membranes Moist - Neck Exam Neck Exam: Full ROM. absent: Tenderness - Respiratory Exam Respiratory Exam: Decreased Breath Sounds, Clear to Ausculation Bilateral. absent: Accessory Muscle Use, Rales, Rhonchi, Wheezes, Respiratory Distress - Cardiovascular Exam Cardiovascular Exam: REGULAR RHYTHM, RRR. absent: Tachycardia - GI/Abdominal Exam GI & Abdominal Exam: Soft, Normal Bowel Sounds. absent: Distended, Tenderness - Extremities Exam Extremities Exam: Normal Inspection. absent: Calf Tenderness - Neurological Exam Neurological Exam: Alert, Awake, Normal Gait, Oriented x3 - Skin Skin Exam: Dry, Intact, Normal Color, Warm Assessment and Plan (1) Chest tube in place Status: Acute (2) Empyema lung Status: Acute (3) Pleural effusion Status: Acute (4) DM type 2 (diabetes mellitus, type 2) Status: Chronic (5) Hyperlipidemia Status: Chronic - Assessment and Plan (Free Text) Plan: c/w present management, s/p VATS w/ chest tube insertion POD 10 afebrile, non-tachycardic, normotensive CT surgery recommendations appreciated Pulmonary recommendations appreciated Cardiology recommendations appreciated Infectious Disease recommendations appreciated CXR: left basilar pleural thickening w/ postoperative changes, no pneumothorax unasyn 3 gm IV Q6h day 7 f/u [facility] prophylactic measures: DVT lovenox 40 mg SC daily monitor for acute changes
--- NOTE | 2017-12-17 11:55 | CP.PCM.PN ---
Subjective - Date & Time of Evaluation Date of Evaluation: 12/17/17 Time of Evaluation: 10:00 - Subjective Subjective: await ANGEL cont iv rx lungs- rales left base Objective - Vital Signs/Intake and Output Vital Signs (last 24 hours): Temp Pulse Resp BP Pulse Ox 98.3 F 71 18 124/67 97 12/17/17 07:44 12/17/17 07:44 12/17/17 07:44 12/17/17 07:44 12/17/17 07:44 - Medications Medications: Current Medications Acetaminophen (Tylenol 325mg Tab) 650 mg PO Q4 PRN PRN Reason: Fever >100.4 F Last Admin: 12/09/17 00:07 Dose: 650 mg Docusate Sodium (Colace) 200 mg PO DAILY [facility] Last Admin: 12/17/17 10:07 Dose: Not Given Enoxaparin Sodium (Lovenox) 40 mg SC DAILY [facility] PRN Reason: Protocol Last Admin: 12/17/17 10:09 Dose: Not Given Glipizide (Glucotrol Xl) 5 mg PO BRK [facility] Last Admin: 12/17/17 10:07 Dose: Not Given Guaifenesin/Dextromethorphan (Mucinex-Dm 600-30 Mg) 1 tab PO BID [facility] Last Admin: 12/17/17 10:09 Dose: Not Given Hydrocortisone (Cortizone 2.5% Cream) 2.5 applic TOP BID [facility] Last Admin: 12/16/17 16:49 Dose: 2.5 applic Ampicillin Sodium/Sulbactam (Sodium 3 gm/ Sodium Chloride) 100 mls @ 100 mls/ hr IVPB Q6 [facility] PRN Reason: Protocol Last Admin: 12/17/17 09:29 Dose: 100 mls/hr Insulin Human Lispro (Humalog) 0 units SC Q6 [facility] PRN Reason: Protocol Last Admin: 12/17/17 10:09 Dose: Not Given Lactobacillus Acidophilus (Bacid Acidophilus) 1 cap PO BID [facility] Last Admin: 12/17/17 10:06 Dose: Not Given Lactulose (Enulose) 20 gm PO DAILY PRN PRN Reason: Constipation Last Admin: 12/08/17 10:52 Dose: 20 gm Metformin HCl (Glucophage) 1,000 mg PO BIDWM [facility] Last Admin: 12/17/17 10:07 Dose: Not Given Sennosides (Senokot Tab) 8.6 mg PO HS [facility] Last Admin: 12/16/17 22:00 Dose: Not Given Sitagliptin Phosphate (Januvia) 100 mg PO DAILY [facility] Last Admin: 12/17/17 10:09 Dose: Not Given - Labs Labs: 12/17/17 05:40 12/17/17 05:40 PT 15.6 Seconds (9.8-13.1) H 12/06/17 06:15 INR 1.4 (0.9-1.2) H 12/06/17 06:15 APTT 34.4 Seconds (25.6-37.1) 12/06/17 06:15 Assessment and Plan (1) DM type 2 (diabetes mellitus, type 2) Status: Chronic (2) Empyema lung Status: Acute (3) Fever Status: Acute (4) Pleural effusion Status: Acute (5) Chest tube in place Status: Acute (6) Chest tube in place Status: Acute
--- NOTE | 2017-12-17 14:08 | CP.PCM.PN ---
Subjective - Date & Time of Evaluation Date of Evaluation: 12/17/17 Time of Evaluation: 14:05 - Subjective Subjective: Pt s/e. Afebrile. vss. wbc-8.1 chest xray-better aeration left base. Wound-satisfactory. a/p:Doing well. d/c as per Dr. Null. RTO one week. Objective - Vital Signs/Intake and Output Vital Signs (last 24 hours): Temp Pulse Resp BP Pulse Ox 98.3 F 71 18 124/67 97 12/17/17 07:44 12/17/17 07:44 12/17/17 07:44 12/17/17 07:44 12/17/17 07:44 - Medications Medications: Current Medications Acetaminophen (Tylenol 325mg Tab) 650 mg PO Q4 PRN PRN Reason: Fever >100.4 F Last Admin: 12/09/17 00:07 Dose: 650 mg Docusate Sodium (Colace) 200 mg PO DAILY [facility] Last Admin: 12/17/17 10:07 Dose: Not Given Enoxaparin Sodium (Lovenox) 40 mg SC DAILY [facility] PRN Reason: Protocol Last Admin: 12/17/17 10:09 Dose: Not Given Glipizide (Glucotrol Xl) 5 mg PO BRK [facility] Last Admin: 12/17/17 10:07 Dose: Not Given Guaifenesin/Dextromethorphan (Mucinex-Dm 600-30 Mg) 1 tab PO BID [facility] Last Admin: 12/17/17 10:09 Dose: Not Given Hydrocortisone (Cortizone 2.5% Cream) 2.5 applic TOP BID [facility] Last Admin: 12/17/17 12:53 Dose: Not Given Ampicillin Sodium/Sulbactam (Sodium 3 gm/ Sodium Chloride) 100 mls @ 100 mls/ hr IVPB Q6 [facility] PRN Reason: Protocol Last Admin: 12/17/17 09:29 Dose: 100 mls/hr Insulin Human Lispro (Humalog) 0 units SC Q6 [facility] PRN Reason: Protocol Last Admin: 12/17/17 10:09 Dose: Not Given Lactobacillus Acidophilus (Bacid Acidophilus) 1 cap PO BID [facility] Last Admin: 12/17/17 10:06 Dose: Not Given Lactulose (Enulose) 20 gm PO DAILY PRN PRN Reason: Constipation Last Admin: 12/08/17 10:52 Dose: 20 gm Metformin HCl (Glucophage) 1,000 mg PO BIDWM [facility] Last Admin: 12/17/17 10:07 Dose: Not Given Sennosides (Senokot Tab) 8.6 mg PO HS [facility] Last Admin: 12/16/17 22:00 Dose: Not Given Sitagliptin Phosphate (Januvia) 100 mg PO DAILY [facility] Last Admin: 12/17/17 10:09 Dose: Not Given - Labs Labs: 12/17/17 05:40 12/17/17 05:40 PT 15.6 Seconds (9.8-13.1) H 12/06/17 06:15 INR 1.4 (0.9-1.2) H 12/06/17 06:15 APTT 34.4 Seconds (25.6-37.1) 12/06/17 06:15
[2017-12-17] MEDS ORDERED: Etomidate 20 mg/10ml Inj IV ONE (14:31)
[2017-12-17] MEDS ORDERED: Propofol 10 mg/ml Inj (20 ML) ONE (14:31)
[2017-12-17] MEDS ORDERED: Phenylephrine 10 mg/ml Inj ONE (14:31)
[2017-12-17] MEDS ORDERED: Sodium Chloride 0.9% 1,000 ML IV ONE (15:02)
[2017-12-17 16:40] VITALS: BP 139/67; PULSE 67; RESP 20; TEMP 98.4; O2SAT 98
[2017-12-17] MEDS ORDERED: Oxycodone/Acetaminophen 5/325 mg Tab PO PRN (18:17)
[2017-12-17] MEDS ORDERED: Oxycodone/Acetaminophen 5/325 mg Tab PO ONE (20:48)
--- NOTE | 2017-12-17 21:43 | CP.PCM.DIS ---
Provider - Provider Date of Admission: 12/04/17 07:55 Attending physician: Genaro Null MD Diagnosis - Discharge Diagnosis (1) Pleural effusion Status: Acute Priority: High (2) Empyema lung Status: Acute Priority: High (3) DM type 2 (diabetes mellitus, type 2) Status: Chronic Priority: Medium (4) Hyperlipidemia Status: Chronic Priority: Medium Hospital Course - Lab Results Lab Results: Micro Results 12/06/17 16:00 Chest Left Fungal Culture - Preliminary NO FUNGUS GROWTH IN 1 WEEK. 12/14/17 08:40 Naris MRSA Culture (Admit) - Final MRSA NOT DETECTED 12/06/17 16:00 Other: Please Indicate Mycobacterial Culture - Preliminary 12/06/17 16:00 Chest Gram Stain - Final 12/06/17 16:00 Chest Wound Culture - Final Strep Constellatus/Milleri 12/04/17 13:25 Body Fluid - Pleural Fluid Gram Stain - Final 12/04/17 13:25 Body Fluid - Pleural Fluid Body Fluid Culture - Final Strep Constellatus/Milleri 12/04/17 07:50 Blood-Venous Blood Culture - Final NO GROWTH AFTER 5 DAYS 12/04/17 07:50 Blood-Venous Gram Stain - Final TEST NOT PERFORMED 12/04/17 08:15 Blood-Venous Blood Culture - Final NO GROWTH AFTER 5 DAYS 12/04/17 08:15 Blood-Venous Gram Stain - Final TEST NOT PERFORMED 12/06/17 10:20 Sputum Gram Stain - Final 12/06/17 10:20 Sputum Sputum Culture - Final NORMAL ORAL SONI 12/05/17 11:30 Naris MRSA Culture (Admit) - Final MRSA NOT DETECTED 12/04/17 09:00 Urine,Clean Catch Urine Culture - Final No Growth (<1,000 CFU/ML) Most Recent Lab Values WBC 8.3 K/uL (4.8-10.8) 12/17/17 05:40 RBC 3.67 Mil/uL (4.40-5.90) L 12/17/17 05:40 Hgb 11.0 g/dL (12.0-18.0) L 12/17/17 05:40 Hct 31.9 % (35.0-51.0) L 12/17/17 05:40 MCV 86.9 fl (80.0-94.0) 12/17/17 05:40 MCH 29.8 pg (27.0-31.0) 12/17/17 05:40 MCHC 34.4 g/dL (33.0-37.0) 12/17/17 05:40 RDW 13.1 % (11.5-14.5) 12/17/17 05:40 Plt Count 719 K/uL (130-400) H 12/17/17 05:40 MPV 6.2 fl (7.2-11.7) L 12/15/17 05:20 Neut % (Auto) 73.3 % (50.0-75.0) 12/15/17 05:20 Lymph % (Auto) 12.9 % (20.0-40.0) L 12/15/17 05:20 Harvey % (Auto) 9.3 % (0.0-10.0) 12/15/17 05:20 Eos % (Auto) 3.2 % (0.0-4.0) 12/15/17 05:20 Baso % (Auto) 1.3 % (0.0-2.0) 12/15/17 05:20 Neut # (Auto) 7.5 K/uL (1.8-7.0) H 12/15/17 05:20 Lymph # (Auto) 1.3 K/uL (1.0-4.3) 12/15/17 05:20 Harvey # (Auto) 0.9 K/uL (0.0-0.8) H 12/15/17 05:20 Eos # (Auto) 0.3 K/uL (0.0-0.7) 12/15/17 05:20 Baso # (Auto) 0.1 K/uL (0.0-0.2) 12/15/17 05:20 Neutrophils % (Manual) 86 % (42-75) H 12/08/17 05:25 Band Neutrophils % 1 % (0-2) 12/08/17 05:25 Lymphocytes % (Manual) 10 % (20-50) L 12/08/17 05:25 Reactive Lymphs % 2 % (0-0) H 12/04/17 07:59 Monocytes % (Manual) 2 % (0-10) 12/08/17 05:25 Eosinophils % (Manual) 1 % (0-7) 12/04/17 07:59 Platelet Estimate Increased (NORMAL) H 12/08/17 05:25 ESR 101 mm/hr (0-20) H 12/04/17 09:46 PT 15.6 Seconds (9.8-13.1) H 12/06/17 06:15 INR 1.4 (0.9-1.2) H 12/06/17 06:15 APTT 34.4 Seconds (25.6-37.1) 12/06/17 06:15 pCO2 36 mm/Hg (35-45) 12/06/17 15:23 pO2 77 mm/Hg (80-100) L 12/06/17 15:23 HCO3 29.8 mmol/L (21-28) H 12/06/17 15:23 ABG pH 7.52 (7.35-7.45) H 12/06/17 15:23 ABG Total CO2 30.5 mmol/L (22-28) H 12/06/17 15:23 ABG O2 Saturation 97.6 % (95-98) 12/06/17 15:23 ABG Base Excess 6.3 mmol/L (-2.0-3.0) H 12/06/17 15:23 Odin Test Yes 12/06/17 15:23 ABG Potassium 3.9 mmol/L (3.6-5.2) 12/06/17 15:23 A-a O2 Difference 306.0 mm/Hg 12/06/17 15:23 Sodium 133.0 mmol/L (132-148) 12/06/17 15:23 Chloride 100.0 mmol/L (98-107) 12/06/17 15:23 Glucose 180 mg/dL (75-110) H 12/06/17 15:23 Lactate 1.0 mmol/L (0.7-2.1) 12/06/17 15:23 FiO2 60.0 % 12/06/17 15:23 Blood Gas Comments One lung ventilation /60% 12/06/17 15:23 Crit Value Read Back Y 12/06/17 15:23 Sodium 139 mmol/l (132-148) 12/17/17 05:40 Potassium 4.8 MMOL/L (3.6-5.0) 12/17/17 05:40 Chloride 98 mmol/L (98-107) 12/17/17 05:40 Carbon Dioxide 35 mmol/L (22-30) H 12/17/17 05:40 Anion Gap 11 (10-20) 12/17/17 05:40 BUN 13 mg/dl (9-20) 12/17/17 05:40 Creatinine 0.8 mg/dl (0.8-1.5) 12/17/17 05:40 Est GFR ( Amer) > 60 12/17/17 05:40 Est GFR (Non-Af Amer) > 60 12/17/17 05:40 POC Glucose (mg/dL) 110 mg/dL (65-110) 12/17/17 15:36 Random Glucose 141 mg/dL (75-110) H 12/17/17 05:40 Hemoglobin A1c 10.1 % (4.2-6.5) H 12/05/17 05:30 Calcium 9.1 mg/dL (8.4-10.2) 12/17/17 05:40 Total Bilirubin 0.4 mg/dl (0.2-1.3) 12/10/17 04:50 AST 35 U/L (17-59) 12/10/17 04:50 ALT 35 U/L (21-72) 12/10/17 04:50 Alkaline Phosphatase 114 U/L (38-126) 12/10/17 04:50 Total Protein 6.2 G/DL (6.3-8.2) L 12/10/17 04:50 Albumin 2.6 g/dL (3.5-5.0) L 12/10/17 04:50 Globulin 3.6 gm/dL (2.2-3.9) 12/10/17 04:50 Albumin/Globulin Ratio 0.7 (1.0-2.1) L 12/10/17 04:50 Triglycerides 90 mg/DL (0-149) 12/05/17 08:17 Cholesterol 103 mg/dL (0-199) 12/05/17 08:17 LDL Cholesterol Direct 66 mg/dL (0-129) 12/05/17 08:17 HDL Cholesterol 13 MG/DL (30-70) L 12/05/17 08:17 Alpha Fetoprotein 1.1 IU/mL (0.0-7.22) 12/05/17 08:17 Carcinoembryonic Ag 4.6 ng/mL (0-3.0) H 12/06/17 19:00 CA 19-9 Antigen < 1.4 U/mL (0-37) 12/05/17 08:17 Prostate Specific Ag 0.886 ng/ML (0.00-4.0) 12/05/17 08:17 Procalcitonin 0.52 NG/ML (0.19-0.49) H 12/08/17 13:24 TSH 3rd Generation 0.30 mIU/ML (0.46-4.68) L 12/05/17 08:17 Arterial Blood Potassium 3.9 mmol/L (3.6-5.2) 12/06/17 15:23 Urine Color Yellow (YELLOW) 12/04/17 09:00 Urine Clarity Clear (Clear) 12/04/17 09:00 Urine pH 6.0 (5.0-8.0) 12/04/17 09:00 Ur Specific [place] 1.023 (1.003-1.030) 12/04/17 09:00 Urine Protein 30 mg/dL (NEGATIVE) 12/04/17 09:00 Urine Glucose (UA) >=500 mg/dL (Normal) 12/04/17 09:00 Urine Ketones Negative mg/dL (NEGATIVE) 12/04/17 09:00 Urine Blood Small (NEGATIVE) 12/04/17 09:00 Urine Nitrate Negative (NEGATIVE) 12/04/17 09:00 Urine Bilirubin Negative (NEGATIVE) 12/04/17 09:00 Urine Urobilinogen 0.2-1.0 mg/dL (0.2-1.0) 12/04/17 09:00 Ur Leukocyte Esterase Neg [place]/uL (Negative) 12/04/17 09:00 Urine RBC (Auto) 4 /hpf (0-3) H 12/04/17 09:00 Urine Microscopic WBC 1 /hpf (0-5) 12/04/17 09:00 Fluid Source Cancelled 12/06/17 16:00 Fluid Appearance Cancelled 12/06/17 16:00 Fluid WBC Cancelled 12/06/17 16:00 Fluid RBC Cancelled 12/06/17 16:00 Fluid Tot Cell Count Cancelled 12/06/17 16:00 Fluid Neutrophils Cancelled 12/06/17 16:00 Fluid Lymphocytes Cancelled 12/06/17 16:00 Fld Monocyte/Macrophag Cancelled 12/06/17 16:00 Fluid Glucose 78 mg/dL (NONE ESTABLISHED) 12/04/17 13:25 Fluid Total Protein 2.7 g/dL (NONE ESTABLISHED) 12/04/17 13:25 Fluid LDH 190048 IU (NONE ESTABLISHED) 12/04/17 13:25 Fluid Amylase Cancelled 12/06/17 16:00 Fluid Triglycerides Cancelled 12/06/17 16:00 Fluid Comment Cancelled 12/06/17 16:00 Vancomycin Trough 17.3 ug/mL (5.0-10.0) H 12/10/17 04:50 Coccidioides TP-Ag Ab Negative 12/04/17 14:59 Coccidioides F-Ag Ab Negative 12/04/17 14:59 Histoplasma Ab Imm Diff Negative (Negative) 12/04/17 14:59 Histop Galactomannan Ag TNP 12/04/17 20:30 HIV 1&2 Antibody Screen Negative (NEGATIVE) 12/05/17 15:30 Ur L.pneumophila Ag Negative (NEGATIVE) 12/06/17 10:20 TB Test (QFT) Nil 0.05 IU/mL 12/04/17 09:30 TB Test Mitogen - Nil 0.32 IU/mL 12/04/17 09:30 TB Test TB - Nil 0.01 IU/mL 12/04/17 09:30 TB Test (QFT) Indeterminate (Negative) H 12/04/17 09:30 Blood Type B POSITIVE 12/06/17 06:15 Blood Type Confirm B POSITIVE 12/06/17 10:00 Antibody Screen Negative 12/06/17 06:15 Crossmatch See Detail 12/06/17 06:15 BBK History Checked No verified bt 12/06/17 06:15 Discharge Exam - Head Exam Head Exam: ATRAUMATIC, NORMAL INSPECTION, NORMOCEPHALIC Discharge Plan - Follow Up Plan Condition: STABLE Disposition: HOME/ ROUTINE Instructions: Video-Assisted Thoracic Surgery, Pleural Effusion (DC) Additional Instructions: follow up with primary MD 1 week Referrals: Cristhian Teresa MD [Medical Doctor] - Genaro Null MD [Family Provider] -
--- NOTE | 2017-12-19 15:03 | CARD ---
APPROVED REPORT EXAM: Transesophageal echocardiogram with color flow Doppler. INDICATION Infection:Subacute bacterial endocarditis Echo Enhancing Agent Indication: Endocardial border delineation PROCEDURE After obtaining informed consent, patient underwent transesophageal echo in the Echo Lab. Type of Sedation : Conscious Sedation Sedation was provided by anesthesiologist. Sedation was achieved with intravenously. Transesophageal probe was inserted and advanced into esophagus without difficulty. The ANGEL was performed without complications. Throughout the procedure, the blood pressure, pulse oximetry, cardiac rhythm, and rate were monitored. The patient tolerated the procedure without adverse effects. Recovery from conscious sedation was uneventful and vital signs were stable. LEFT VENTRICLE The left ventricle is normal size. There is normal left ventricular wall thickness. The left ventricular function is normal. The left ventricular ejection fraction is within the normal range. No regional wall motion abnormalities noted. The left ventricular diastolic function is normal. No left ventricle thrombus noted on this study. There is no ventricular septal defect visualized. There is no left ventricular aneurysm. There is no mass noted in the left ventricle. RIGHT VENTRICLE The right ventricle is normal size. There is normal right ventricular wall thickness. The right ventricular systolic function is normal. ATRIA The left atrium size is normal. The right atrium size is normal. The interatrial septum is intact with no evidence for an atrial septal defect. AORTIC VALVE The aortic valve is sclerotic. The aortic valve is trileaflet. No aortic regurgitation is present. There is no aortic valvular stenosis. There is no aortic valvular vegetation. MITRAL VALVE The mitral valve is normal in structure. NO MV VEGETATIONS NOTED There is no evidence of mitral valve prolapse. There is no mitral valve stenosis. There is no mitral valve regurgitation noted. TRICUSPID VALVE The tricuspid valve is normal in structure. There is no tricuspid valve regurgitation noted. There is no tricuspid valve prolapse or vegetation. There is no tricuspid valve stenosis. PULMONIC VALVE The pulmonary valve is normal in structure. NO VEGETATIONS NOTED There is no pulmonic valvular regurgitation. There is no pulmonic valvular stenosis. GREAT VESSELS The aortic root is normal size. The aortic root displays moderate sclerocalcific changes of the aortic root. There ismoderate atherosclerotic plaque in the aortic arch. PERICARDIAL EFFUSION The pericardium appears normal. There is no pleural effusion. <Conclusion> NO EVIDENCE OF ENDOCARDITIS. MODERATED CALCIFICATION IN AORTIC ROOT, ASCENDING AORTA AND AORTIC ARCH.
== END 2017-12-17 22:30 | disposition home or self-care (01) | DRG 163 ==
LOC: H.ER 07:07 → H.ERHOLD 07:55 → H.MEDSURG1 09:53 → H.ERHOLD 12-06 18:32 → H.ICU/CCU 12-06 20:33 → H.MEDSURG1 12-14 17:50
PROVIDERS: ADMIT Family Medicine; ATTEND Family Medicine
PROC: 0W9B30Z Drainage of Left Pleural Cavity with Drainage Device, Percutaneous Approach (ICD-10-PCS; 2017-12-04)
PROC: 30233K1 Transfusion of Nonautologous Frozen Plasma into Peripheral Vein, Percutaneous Approach (ICD-10-PCS; 2017-12-06)
PROC: 0BNJ0ZZ Release Left Lower Lung Lobe, Open Approach (ICD-10-PCS; principal; 2017-12-07)
PROC: 0BBJ0ZZ Excision of Left Lower Lung Lobe, Open Approach (ICD-10-PCS; 2017-12-07)
PROC: 0BBP0ZX Excision of Left Pleura, Open Approach, Diagnostic (ICD-10-PCS; 2017-12-07)
PROC: 0W9B00Z Drainage of Left Pleural Cavity with Drainage Device, Open Approach (ICD-10-PCS; 2017-12-07)
PROC: B246ZZ4 Ultrasonography of Right and Left Heart, Transesophageal (ICD-10-PCS; 2017-12-17)
DX: J86.9 Pyothorax without fistula (principal); J85.2 Abscess of lung without pneumonia; J98.11 Atelectasis; J91.8 Pleural effusion in other conditions classified elsewhere; J94.8 Other specified pleural conditions; I25.10 Atherosclerotic heart disease of native coronary artery without angina pectoris; E78.5 Hyperlipidemia, unspecified; D47.3 Essential (hemorrhagic) thrombocythemia; Z87.891 Personal history of nicotine dependence; R06.89 Other abnormalities of breathing; R79.1 Abnormal coagulation profile; E11.65 Type 2 diabetes mellitus with hyperglycemia; D63.8 Anemia in other chronic diseases classified elsewhere; B95.4 Other streptococcus as the cause of diseases classified elsewhere